=== PATIENT | male | born 1990 | race Caucasian/White ===

== ENCOUNTER 2016-08-18 16:18 | Inpatient (IN) | payer BC, MEDICAID, OTHER ==
--- NOTE | 2016-08-18 18:07 | ED ---
General Adult HPI - General Chief complaint: Skin/Abscess/Foreign Body Stated complaint: Male Time Seen by Provider: 08/18/16 17:34 Source: patient, RN notes reviewed Mode of arrival: ambulatory Limitations: no limitations - History of Present Illness Initial comments: 25 yo male presents to the ER with cc of feelings of things crawling on him. Patient states he has tried all of his own treatments. Patient states he got a new couch he cleaned his bed. Patient states that he cleaned himself with scabies cream he shaved his body. Patient states he's never actually seen any bugs that he feels a little crawling on him. Patient states worse at night than during the day. Patient states that he just does not know what else to do. Patient states he just cannot tolerate this anymore. Patient does have a diagnosis of schizophrenia. Patient states he has not been taking any of his medications. Patient states he typically has a meltdown about once every 1-2 years gets on meds goes off of the metatarsal. Patient states that he was concerned due to these continued symptoms and problems with thought that he should be evaluated. Patient denies any recent fever, chills, shortness of breath, chest pain, back pain, abdominal pain, nausea vomiting, numbness or tingling, dysuria or hematuria, constipation or diarrhea, headaches or visual changes, or any other current symptoms. - Related Data Home Medications Medication Instructions Recorded Confirmed No Known Home Medications [No 08/18/16 08/18/16 Known Home Medications] Allergies Allergy/AdvReac Type Severity Reaction Status Date / Time No Known Allergies Allergy Verified 08/18/16 17:42 Review of Systems ROS Statement: Those systems with pertinent positive or pertinent negative responses have been documented in the HPI. ROS Other: All systems not noted in ROS Statement are negative. Past Medical History Past Medical History: Respiratory Disorder Additional Past Medical History / Comment(s): schizophrenia History of Any Multi-Drug Resistant Organisms: None Reported Past Surgical History: Tonsillectomy Additional Past Surgical History / Comment(s): colonoscopy Past Anesthesia/Blood Transfusion Reactions: No Reported Reaction Past Psychological History: Anxiety, Depression, Panic Disorder, Schizophrenia Smoking Status: Current every day smoker Past Alcohol Use History: Occasional Additional Past Alcohol Use History / Comment(s): Patient is currently a smoker one pack per day for several years. He states he smokes is much marijuana as he can. He states he tried cocaine once but does not use on a regular basis. He states he drinks alcohol occasionally. Past Drug Use History: Marijuana, Methamphetamine - Past Family History Father Additional Family Medical History / Comment(s): Father is alive at age 49 with history of anxiety. Mother Additional Family Medical History / Comment(s): Mother is alive at age 42 with history of back problems and back surgery. Brother(s) Additional Family Medical History / Comment(s): Patient has one half brother with no major medical problems. He has 1 sister with no major medical problems. Patient has one son that is healthy. General Exam Limitations: no limitations General appearance: alert, in no apparent distress Eye exam: Present: normal appearance, PERRL, EOMI. Absent: scleral icterus, conjunctival injection, periorbital swelling ENT exam: Present: normal exam, mucous membranes moist Neck exam: Present: normal inspection. Absent: tenderness, meningismus, lymphadenopathy Respiratory exam: Present: normal lung sounds bilaterally. Absent: respiratory distress, wheezes, rales, rhonchi, stridor Cardiovascular Exam: Present: regular rate, normal rhythm, normal heart sounds. Absent: systolic murmur, diastolic murmur, rubs, gallop, clicks Back exam: Present: normal inspection Neurological exam: Present: alert, oriented X3, CN II-XII intact. Absent: motor sensory deficit Psychiatric exam: Present: normal affect, normal mood Skin exam: Present: warm, dry, intact, normal color. Absent: rash Course Vital Signs 08/18/16 08/18/16 16:33 19:08 Temperature 97.6 F Pulse Rate 85 63 Respiratory 20 15 Rate Blood Pressure 120/67 119/72 O2 Sat by Pulse 98 99 Oximetry Medical Decision Making - Medical Decision Making 25-year-old male presents to the emergency department with a chief complaint of feeling as if nothing is currently on him. This time physical exam does not show any signs of any insect bites that is nontender to be any irritation to the skin. There is concern for psychiatric involvement to the patient's psychiatric history nothing of his medications. We will have the patient evaluated by psychiatry. At this time the patient will be admitted to the psychiatric unit for psychosis. - Lab Data Lab Results 08/18/16 Range/Units 18:14 Urine Opiates Screen Not Detected (NotDetected) Ur Oxycodone Screen Not Detected (NotDetected) Urine Methadone Screen Not Detected (NotDetected) Ur Propoxyphene Screen Not Detected (NotDetected) Ur Barbiturates Screen Not Detected (NotDetected) U Tricyclic Antidepress Not Detected (NotDetected) Ur Phencyclidine Scrn Not Detected (NotDetected) Ur Amphetamines Screen Not Detected (NotDetected) U Methamphetamines Scrn Not Detected (NotDetected) U Benzodiazepines Scrn Not Detected (NotDetected) Urine Cocaine Screen Not Detected (NotDetected) U Marijuana (THC) Screen Detected H (NotDetected) Disposition Clinical Impression: Psychosis Disposition: TRANSFER TO PSYCH HOSP/UNIT Time of Disposition: 19:51
[2016-08-18] MEDS ORDERED: ZIPRASIDONE 20 MG VIAL IM PRN (20:29)
[2016-08-18] MEDS ORDERED: MAGNESIUM HYDROXIDE 2,400 MG/10 ML CUP PO PRN (20:29)
[2016-08-18] MEDS ORDERED: MAG HYDROX/AL HYDROX/SIMETH 30 ML CUP PO PRN (20:29)
[2016-08-18 20:46] LABS: Appearance,Urine Clear (Clear); Bilirubin,Urine Negative (Negative); Glucose,Urine (UA) Negative (Negative); Ketones,Urine 1+ (Negative); Leukocyte Esterase,Urine Negative (Negative); Nitrite,Urine Negative (Negative); PH, Urine 6.5 (5.0-8.0); Protein,Urine Trace (Negative); Specific Gravity,Urine 1.026 (1.001-1.035); UA Billing (MACRO vs. MICRO) CHEM
[2016-08-18] MEDS: LORazepam 1 MG TAB PO PRN (23:17)
[2016-08-19] MEDS: NICOTINE 14MG/24HR PATCH TRANSDERM SCH (10:04)
[2016-08-19 10:07] LABS: Basophils # (A) 0.1 k/uL (0-0.2); Basophils % (A) 1 %; CH 30.8; CHCM 35.9; Eosinophils # (A) 0.3 k/uL (0-0.7); Eosinophils % (A) 4 %; HDW 2.98; HGB 17.3 gm/dL (13.0-17.5); Luc # (Auto) 0.17; Luc % (Auto) 3; Lymphocytes # (A) 1.6 k/uL (1.0-4.8); Lymphocytes % (A) 25 %; MCH 30.4 pg (25.0-35.0); MCHC 35.3 g/dL (31.0-37.0); MCV 86.3 fL (80.0-100.0); Mean Platelet Volume 8.3; Monocytes # (A) 0.6 k/uL (0-1.0); Monocytes % (A) 8 %; Neutrophils # (A) 3.9 k/uL (1.3-7.7); Neutrophils % (A) 59 %; RBC 5.68 m/uL (4.30-5.90); RDW 12.7 % (11.5-15.5); WBC 6.6 k/uL (3.8-10.6); WBC (Perox) 6.66
[2016-08-19 10:22] LABS: ALT 24 U/L (21-72); AST 21 U/L (17-59); Alkaline Phosphatase 54 U/L (38-126); Anion Gap 12 mmol/L; Blood Urea Nitrogen 16 mg/dL (9-20); Calcium 9.6 mg/dL (8.4-10.2); Carbon Dioxide 27 mmol/L (22-30); Chloride 103 mmol/L (98-107); Glucose 74 mg/dL (74-99); Non-African American GFR(MDRD) >60 (>60 ml/min/1.73 sqM); Potassium 4.3 mmol/L (3.5-5.1); Sodium 142 mmol/L (137-145); Total Bilirubin 0.7 mg/dL (0.2-1.3); Total Protein 7.2 g/dL (6.3-8.2)
--- NOTE | 2016-08-19 10:59 | P.HP ---
Psychiatric H&P - . History & Physical: Allergies Allergy/AdvReac Type Severity Reaction Status Date / Time No Known Allergies Allergy Verified 08/18/16 17:42 Vital Signs Temp 98.0 F 08/19/16 06:55 Pulse 68 08/19/16 06:55 Resp 18 08/19/16 06:55 BP 95/50 08/19/16 06:55 Pulse Ox 98 08/18/16 22:06 Intake & Output 08/18/16 08/19/16 08/19/16 18:59 06:59 18:59 Weight 64.7 kg Laboratory Last Values WBC 6.6 k/uL (3.8-10.6) 08/19/16 09:34 RBC 5.68 m/uL (4.30-5.90) 08/19/16 09:34 Hgb 17.3 gm/dL (13.0-17.5) 08/19/16 09:34 Hct 49.0 % (39.0-53.0) 08/19/16 09:34 MCV 86.3 fL (80.0-100.0) 08/19/16 09:34 MCH 30.4 pg (25.0-35.0) 08/19/16 09:34 MCHC 35.3 g/dL (31.0-37.0) 08/19/16 09:34 RDW 12.7 % (11.5-15.5) 08/19/16 09:34 Plt Count 163 k/uL (150-450) 08/19/16 09:34 Neutrophils % 59 % 08/19/16 09:34 Lymphocytes % 25 % 08/19/16 09:34 Monocytes % 8 % 08/19/16 09:34 Eosinophils % 4 % 08/19/16 09:34 Basophils % 1 % 08/19/16 09:34 Neutrophils # 3.9 k/uL (1.3-7.7) 08/19/16 09:34 Lymphocytes # 1.6 k/uL (1.0-4.8) 08/19/16 09:34 Monocytes # 0.6 k/uL (0-1.0) 08/19/16 09:34 Eosinophils # 0.3 k/uL (0-0.7) 08/19/16 09:34 Basophils # 0.1 k/uL (0-0.2) 08/19/16 09:34 Urine Color Yellow 08/18/16 18:14 Urine Appearance Clear (Clear) 08/18/16 18:14 Urine pH 6.5 (5.0-8.0) 08/18/16 18:14 Ur Specific [place] 1.026 (1.001-1.035) 08/18/16 18:14 Urine Protein Trace (Negative) H 08/18/16 18:14 Urine Glucose (UA) Negative (Negative) 08/18/16 18:14 Urine Ketones 1+ (Negative) H 08/18/16 18:14 Urine Blood Negative (Negative) 08/18/16 18:14 Urine Nitrate Negative (Negative) 08/18/16 18:14 Urine Bilirubin Negative (Negative) 08/18/16 18:14 Urine Urobilinogen 2.0 mg/dL (<2.0) 08/18/16 18:14 Ur Leukocyte Esterase Negative (Negative) 08/18/16 18:14 Urine Opiates Screen Not Detected (NotDetected) 08/18/16 18:14 Ur Oxycodone Screen Not Detected (NotDetected) 08/18/16 18:14 Urine Methadone Screen Not Detected (NotDetected) 08/18/16 18:14 Ur Propoxyphene Screen Not Detected (NotDetected) 08/18/16 18:14 Ur Barbiturates Screen Not Detected (NotDetected) 08/18/16 18:14 U Tricyclic Antidepress Not Detected (NotDetected) 08/18/16 18:14 Ur Phencyclidine Scrn Not Detected (NotDetected) 08/18/16 18:14 Ur Amphetamines Screen Not Detected (NotDetected) 08/18/16 18:14 U Methamphetamines Scrn Not Detected (NotDetected) 08/18/16 18:14 U Benzodiazepines Scrn Not Detected (NotDetected) 08/18/16 18:14 Urine Cocaine Screen Not Detected (NotDetected) 08/18/16 18:14 U Marijuana (THC) Screen Detected (NotDetected) H 08/18/16 18:14 08/19/16 10:43 IDENTIFYING DATA: This patient is a 25-year-old single male who was admitted to the mental health unit through the emergency room for acute symptoms of psychosis and suicidal thoughts. HPI: The patient states that he's been having suicidal thoughts with a plan of shooting himself. He reports having no access or ownership of a firearm. He states his mood has been extremely depressed. Sleep has been poor appetite has been decreased with subsequent weight loss. Energy is low. He endorses no tearfulness or crying spells. He does have an ongoing history of psychosis. He described to the emergency room physician that he had a feeling of bugs crawling on him all over his body. He reports shaving all of his body hair and using [id number] remedies. He states to no avail he continues to have this feeling that's very uncomfortable. He spontaneously endorses a history of paranoid thinking and suspiciousness. He has been previously diagnosed with schizophrenia. He is on no current psychotropic medications. He states he smokes marijuana all day long. He does not feel that marijuana could contribute to his symptoms of psychosis. He presents for help but is very apprehensive in terms of agreeing to take a medication. He states that he is facing a court hearing Tuesday. He reports that 3 months ago he kicked the door in at his son's mother's home and was charge with distraction of a building and breaking and entering. He has been in [facility] the past and is fearful he will be incarcerated. PAST PSYCHIATRIC HISTORY: The patient has had numerous inpatient psychiatric admissions the last one was in May 2015. He has previously been diagnosed with schizophrenia. He has tried Risperdal, Zyprexa, Haldol, Geodon, Elavil, Ativan, Cogentin. He refuses to try any antipsychotic that he is previously tried. No documented suicide attempts although he presents with ideation. He has worked with [facility] in the past. PMH: None diagnosed ALLERGIES: NO KNOWN DRUG ALLERGIES MEDICATIONS: None CHEMICAL DEPENDENCY HISTORY: The patient smokes marijuana throughout the day on a daily basis, he reports using alcohol 2-3 times a week having 1-2 drinks, he will occasionally use an Adderall, he reports no use of other illicits. He's never been placed in residential treatment for chemical dependency reasons. FAMILY PSYCHIATRIC HISTORY: The patient states his father has struggle with anxiety, his mother may have had symptoms of psychosis, no suicides in the family FAMILY CHEMICAL DEPENDENCY HISTORY: He reports his mother has been addicted to heroin and crack cocaine in the past SOCIAL HISTORY: The patient is 25 years old she single he has a 3-year-old son. His son lives with that child's mother. 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 He has a high school education and some college classes no service. He has 3 brothers 3 sisters. He states he has no support from others. He states that he did have a girlfriend but the recently broken up but are still on good terms. He is endorsing no history of abuse legal history includes recent charges as described above as well as a domestic violence charge when he was younger that resulted in a 93 day [facility] sentence MENTAL STATUS EXAM: The patient is a thin male appearing his stated age. He is dressed in his own clothing. His head is shaved. Eye contact is appropriate speech is spontaneous fluent and mildly pressured at times. He reports a depressed and suicidal mood. He endorses no auditory or visual hallucinations he does endorse constant paranoid thinking feeling as though he is always being watched or followed or in danger. He is endorsing no homicidal ideation. Insight and judgment are impaired. He offers significant resistance to us medicating his symptoms of psychosis. He demonstrates no verbal or physical aggressiveness although he is known to have a history of violence. He is oriented to person place and date. He did not wish to participate in any specific cognitive testing. STRENGTHS/WEAKNESSES: Strengths: Housing, presented to the hospital for treatment weaknesses: Lack of insight into need for medication management, legal interaction, limited support INTELLECTUAL FUNCTIONING: Average IMPRESSIONS: [] 1. Schizoaffective disorder depressed type II. Antisocial traits 3. Psychosocial dysfunction due to current psychiatric symptoms, legal interaction limited support PLAN: The patient has been admitted to the mental health unit he did sign in voluntarily. We reviewed his presenting symptoms and medication options. Reluctantly he agreed to let me prescribe Latuda and he will consider complying with that medication. Social work will meet with the patient's complete a psychosocial assessment and begin discharge planning. He will be seen by an last dipper for routine medical consultation. We will involve family or friends as he will allow if it is appropriate in his treatment and discharge planning. He is encouraged to participate in the milieu. We will monitor him for safety and provide reality orientation when possible.
[2016-08-19] MEDS: ACETAMINOPHEN TAB 325 MG TAB PO PRN (11:17)
[2016-08-19] MEDS: LURASIDONE 40 MG TAB PO SCH ×2 (11:17→13:13)
[2016-08-19] MEDS ORDERED: hydrOXYzine PAMOATE 25 MG CAP PO STA (16:36)
--- NOTE | 2016-08-19 17:15 | CONS ---
DATE OF CONSULTATION: CHIEF COMPLAINT: Depression and psychosis. HISTORY OF PRESENT ILLNESS: This is a 25-year-old male with past medical history significant for depression and psychosis presented today with worsening symptoms. Patient currently is denying chest pain, shortness of breath, nausea, vomiting, abdominal pain, dizziness, lightheadedness or blurry vision. Patient complaining of being unable to gain weight at the time and he is very healthy and active and tried to eat more, but his weight does not ( ) for long time. Patient said that underwent EGD and colonoscopy in the past to rule out any possibility of Crohn's disease or any inflammatory bowel disease and that was negative. Patient continued to have occasional abdominal pain and diarrhea on occasional basis, but reported none in the last one month and said that he is not taking any medication and he is not interested on being on any medications. REVIEW OF SYSTEMS: All fourteen systems reviewed and negative except as above. PAST MEDICAL HISTORY: 1. Questionable irritable bowel syndrome. 2. Schizophrenia. 3. Depression. PAST SURGICAL HISTORY: 1. Positive for EGD. 2. Colonoscopy. 3. Colectomy. SOCIAL HISTORY: The patient smokes one pack per day and thinking of quitting after this hospital admission. Drinks alcohol 2 to 3 times a week with a couple beers only; never been dependent on alcohol. Smokes marijuana every day to make him feel better. FAMILY HISTORY: Patient is single, has one child who is 3-years old, lives with the mother, healthy. Father is healthy. Mother with schizoaffective disorder. HOME MEDICATION: None. PHYSICAL EXAMINATION: VITAL SIGNS: Reviewed and stable. LUNGS: Clear to auscultation bilaterally. HEART: S1, S2. ABDOMEN: Soft, nontender, positive bowel sounds in all four quadrants. LOWER EXTREMITIES: No edema. PSYCH: Alert and oriented x3. Relaxed mood and affect. IMAGING AND LABS: CBC normal. Chem-7 normal. Liver function tests normal. ASSESSMENT AND PLAN: 1. Acute depression with psychosis. Will defer to your management. 2. Irritable bowel syndrome. Patient does not requiring any medication at this point. 3. Patient will benefit from follow up outpatient with GI Clinic. 4. Drug dependency. Will consult patient regarding cessation.
[2016-08-19] MEDS: LORazepam 1 MG TAB PO PRN (18:01)
[2016-08-20] MEDS: LORazepam 1 MG TAB PO PRN (02:54)
[2016-08-20] MEDS: NICOTINE 14MG/24HR PATCH TRANSDERM SCH (09:25)
[2016-08-20] MEDS: LURASIDONE 40 MG TAB PO SCH (09:25)
--- NOTE | 2016-08-20 11:47 | P.PN ---
Progress Note - Text Interval history: The patient is found in the hallway he follows me to an interview room. The patient is agitated throughout the whole session. He states he continues to feel he has a body infestation and demands treatment. He states he has a gastrointestinal disorder that requires treatment. He refused the Latuda and refuses to take any other psychotropic medication I offer. Treatment team staff also observed symptoms of psychosis with Zafar. He admits to paranoid thoughts. He spontaneously describes persecutory themes. Mental status exam: The patient is alert he is easily agitated he continues to have symptoms of psychosis. His thoughts are not well organized. He can be verbally intimidating and is observed pacing the unit talking out loud regarding his feelings of irritability. Insight and judgment are poor. At times he responds to verbal redirection. He demonstrated no verbal or physical aggressiveness toward me during our session. Plan: The patient is presenting with mood and psychotic symptoms and is refusing to take any medication to treat either. He is easily agitated and this irritability appears to be increasing. As we are not able to collaborate on a treatment plan we will complete a petition and clinical certificate asking the court for treatment order. I was able to review prior formerly [facility] mental health records. Vital signs reviewed. We will monitor the patient for agitated behavior and use Haldol as needed.
[2016-08-20] MEDS: HALOPERIDOL LACTATE 5 MG/ML 1 ML VIAL IM PRN (14:47)
[2016-08-20] MEDS: LORazepam 2 MG/ML SYRINGE IM PRN (14:48)
[2016-08-20] MEDS ORDERED: LORazepam 2 MG/ML SYRINGE IM STA (14:52)
[2016-08-20] MEDS ORDERED: ZIPRASIDONE 20 MG VIAL IM STA (14:53)
--- NOTE | 2016-08-20 14:57 | P.PN ---
Progress Note - Text Patient became acutely agitated, hostile and threatening. His sales manager prearranged funerals required a behavioral code, seclusion and 4-point restraint. I evaluated him and his seclusion room. He remained acutely agitated even after receiving 5 mg of haloperidol and 1 mg of lorazepam IM. He demanded to be evaluated by a medical doctor. He believes that he has crabs and talked about having shaved the hair off his body yet still experiencing a crawling sensation on his abdomen, arms and legs, face, neck, nose and eyeballs that emanate from his groin area. He was ugly against the restraints and yelling and screaming. He threatened to injure staff once he is released from restraint. I ordered Geodon 20 mg and lorazepam 2 mg IM.
[2016-08-20] MEDS ORDERED: WATER FOR INJECTION, STERILE 10 ML IV ONE (15:00)
[2016-08-20] MEDS: ACETAMINOPHEN TAB 325 MG TAB PO PRN (21:24)
[2016-08-21] MEDS: LORazepam 1 MG TAB PO PRN ×2 (00:11→13:06)
[2016-08-21] MEDS: ACETAMINOPHEN TAB 325 MG TAB PO PRN (06:59)
[2016-08-21] MEDS: LURASIDONE 40 MG TAB PO SCH (09:19)
[2016-08-21] MEDS: NICOTINE 14MG/24HR PATCH TRANSDERM SCH (09:19)
[2016-08-21] MEDS: BENZTROPINE MESYLATE 1 MG TAB PO PRN ×2 (10:03→21:16)
--- NOTE | 2016-08-21 10:35 | P.PN ---
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 He maintained eye contact,psychomotor agitation ,not able to sit still , persecutory and somatic delusion He has angry demeanor ,very defensive ,no insight for need for treatment ,trying to dictate "WHAT MEDICATION HE WANTS",, reckless disregard for safety of self and others ,denies active suicidal ideation ,seems responding to internal stimulus ,insight and judgment are impaired . PLAN: Continue inpatient psychiatric hospitalization. , .,pursuing court order for treatment ,he agreed to start low dose of SEROQUEL for Anxiety and Irritability ,continue PRN and limits settings Encourage participation in therapeutic groups and activities. Assess clinical status response to treatment daily basis.
[2016-08-21] MEDS ORDERED: QUEtiapine 25 MG TAB PO ONE (10:45)
[2016-08-21] MEDS ORDERED: QUEtiapine 25 MG TAB PO SCH (16:00)
[2016-08-21] MEDS: LORazepam 2 MG/ML SYRINGE IM PRN (19:50)
[2016-08-21] MEDS: HALOPERIDOL LACTATE 5 MG/ML 1 ML VIAL IM PRN (19:51)
[2016-08-21] MEDS ORDERED: QUEtiapine 50 MG TAB PO PRN (20:38)
--- NOTE | 2016-08-21 20:51 | P.PN ---
Progress Note - Text Patient became agitated, hostile and threatening. He required seclusion and 4 -point restraint. I evaluated him at his seclusion room. He remained acutely agitated even after receiving 5 mg of haloperidol and 1 mg of lorazepam IM. He demanded to be evaluated by a medical doctor. He believes that he has crabs. ACCORDING TO NURSING STAFF:""Pt. threatening physical violence, demanding to be seen by a medical doctor "right now", clenching fists, yelling at brief writer to get "the fuck out of the way." Pt. became physically aggressive towards staff " When I reassessed the patient at 20:40 ,patient was calm ,agreed to take one dose of Seroquel XR 300 mg ,he does not want any medication on regular basis "I WILL TAKE SEROQUEL ONLY PRN"
[2016-08-21] MEDS: GABAPENTIN 400 MG CAP PO SCH ×2 (22:29→22:50)
[2016-08-22] MEDS: NICOTINE 14MG/24HR PATCH TRANSDERM SCH (07:41)
[2016-08-22] MEDS: GABAPENTIN 400 MG CAP PO SCH ×3 (07:41→20:06)
[2016-08-22] MEDS: BENZTROPINE MESYLATE 1 MG TAB PO PRN ×3 (07:42→20:06)
[2016-08-22] MEDS ORDERED: LIDOCAINE 4% CREAM 5 GM TUBE TOPICAL ONE (09:47)
--- NOTE | 2016-08-22 10:04 | P.PN ---
Progress Note - Text SUBJECTIVE: I reviewed the medical record, interviewed the patient in library :patient is 25 years old male admitted to unit with psychosis and suicidal ideation ,He believes that he has crabs and talked about having shaved the hair off his body yet still experiencing a crawling sensation on his abdomen, arms and legs, face, neck, nose and eyeballs that came from his groin area.Patient endorses "Having pain "and asking for "ULTRAM OR VALIUM",I discussed with him his SA history but he was defensive,he reports having side-effect from psychotropic medications"I AM HAVING MUSCLES SPASM " PER NURSING STAFF: Yesterday ,patient became agitated ,hostile and threatening ,did require multiple PRN ,see MAR ,was in seclusion and 4 point restraint OBJECTIVE: He presented as a casually groomed male who is less irritable today. He maintained eye contact,,able to sit still, ,persecutory and somatic delusion He has angry demeanor ,very defensive ,no insight for need for treatment ",,reckless disregard for safety of self and others ,denies active suicidal ideation ,seems responding to internal stimulus ,insight and judgment are impaired . PLAN: Continue inpatient psychiatric hospitalization. , .,pursuing court order for treatment ,he agreed to start SEROQUEL XR 200 mg QPM ,I start Neurontin for pain ,no opium pain medication ,order Lidocaine Topical cream , limits settings Encourage participation in therapeutic groups and activities. Assess clinical status response to treatment daily basis.
[2016-08-22] MEDS: IBUPROFEN 800 MG TAB PO PRN (10:51)
[2016-08-22] MEDS: LORazepam 2 MG/ML SYRINGE IM PRN (11:20)
[2016-08-22] MEDS: HALOPERIDOL LACTATE 5 MG/ML 1 ML VIAL IM PRN (11:20)
--- NOTE | 2016-08-22 11:45 | XR ---
EXAMINATION TYPE: XR knee limited LT DATE OF EXAM: 08/22/2016 11:16 AM COMPARISON: NONE HISTORY: 25-year-old male anterior knee bruising, rule out fracture TECHNIQUE: 2 views FINDINGS: No acute fracture, subluxation, or dislocation seen. There is anterior soft tissue swelling and suggestion of underlying moderate knee joint effusion. Extensor mechanism is intact. IMPRESSION: Anterior soft tissue swelling and suggestion of moderate underlying knee joint effusion. No acute oss eous abdomen body seen. If concern for an occult injury or internal derangement, MRI could be conside red.
[2016-08-22] MEDS: QUEtiapine XR 200 MG TAB.ER.24H PO SCH (17:48)
[2016-08-22] MEDS: LORazepam 1 MG TAB PO PRN (20:07)
[2016-08-22] MEDS ORDERED: BENZTROPINE MESYLATE 0.5 MG TAB PO ONE (21:28)
[2016-08-23] MEDS: GABAPENTIN 400 MG CAP PO SCH ×4 (08:51→21:15)
[2016-08-23] MEDS: NICOTINE 14MG/24HR PATCH TRANSDERM SCH (08:52)
--- NOTE | 2016-08-23 10:24 | P.PN ---
Progress Note - Text Interval history: The patient is found at the front desk assistant he follows me to an interview room. He was acutely agitated over the weekend and demonstrated violent behavior. He required use of restraints. The patient continues to verbalize psychotic thinking. He states he has crabs and he feels them running up and down his legs his back in his arm as we speak this morning. He verbalizes that he is been previously diagnosed as having symptoms of psychosis but has no insight into that diagnosis. He remains easily agitated. During conversation he frequently uses profanity and attempts to be verbally intimidating. The to do was discontinued he's been placed on Seroquel XR. The patient's will not tolerate a discussion of other antipsychotics we may use that come in a depot form. Mental status exam: The patient is a thin male he seated in his chair he is dressed casually in his own clothing. Eye contacts appropriate. He has spontaneous speech he is mildly pressured at times. He continues to have a delusional thought process. He lacks insight into his recent violent behavior and symptoms of psychosis. He is still verbally agitated and threatens violence if he is given another injection. He is encouraged to exercise what control he has in maintaining appropriate behavior he reports continued suicidal thoughts. He verbalizes he would attempt to harm others if we do not comply with what he is demanding. Plan: At this point continue Seroquel at its current dose as that is the only medication he is agreeable to. We will consider changing the Haldol when necessary to another medication as he reports some symptoms of EPS with it. I will confer with the treatment team prior to making that change. He requires continued psychiatric hospitalization. He has a court date scheduled for Tuesday. We will continue to closely monitor for violent behavior. This morning he has been able to manage his behavior without one-to-one supervision. Vital signs reviewed. X-ray report of his knee was reviewed.
[2016-08-23] MEDS ORDERED: FLUPHENAZINE 2.5 MG/ML IM PRN (10:56)
[2016-08-23] MEDS: QUEtiapine XR 200 MG TAB.ER.24H PO SCH (19:38)
[2016-08-23] MEDS: TRIAMCINOLONE 0.1% CREAM 80 GM TUBE TOPICAL SCH (19:39)
[2016-08-23] MEDS: HYDROCORTISONE 1% CREAM 30 GM TUBE TOPICAL SCH (19:39)
[2016-08-23] MEDS: KETOCONAZOLE 2% SHAMPOO 1 APPLIC/ML TOPICAL SCH ×2 (21:15→21:47)
[2016-08-24] MEDS: LORazepam 1 MG TAB PO PRN ×2 (02:14→18:56)
[2016-08-24] MEDS: LORATADINE 10 MG TAB PO SCH (08:11)
[2016-08-24] MEDS: NICOTINE 14MG/24HR PATCH TRANSDERM SCH (08:12)
[2016-08-24] MEDS: FLUCONAZOLE 150 MG TAB PO SCH (08:12)
[2016-08-24] MEDS: GABAPENTIN 400 MG CAP PO SCH ×3 (08:12→21:28)
[2016-08-24] MEDS: TRIAMCINOLONE 0.1% CREAM 80 GM TUBE TOPICAL SCH ×2 (08:14→21:28)
[2016-08-24] MEDS: BENZTROPINE MESYLATE 1 MG TAB PO PRN (08:44)
--- NOTE | 2016-08-24 11:01 | P.PN ---
Progress Note - Text Interval history: The patient is found in the hallway he follows me to an interview room. The patient was very agitated and verbally aggressive during our meeting. The patient states he wants a prescription for Valium and to be released from the hospital immediately. We discussed the need for the court hearing and he states it's not necessary. Numerous times he states "you are fucking up my life and you are an assholel" once again I tried explaining to the patient symptoms we are trying to address. Numerous times he refuses to take any other medication. We discussed the options of using Abilify or invega as they do have injectable Depo forms. Mental status exam: The patient is a thin male he stressors was own clothing. The patient remains agitated and verbally aggressive. He frequently used profanity in our conversation. He voices thoughts of being persecuted by this global technical writer. He has no insight into his own mood instability and aggressive behaviors and inappropriate speech. He is observed on the phone speaking to family members yelling loudly and being inappropriate. He reports no suicidal ideation. He is endorsing no auditory or visual hallucinations. He states the tactile hallucinations have resolved. At one point he agrees that he has had a lot of instability in his life but then quickly he denies that and refuses to take medication. His thought process is not well organized. He will asked the same question several times in the session. He gets up during the session and paces around the room and demonstrates defensive body language. Plan: We will attempt to offer invega 6 mg we will continue Seroquel XR at bedtime. We are temporarily using to antipsychotics just to tried to reduce agitated behavior and symptoms of psychosis. The patient has poor insight into his symptoms. We will continue monitoring him for safety. Vital signs reviewed. He does have a court hearing scheduled for Tuesday.
[2016-08-24] MEDS: PALIPERIDONE 6 MG TAB.ER.24 PO SCH (11:28)
[2016-08-24] MEDS: QUEtiapine XR 200 MG TAB.ER.24H PO SCH (18:55)
[2016-08-24] MEDS: HYDROCORTISONE 1% CREAM 30 GM TUBE TOPICAL SCH (21:28)
[2016-08-25 01:58] VITALS: RESP 18
[2016-08-25] MEDS: FLUCONAZOLE 150 MG TAB PO SCH (08:45)
[2016-08-25] MEDS: GABAPENTIN 400 MG CAP PO SCH (08:45)
[2016-08-25] MEDS: NICOTINE 14MG/24HR PATCH TRANSDERM SCH (08:45)
[2016-08-25] MEDS: LORATADINE 10 MG TAB PO SCH (08:45)
[2016-08-25] MEDS: TRIAMCINOLONE 0.1% CREAM 80 GM TUBE TOPICAL SCH ×2 (08:45→22:23)
[2016-08-25] MEDS: PALIPERIDONE 6 MG TAB.ER.24 PO SCH (08:45)
[2016-08-25] MEDS: BENZTROPINE MESYLATE 1 MG TAB PO PRN ×3 (09:26→22:15)
--- NOTE | 2016-08-25 10:47 | P.PN ---
Progress Note - Text Interval history: The patient is found in the hallway he follows me to an interview room. He states that he slept approximate 5-1/2 hours last evening. Appetite is stable. He describes a long history of what appears to be irritable bowel symptoms. He did comply again with the invega. We discussed utilizing the Invega Sustenna and he offers resistance. The patient was able to demonstrate more insight into his recent behavior and stated that "nothing gets done being nice". He reports he doesn't feel emotions anymore and he knows he needs to flip a switch when he needs something done. Mental status exam: The patient is a thin male appearing his stated age. He is dressed in his own clothing. Today he is calm he maintains an appropriate volume in terms of speech. He demonstrates no agitated behavior. There are times when he does get agitated however he accuses me of lying to him. He continues to believe that he had an infestation of body lice although there was no medical evidence. His thought process was more organized today versus yesterday. No signs of EPS. He is reporting no suicidal ideation or homicidal ideation today. Plan: The patient will continue on the invega 6 mg daily. We discussed the plan of instituting invega Sustenna. We will continue to monitor him for safety and encourage his participation in the milieu. He has a scheduled court date for Tuesday. Reality orientation is provided. Suggestions for cognitive reframing provided. Vital signs reviewed.
[2016-08-25] MEDS: LORazepam 1 MG TAB PO PRN ×2 (11:30→22:15)
[2016-08-25] MEDS: IBUPROFEN 800 MG TAB PO PRN (11:31)
[2016-08-25] MEDS: FAMOTIDINE 20 MG TAB PO SCH (21:12)
[2016-08-25] MEDS: HYDROCORTISONE 1% CREAM 30 GM TUBE TOPICAL SCH (22:23)
[2016-08-26] MEDS: NICOTINE 14MG/24HR PATCH TRANSDERM SCH (08:38)
[2016-08-26] MEDS: PALIPERIDONE 6 MG TAB.ER.24 PO SCH (08:38)
[2016-08-26] MEDS: FAMOTIDINE 20 MG TAB PO SCH ×2 (08:38→20:18)
[2016-08-26] MEDS: LORATADINE 10 MG TAB PO SCH (08:38)
[2016-08-26] MEDS: FLUCONAZOLE 150 MG TAB PO SCH (08:38)
[2016-08-26] MEDS: TRIAMCINOLONE 0.1% CREAM 80 GM TUBE TOPICAL SCH ×2 (08:39→20:19)
[2016-08-26] MEDS: BENZTROPINE MESYLATE 1 MG TAB PO PRN (09:31)
[2016-08-26] MEDS: LORazepam 1 MG TAB PO PRN ×2 (13:49→22:20)
--- NOTE | 2016-08-26 14:04 | P.PN ---
Progress Note - Text SUBJECTIVE: I reviewed the medical record, interviewed Mr. Ortega and discussed his treatment and treatment plan during team meeting. He was admitted to the psychiatric unit on 08/18/2016 with the diagnoses of schizoaffective disorder depressed type. He presented with suicidal thoughts with a plan to shoot himself. Before admission he had shaved the hair on his body because he believes that he was infested with lice. He was agitated or restless and required the use of IM sedation, seclusion and restraint. He denied that he is concerned about having bugs crawling in his skin. He denied that he is infested with lice. He talked about his mental illness and alleged that he does not require continued treatment with psychotropic medications. He is anxious about his court hearing tomorrow because he expects to to be giving an involuntary order and treatment with a long-acting antipsychotic medications. OBJECTIVE: He presented as a tall thin 25-year-old male with a shaved scalp and no hearing his arms. He maintained eye contact and attended to the interview. He had no prominent physical abnormalities. He had a blunted but bright facial expression. He is alert and oriented to person, place and time. He showed no abnormality of psychomotor activity. He had no abnormal involuntary movements. His speech was spontaneous with normal rate, rhythm and volume. His affect was blunted but stable and appropriate. He denied suicidal ideation or wishes. He denied homicidal ideation. He denied depressive cognitions such as hopelessness, helplessness and worthlessness. He did not ruminate about somatic sensations. He did not express ideas reference or paranoid ideation. His thinking was concrete but his associations were coherent and logical. He denied thought broadcasting, thought insertion and thought control. He denied auditory, visual, olfactory and somatosensory hallucinations. He did not appear to be responding to internal stimuli. ASSESSMENT: He has a history of schizoaffective disorder and presented with a mixed picture of a mood disorder and psychotic symptoms. His somatic hallucinations, agitation and delusional beliefs about infestation have diminished with the current dose of Invega. Overall he appears mildly mentally ill. PLAN: Continue with the probate hearing on 08/27/2016, continue Invega 6 mg daily, begin Invega Sustenna as per protocol if he receives an involuntary treatment order. Encouraged continued participation in therapeutic groups and activities. Evaluate clinical status response to treatment daily basis.
[2016-08-26 14:19] VITALS: BMI 19.0
[2016-08-26] MEDS: KETOCONAZOLE 2% SHAMPOO 1 APPLIC/ML TOPICAL SCH (20:18)
[2016-08-26] MEDS: HYDROCORTISONE 1% CREAM 30 GM TUBE TOPICAL SCH (20:19)
[2016-08-27 04:57] VITALS: BP 142/76; PULSE 114; TEMP 97.5
[2016-08-27] MEDS: FAMOTIDINE 20 MG TAB PO SCH (08:08)
[2016-08-27] MEDS: PALIPERIDONE 6 MG TAB.ER.24 PO SCH (08:08)
[2016-08-27] MEDS: LORATADINE 10 MG TAB PO SCH (08:08)
[2016-08-27] MEDS: NICOTINE 14MG/24HR PATCH TRANSDERM SCH (08:09)
[2016-08-27] MEDS: FLUCONAZOLE 150 MG TAB PO SCH (08:09)
[2016-08-27] MEDS: TRIAMCINOLONE 0.1% CREAM 80 GM TUBE TOPICAL SCH (08:09)
[2016-08-27] MEDS ORDERED: PALIPERIDONE IM 234 MG/1.5 ML SYG IM STA (11:36)
[2016-08-27] MEDS ORDERED: PALIPERIDONE IM 156 MG/ML SYG IM ONE (11:45)
--- NOTE | 2016-08-27 13:44 | P.DS ---
Providers Date of admission: 08/18/16 20:16 Attending physician: Ousmane Horvath Consults: 08/18/16 20:29 Consult Physician Routine Consulting Provider: Natasha Worley Consult Reason/Comments: Follow up H & P Do you want consulting provider notified?: Yes 08/22/16 16:36 Consult Physician Stat Consulting Provider: Benny Mckeon Consult Reason/Comments: Rule out pubic lice Do you want consulting provider notified?: Yes Primary care physician: Stated None - Discharge Diagnosis(es) (1) Schizoaffective disorder, bipolar type Status: Chronic Priority: High (2) Poor compliance with medication Status: Chronic Priority: High (3) Involuntary commitment Status: Acute Priority: High Hospital Course: He is a 25-year-old male with a history of a schizoaffective disorder. He presented to the unit with suicidal ideation with a plan to shoot himself. He complained of feeling "extremely depressed". His presentation changed dramatically on the unit. He became preoccupied with the fixed false belief that he was infested. He alleged that felt bugs crawling under his his skin on his arms and his legs his face his eyes. He feelings appear to emanate from his crying. The levels agitation increased to the point where he required several episodes of seclusion and restraint to prevent self- harm. His psychiatric management required multiple administrations of antipsychotics IM. He demanded to leave the hospital and we proceeded with application for involuntary hospitalization. His overall clinical status improve when he began regularly taking Invega 6 mg per day. He had a probate hearing on the day of discharge and stipulated to the court order for involuntary treatment. He reluctantly accepted the first injection of Invega Sustenna 256 mg. We arranged a second injection to [facility] 1 week after discharge. He showed a marked improvement in his mental illness and at the time of discharge appeared minimally mentally ill. Patient Condition at Discharge: Good Plan - Discharge Summary New Discharge Prescriptions: Benztropine Mesylate [Cogentin] 1 mg PO QID PRN 14 Days PRN Reason: EPS SYMPTOMS Famotidine [Pepcid] 20 mg PO BID 30 Days Nicotine 14Mg/24Hr Patch [Habitrol] 1 patch TRANSDERM DAILY 14 Days Paliperidone [Invega] 6 mg PO DAILY 7 Days Paliperidone IM [Invega Sustenna] 156 mg IM ONCE #1 syringe Discharge Medication List Benztropine Mesylate [Cogentin] 1 mg PO QID PRN 14 Days 08/27/16 [Rx] Famotidine [Pepcid] 20 mg PO BID 30 Days 08/27/16 [Rx] Nicotine 14Mg/24Hr Patch [Habitrol] 1 patch TRANSDERM DAILY 14 Days 08/27/16 [Rx ] Paliperidone [Invega] 6 mg PO DAILY 7 Days 08/27/16 [Rx] Paliperidone IM [Invega Sustenna] 156 mg IM ONCE #1 syringe 09/09/16 [Rx] Follow up Appointment(s)/Referral(s): None,Stated [Primary Care Provider] - 1-2 days (Intake, 09/02/16 @ 1:15 pm Injection, Tuesday09/03/16 @ 10:15 with [facility] RN [facility] Crisis line- [phone]) Patient Instructions/Handouts: Schizophrenia (DC), Brief Psychotic Disorder (DC ), Suicide Prevention for Adults (DC) Discharge Disposition: HOME SELF-CARE
--- NOTE | 2016-08-30 09:17 | CONS ---
DATE OF CONSULTATION: 08/23/2016 Thank you for asking me to evaluate your patient. The patient is a 25 -year-old male currently admitted for acute depression with psychosis with dermatologic complaints of possible pubic lice which we were consulted to evaluate. The patient states he has been itchy for weeks, generalized and recently shaved the hair off his scalp, legs, arms and groin due to concerns of possible pubic lice. The patient states his itch has improved since shaving and also since being prescribed topical Lidocaine gel. PAST MEDICAL HISTORY: Irritable bowel syndrome, schizophrenia and depression. PAST SURGICAL HISTORY: EGD, colonoscopy and colectomy. FAMILY HISTORY: Noncontributory. SOCIAL HISTORY: Smokes one pack per day of cigarettes, smokes marijuana daily, drinks two to three times a week of alcohol. MEDICATIONS: See chart. ALLERGIES: Unknown. PHYSICAL EXAMINATION: There is mild scaling of the scalp. There is no irritation or scaling present on the arms, legs or groin area. There is mild erythema around the perianal area. There is no evidence of any nit. There is no hair to be seen on the scalp or in the pubic area. ASSESSMENT AND PLAN: 1. Pruritus ani. 2. Pruritus generalized. 3. Seborrheic dermatitis, scalp. TREATMENT: 1. Diflucan 150 mg take one pill p.o. daily for three days. 2. Vitone 1% cream apply q.h.s. to perianal area. 3. Triamcinolone 0.1% cream apply b.i.d. to affected areas on arms and legs. 4. Zyrtec 10 mg take one pill p.o. daily for the itching. 5. Fluconazole shampoo 2% apply to scalp and wash off in five minutes. Do this three times a week. If you have any questions, please call our office at [phone]. I performed a history and physical examination of this patient and discussed the same with the dictator. I agree with the dictator's note. Any additional findings/opinions, etc. will be noted. SIL
== END 2016-08-27 12:58 | disposition home or self-care (01) | DRG 885 ==
LOC: EC 16:18 → 3MHU 20:16
PROVIDERS: ADMIT Psychiatry & Neurology Psychiatry; ATTEND Psychiatry & Neurology Psychiatry
DX: F25.0 Schizoaffective disorder, bipolar type (principal); R45.851 Suicidal ideations; Z78.1 Physical restraint status; Z91.14 Patient's other noncompliance with medication regimen; F41.0 Panic disorder [episodic paroxysmal anxiety]; F17.210 Nicotine dependence, cigarettes, uncomplicated; F12.90 Cannabis use, unspecified, uncomplicated; L21.9 Seborrheic dermatitis, unspecified; L29.0 Pruritus ani
CPT/HCPCS: 80053; 80306; 81003; 82075; 84443; 85025; 99285

== ENCOUNTER 2016-08-30 21:14 | Emergency (ER) | payer SELFPAY ==
[2016-08-30 21:25] VITALS: TEMP 98
[2016-08-30 23:34] LABS: Basophils # (A) 0.1 k/uL (0-0.2); Basophils % (A) 1 %; CHCM 35.7; Eosinophils # (A) 0.6 k/uL (0-0.7); Eosinophils % (A) 5 %; HCT 46.1 % (39.0-53.0); HGB 15.7 gm/dL (13.0-17.5); Luc # (Auto) 0.14; Luc % (Auto) 1; Lymphocytes # (A) 3.4 k/uL (1.0-4.8); Lymphocytes % (A) 27 %; MCH 29.6 pg (25.0-35.0); Mean Platelet Volume 7.5; Monocytes # (A) 0.6 k/uL (0-1.0); Monocytes % (A) 5 %; Neutrophils # (A) 7.6 k/uL (1.3-7.7); Neutrophils % (A) 61 %; RDW 12.5 % (11.5-15.5); WBC 12.4 k/uL (3.8-10.6); WBC (Perox) 12.26
[2016-08-30 23:46] LABS: ALT 27 U/L (21-72); AST 26 U/L (17-59); Acetaminophen <10.0 ug/mL; Alkaline Phosphatase 56 U/L (38-126); Anion Gap 10 mmol/L; Blood Urea Nitrogen 12 mg/dL (9-20); Calcium 9.5 mg/dL (8.4-10.2); Carbon Dioxide 31 mmol/L (22-30); Chloride 100 mmol/L (98-107); Glucose 87 mg/dL (74-99); Non-African American GFR(MDRD) >60 (>60 ml/min/1.73 sqM); Potassium 3.8 mmol/L (3.5-5.1); Salicylate <1.0 mg/dL; Sodium 141 mmol/L (137-145); Total Bilirubin 0.4 mg/dL (0.2-1.3); Total Protein 6.8 g/dL (6.3-8.2)
--- NOTE | 2016-08-31 00:10 | ED ---
Psych HPI - General Chief Complaint: Psychiatric Symptoms Stated Complaint: Mental Health Time Seen by Provider: 08/30/16 21:46 Source: patient Mode of arrival: ambulatory - History of Present Illness Initial Comments: This 25-year-old white male presents with a complaint of depression. He states that this is been long-standing. He apparently was admitted last week for the same. He states that he received a shot of Invega 3 days ago but this did not alleviate his symptoms. He states that he is having suicidal thoughts with plans. He has thought of going to [employer] in getting a razor and cutting himself with it. He also complains of mood swings and feeling unhappy and somewhat hopeless. He denies any medical complaints. He states that he has previous diagnosis of paranoid schizophrenia and psychosis, and depression. He denies any other complaints or modifying factors. He denies any recent drug or alcohol abuse but does have a history of polysubstance abuse per history. - Related Data Previous Rx's Medication Instructions Recorded Benztropine Mesylate [Cogentin] 1 mg PO QID PRN 14 Days 08/27/16 Famotidine [Pepcid] 20 mg PO BID 30 Days 08/27/16 Nicotine 14Mg/24Hr Patch [Habitrol] 1 patch TRANSDERM DAILY 14 Days 08/27/16 Paliperidone [Invega] 6 mg PO DAILY 7 Days 08/27/16 Paliperidone IM [Invega Sustenna] 156 mg IM ONCE #1 syringe 09/09/16 Allergies Allergy/AdvReac Type Severity Reaction Status Date / Time haloperidol [From Haldol] AdvReac Swelling Verified 08/30/16 21:45 ziprasidone [From Geodon] AdvReac Unknown Verified 08/30/16 21:45 Review of Systems ROS Statement: Those systems with pertinent positive or pertinent negative responses have been documented in the HPI. ROS Other: All systems not noted in ROS Statement are negative. Past Medical History Past Medical History: Respiratory Disorder Additional Past Medical History / Comment(s): schizophrenia History of Any Multi-Drug Resistant Organisms: None Reported Past Surgical History: Tonsillectomy Additional Past Surgical History / Comment(s): colonoscopy Past Anesthesia/Blood Transfusion Reactions: No Reported Reaction Past Psychological History: Anxiety, Depression, Panic Disorder, Schizophrenia Smoking Status: Current every day smoker Past Alcohol Use History: Occasional Additional Past Alcohol Use History / Comment(s): Patient is currently a smoker one pack per day for several years. He states he smokes is much marijuana as he can. He states he tried cocaine once but does not use on a regular basis. He states he drinks alcohol occasionally. Past Drug Use History: Cocaine, Heroin, Marijuana, Methamphetamine, Opiates, Prescription Drug Abuse - Past Family History Father Additional Family Medical History / Comment(s): Father is alive at age 49 with history of anxiety. Mother Additional Family Medical History / Comment(s): Mother is alive at age 42 with history of back problems and back surgery. Brother(s) Additional Family Medical History / Comment(s): Patient has one half brother with no major medical problems. He has 1 sister with no major medical problems. Patient has one son that is healthy. General Exam - General Exam Comments Initial Comments: GENERAL: The patient is well nourished and well hydrated. VITAL SIGNS: Heart rate, blood pressure, respiratory rate reviewed as recorded in nurse's notes. EYES: Pupils are round and reactive. Extraocular movements are intact. No conjunctival / lid redness or swelling. ENT: No external evidence of injury, swelling, or ecchymosis. Airway is patent. Throat is clear. NECK: Nontender. No swelling or evidence of injury. No subcutaneous emphysema. Trachea is midline. No thyroid mass. HEART: Regular rate and rhythm. Good peripheral pulses. LUNGS/CHEST: Breath sounds clear and equal bilaterally. No rales, rhonchi, or wheezes. No ecchymosis, subcutaneous emphysema, or tenderness. ABDOMEN: Abdomen soft without tenderness. No palpable masses or organomegaly. No peritoneal signs. No abdominal wall swelling or ecchymosis. EXTREMITIES: No extremity tenderness. Normal muscle tone and function. No thoracolumbar tenderness. NEUROLOGIC: Sensation is grossly intact. Cranial nerve exam reveals face is symmetrical, tongue is midline, speech is clear. SKIN: No abrasions or ecchymosis is noted. No induration or masses noted. PSYCHIATRIC: Alert and oriented. Appropriate behavior and judgment. Limitations: no limitations Course Vital Signs 08/30/16 21:22 Temperature 98.0 F Pulse Rate 88 Respiratory 16 Rate Blood Pressure 118/71 O2 Sat by Pulse 98 Oximetry Medical Decision Making - Medical Decision Making The patient was seen and examined. All diagnostics were reviewed. No significant abnormalities were identified. It is felt as though he requires further psychiatric treatment. It is felt as though he is medically cleared from my standpoint to obtain further psychiatric treatment. A consult was placed to our psych department for further evaluation and recommendations. - Lab Data Result diagrams: 08/30/16 23:16 08/30/16 23:16 Lab Results 08/30/16 08/30/16 08/30/16 Range/Units 23:16 23:16 23:16 WBC 12.4 H (3.8-10.6) k/uL RBC 5.30 (4.30-5.90) m/uL Hgb 15.7 (13.0-17.5) gm/dL Hct 46.1 (39.0-53.0) % MCV 87.0 (80.0-100.0) fL MCH 29.6 (25.0-35.0) pg MCHC 34.0 (31.0-37.0) g/dL RDW 12.5 (11.5-15.5) % Plt Count 199 (150-450) k/uL Neutrophils % 61 % Lymphocytes % 27 % Monocytes % 5 % Eosinophils % 5 % Basophils % 1 % Neutrophils # 7.6 (1.3-7.7) k/uL Lymphocytes # 3.4 (1.0-4.8) k/uL Monocytes # 0.6 (0-1.0) k/uL Eosinophils # 0.6 (0-0.7) k/uL Basophils # 0.1 (0-0.2) k/uL Sodium 141 (137-145) mmol/L Potassium 3.8 (3.5-5.1) mmol/L Chloride 100 (98-107) mmol/L Carbon Dioxide 31 H (22-30) mmol/L Anion Gap 10 mmol/L BUN 12 (9-20) mg/dL Creatinine 0.89 (0.66-1.25) mg/dL Est GFR (MDRD) Af Amer >60 (>60 ml/min/1.73 sqM) Est GFR (MDRD) Non-Af >60 (>60 ml/min/1.73 sqM) Glucose 87 (74-99) mg/dL Calcium 9.5 (8.4-10.2) mg/dL Total Bilirubin 0.4 (0.2-1.3) mg/dL AST 26 (17-59) U/L ALT 27 (21-72) U/L Alkaline Phosphatase 56 (38-126) U/L Total Protein 6.8 (6.3-8.2) g/dL Albumin 4.4 (3.5-5.0) g/dL Salicylates <1.0 mg/dL Urine Opiates Screen Not Detected (NotDetected) Ur Oxycodone Screen Not Detected (NotDetected) Urine Methadone Screen Not Detected (NotDetected) Ur Propoxyphene Screen Not Detected (NotDetected) Acetaminophen <10.0 ug/mL Ur Barbiturates Screen Not Detected (NotDetected) U Tricyclic Antidepress Not Detected (NotDetected) Ur Phencyclidine Scrn Not Detected (NotDetected) Ur Amphetamines Screen Not Detected (NotDetected) U Methamphetamines Scrn Not Detected (NotDetected) U Benzodiazepines Scrn Not Detected (NotDetected) Urine Cocaine Screen Not Detected (NotDetected) U Marijuana (THC) Screen Detected H (NotDetected) Disposition Clinical Impression: Depression, Suicidal ideation, Schizophrenia Disposition: TRANSFER TO PSYCH HOSP/UNIT Condition: Fair Time of Disposition: 00:10
[2016-08-31 06:11] VITALS: BP 125/63; PULSE 62; RESP 18
== END 2016-08-31 10:51 ==
LOC: EC 21:14
DX: F20.9 Schizophrenia, unspecified (principal); F32.9 Major depressive disorder, single episode, unspecified; F41.0 Panic disorder [episodic paroxysmal anxiety]; F17.200 Nicotine dependence, unspecified, uncomplicated; Z88.8 Allergy status to other drugs, medicaments and biological substances
CPT/HCPCS: 36415; 80053; 80306; 82075; 83520; 85025; 99284

== ENCOUNTER 2016-09-07 18:09 | Emergency (ER) | payer SELFPAY ==
[2016-09-07] MEDS ORDERED: BENZTROPINE 2 MG/2 ML AMP IM STA (18:22)
[2016-09-07] MEDS ORDERED: diphenhydrAMINE 50 MG CAP PO STA (18:49)
--- NOTE | 2016-09-07 18:53 | ED ---
Psych HPI - General Chief Complaint: Psychiatric Symptoms Stated Complaint: mental health Source: patient Mode of arrival: ambulatory - History of Present Illness Initial Comments: Patient is a 25-year-old male presents for evaluation for "I want to fucking kill myself". Past medical history as below. Patient is on Prolixin for schizophrenia. Stated that he had a dose today and his jaw starting to lock up. He's become quite frustrated with this treatment as an outpatient. States that is pushed him to the point where he wants to hurt himself. Denies any alcohol or substance abuse today. Denies any homicidal ideation. Denies fever , chills, headache, changes in vision, URI symptoms, shortness of breath, cough , chest pain, nausea, vomiting, diarrhea, pain or burning with urination. - Related Data Previous Rx's Medication Instructions Recorded Benztropine Mesylate [Cogentin] 1 mg PO QID PRN 14 Days 08/27/16 Famotidine [Pepcid] 20 mg PO BID 30 Days 08/27/16 Nicotine 14Mg/24Hr Patch [Habitrol] 1 patch TRANSDERM DAILY 14 Days 08/27/16 Paliperidone [Invega] 6 mg PO DAILY 7 Days 08/27/16 Paliperidone IM [Invega Sustenna] 156 mg IM ONCE #1 syringe 09/09/16 Allergies Allergy/AdvReac Type Severity Reaction Status Date / Time haloperidol [From Haldol] AdvReac Swelling Verified 09/07/16 18:50 ziprasidone [From Geodon] AdvReac Unknown Verified 09/07/16 18:50 Review of Systems ROS Statement: Those systems with pertinent positive or pertinent negative responses have been documented in the HPI. ROS Other: All systems not noted in ROS Statement are negative. Past Medical History Past Medical History: Respiratory Disorder Additional Past Medical History / Comment(s): schizophrenia History of Any Multi-Drug Resistant Organisms: None Reported Past Surgical History: Tonsillectomy Additional Past Surgical History / Comment(s): colonoscopy Past Anesthesia/Blood Transfusion Reactions: No Reported Reaction Past Psychological History: Anxiety, Depression, Panic Disorder, Schizophrenia Smoking Status: Current every day smoker Past Alcohol Use History: Occasional Additional Past Alcohol Use History / Comment(s): Patient is currently a smoker one pack per day for several years. He states he smokes is much marijuana as he can. He states he tried cocaine once but does not use on a regular basis. He states he drinks alcohol occasionally. Past Drug Use History: Cocaine, Heroin, Marijuana, Methamphetamine, Opiates, Prescription Drug Abuse - Past Family History Father Additional Family Medical History / Comment(s): Father is alive at age 49 with history of anxiety. Mother Additional Family Medical History / Comment(s): Mother is alive at age 42 with history of back problems and back surgery. Brother(s) Additional Family Medical History / Comment(s): Patient has one half brother with no major medical problems. He has 1 sister with no major medical problems. Patient has one son that is healthy. General Exam Limitations: no limitations General appearance: alert, in no apparent distress, other (So anxious and agitated.) Head exam: Present: atraumatic, normocephalic, normal inspection Eye exam: Present: normal appearance, PERRL, EOMI. Absent: scleral icterus, conjunctival injection, periorbital swelling ENT exam: Present: normal exam, mucous membranes moist Neck exam: Present: normal inspection. Absent: tenderness, meningismus, lymphadenopathy Respiratory exam: Present: normal lung sounds bilaterally. Absent: respiratory distress, wheezes, rales, rhonchi, stridor Cardiovascular Exam: Present: regular rate, normal rhythm, normal heart sounds. Absent: systolic murmur, diastolic murmur, rubs, gallop, clicks GI/Abdominal exam: Present: soft, normal bowel sounds. Absent: distended, tenderness, guarding, rebound, rigid Extremities exam: Present: normal inspection, full ROM, normal capillary refill. Absent: tenderness, pedal edema, joint swelling, calf tenderness Back exam: Present: normal inspection Neurological exam: Present: alert, oriented X3, CN II-XII intact, normal gait Psychiatric exam: Present: normal affect, normal mood, anxious, suicidal ideation, other (Anxious. Suicidal ideation. Pacing around the room.) Skin exam: Present: warm, dry, intact, normal color. Absent: rash Course Vital Signs 09/07/16 09/07/16 18:13 21:34 Temperature 97.8 F 97 F L Pulse Rate 94 78 Respiratory 18 16 Rate Blood Pressure 120/76 128/70 O2 Sat by Pulse 97 98 Oximetry Medical Decision Making - Medical Decision Making Patient presents for evaluation for suicidal ideation. Please having a dystonic reaction secondary to the Prolixin which she has had in the past. Ordered 2 mg IM Cogentin. We'll also order 50 mg by mouth Benadryl. Psych clearance labs. 1852: EtOH negative. Cleared medically for EPE evaluation. 2120: Patient is cleared by EPE. Believe his suicidal thoughts were secondary to his acute anxiety from a dystonic reaction. It is now 100% resolved. Encouraged to avoid Prolixin until reevaluated by physician. Will discharge home with follow-up with therapist and primary care physician. Discussed signs and symptoms on when to return to the emergency department for further evaluation. Comfortable with discharge home and will follow-up. - Lab Data Lab Results 09/07/16 Range/Units 19:23 Urine Opiates Screen Not Detected (NotDetected) Ur Oxycodone Screen Not Detected (NotDetected) Urine Methadone Screen Not Detected (NotDetected) Ur Propoxyphene Screen Not Detected (NotDetected) Ur Barbiturates Screen Not Detected (NotDetected) U Tricyclic Antidepress Not Detected (NotDetected) Ur Phencyclidine Scrn Not Detected (NotDetected) Ur Amphetamines Screen Not Detected (NotDetected) U Methamphetamines Scrn Not Detected (NotDetected) U Benzodiazepines Scrn Not Detected (NotDetected) Urine Cocaine Screen Not Detected (NotDetected) U Marijuana (THC) Screen Detected H (NotDetected) Disposition Clinical Impression: Dystonic drug reaction Disposition: HOME SELF-CARE Condition: Good Instructions: Suicide Prevention for Adults (ED), Adverse Drug Reaction (ED) Referrals: None,Stated [Primary Care Provider] - 1-2 days Karri Carlton MD [REFERRING] - 1-2 days
[2016-09-07 21:35] VITALS: BP 128/70; PULSE 78; RESP 16; TEMP 97
== END 2016-09-07 21:34 | disposition home or self-care (01) ==
LOC: EC 18:09
DX: F41.9 Anxiety disorder, unspecified (principal); T43.3X5A Adverse effect of phenothiazine antipsychotics and neuroleptics, initial encounter; G24.09 Other drug induced dystonia; F41.0 Panic disorder [episodic paroxysmal anxiety]; F32.9 Major depressive disorder, single episode, unspecified; F20.9 Schizophrenia, unspecified; F17.200 Nicotine dependence, unspecified, uncomplicated; Z88.8 Allergy status to other drugs, medicaments and biological substances
CPT/HCPCS: 82075; 80306; 99284; 96372; J0515

== ENCOUNTER 2016-09-25 17:16 | Inpatient (IN) | payer MEDICAID, OTHER ==
[2016-09-25] MEDS ORDERED: MAG HYDROX/AL HYDROX/SIMETH 30 ML CUP PO PRN (20:18)
[2016-09-25] MEDS ORDERED: ZIPRASIDONE 20 MG VIAL IM PRN (20:18)
[2016-09-25] MEDS ORDERED: MAGNESIUM HYDROXIDE 2,400 MG/10 ML CUP PO PRN (20:18)
[2016-09-25] MEDS ORDERED: ACETAMINOPHEN TAB 325 MG TAB PO PRN (20:18)
[2016-09-25] MEDS ORDERED: PALIPERIDONE IM 234 MG/1.5 ML SYG IM STA (20:24)
[2016-09-25] MEDS ORDERED: LORazepam 2 MG/ML SYRINGE IM PRN (20:26)
[2016-09-25] MEDS ORDERED: LORazepam 1 MG TAB PO PRN (20:26)
--- NOTE | 2016-09-25 20:28 | ED ---
General Adult HPI - General Chief complaint: Psychiatric Symptoms Stated complaint: PETITION ORDER FROM [facility] Time Seen by Provider: 09/25/16 17:23 Source: patient, police, RN notes reviewed Mode of arrival: ambulatory Limitations: no limitations - History of Present Illness Initial comments: Chief complaint history of present illness a 25-year-old male brought in by police on a court-ordered pickup. The patient reports been depressed and says suicidal thoughts every day. - Related Data Home Medications Medication Instructions Recorded Confirmed Benztropine Mesylate [Cogentin] 1 mg PO QID PRN 09/25/16 09/25/16 Paliperidone IM [Invega Sustenna] 156 mg IM FR 09/25/16 09/25/16 Previous Rx's Medication Instructions Recorded Famotidine [Pepcid] 20 mg PO BID 30 Days 08/27/16 Paliperidone [Invega] 6 mg PO DAILY 7 Days 08/27/16 Allergies Allergy/AdvReac Type Severity Reaction Status Date / Time haloperidol [From Haldol] Allergy Swelling Verified 09/25/16 18:17 ziprasidone [From Geodon] AdvReac Suicidal Verified 09/25/16 18:17 Thoughts Review of Systems ROS Statement: Those systems with pertinent positive or pertinent negative responses have been documented in the HPI. Review of systems at this time the patient's denying headache chest pain shows breath GI/ problems. He does report that he has thoughts of suicide daily. No specific plan but he has cut his left wrist in the past. Patient denies any illegal drugs at this time though he admits to trying the past but has never been addicted. Patient states he's been diagnosed with psychosis in the past medications he takes often times makes him feel worse. He says he stopped taking his medications yesterday or today before. Past medical problems patient denying any other medical problems. He has ALLERGIES to Geodon and haloperidol. Family history mother had psychotic features. Patient does smoke strongly encouraged stop does drink alcohol. ROS Other: All systems not noted in ROS Statement are negative. Past Medical History Past Medical History: Respiratory Disorder Additional Past Medical History / Comment(s): schizophrenia History of Any Multi-Drug Resistant Organisms: None Reported Past Surgical History: Tonsillectomy Additional Past Surgical History / Comment(s): colonoscopy Past Anesthesia/Blood Transfusion Reactions: No Reported Reaction Past Psychological History: Anxiety, Depression, Panic Disorder, Schizophrenia Smoking Status: Current every day smoker Past Alcohol Use History: Occasional Additional Past Alcohol Use History / Comment(s): Patient is currently a smoker one pack per day for several years. He states he smokes is much marijuana as he can. He states he tried cocaine once but does not use on a regular basis. He states he drinks alcohol occasionally. Past Drug Use History: Cocaine, Heroin, Marijuana, Methamphetamine, Opiates, Prescription Drug Abuse - Past Family History Father Additional Family Medical History / Comment(s): Father is alive at age 49 with history of anxiety. Mother Additional Family Medical History / Comment(s): Mother is alive at age 42 with history of back problems and back surgery. Brother(s) Additional Family Medical History / Comment(s): Patient has one half brother with no major medical problems. He has 1 sister with no major medical problems. Patient has one son that is healthy. General Exam - General Exam Comments Initial Comments: General: The patient is awake and alert, in no distress, and does not appear acutely ill. States he is upset that he can't keep a job because he falls apart after several weeks and has to go to the psychiatric unit. Today's urine a court- ordered pickup. Vital signs are stable. Eye: Pupils are equal, round and reactive to light, extra-ocular movements are intact ; there is normal conjunctiva bilaterally. No signs of icterus. Ears, nose, mouth and throat: There are moist mucous membranes and no oral lesions. Neck: The neck is supple, there is no tenderness or JVD. Cardiovascular: There is a regular rate and rhythm. No murmur, rub or gallop is appreciated. Respiratory: Lungs are clear to auscultation, respirations are non-labored, breath sounds are equal. No wheezes, stridor, rales, or rhonchi. Gastrointestinal: Soft, non-distended, non-tender abdomen without masses or organomegaly noted. There is no rebound or guarding present. No CVA tenderness. Bowel sounds are unremarkable. Back: There is no tenderness to palpation in the midline. There is no obvious deformity. No rashes noted. Musculoskeletal: Normal ROM, no tenderness, There is no pedal edema. There is no calf tenderness or swelling. Sensation intact. Pulses equal bilaterally 2+. Neurological: CN II-XII intact, There are no obvious motor or sensory deficits. Coordination appears grossly intact. Speech is normal. Skin: Skin is warm and dry and no rashes or lesions are noted. Psychiatric: Cooperative, the patient is here on a police pickup on court-ordered pickup. States he has been depressed and thinks about suicide daily. No specific plan. Limitations: no limitations Course Vital Signs 09/25/16 17:20 Temperature 97.6 F Pulse Rate 84 Respiratory 16 Rate Blood Pressure 110/77 O2 Sat by Pulse 98 Oximetry Medical Decision Making - Medical Decision Making Patient struck trace positive for benzodiazepines and marijuana. The patient was evaluated by the psychiatric nurse the patient will be admitted to [facility]. - Lab Data Lab Results 09/25/16 09/25/16 Range/Units 17:35 18:25 TSH 0.784 (0.465-4.680) mIU/L Urine Opiates Screen Not Detected (NotDetected) Ur Oxycodone Screen Not Detected (NotDetected) Urine Methadone Screen Not Detected (NotDetected) Ur Propoxyphene Screen Not Detected (NotDetected) Ur Barbiturates Screen Not Detected (NotDetected) U Tricyclic Antidepress Not Detected (NotDetected) Ur Phencyclidine Scrn Not Detected (NotDetected) Ur Amphetamines Screen Not Detected (NotDetected) U Methamphetamines Scrn Not Detected (NotDetected) U Benzodiazepines Scrn Detected H (NotDetected) Urine Cocaine Screen Not Detected (NotDetected) U Marijuana (THC) Screen Detected H (NotDetected) Disposition Clinical Impression: Psychosis Disposition: TRANSFER TO PSYCH HOSP/UNIT Condition: Fair
[2016-09-25 21:02] VITALS: BMI 20.2
[2016-09-26 06:48] VITALS: TEMP 98.2
[2016-09-26] MEDS: BENZTROPINE MESYLATE 1 MG TAB PO PRN ×2 (08:04→20:39)
[2016-09-26] MEDS ORDERED: NICOTINE 21MG/24HR PATCH TRANSDERM SCH (09:00)
[2016-09-26] MEDS ORDERED: NICOTINE 14MG/24HR PATCH TRANSDERM SCH (09:00)
[2016-09-26 09:34] LABS: Basophils # (A) 0.1 k/uL (0-0.2); Basophils % (A) 1 %; CH 30.6; CHCM 35.2; Eosinophils # (A) 0.5 k/uL (0-0.7); Eosinophils % (A) 6 %; HCT 45.8 % (39.0-53.0); HGB 15.8 gm/dL (13.0-17.5); Luc # (Auto) 0.14; Luc % (Auto) 2; Lymphocytes # (A) 2.4 k/uL (1.0-4.8); Lymphocytes % (A) 29 %; MCH 30.1 pg (25.0-35.0); MCHC 34.5 g/dL (31.0-37.0); MCV 87.3 fL (80.0-100.0); Mean Platelet Volume 7.4; Monocytes # (A) 0.5 k/uL (0-1.0); Monocytes % (A) 6 %; Neutrophils # (A) 4.8 k/uL (1.3-7.7); Neutrophils % (A) 58 %; RBC 5.25 m/uL (4.30-5.90); RDW 12.5 % (11.5-15.5); WBC 8.4 k/uL (3.8-10.6); WBC (Perox) 8.49
[2016-09-26 09:44] LABS: ALT 20 U/L (21-72); AST 19 U/L (17-59); Alkaline Phosphatase 47 U/L (38-126); Anion Gap 10 mmol/L; Blood Urea Nitrogen 15 mg/dL (9-20); Calcium 9.2 mg/dL (8.4-10.2); Carbon Dioxide 27 mmol/L (22-30); Chloride 105 mmol/L (98-107); Glucose 84 mg/dL (74-99); Non-African American GFR(MDRD) >60 (>60 ml/min/1.73 sqM); Potassium 3.9 mmol/L (3.5-5.1); Sodium 142 mmol/L (137-145); Total Bilirubin 0.5 mg/dL (0.2-1.3); Total Protein 6.6 g/dL (6.3-8.2)
--- NOTE | 2016-09-26 12:17 | P.HP ---
Psychiatric H&P - . H&P Date: 09/26/16 History & Physical: IDENTIFYING DATA: He is a 25-year-old single male who has a history of a schizoaffective disorder. HISTORY OF PRESENT ILLNESS: The police [facility] after he refused his antipsychotic injection at [facility] on 09/24/2016. He stated that he went to the clinic but did not want have the injection. He spoke with Dr. Villalba who told him that he could either have the injection or go to the hospital. Mr. Ortega interpret that to mean that he did not have to take the injection. We discharged him on 08/27/2016 to the [facility]. He stated he was at [facility] for 2 weeks and move back to his apartment. He is concerned about his living situation because he had an eviction hearing last week and must vacate the apartment by this coming Tuesday. 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 He requested be discharged by tomorrow afternoon otherwise he would risk losing his job. He denied feeling depressed or having thoughts of or suicide. He denied denied feeling anxious, frightened or suspicious. He denied auditory or visual hallucinations. He denied thought insertion, thought broadcasting or thought control. PAST PSYCHIATRIC HISTORY: He has had least 12 psychiatric hospitalizations since the onset of his mental illness. This is his sixth admission to this unit. He has been prescribed most antipsychotic medication. He is noncompliant with oral antipsychotic medications. We discharged from on Invega Sustenna 156 MG monthly. He complained about erectile dysfunction and [facility] apparently changed the injectable to Prolixin Decanoate. PAST MEDICAL HISTORY: He has no history of major medical illnesses. ALLERGIES: He alleges ALLERGY to Haldol and ziprasidone SUBSTANCE USE HISTORY: Since his discharge he smoked marijuana but denied use of other drugs. He drinks 1-2 times a week usually 1-2 drinks. He is never been in a substance abuse rehab program. FAMILY PSYCHIATRIC/SUBSTANCE USE HISTORY: He is a family history of mental illness LEGAL HISTORY: He is currently under a 90 day involuntary treatment order. He had domestic violence charges. SOCIAL HISTORY: His born and raised in [place]. His high school education and some college classes. He has 3 brothers and 3 sisters. He is single but has a 3-year-old son. He was living independently in an apartment. MENTAL STATUS EXAM: He presented as a tall thin casually groomed male who was pleasant on approach. He maintained eye contact and attended to the interview. He had no distinguishing features or prominent physical maladies. He had a blunted facial expression. He was alert and oriented to person, place and time. He showed no abnormality of psychomotor activity. He had no abnormal involuntary movements. His affect was blunted but stable and appropriate. He denied suicidal ideation or wishes. He denied homicidal ideation. He denied depressive cognitions such as hopelessness, helplessness and worthlessness. He didn't express phobias, ideas reference or paranoid ideation. His thinking was concrete but his associations were coherent and logical. He denied hallucinations and did not appear to be responding to internal stimuli. Global impression of intellect is average. He has limited awareness or understanding of his mental illness and need for mental health treatment. STRENGTHS: Good physical health, average intelligence, employment. WEAKNESSES: Chronic mental illness, poor compliance with medical care. IMPRESSION: Is a 25-year-old male with multiple psychiatric hospitalizations related to noncompliance of treatment for his chronic schizoaffective disorder. He is under a 90 day outpatient treatment order and refused his Prolixin injection at [facility] last week. His outpatient psychiatrist obtained a pickup order and he was readmitted to the unit or administration of antipsychotic medication. PRINCIPLE DIAGNOSIS: Schizoaffective disorder, poor compliance with medical care RECOMMENDATION: Verified dose and frequency of Prolixin, consult medicine for initial physical exam and medical history, encourage participation in therapeutic groups and activities. Evaluate clinical status response to treatment daily basis. We anticipate discharge on 09/27/2016. Allergies Allergy/AdvReac Type Severity Reaction Status Date / Time haloperidol [From Haldol] Allergy Swelling Verified 09/25/16 21:02 ziprasidone [From Geodon] AdvReac Suicidal Verified 09/25/16 21:02 Thoughts Vital Signs Temp 98.2 F 09/26/16 06:47 Pulse 70 09/26/16 06:47 Resp 16 09/26/16 06:47 BP 131/65 09/26/16 06:47 Pulse Ox 100 09/25/16 20:29 Intake & Output 09/25/16 09/26/16 09/26/16 18:59 06:59 18:59 Weight 69.853 kg Laboratory Last Values TSH 0.784 mIU/L (0.465-4.680) 09/25/16 18:25 Urine Opiates Screen Not Detected (NotDetected) 09/25/16 17:35 Ur Oxycodone Screen Not Detected (NotDetected) 09/25/16 17:35 Urine Methadone Screen Not Detected (NotDetected) 09/25/16 17:35 Ur Propoxyphene Screen Not Detected (NotDetected) 09/25/16 17:35 Ur Barbiturates Screen Not Detected (NotDetected) 09/25/16 17:35 U Tricyclic Antidepress Not Detected (NotDetected) 09/25/16 17:35 Ur Phencyclidine Scrn Not Detected (NotDetected) 09/25/16 17:35 Ur Amphetamines Screen Not Detected (NotDetected) 09/25/16 17:35 U Methamphetamines Scrn Not Detected (NotDetected) 09/25/16 17:35 U Benzodiazepines Scrn Detected (NotDetected) H 09/25/16 17:35 Urine Cocaine Screen Not Detected (NotDetected) 09/25/16 17:35 U Marijuana (THC) Screen Detected (NotDetected) H 09/25/16 17:35 09/26/16 08:06 09/26/16 11:55
--- NOTE | 2016-09-26 13:16 | P.HPMEDMHU ---
History of Present Illness H&P Date: 09/26/16 Chief Complaint: Schizoaffective disorder. this is a 25-year-old male who was seen by our service back in 2015 after he was admitted to the hospital mental health unit under the care of Dr. Aviles for paranoid schizophrenia as well as anxiety and depressive disorder , part of the patient was brought into the emergency department at [facility] yesterday by court order to place the patient in the mental health unit because he refused to take his Prolixin injection at [facility] on Tuesday, 2016 subsequent the patient was sent to the ER at [facility] for evaluation subsequently was admitted to the hospital for evaluation by the mental health unit team. Patient appears to be quite awake and alert at this time. He stated that he is having a lot of side effects on Prolixin and he wanted to try different medicine because of the sexual side effect. Patient also complaining of increased fullness of his neck anything that his thyroid due to be checked. Review of Systems Constitutional: Denies anorexia, Denies chronic headaches, Denies lethargy, Denies weakness, Denies weight gain Eyes: denies blurred vision, denies bulging eye, denies decreased vision, denies diplopia, denies discharge Ears, nose, mouth and throat: Denies dysphagia, Denies neck lump, Denies swelling in throat, Denies sore throat Cardiovascular: Denies chest pain, Denies claudication, Denies dyspnea on exertion, Denies phlebitis, Denies rapid heart beat, Denies shortness of breath Respiratory: Denies congestion, Denies cough, Denies home oxygen, Denies sleep apnea, Denies snoring Gastrointestinal: Denies abdominal pain, Denies belching, Denies BRBPR, Denies heartburn, Denies melena, Denies nausea, Denies vomiting Genitourinary: Denies dysuria, Denies nocturia Musculoskeletal: Denies myalgias Musculoskeletal: absent: ankle pain, ankle stiffness, ankle swelling, elbow pain , elbow stiffness, elbow swelling, foot pain, foot stiffness, foot swelling, hand pain, hand stiffness, hand swelling, hip pain, hip stiffness, hip swelling , knee pain, knee stiffness, knee swelling, shoulder pain, shoulder stiffness, shoulder swelling, wrist pain, wrist stiffness, wrist swelling Integumentary: Denies pruritus, Denies rash Neurological: Denies numbness, Denies weakness Psychiatric: Reports anxiety, Reports depression, Reports paranoia, Reports sleep disturbances, Reports suicidal ideation Endocrine: Denies fatigue, Denies weight change Past Medical History Past Medical History: Respiratory Disorder Additional Past Medical History / Comment(s): schizophrenia History of Any Multi-Drug Resistant Organisms: None Reported Past Surgical History: Tonsillectomy Additional Past Surgical History / Comment(s): colonoscopy Past Anesthesia/Blood Transfusion Reactions: No Reported Reaction Past Psychological History: Anxiety, Depression, Panic Disorder, Schizophrenia Smoking Status: Current every day smoker Past Alcohol Use History: Occasional Additional Past Alcohol Use History / Comment(s): Patient is currently a smoker one pack per day for several years. He states he smokes is much marijuana as he can. He states he tried cocaine once but does not use on a regular basis. He states he drinks alcohol occasionally. Past Drug Use History: Cocaine, Heroin, Marijuana, Methamphetamine, Opiates, Prescription Drug Abuse - Past Family History Father Additional Family Medical History / Comment(s): Father is alive at age 49 with history of anxiety. Mother Additional Family Medical History / Comment(s): Mother is alive at age 42 with history of back problems and back surgery. Brother(s) Additional Family Medical History / Comment(s): Patient has one half brother with no major medical problems. He has 1 sister with no major medical problems. Patient has one son that is healthy. Medications and Allergies Home Medications Medication Instructions Recorded Confirmed Type Benztropine Mesylate [Cogentin] 1 mg PO QID PRN 09/25/16 09/25/16 History Paliperidone IM [Invega Sustenna] 156 mg IM FR 09/25/16 09/25/16 History Allergies Allergy/AdvReac Type Severity Reaction Status Date / Time haloperidol [From Haldol] Allergy Swelling Verified 09/25/16 21:02 ziprasidone [From Geodon] AdvReac Suicidal Verified 09/25/16 21:02 Thoughts Physical Exam Vitals: Vital Signs Temp Pulse Pulse Resp BP BP Pulse Ox 09/26/16 06:47 98.2 F 70 16 131/65 09/25/16 20:48 97.1 F L 66 15 103/70 09/25/16 20:29 98.3 F 62 18 113/68 100 Intake and Output 09/25/16 09/26/16 09/26/16 22:59 06:59 14:59 Other: Weight 69.853 kg - Constitutional General appearance: no acute distress - EENT Eyes: anicteric sclerae, EOMI, PERRLA, no ptosis, no scleral icterus, normal appearance ENT: hearing grossly normal, NA/AT, normal oropharynx Ears: bilateral: normal - Neck Neck: no lymphadenopathy, normal ROM, no rigidity Carotids: bilateral: upstroke normal Thyroid: bilateral: normal size - Respiratory Respiratory: bilateral: diminished, negative: dullness, rales, rhonchi, wheezing , prolonged expiration - Cardiovascular Rhythm: regular Heart sounds: normal: S1, S2 Abnormal Heart Sounds: no systolic murmur, no S3 Gallop - Gastrointestinal General gastrointestinal: normal bowel sounds, soft, no splenomegaly, no tenderness, no umbilical hernia - Integumentary Integumentary: normal, normal turgor - Neurologic Neurologic: CNII-XII intact - Psychiatric Psychiatric: A&O x's 3, no appropriate affect, no intact judgment & insight Cranial Nerve Examination - Cranial Nerves Cranial Nerve I- Olfactory: Intact Cranial Nerve II- Optic: Intact Cranial Nerve III- Oculomotor: Intact Cranial Nerve IV- Trochlear: Intact Cranial Nerve V- Trigeminal: Intact Cranial Nerve - Abducens: Intact Cranial Nerve VII- Facial: Intact Cranial Nerve VIII- Auditory: Intact Cranial Nerve IX- Glossopharyngeal: Intact Cranial Nerve X- Vagus: Intact Cranial Nerve XI- Accessory: Intact Cranial Nerve XII- Hypoglossal: Intact Results CBC & Chem 7: 09/26/16 09:04 09/26/16 09:04 Assessment and Plan Plan: ASSESSMENT AND PLAN: 1. Schizoaffective disorder. Patient was admitted to the mental health unit he was started on Prolixin as well as his lorazepam patient appears to be well patient was seen already by psychiatry and the plan is to discharge the patient tomorrow morning.. 2. History of anxiety disorder. Continue Ativan as needed. 3. History of depressive disorder. Patient will be seen and evaluated by mental health unit. 4. Marijuana use. Stable. 5. Chronic tobacco use and dependence. Smoking cessation and counseling an increased risk of CAD, CVA, and malignancy. 6. Mild goiter. Patient did have a TSH that was normal we will follow this as an outpatient.
[2016-09-27 05:54] VITALS: BP 91/51; PULSE 125; RESP 18
--- NOTE | 2016-09-27 09:15 | P.DS ---
Providers Date of admission: 09/25/16 20:16 Attending physician: Ulysses Alcocer MD Consults: 09/25/16 20:18 Consult Physician Routine Consulting Provider: Tate Rios Consult Reason/Comments: medical management Do you want consulting provider notified?: Yes, Notify in am Primary care physician: Stated None - Discharge Diagnosis(es) (1) Poor compliance with medication Current Visit: No Status: Chronic Priority: High (2) Schizoaffective disorder, bipolar type Current Visit: No Status: Chronic Priority: High Hospital Course: He is a 25-year-old single male who has a history of a schizoaffective disorder. The police brought [facility] the [facility] after he refused his antipsychotic injection at [facility] on 09/24/2016. He stated that he went to the clinic but did not want have the injection. He spoke with Dr. Villalba who told him that he could either have the injection or go to the hospital. Mr. Ortega interpret that to mean that he did not have to take the injection. We discharged him on 08/27/2016 to the [facility]. He stated he was at [facility] for 2 weeks and move back to his apartment. He is concerned about his living situation because he had an eviction hearing last week and must vacate the apartment by this coming Tuesday. 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 He requested be discharged by tomorrow afternoon otherwise he would risk losing his job. He denied feeling depressed or having thoughts of or suicide. He denied denied feeling anxious, frightened or suspicious. He denied auditory or visual hallucinations. He denied thought insertion, thought broadcasting or thought control. He has had least 12 psychiatric hospitalizations since the onset of his mental illness. This is his sixth admission to this unit. He has been prescribed most antipsychotic medication. He is noncompliant with oral antipsychotic medications. We discharged from on Invega Sustenna 156 MG monthly. He complained about erectile dysfunction and [facility] apparently changed the injectable to Prolixin Decanoate. We admitted him to the psychiatric unit under the care of this auto service writer and provided a biopsychosocial assessment. The vocational rehab consultant outdoor landscape architect completed the history and physical examination. The internists diagnosis included:, marijuana use, tobacco use disorder and mild goiter. We administered Invega Sustenna 156 mg IM. He accepted the injection but complained that community mental health had change the Invega to Prolixin decanoate because he experienced erectile dysfunction with Invega. I spoke with Dr. Villalba. He stated that Mr. Ortega complains about the side effects of any psychotropic medication prescribed and gave no guidance on a particular medication as long since a long-acting antipsychotic. Mr. Donaldson posed no management problem and displayed no behavioral dyscontrol. At time of discharge she denied thoughts of or suicide. He denied psychotic symptoms. He was anxious to leave because he started a new job 1 week ago and is concerned that he would lose his job if he did not show for his shiftf this afternoon. Patient Condition at Discharge: Fair Plan - Discharge Summary Discharge Medication List Famotidine [Pepcid] 20 mg PO BID 30 Days 08/27/16 [Rx] Benztropine Mesylate [Cogentin] 1 mg PO QID PRN 09/25/16 [History] Paliperidone IM [Invega Sustenna] 156 mg IM FR 09/25/16 [History] Follow up Appointment(s)/Referral(s): None,Stated [Primary Care Provider] - 1 Week Discharge Disposition: HOME SELF-CARE
[2016-09-27] MEDS: BENZTROPINE MESYLATE 1 MG TAB PO PRN (10:37)
== END 2016-09-27 12:04 | disposition home or self-care (01) | DRG 885 ==
LOC: EC 17:16 → 3MHU 20:16
PROVIDERS: ADMIT Psychiatry & Neurology Psychiatry; ATTEND Psychiatry & Neurology Psychiatry
DX: F25.0 Schizoaffective disorder, bipolar type (principal); Z91.14 Patient's other noncompliance with medication regimen; F32.9 Major depressive disorder, single episode, unspecified; E04.9 Nontoxic goiter, unspecified; F17.210 Nicotine dependence, cigarettes, uncomplicated; F12.90 Cannabis use, unspecified, uncomplicated; Z79.899 Other long term (current) drug therapy; Z88.8 Allergy status to other drugs, medicaments and biological substances; Z81.8 Family history of other mental and behavioral disorders; F41.0 Panic disorder [episodic paroxysmal anxiety]; Z71.6 Tobacco abuse counseling
CPT/HCPCS: 36415; 80053; 80306; 82075; 84443; 85025; 99285

== ENCOUNTER 2016-10-20 16:13 | Emergency (ER) | payer OTHER ==
[2016-10-20 16:32] VITALS: BP 111/65; PULSE 92; RESP 20; TEMP 98.2
--- NOTE | 2016-10-20 16:41 | ED ---
Psych HPI - General Chief Complaint: Psychiatric Symptoms Stated Complaint: Suicidal Time Seen by Provider: 10/20/16 16:30 Source: patient Mode of arrival: ambulatory - History of Present Illness Initial Comments: Is a 25-year-old male with history depression who presents to the department for worsening depression and suicidal thoughts. The patient was recently started on Zyprexa approximately 6 days ago. He states that since he's been taking the medication is notices depression is worsened and has had thoughts of going to kill himself. He states that he stopped about ingesting his whole bottle of Zyprexa. He states he's had a long-standing history depression however this is the worst ever been. He is been hospitalized for the past. He denies any ingestion. No physical and comes at this time. No homicidal ideation. No other complains. - Related Data Home Medications Medication Instructions Recorded Confirmed OLANZapine [ZyPREXA] 7.5 mg PO HS 10/20/16 10/20/16 Allergies Allergy/AdvReac Type Severity Reaction Status Date / Time haloperidol [From Haldol] AdvReac Extrapyramidal Verified 10/20/16 17:32 Side Effects ziprasidone [From Geodon] AdvReac Suicidal Verified 10/20/16 17:32 Thoughts Review of Systems ROS Statement: Those systems with pertinent positive or pertinent negative responses have been documented in the HPI. ROS Other: All systems not noted in ROS Statement are negative. Past Medical History Past Medical History: Respiratory Disorder Additional Past Medical History / Comment(s): schizophrenia History of Any Multi-Drug Resistant Organisms: None Reported Past Surgical History: Tonsillectomy Additional Past Surgical History / Comment(s): colonoscopy Past Anesthesia/Blood Transfusion Reactions: No Reported Reaction Past Psychological History: Anxiety, Depression, Panic Disorder, Schizophrenia Smoking Status: Current every day smoker Past Alcohol Use History: Occasional Additional Past Alcohol Use History / Comment(s): Patient is currently a smoker one pack per day for several years. He states he smokes is much marijuana as he can. He states he tried cocaine once but does not use on a regular basis. He states he drinks alcohol occasionally. Past Drug Use History: Cocaine, Heroin, Marijuana, Methamphetamine, Opiates, Prescription Drug Abuse - Past Family History Father Additional Family Medical History / Comment(s): Father is alive at age 49 with history of anxiety. Mother Additional Family Medical History / Comment(s): Mother is alive at age 42 with history of back problems and back surgery. Brother(s) Additional Family Medical History / Comment(s): Patient has one half brother with no major medical problems. He has 1 sister with no major medical problems. Patient has one son that is healthy. General Exam - General Exam Comments Initial Comments: Awake alert Appears comfortable Head: Normocephalic atraumatic Eyes: no conjunctival injection No scleral icterus EOMI Neck: No JVD Supple Heart: Regular rate rhythm normal S1-S2 no murmurs Lungs: Clear to auscultation bilaterally No wheezing No rales Abdomen: Soft nondistended nontender Extremities: Non edematous DP pulses intact Radial pulses intact Neuro: A&Ox3 No focal neurologic deficits Psych: Depressed and suicidals Limitations: no limitations Course Vital Signs 10/20/16 16:30 Temperature 98.2 F Pulse Rate 92 Respiratory 20 Rate Blood Pressure 111/65 O2 Sat by Pulse 99 Oximetry Medical Decision Making - Medical Decision Making Patient was evaluated by psych and they deemed him to be safe for home. They do not making adjustments to his medications. They state that they are very aware and no clue the patient has. They feel that he has secondary gain have being in the hospital. They are okay with him going home and following up with community mental health. - Lab Data Lab Results 10/20/16 Range/Units 16:40 Urine Opiates Screen Not Detected (NotDetected) Ur Oxycodone Screen Not Detected (NotDetected) Urine Methadone Screen Not Detected (NotDetected) Ur Propoxyphene Screen Not Detected (NotDetected) Ur Barbiturates Screen Not Detected (NotDetected) U Tricyclic Antidepress Not Detected (NotDetected) Ur Phencyclidine Scrn Not Detected (NotDetected) Ur Amphetamines Screen Not Detected (NotDetected) U Methamphetamines Scrn Not Detected (NotDetected) U Benzodiazepines Scrn Not Detected (NotDetected) Urine Cocaine Screen Not Detected (NotDetected) U Marijuana (THC) Screen Not Detected (NotDetected) Disposition Clinical Impression: Depression Disposition: HOME SELF-CARE Condition: Stable Instructions: Depression (ED) Referrals: None,Stated [Primary Care Provider] - 1-2 days
== END 2016-10-20 20:54 | disposition home or self-care (01) ==
LOC: EC 16:13
DX: F32.9 Major depressive disorder, single episode, unspecified (principal); F20.9 Schizophrenia, unspecified; F17.200 Nicotine dependence, unspecified, uncomplicated; Z79.899 Other long term (current) drug therapy; Z88.8 Allergy status to other drugs, medicaments and biological substances
CPT/HCPCS: 80306; 82075; 99284

== ENCOUNTER 2017-08-26 07:27 | Inpatient (IN) | payer OTHER ==
--- NOTE | 2017-08-26 07:42 | ED ---
Psych HPI - General Chief Complaint: Psychiatric Symptoms Stated Complaint: Mental health Time Seen by Provider: 08/26/17 07:35 Source: patient, EMS, RN notes reviewed, old records reviewed Mode of arrival: EMS - History of Present Illness Initial Comments: This patient is a 26-year-old male with a history of schizophrenia and paranoid features presents today with chief complaint of paranoia exacerbation. Patient reports that people around him or acting "scratchy". He reports that he had experienced few days ago but does not want to talk about at this time. He states that he does not hear voices or having on visual hallucinations. He denies any suicidal or homicidal ideations. Patient told EMS that he is concerned if he doesn't come to get "cool down" he is concerned of what he might do. Patient states that he has been out of his medications for the past 4 days. He reports that in the past when this has occurred he's had some severe anger outburst and paranoid episodes. Patient reports that he has been in court order rehab. - Related Data Home Medications Medication Instructions Recorded Confirmed OLANZapine [ZyPREXA] 20 mg PO HS 08/26/17 08/26/17 Allergies Allergy/AdvReac Type Severity Reaction Status Date / Time haloperidol [From Haldol] AdvReac Extrapyramidal Verified 08/26/17 08:08 Side Effects ziprasidone [From Geodon] AdvReac Suicidal Verified 08/26/17 08:08 Thoughts Review of Systems ROS Statement: Those systems with pertinent positive or pertinent negative responses have been documented in the HPI. ROS Other: All systems not noted in ROS Statement are negative. Past Medical History Past Medical History: Respiratory Disorder Additional Past Medical History / Comment(s): schizophrenia History of Any Multi-Drug Resistant Organisms: None Reported Past Surgical History: Tonsillectomy Additional Past Surgical History / Comment(s): colonoscopy Past Anesthesia/Blood Transfusion Reactions: No Reported Reaction Past Psychological History: Anxiety, Depression, Panic Disorder, Schizophrenia Smoking Status: Current every day smoker Past Alcohol Use History: Occasional Past Drug Use History: Cocaine, Heroin, Marijuana, Methamphetamine, Opiates, Prescription Drug Abuse - Past Family History Father Additional Family Medical History / Comment(s): Father is alive at age 49 with history of anxiety. Mother Additional Family Medical History / Comment(s): Mother is alive at age 42 with history of back problems and back surgery. Brother(s) Additional Family Medical History / Comment(s): Patient has one half brother with no major medical problems. He has 1 sister with no major medical problems. Patient has one son that is healthy. General Exam - General Exam Comments Initial Comments: This patient is a 26-year-old male. Alert and oriented 4. No distress. Limitations: no limitations General appearance: alert, in no apparent distress Head exam: Present: atraumatic, normocephalic, normal inspection Eye exam: Present: normal appearance, PERRL, EOMI. Absent: scleral icterus, conjunctival injection, periorbital swelling ENT exam: Present: normal exam, mucous membranes moist Neck exam: Present: normal inspection. Absent: tenderness, meningismus, lymphadenopathy Respiratory exam: Present: normal lung sounds bilaterally Cardiovascular Exam: Present: regular rate, normal rhythm, normal heart sounds. Absent: systolic murmur, diastolic murmur, rubs, gallop, clicks GI/Abdominal exam: Present: soft, normal bowel sounds. Absent: distended, tenderness, guarding, rebound, rigid Extremities exam: Present: normal inspection, full ROM, normal capillary refill. Absent: tenderness, pedal edema, joint swelling, calf tenderness Back exam: Present: normal inspection Neurological exam: Present: alert, oriented X3, CN II-XII intact Psychiatric exam: Present: normal mood, other (Patient is paranoid. Reports the baby was acting "sketchy. He will not relate details to why he thinks this. ). Absent: normal affect (Patient has a flat affect.) Skin exam: Present: warm, dry, intact, normal color. Absent: rash Course Vital Signs 08/26/17 08/26/17 07:29 12:17 Temperature 97.3 F L 97.1 F L Pulse Rate 99 114 H Respiratory 18 18 Rate Blood Pressure 140/94 122/74 O2 Sat by Pulse 97 97 Oximetry - Reevaluation(s) Reevaluation #1: 08/26/17 09:30 Patient was being evaluated by mental health he eloped from the room 3 times. Security had been called and he was escorted back to room. Patient will not be placed in restraints that he is not eloped again. Reevaluation #2: 08/26/17 10:01 Patient is removed from the restraints at this time. Resting comfortably in bed. Reevaluation #3: 08/26/17 11:02 Patient is reevaluated, he is now becoming agitated, yelling profanities at staff. Patient will be receiving 2 mg of Ativan and Geodon. Security is on site. 08/26/17 11:02 Patient is also still in restraints. Reevaluation #4: 08/26/17 12:05 Patient is sleeping and that at this time, after receiving IM injections. Patient be taken out of restraints. Procedures - Restraint - Face to Face Restraint Occurrence 1 Patient's Immediate Situation: Endangers self safety, Endangers others' safety Patient's Immediate Situation - Comment: Into his room. He is on screaming he is cooperative. Patient was placed in restraints that he does not get up and leave again. Patient's Reaction to the Intervention: Appropriate, Calm, Relaxed, Cooperative Patient's Reaction to the Intervention - Comment: Patient is a 40 and to be in restraints because he continued to get up and leave and eloped while being evaluated by EPS. Patient return to the room and was calmly placed restraints. He reports he will not get up and leave again. This time we will leave them on until he can calm down again and reevaluated the patient. He is in agrees. Resting comfortably in the room at this time. Patient's Medical & Behavioral Condition: Awake, Alert, Follows directions, Bizarre behavior, Other (see comment) (Patient is paranoid.) Patient's Medical & Behavioral Condition - Comment: Patient attempted to elope multiple times. Need to Continue or Terminate Restraint or Seclusion: Continue Face to Face Eval of Restraint Date: 08/26/17 Face to Face Eval of Restraint Time: 09:33 Restraint Occurrence 2 Patient's Immediate Situation: Endangers self safety, Endangers others' safety Patient's Immediate Situation - Comment: Patient because becoming increasingly agitated the room. He is attempting to call. Security asked him to sit on the bed and relaxed he became irate and attempted to swing at the staff members. Patient was then placed in restraints. He is cooperating well on the bed in restraints. Patient's Reaction to the Intervention - Comment: She cooperated while he placed in restraints on him. Patient's Medical & Behavioral Condition: Awake, Alert, Follows directions Need to Continue or Terminate Restraint or Seclusion: Continue Medical Decision Making - Medical Decision Making 26-year-old male presents emergency department with paranoid ideation. He would not relate were discussed with staff that that was going out. He eloped multiple times for EPS was trying to talk with the patient. He was then placed in restraints. He was removed from restraints and then became irate and replacing the restraints again. He was medicated with Geodon and Ativan. Discussed that he will be admitted at this time. - Lab Data Lab Results 08/26/17 Range/Units 09:40 Urine Opiates Screen Not Detected (NotDetected) Ur Oxycodone Screen Not Detected (NotDetected) Urine Methadone Screen Not Detected (NotDetected) Ur Propoxyphene Screen Not Detected (NotDetected) Ur Barbiturates Screen Not Detected (NotDetected) U Tricyclic Antidepress Not Detected (NotDetected) Ur Phencyclidine Scrn Not Detected (NotDetected) Ur Amphetamines Screen Not Detected (NotDetected) U Methamphetamines Scrn Not Detected (NotDetected) U Benzodiazepines Scrn Detected H (NotDetected) Urine Cocaine Screen Not Detected (NotDetected) U Marijuana (THC) Screen Not Detected (NotDetected) Disposition Clinical Impression: Paranoid, Schizoaffective disorder, bipolar type Disposition: ADMITTED IP TO THIS HOSP Condition: Stable
[2017-08-26 10:07] LABS: Amphetamine Screen,Urine Not Detected (NotDetected); Barbiturate Screen,Urine Not Detected (NotDetected); Benzodiazepines Screen,Urine Detected (NotDetected); Cocaine Screen,Urine Not Detected (NotDetected); Methadone Screen, Urine Not Detected (NotDetected); Opiate Screen,Urine Not Detected (NotDetected); Oxycodone Screen, Urine Not Detected (NotDetected); Phencyclidine Screen,Urine Not Detected (NotDetected); Tricyclic Antidepressant,Urine Not Detected (NotDetected); Urn Cannabinoid Scrn Not Detected (NotDetected)
[2017-08-26] MEDS: LORazepam 2 MG/ML INJ IM STA ×2 (10:39→11:08)
[2017-08-26] MEDS ORDERED: ZIPRASIDONE 20 MG VIAL IM STA (11:00)
[2017-08-26] MEDS ORDERED: MAGNESIUM HYDROXIDE 2,400 MG/10 ML CUP PO PRN (12:48)
[2017-08-26] MEDS ORDERED: MAG HYDROX/AL HYDROX/SIMETH 30 ML CUP PO PRN (12:48)
[2017-08-26] MEDS ORDERED: HALOPERIDOL LACTATE 5 MG/ML 1 ML VIAL IM PRN ×2 (12:53→14:17)
[2017-08-26] MEDS ORDERED: HALOPERIDOL 2 MG TAB PO PRN (14:17)
[2017-08-26] MEDS ORDERED: diphenhydrAMINE 25 MG CAP PO PRN (14:21)
[2017-08-26 14:33] VITALS: RESP 16
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
[2017-08-26] MEDS ORDERED: diphenhydrAMINE 50 MG/ML 1 ML VIAL IM PRN (16:00)
[2017-08-26] MEDS ORDERED: LORazepam 2 MG/ML INJ IM PRN (17:11)
[2017-08-26] MEDS: NICOTINE 21MG/24HR PATCH TRANSDERM SCH (18:00)
--- NOTE | 2017-08-26 18:40 | P.PN ---
Progress Note - Text Progress Note Date: 08/26/17 Hospitalist Note: Attempted to see patient. He refused to be seen stating he did not need to see me. Chart and prior records reviewed. CMP ordered for recheck of liver enzymes. Will attempt to see again tomorrow. Jeannine Berry,DO
--- NOTE | 2017-08-26 22:39 | P.MDCNMH ---
History of Present Illness H&P Date: 08/26/17 Chief Complaint: medical management 26-year-old male with history of schizophrenia. Presented due to erratic behaviors and paranoid. He admitted to experiencing with drugs including dextromethorphan mixture which gives him an out of body experience and makes him hear voices. He has been noncompliant with his medications. And he was brought in due to erratic behaviors otherwise he denies any medical complaints at this point. He denies any headache chest pain or trouble breathing denies any fevers or chills denies any upper respiratory infection like symptoms he denies any abdominal pain or changes in his bowel or urinary habits. He does raise concerns regarding sexually transmitted diseases as he claims to be sexually active without using protection, and is reporting some milky discharge from his penis off and on and he would like to be tested for HIV and other sexually transmitted diseases. And then when I ask him if any of his partners he knows that they have HIV or any other diseases like hepatitis or syphilis he reported that he is not aware what he suspects that some of them might have HIV thus he would like to be tested for that Review of Systems Pertinent positives as noted in HPI. All other systems were reviewed and are negative Past Medical History Past Medical History: Respiratory Disorder Additional Past Medical History / Comment(s): schizophrenia uti History of Any Multi-Drug Resistant Organisms: None Reported Past Surgical History: Tonsillectomy Additional Past Surgical History / Comment(s): colonoscopy Past Anesthesia/Blood Transfusion Reactions: No Reported Reaction Smoking Status: Former smoker - Past Family History Father Additional Family Medical History / Comment(s): Father is alive at age 49 with history of anxiety. Mother Additional Family Medical History / Comment(s): Mother is alive at age 42 with history of back problems and back surgery. Brother(s) Additional Family Medical History / Comment(s): Patient has one half brother with no major medical problems. He has 1 sister with no major medical problems. Patient has one son that is healthy. Medications and Allergies Home Medications Medication Instructions Recorded Confirmed Type OLANZapine [ZyPREXA] 20 mg PO HS 08/26/17 08/26/17 History Allergies Allergy/AdvReac Type Severity Reaction Status Date / Time haloperidol [From Haldol] AdvReac Extrapyramidal Verified 08/26/17 08:08 Side Effects ziprasidone [From Geodon] AdvReac Suicidal Verified 08/26/17 08:08 Thoughts Physical Exam Vitals: Vital Signs Temp Pulse Pulse Resp BP BP Pulse Ox 08/26/17 13:00 72 16 109/76 08/26/17 12:17 97.1 F L 114 H 18 122/74 97 08/26/17 07:29 97.3 F L 99 18 140/94 97 Intake and Output 08/26/17 08/26/17 08/26/17 06:59 14:59 22:59 Other: Weight 68.039 kg Patient Weight 08/27/17 06:59 Weight 68.039 kg Constitutional: No acute distress, conversant, pleasant Eyes: Anicteric sclerae, moist conjunctiva, no lid-lag Pupils equal round reactive to light ENMT: NC/AT Oropharynx clear, no erythema, exudates Neck: Supple, FROM, no masses, or JVD No carotid bruits No thyromegaly Lungs: Clear to auscultation Clear to percussion Normal respiratory effort, no accessory muscle use Cardiovascular: Heart regular in rate and rhythm, No murmurs, gallops, or rubs No peripheral edema Abdominal: Soft Nontender, no guarding, rebound or rigidity Abdomen moving with respiration Normoactive bowel sounds No hepatomegaly, No splenomegaly No palpable mass No abdominal wall hernia noted Skin: Normal temperature, tone, texture, turgor No induration No subcutaneous nodules No rash, lesions No ulcers Patient has thick yellow toenails bilaterally Extremities: No digital cyanosis No clubbing Pedal pulses intact and symmetrical Radial pulses intact and symmetrical No calf tenderness Psychiatric: Alert and oriented to person, place and time Paranoid behavior Poor judgment Neuro Muscles Strength 5/5 in all 4 extremities Sensation to light touch grossly present throughout No focal sensory deficits Lymphatics: no palpable cervical or supraclavicular , or inguinal lymph nodes Cranial Nerve Examination - Cranial Nerves Cranial Nerve II- Optic: Intact Cranial Nerve III- Oculomotor: Intact Cranial Nerve IV- Trochlear: Intact Cranial Nerve V- Trigeminal: Intact Cranial Nerve - Abducens: Intact Cranial Nerve VII- Facial: Intact Cranial Nerve VIII- Auditory: Intact Cranial Nerve IX- Glossopharyngeal: Intact Cranial Nerve X- Vagus: Intact Cranial Nerve XI- Accessory: Intact Cranial Nerve XII- Hypoglossal: Intact Results Labs: Abnormal Lab Results - Last 24 Hours (Table) 08/26/17 Range/Units 09:40 U Benzodiazepines Scrn Detected H (NotDetected) Assessment and Plan (1) Penile discharge Narrative/Plan: Whether this is part of his paranoid behavior or true claims that he had unprotected sex and now experiencing off and on and I'll discharge Patient will be tested for STDs in the urine Neisseria and chlamydia Test for syphilis, due to complaint of raised bumps over his penis recently but since then has disappeared Test for HIV due to claim of having unprotected sex with a partner that he suspects might have HIV Current Visit: Yes Status: Acute Code(s): R36.9 - URETHRAL DISCHARGE, UNSPECIFIED SNOMED Code(s): 8993281 (2) Paranoid Current Visit: Yes Status: Acute Code(s): F22 - DELUSIONAL DISORDERS SNOMED Code(s): 25735421 (3) Schizoaffective disorder, bipolar type Current Visit: Yes Status: Chronic Priority: High Code(s): F25.0 - SCHIZOAFFECTIVE DISORDER, BIPOLAR TYPE SNOMED Code(s): 38257063 Plan: Other management per psych Tobacco smoking abuse patient counseled to quit smoking to replacement therapy offered HUNTER Deng Thank you for allowing us to participate in the care of this patient. We will follow peripherally. Do not hesitate to contact us with questions. Someone can be reached from the [facility] hospitalist group at all hours of the day at [phone].
[2017-08-26] MEDS: LORazepam 1 MG TAB PO PRN (22:59)
[2017-08-27] MEDS: FAMOTIDINE 20 MG TAB PO SCH ×2 (09:04→21:21)
[2017-08-27] MEDS: NICOTINE 21MG/24HR PATCH TRANSDERM SCH (09:46)
[2017-08-27] MEDS ORDERED: flUPHENAZine 2.5 MG/ML (MDV) 10 ML VIAL IM PRN (12:35)
[2017-08-27] MEDS ORDERED: diphenhydrAMINE 50 MG/ML 1 ML VIAL IM PRN (12:41)
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
[2017-08-27] MEDS: BENZTROPINE MESYLATE 0.5 MG TAB PO SCH (21:21)
[2017-08-28] MEDS: LORazepam 1 MG TAB PO PRN ×2 (00:06→19:46)
[2017-08-28] MEDS: ACETAMINOPHEN TAB 325 MG TAB PO PRN (00:07)
[2017-08-28] MEDS: NICOTINE 21MG/24HR PATCH TRANSDERM SCH (09:22)
[2017-08-28] MEDS: BENZTROPINE MESYLATE 0.5 MG TAB PO SCH ×2 (09:23→20:09)
[2017-08-28] MEDS: FAMOTIDINE 20 MG TAB PO SCH ×2 (09:23→20:09)
--- NOTE | 2017-08-28 13:20 | P.PN ---
Progress Note - Text Progress Note Date: 08/28/17 Interval History: Patient is a 26-year-old male who is being seen in weekend coverage, patient was agreeable to take medication yesterday and began taking the Prolixin orally and has not required IM Prolixin because of refusal of oral medication. Patient has been less irritable on the unit and when I spoke with him in his room he was much less irritable. He reports wanting to be discharged because he is bored and does not think that he is doing better today or that the medication is of any benefit. Patient denied symptoms of any type. Mental Status: Appearance/Attitude: Patient is appropriately dressed, makes only intermittent eye contact and is superficially cooperative Behavior: Patient does not exhibit any psychomotor retardation and is much less irritable and agitated today. Speech/Language: Patient only responds him yesterday and answers to most questions, and a normal volume and rhythm and he is coherent Thought Process: Patient responds in brief sentences but is goal-directed Thought Content: Patient denies auditory or visual hallucinations and no paranoid or delusional ideation was elicited. Patient denies any symptoms and states he is bored and wants to be discharged. Patient is not seeing any change in his behavior and thinks the medications are no benefit. Patient did sleep last evening Suicidal/Homicidal Ideation: Patient denies suicidal or homicidal ideation at this time Sensorium/Cognition: Patient is alert and oriented to person, place, time and his recent and remote memory are grossly intact Mood/Affect: Patient's mood remains irritable and his affect is blunted Insight/Judgment: Patient's insight and judgment are impaired Assessment: Patient has been much more cooperative and less irritable and agitated on the unit not requiring any IM as needed medication. He has been taking his oral Prolixin medication along with Cogentin. Patient denies having any symptoms at all and states that he is bored and needs to be discharged. Patient does not feel the medication is of any benefit. Patient has been spending time in his room and has been less agitated on the unit. No evidence of side effects was noted on exam and patient is not reporting any. Plan: Patient will continue on Prolixin 5 mg 3 times a day, Cogentin 0.5 mg twice a day. Patient continues to require hospitalization.
[2017-08-29] MEDS: LORazepam 1 MG TAB PO PRN ×2 (02:15→15:24)
[2017-08-29] MEDS: ACETAMINOPHEN TAB 325 MG TAB PO PRN (02:15)
[2017-08-29 07:04] VITALS: TEMP 97.5
[2017-08-29] MEDS: BENZTROPINE MESYLATE 0.5 MG TAB PO SCH ×2 (10:22→21:16)
[2017-08-29] MEDS: FAMOTIDINE 20 MG TAB PO SCH ×2 (10:22→21:16)
[2017-08-29] MEDS: NICOTINE 21MG/24HR PATCH TRANSDERM SCH ×2 (10:23→15:24)
--- NOTE | 2017-08-29 10:23 | P.PN ---
Progress Note - Text Interval history: The patient is found in his room he follows me to an interview room. He reports he came to the hospital just so he could be safe. He states he felt weird with some of the things his mother was telling him. He recently was kicked out of [facility] he reports for violating the rules. He tells me he was court ordered there for 2 weeks but he only stayed 8 days. Social work notes were reviewed and it appears there is some concern that he has been noncompliant with medication. He is currently on oral Prolixin. It appears he is on an existing court order. The patient's endorsing no symptoms and is asking to be discharged today. Mental status exam: The patient is a thin male his head is shaved he stressors own clothing. Initially he is reluctant to get out but does follow me to an interview room. Overall he is cooperative. He denies having any symptoms and minimizes reasons for being admitted. The patient is well known to this service and he does have a history of demonstrating acute psychosis and agitation in the past. He is reporting no suicidal or homicidal thoughts he is endorsing no psychosis or any delusional thought. It is likely he still has some delusional thought content. Insight and judgment limited. He demonstrates an expansive affect at times. He demonstrates no verbal or physical aggressiveness or any abnormal involuntary movements. Plan: The patient will continue on his current psychotropic medications. I will need input from the treatment team as the patient is not always a reliable historian. We will monitor him for safety and encourage his participation in the milieu. We will consider use of an injectable medication specifically Prolixin Decanoate as he is already on the oral dose.
[2017-08-30] MEDS: LORazepam 1 MG TAB PO PRN ×2 (01:27→10:16)
[2017-08-30 01:30] VITALS: BP 108/70; PULSE 116
[2017-08-30] MEDS: FAMOTIDINE 20 MG TAB PO SCH (08:16)
[2017-08-30] MEDS: BENZTROPINE MESYLATE 0.5 MG TAB PO SCH (08:16)
[2017-08-30] MEDS: NICOTINE 21MG/24HR PATCH TRANSDERM SCH (08:17)
[2017-08-30] MEDS ORDERED: fluPHENAZine DECANOATE 25 MG/ML 5ML MDV IM ONE (11:00)
--- NOTE | 2017-08-30 11:06 | P.DS ---
Providers Date of admission: 08/26/17 12:15 Expected date of discharge: 08/30/17 Attending physician: Osumane Horvath Consults: 08/26/17 12:48 Consult Physician Routine Consulting Provider: Belen Fong Consult Reason/Comments: H & P and medical follow up Do you want consulting provider notified?: Yes Primary care physician: Stated None - Discharge Diagnosis(es) (1) Schizoaffective disorder Current Visit: Yes Status: Acute Priority: High Hospital Course: Brief summary of admission note: This patient is a 26-year-old single male who was admitted to the mental health unit through the emergency room. The patient demonstrated agitated behavior in the emergency room requiring physical restraint. He had recently left an inpatient chemical dependency treatment to which she was court ordered. He had recently been on this mental health unit in July but had discontinued his medication. He does have a long-standing history of psychosis and history of substance use. He was court ordered to remain in rehab for 14 days but left after 8 days he reports. For full detail presents referred to the psychiatric evaluation dated 08/26/2017. Summary of hospital course: The patient's was admitted to the mental health unit on an existing court order. He was restarted on Prolixin 5 mg 3 times daily. We discussed using the decanoate form of the medication and he was agreeable. He has been provided Cogentin 0.5 mg twice daily. The patient demonstrated a progressive improvement of symptoms while here. He has called the access line to arrange inpatient chemical dependency treatment but states he prefers not to go. Social work has been in contact with the patient's credit administration officer and the patient is violated and we'll need to return to [facility] upon discharge. The patient is endorsing no thoughts of harming himself or others. He has not been demonstrating any agitated behavior on the mental health unit under my care. Social work has been in contact with the patient's mother who is pursuing public guardianship for the patient. The patient was seen by internal medicine for routine history and physical exam. Mental status exam: The patient is a tall thin male appearing his stated age. He is dressed in his own clothing. Hygiene grooming are adequate. He reports his mood is good he is looking forward to being discharged. He is reporting no suicidal or homicidal ideation intent or plan. He is endorsing no auditory or visual hallucinations. He is endorsing no specific delusions but he may have some residual psychosis that is part of his baseline. He demonstrates no tangential thinking loose associations or flight of ideas. Insight and judgment have improved. He demonstrates no verbal or physical aggressiveness and demonstrates no abnormal involuntary movements. He is oriented to person place and date. Over the past several days he is been very directable and cooperative. Impressions 1. Schizoaffective disorder, cannabis use disorder 2. Cluster B traits Plan: The patient will be discharged today from the mental health unit. He will receive Prolixin decanoate 25 mg today. He will continue on Prolixin 5 mg 3 times daily for the next 2 weeks and this will likely be discontinued as he will continue with the Prolixin decanoate. Cogentin 0.5 mg twice daily. His next Prolixin Decanoate injection will be due in 2 weeks which will likely be provided by [facility]. He is instructed to abstain from any use of alcohol marijuana or any other illicit drug. We discussed that they will likely interfere with the effectiveness of his medication and also elevate his safety risk. He is instructed to return to the hospital with any acute safety concerns. At this time there is no imminent safety concern he is appropriate for transition to outpatient care. It appears he will need to go to [facility] as he did not complete his court ordered chemical dependency treatment. Patient Condition at Discharge: Stable Plan - Discharge Summary Discharge Rx Participant: No New Discharge Prescriptions: New Benztropine Mesylate [Cogentin] 0.5 mg PO BID #30 tab fluPHENAZine [Prolixin] 5 mg PO TID #45 tab fluPHENAZine DECANOATE [Prolixin Decanoate] 25 mg IM ONCE #1 ml Nicotine 21Mg/24Hr Patch [Habitrol] 1 patch TRANSDERM DAILY #12 patch Discontinued OLANZapine [ZyPREXA] 20 mg PO HS Discharge Medication List Benztropine Mesylate [Cogentin] 0.5 mg PO BID #30 tab 08/30/17 [Rx] Nicotine 21Mg/24Hr Patch [Habitrol] 1 patch TRANSDERM DAILY #12 patch 08/30/17 [ Rx] fluPHENAZine DECANOATE [Prolixin Decanoate] 25 mg IM ONCE #1 ml 08/30/17 [Rx] fluPHENAZine [Prolixin] 5 mg PO TID #45 tab 08/30/17 [Rx] Follow up Appointment(s)/Referral(s): None,Stated [Primary Care Provider] - 1-2 days
== END 2017-08-30 14:48 | disposition home or self-care (01) | DRG 885 ==
LOC: EC 07:27 → 3MHU 12:15
PROVIDERS: ADMIT Psychiatry & Neurology Psychiatry; ATTEND Psychiatry & Neurology Psychiatry
DX: F25.0 Schizoaffective disorder, bipolar type (principal); Z78.1 Physical restraint status; F12.90 Cannabis use, unspecified, uncomplicated; F17.200 Nicotine dependence, unspecified, uncomplicated; F41.0 Panic disorder [episodic paroxysmal anxiety]; Z91.14 Patient's other noncompliance with medication regimen; Z71.6 Tobacco abuse counseling
CPT/HCPCS: 80306; 82075; 96372; 99285

== ENCOUNTER 2017-09-23 16:20 | Inpatient (IN) | payer MEDICAID, OTHER ==
--- NOTE | 2017-09-23 17:15 | ED ---
Psych HPI - General Chief Complaint: Psychiatric Symptoms Stated Complaint: Mental health Time Seen by Provider: 09/23/17 16:35 Source: patient, RN notes reviewed Mode of arrival: ambulatory Limitations: no limitations - History of Present Illness Initial Comments: 26-year-old male presents emergency department for psychiatric evaluation. Patient states that his family is trying to get him admitted to the hospital. Patient is petition by mother for psychotic behavior. Patient states he's not taking medications. Patient denies any drugs or alcohol abuse denies any physical complaints. Denies any homicidal or suicidal ideations. - Related Data Home Medications Medication Instructions Recorded Confirmed Melatonin 1 mg PO HS 09/23/17 09/23/17 fluPHENAZine DECANOATE [Prolixin 25 mg IM Q14D 09/23/17 09/23/17 Decanoate] Previous Rx's Medication Instructions Recorded Benztropine Mesylate [Cogentin] 0.5 mg PO BID #30 tab 08/30/17 Allergies Allergy/AdvReac Type Severity Reaction Status Date / Time haloperidol [From Haldol] AdvReac Extrapyramidal Verified 09/23/17 16:56 Side Effects ziprasidone [From Geodon] AdvReac Suicidal Verified 09/23/17 16:56 Thoughts Review of Systems ROS Statement: Those systems with pertinent positive or pertinent negative responses have been documented in the HPI. ROS Other: All systems not noted in ROS Statement are negative. Past Medical History Past Medical History: Respiratory Disorder Additional Past Medical History / Comment(s): schizophrenia uti History of Any Multi-Drug Resistant Organisms: None Reported Past Surgical History: Tonsillectomy Additional Past Surgical History / Comment(s): colonoscopy Past Anesthesia/Blood Transfusion Reactions: No Reported Reaction Past Psychological History: Anxiety, Depression, Panic Disorder, Schizophrenia Smoking Status: Current every day smoker Past Alcohol Use History: None Reported Past Drug Use History: None Reported - Past Family History Father Additional Family Medical History / Comment(s): Father is alive at age 49 with history of anxiety. Mother Additional Family Medical History / Comment(s): Mother is alive at age 42 with history of back problems and back surgery. Brother(s) Additional Family Medical History / Comment(s): Patient has one half brother with no major medical problems. He has 1 sister with no major medical problems. Patient has one son that is healthy. General Exam Limitations: no limitations General appearance: alert, in no apparent distress Head exam: Present: atraumatic, normocephalic, normal inspection Eye exam: Present: normal appearance, PERRL, EOMI. Absent: scleral icterus, conjunctival injection, periorbital swelling ENT exam: Present: normal exam, normal oropharynx, mucous membranes moist Neck exam: Present: normal inspection, full ROM. Absent: tenderness, meningismus, lymphadenopathy Respiratory exam: Present: normal lung sounds bilaterally. Absent: respiratory distress, wheezes, rales, rhonchi, stridor Cardiovascular Exam: Present: regular rate, normal rhythm, normal heart sounds. Absent: systolic murmur, diastolic murmur, rubs, gallop, clicks GI/Abdominal exam: Present: soft, normal bowel sounds. Absent: distended, tenderness, guarding, rebound, rigid Back exam: Absent: CVA tenderness (R), CVA tenderness (L) Skin exam: Present: warm, dry, intact, normal color. Absent: rash Course Vital Signs 09/23/17 16:28 Pulse Rate 88 Respiratory 18 Rate Blood Pressure 136/88 O2 Sat by Pulse 99 Oximetry Disposition Clinical Impression: Psychosis, Schizoaffective disorder, bipolar type, Poor compliance with medication Disposition: ADMITTED IP TO THIS [facility] Condition: Fair Referrals: None,Stated [Primary Care Provider] - 1-2 days
[2017-09-23] MEDS ORDERED: LORazepam 2 MG/ML INJ IM STA (17:31)
[2017-09-23 19:09] LABS: Amphetamine Screen,Urine Not Detected (NotDetected); Barbiturate Screen,Urine Not Detected (NotDetected); Benzodiazepines Screen,Urine Not Detected (NotDetected); Cocaine Screen,Urine Not Detected (NotDetected); Methadone Screen, Urine Not Detected (NotDetected); Opiate Screen,Urine Not Detected (NotDetected); Oxycodone Screen, Urine Not Detected (NotDetected); Phencyclidine Screen,Urine Not Detected (NotDetected); Tricyclic Antidepressant,Urine Not Detected (NotDetected); Urn Cannabinoid Scrn Not Detected (NotDetected)
[2017-09-23] MEDS: LORazepam 2 MG/ML INJ IM PRN (20:45)
[2017-09-23] MEDS ORDERED: flUPHENAZine 2.5 MG/ML (MDV) 10 ML VIAL IM ONE (21:08)
[2017-09-23] MEDS ORDERED: MAGNESIUM HYDROXIDE 2,400 MG/10 ML CUP PO PRN (21:15)
[2017-09-23] MEDS ORDERED: MAG HYDROX/AL HYDROX/SIMETH 30 ML CUP PO PRN (21:15)
[2017-09-23] MEDS ORDERED: ACETAMINOPHEN TAB 325 MG TAB PO PRN (21:15)
--- NOTE | 2017-09-23 22:24 | P.MDCNMH ---
History of Present Illness H&P Date: 09/23/17 Chief Complaint: Agitation 26-year-old male with history of schizophrenia. Presented due to erratic behaviors and paranoia, he was petitioned by his mother. Patient chronically uses drugs including dextromethorphan mixture which gives him an out of body experience and makes him hear voices. He has been noncompliant with his medications or follow-up appointments. And he was brought in due to erratic and belligerent behaviors. He had to be sedated with Ativan multiple times since he came in. Otherwise he denies any medical complaints at this point. He denies any headache, chest pain or trouble breathing, denies any fevers or chills denies any upper respiratory infection like symptoms he denies any abdominal pain or changes in his bowel or urinary habits. Review of Systems 12 point review of system was performed, negative except for HPI Past Medical History Past Medical History: Respiratory Disorder Additional Past Medical History / Comment(s): schizophrenia uti History of Any Multi-Drug Resistant Organisms: None Reported Past Surgical History: Tonsillectomy Additional Past Surgical History / Comment(s): colonoscopy Past Anesthesia/Blood Transfusion Reactions: No Reported Reaction Past Psychological History: Anxiety, Depression, Panic Disorder, Schizophrenia Smoking Status: Current every day smoker Past Alcohol Use History: None Reported Past Drug Use History: None Reported - Past Family History Father Additional Family Medical History / Comment(s): Father is alive at age 49 with history of anxiety. Mother Additional Family Medical History / Comment(s): Mother is alive at age 42 with history of back problems and back surgery. Brother(s) Additional Family Medical History / Comment(s): Patient has one half brother with no major medical problems. He has 1 sister with no major medical problems. Patient has one son that is healthy. Medications and Allergies Home Medications Medication Instructions Recorded Confirmed Type Benztropine Mesylate [Cogentin] 0.5 mg PO BID #30 tab 08/30/17 09/23/17 Rx Melatonin 1 mg PO HS 09/23/17 09/23/17 History fluPHENAZine DECANOATE [Prolixin 25 mg IM Q14D 09/23/17 09/23/17 History Decanoate] Allergies Allergy/AdvReac Type Severity Reaction Status Date / Time haloperidol [From Haldol] AdvReac Extrapyramidal Verified 09/23/17 16:56 Side Effects ziprasidone [From Geodon] AdvReac Suicidal Verified 09/23/17 16:56 Thoughts Physical Exam Vitals: Vital Signs Temp Pulse Resp BP Pulse Ox 09/23/17 19:07 98.3 F 66 21 120/62 97 09/23/17 16:28 88 18 136/88 99 Intake and Output 09/23/17 09/23/17 09/23/17 06:59 14:59 22:59 Other: Weight 72.121 kg Constitutional: No acute distress, conversant, pleasant Eyes:Anicteric sclerae, moist conjunctiva, no lid-lag, PERRLA, ENMT: Oropharynx clear, no erythema, exudates Neck: Supple, FROM, no masses, or JVD, No carotid bruits, No thyromegaly Lungs: Clear to auscultation, Clear to percussion, Normal respiratory effort, no accessory muscle use Cardiovascular: Heart regular in rate and rhythm, No murmurs, gallops, or rubs, No peripheral edema Abdominal: Soft, Nontender, no guarding, rebound or rigidity, Normoactive bowel sounds, No hepatomegaly, No splenomegaly, No palpable mass Skin: Normal temperature, tone, texture, turgor, no induration, No subcutaneous nodules, No rash, lesions, No ulcers Extremities: No digital cyanosis, No clubbing, Pedal pulses intact and symmetrical, Radial pulses intact and symmetrical, No calf tenderness Psychiatric: Alert and oriented to person, place and time, flat affect, impaired judgement Neuro: Muscles Strength 5/5 in all 4 extremities, Sensation to light touch grossly present throughout, Cranial nerves II-XII grossly intact, no focal sensory deficits Cranial Nerve Examination - Cranial Nerves Cranial Nerve II- Optic: Intact Cranial Nerve III- Oculomotor: Intact Cranial Nerve IV- Trochlear: Intact Cranial Nerve V- Trigeminal: Intact Cranial Nerve - Abducens: Intact Cranial Nerve VII- Facial: Intact Cranial Nerve VIII- Auditory: Intact Cranial Nerve IX- Glossopharyngeal: Intact Cranial Nerve X- Vagus: Intact Cranial Nerve XI- Accessory: Intact Cranial Nerve XII- Hypoglossal: Intact Assessment and Plan Plan: (1) Schizoaffective disorder, bipolar type, acute psychosis, history of noncompliance Ativan prn, ALLERGIC to Haldol Management per psychiatry Check CBC, CMP (2) Methamphetamine abuse, Tetrahydrocannabinol (THC) use disorder, moderate, dependence Counseled to quit Check urine drug screen
[2017-09-23 23:11] VITALS: BMI 20.4
[2017-09-24] MEDS ORDERED: LORazepam 2 MG/ML INJ IM STA (03:22)
[2017-09-24] MEDS ORDERED: chlorproMAZINE 25 MG/ML 2 ML AMP IM PRN (03:22)
[2017-09-24] MEDS: LORazepam 1 MG TAB PO PRN (10:28)
[2017-09-24] MEDS: LORazepam 2 MG/ML INJ IM PRN ×2 (10:44→22:06)
[2017-09-24] MEDS: chlorproMAZINE 25 MG/ML 2 ML AMP IM PRN (10:44)
[2017-09-24] MEDS: NICOTINE 21MG/24HR PATCH TRANSDERM SCH (10:48)
[2017-09-24] MEDS: chlorproMAZINE 25 MG TAB PO SCH ×3 (10:48→20:53)
[2017-09-24] MEDS ORDERED: BENZTROPINE 2 MG/2 ML AMP IM PRN (11:43)
--- NOTE | 2017-09-24 15:56 | P.MHFACE ---
Face to Face Eval of Restraint - Evaluation Patient's Immediate Situation: Endangers self safety, Endangers others' safety, Violent behavior Patient's Immediate Situation - Comment: Patient was yelling, disruptive, ran into the hallway and entered into another patients room, came out grabbed security gaurds pendant and kept pressing it Patient's Reaction to the Intervention: Uncooperative, Hostile, Aggressive, Combative, Resistive to care Patient's Reaction to the Intervention - Comment: Patient was unable to follow the verbal redirections, continued with yelling, running, threatening, endangering self, other patients and staff members. Patient's Medical & Behavioral Condition: Agitated, Paranoid Patient's Medical & Behavioral Condition - Comment: He continues to be agressive, agitated, hostile, was unable to calm down with least restrictive measures. Need to Continue or Terminate Restraint or Seclusion: Continue Need to Continue or Terminate Restraint/Seclusion - Comment: He continues to remain a danger to himself and others with his impulsive and unpredictable behaviors.
--- NOTE | 2017-09-24 16:25 | P.HP ---
Psychiatric H&P - . H&P Date: 09/24/17 History & Physical: Allergies Allergy/AdvReac Type Severity Reaction Status Date / Time haloperidol [From Haldol] AdvReac Extrapyramidal Verified 09/23/17 23:12 Side Effects ziprasidone [From Geodon] AdvReac Suicidal Verified 09/23/17 23:12 Thoughts Vital Signs Temp 97.9 F 09/23/17 22:52 Pulse 122 H 09/23/17 22:52 Resp 18 09/23/17 22:52 BP 139/88 09/23/17 22:52 Pulse Ox 97 09/23/17 19:07 Intake & Output 09/23/17 09/24/17 09/24/17 18:59 06:59 18:59 Weight 72.121 kg 70.2 kg Laboratory Last Values Urine Opiates Screen Not Detected (NotDetected) 09/23/17 18:40 Ur Oxycodone Screen Not Detected (NotDetected) 09/23/17 18:40 Urine Methadone Screen Not Detected (NotDetected) 09/23/17 18:40 Ur Propoxyphene Screen Not Detected (NotDetected) 09/23/17 18:40 Ur Barbiturates Screen Not Detected (NotDetected) 09/23/17 18:40 U Tricyclic Antidepress Not Detected (NotDetected) 09/23/17 18:40 Ur Phencyclidine Scrn Not Detected (NotDetected) 09/23/17 18:40 Ur Amphetamines Screen Not Detected (NotDetected) 09/23/17 18:40 U Methamphetamines Scrn Not Detected (NotDetected) 09/23/17 18:40 U Benzodiazepines Scrn Not Detected (NotDetected) 09/23/17 18:40 Urine Cocaine Screen Not Detected (NotDetected) 09/23/17 18:40 U Marijuana (THC) Screen Not Detected (NotDetected) 09/23/17 18:40 09/24/17 16:01 Identifying Information Patient is 26 year old male. He lives with his mother. chief Complaint Patient was petitioned by his mother. Per petition patient has tried to jump out of the moving vehicle. Violent and unstable behaviors. Completed rehab two days ago. History of presenting Illness Patient is un-coperative. He was admitted through ER on a petition and cert. Per medical records he has a court order that expires on 11/16/17. most of the history was obtained from records and by observation from his current admission.He has received ativan injections in the ER to control his erratic and aggressive behaviors. After his transfer to the inpatient mental health unit patient had to be placed in restraints due to his impulsive and un-predictable behaviors. Face to face restraint evaluation was done by the medical team through [facility]. Author also has completed the face to face restraint evaluation today He received multiple PRN medications to control his behaviors. Intermittently patient becomes loud, belligerent, disruptive, hostile. He runs into the hallways, enters other patients rooms, punches doors, jumps the desks. He grabbed the security guards pendent and started pressing it. He threw cereal at the staff member. He is paranoid, delusional with disorganized speech. He becomes combative. Past psychiatric treatment history Multiple psychiatric hospitalizations. His last admission was at this hospital in 2017. He follows up with [facility]. Per medical records he recieved his last prolixin decanoate injection 25mg IM on 09/22/17. Per medical records he has been treated with invega sustena, latuda, risperidone, zyprexa, geodon, haldol decanoate and prolixin decanaote. He has establised history of medication non compliance. Medical history None reported. Substance use history History of methamphetamine and cannabis abuse. He completed rehab two days ago. His current urine drug screen is negative. Legal problems None reported. Family History Per medical records Father is 49 with history of anxiety. Mother is 42 with history of drug use. Social history Per medical records he has high school education. He has one half brother, one sister. He has one son. He lives with his mother. Mental Status Exam Patient is 26 year old, male. He is tall, well built, dressed appropriately. He is un-coperative, hostile. His speech is disorganized. Since his admission he has recieved multiple PRN medications and has been placed in restraints due to his impulsive and unpredictable, uncontrolled behaviors. He sleeps most of the time and becomes aggressive with hostile, combative, impulsive and disruptive behaviors. His judgement and insight are impaired. He is alert and oriented to person and place only. He is persevarative and keeps talking about his mother bringing him to the hospital as she is afraid he might harm her. He is delusional and talks about having abilities to control every one. His memory and cognitive functions could not be assessed due to his his un- cooperative and hostile behaviors. Assessment Schizoaffective disorder, bipolar type Plan Patient was admitted to inpatient mental health unit on a petition and cert. However he has court order which will on 11/16/17 per medical records. Started on thorazine 50mg po tid, for psychosis, Cogentin 1mg po bid prn for EPS. Per medical records he recieved his last dose of prolixin decanoate injection 25mg IM on 09/22/17. Routine blood tests done. History and physical exam done by epoxy coatings installer. Patient to participate in all unit activities and group therapies. Social work on board for discharge planning. Patient to be monitored for symptoms and side effects. Adjust medication as deemed appropriate. 09/24/17 16:39
[2017-09-24] MEDS: BENZTROPINE MESYLATE 1 MG TAB PO PRN (17:03)
--- NOTE | 2017-09-24 19:53 | P.MHFACE ---
Face to Face Eval of Restraint - Evaluation Patient's Immediate Situation: Endangers self safety, Endangers others' safety, Endangers staff safety, Violent behavior Patient's Reaction to the Intervention: Uncooperative, Angry Patient's Medical & Behavioral Condition: Awake, Alert, Agitated, Paranoid Need to Continue or Terminate Restraint or Seclusion: Continue
[2017-09-25] MEDS: chlorproMAZINE 25 MG/ML 2 ML AMP IM PRN (03:26)
[2017-09-25] MEDS ORDERED: MD COMMUNICATION TO PHARMACY 1 EACH MISC PO PRN (03:53)
[2017-09-25] MEDS: LORazepam 2 MG/ML INJ IM PRN ×2 (03:57→15:53)
--- NOTE | 2017-09-25 06:48 | P.MHFACE ---
Face to Face Eval of Restraint - Evaluation Patient's Immediate Situation: Endangers self safety, Endangers others' safety, Endangers staff safety, Violent behavior Patient's Reaction to the Intervention: Uncooperative, Angry, Hostile, Belligerent Patient's Medical & Behavioral Condition: Awake, Alert, Agitated Need to Continue or Terminate Restraint or Seclusion: Continue
--- NOTE | 2017-09-25 07:51 | P.MHFACE ---
Face to Face Eval of Restraint - Evaluation Patient's Immediate Situation: Endangers self safety, Endangers others' safety, Endangers staff safety Patient's Immediate Situation - Comment: Patient was angry and walking in the hallway dragging a chair. He then got on the chair and started to rip down ceiling tiles. He was verbally aggressive towards staff and was pulling on there clothes not maintaining personal space boundaries. Interventions tried: thorazine, ativan, redirection, food. No improvement in aggression. Patient's Reaction to the Intervention: Hostile, Belligerent, Aggressive Patient's Medical & Behavioral Condition: Awake, Alert, Agitated Patient's Medical & Behavioral Condition - Comment: Patient was still aggressive after Thorazine and Ativan attempted. Currently in restraints and pulling at restraints, pulling up on mattress, yelling. He then is verbally abusive to food writer when told he needs to be calm and cooperative with staff prior to being let out of restraints. Delayed charting due to being in patients room. Initial encounter started at 7: 29. Need to Continue or Terminate Restraint or Seclusion: Continue
[2017-09-25 08:52] LABS: Basophils # (A) 0.1 k/uL (0-0.2); Basophils % (A) 0 %; Eosinophils # (A) 0.3 k/uL (0-0.7); Eosinophils % (A) 2 %; HCT 43.4 % (39.0-53.0); HGB 15.1 gm/dL (13.0-17.5); Lymphocytes % (A) 16 %; MCH 29.2 pg (25.0-35.0); MCHC 34.8 g/dL (31.0-37.0); MCV 83.9 fL (80.0-100.0); Mean Platelet Volume 8.1; Monocytes # (A) 0.7 k/uL (0-1.0); Monocytes % (A) 6 %; Neutrophils # (A) 9.2 k/uL (1.3-7.7); Neutrophils % (A) 74 %; Platelet Count 172 k/uL (150-450); RBC 5.18 m/uL (4.30-5.90); RDW 12.5 % (11.5-15.5); WBC 12.3 k/uL (3.8-10.6)
[2017-09-25 08:59] LABS: ALT 31 U/L (21-72); AST 68 U/L (17-59); Albumin 4.1 g/dL (3.5-5.0); Alkaline Phosphatase 63 U/L (38-126); Anion Gap 12 mmol/L; Blood Urea Nitrogen 15 mg/dL (9-20); Calcium 9.3 mg/dL (8.4-10.2); Carbon Dioxide 28 mmol/L (22-30); Chloride 101 mmol/L (98-107); Glucose 88 mg/dL (74-99); Potassium 3.8 mmol/L (3.5-5.1); Sodium 141 mmol/L (137-145); Total Bilirubin 0.7 mg/dL (0.2-1.3); Total Protein 6.4 g/dL (6.3-8.2)
[2017-09-25] MEDS: chlorproMAZINE 25 MG TAB PO SCH (09:10)
[2017-09-25] MEDS: NICOTINE 21MG/24HR PATCH TRANSDERM SCH (09:10)
[2017-09-25] MEDS ORDERED: chlorproMAZINE 25 MG/ML 2 ML AMP IM ONE (09:49)
--- NOTE | 2017-09-25 10:44 | P.MHFACE ---
Face to Face Eval of Restraint - Evaluation Patient's Immediate Situation: Endangers others' safety, Violent behavior Patient's Immediate Situation - Comment: Patient was running around, threatening staff, hitting and punching, not following directions, throwing things around, responding to internal stimuli, impulsive and unpredictable. Patient's Reaction to the Intervention: Belligerent, Combative Patient's Reaction to the Intervention - Comment: Patient unable to follow verbal directions and gets more agitated, angry with violent outbursts. Patient's Medical & Behavioral Condition: Awake, Alert, Agitated Patient's Medical & Behavioral Condition - Comment: Patient is agitated, hostile and uncooperative Need to Continue or Terminate Restraint or Seclusion: Continue Need to Continue or Terminate Restraint/Seclusion - Comment: Due to his unpredictable, impulsive and violent outbursts patient needs to continued on restraints. Least restrictive measures have failed to control him.
--- NOTE | 2017-09-25 11:06 | P.PN ---
Progress Note - Text Progress Note Date: 09/25/17 Patient was seen today. He was on his bed in restraints. He stated he is not doing good. When asked to explain further he states they are strapping me tot he bed. When asked why is he being strapped to the bed, he says they are afraid i might harm someone. When asked if he has thoughts of wanting to harm some he states absolutely not. When asked why is he running around, breaking things, throwing things, threatening staff, he states they are telling me to do stuff. When asked who are telling him to do stuff he says voices are telling him to do stuff. He is currently requesting to be taken off of restraints. Since his admission patient gets into intermittent violent behaviors. At other times he is calm and is redirectable. He becomes loud, demanading, threatening. Mental Status Exam Patient is 26 year old male. He appears in fair grooming and hygiene. His speech is loud and disorganised at times. His thought process is tangential. He says he will make a deal that he will not engage in any violent behaviors if he is removed from the restraints. He has auditory hallucinations, denies visual hallucinations. He is paranoid. He denies current suicidal or homicidal ideations. He is alert and oriented to time place and person. Insight and judgement are poor. Assessment Engages in erratic impulsive unpredictable behaviors from time time requring PRN medications and restraints to control his behaviors. Plan Will increase his thorazine to 100mg po tid. Monitor patient for symptoms.
--- NOTE | 2017-09-25 13:49 | P.MHFACE ---
Face to Face Eval of Restraint - Evaluation Patient's Immediate Situation: Endangers staff safety, Violent behavior Patient's Immediate Situation - Comment: Pateint is ejaculating, spitting on staff and urinating. Patient's Reaction to the Intervention: Uncooperative, Belligerent, Aggressive, Combative Patient's Reaction to the Intervention - Comment: Patient is uncooperative, loud disruptive and threatening. Patient's Medical & Behavioral Condition: Awake, Agitated Patient's Medical & Behavioral Condition - Comment: Patient is hostile, agitated and agressive, unable to follow verbal redirections Need to Continue or Terminate Restraint or Seclusion: Continue Need to Continue or Terminate Restraint/Seclusion - Comment: Patient continues with his violent outbursts which are uncontrollable. Least restrictive measures have failed to control his behavior.
[2017-09-25] MEDS ORDERED: diphenhydrAMINE 50 MG/ML 1 ML VIAL IM STA (13:52)
[2017-09-25] MEDS ORDERED: chlorproMAZINE 25 MG/ML 2 ML AMP IM PRN (16:00)
[2017-09-25] MEDS: chlorproMAZINE 100 MG TAB PO SCH ×2 (16:50→20:40)
[2017-09-25] MEDS ORDERED: flUPHENAZine 2.5 MG/ML (MDV) 10 ML VIAL IM ONE (18:00)
[2017-09-25] MEDS: DIVALPROEX 250 MG TABLET.DR PO SCH (20:40)
[2017-09-26] MEDS: NICOTINE 21MG/24HR PATCH TRANSDERM SCH ×3 (02:29→14:53)
[2017-09-26] MEDS: DIVALPROEX 250 MG TABLET.DR PO SCH ×4 (10:02→21:01)
[2017-09-26] MEDS: BENZTROPINE MESYLATE 1 MG TAB PO PRN (10:16)
[2017-09-26] MEDS: flUPHENAZine 2.5 MG/ML (MDV) 10 ML VIAL IM PRN ×2 (10:17→19:53)
[2017-09-26] MEDS: chlorproMAZINE 100 MG TAB PO SCH (10:59)
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
[2017-09-26 14:37] LABS: Appearance,Urine Clear (Clear); Bilirubin,Urine Negative (Negative); Blood,Urine Negative (Negative); Color,Urine Yellow; Glucose,Urine (UA) Negative (Negative); Ketones,Urine Negative (Negative); Leukocyte Esterase,Urine Negative (Negative); Nitrite,Urine Negative (Negative); Protein,Urine Negative (Negative); Specific Gravity,Urine 1.016 (1.001-1.035); Urobilinogen,Urine <2.0 mg/dL (<2.0)
[2017-09-26] MEDS: LORazepam 2 MG/ML INJ IM PRN (19:53)
[2017-09-27] MEDS: MELATONIN 3 MG TABLET PO SCH ×2 (00:29→20:29)
[2017-09-27] MEDS ORDERED: flUPHENAZine 2.5 MG/ML (MDV) 10 ML VIAL IM STA ×2 (00:53→05:13)
[2017-09-27] MEDS ORDERED: LORazepam 2 MG/ML INJ IM STA (00:54)
[2017-09-27] MEDS: LORazepam 2 MG/ML INJ IM PRN (05:15)
[2017-09-27] MEDS ORDERED: flUPHENAZine 2.5 MG/ML (MDV) 10 ML VIAL IM PRN (08:23)
[2017-09-27] MEDS: NICOTINE 21MG/24HR PATCH TRANSDERM SCH (09:18)
[2017-09-27] MEDS: DIVALPROEX 250 MG TABLET.DR PO SCH ×3 (09:18→20:30)
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
[2017-09-28] MEDS: LORazepam 1 MG TAB PO PRN ×2 (04:04→17:38)
[2017-09-28] MEDS: DIVALPROEX 250 MG TABLET.DR PO SCH ×3 (09:41→20:53)
[2017-09-28] MEDS: NICOTINE 21MG/24HR PATCH TRANSDERM SCH (09:41)
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
[2017-09-28] MEDS: BENZTROPINE MESYLATE 1 MG TAB PO PRN (16:47)
[2017-09-28] MEDS: MELATONIN 3 MG TABLET PO SCH (20:53)
[2017-09-29] MEDS: NICOTINE 21MG/24HR PATCH TRANSDERM SCH (08:44)
[2017-09-29] MEDS: DIVALPROEX 250 MG TABLET.DR PO SCH ×3 (08:44→20:29)
[2017-09-29] MEDS ORDERED: fluPHENAZine DECANOATE 25 MG/ML 5ML MDV IM ONE (11:45)
--- NOTE | 2017-09-29 14:09 | P.PN ---
Progress Note - Text Progress Note Date: 09/29/17 Interval History: Patient is a 26-year-old male who was seen today who reports that he slept fairly well last evening. Patient received Ativan last evening orally. Patient states that he is not feeling as agitated, reports that his appetite is good and that he's been going to some groups. Patient reports that he continues to feel he is Khris Zafar and again pointed out that the market in his hand is where the snake bit him. Patient states that he is not feeling as though he needs to pace is much. He reports that he had some discomfort last night in his neck and some slight discomfort swallowing and so was given Cogentin with good results. Patient continues to request discharge so he can go visit his 4-year-old son who lives with his mother. Patient states on discharge she will be returning to his own apartment. Mental Status: Appearance/Attitude: Patient is appropriately dressed, makes intermittent eye contact and is cooperative Behavior: Patient does not display any psychomotor agitation or retardation. Speech/Language: Patient's speech is spontaneous of normal volume and rhythm and he is coherent Thought Process: Patient is goal-directed, there is no evidence of loose association or flight of ideas Thought Content: Patient denies auditory or visual hallucinations and no paranoid ideation is elicited, patient continues to have yazidism delusions that he is Khris Zafar and that the snake bit him as evidenced by a faby on his hand. Patient states that he slept well and states that he is ready for discharge. Suicidal/Homicidal Ideation: Patient denies any current suicidal or homicidal ideation. Sensorium/Cognition: Patient is alert and oriented to person, place, and time and his recent and remote memory are grossly intact. Mood/Affect: Patient's mood is less labile and his affect is slightly blunted Insight/Judgment: Patient's insight and judgment are poor Assessment: Patient reports that he wants to go home to see his 4-year-old son and states that he'll be living in his own apartment upon discharge. Patient states that he felt that the Prolixin when he last took it had worked well for him. Patient has been sleeping and attending groups and activities. There have been no further episodes of aggressive, assaultive behavior and he has not been verbally abusive towards staff or peers. Patient reports some side effects from the medication which were relieved with Cogentin. Patient reported no other complaints of side effects at this time. Plan: Patient will continue on Prolixin 5 mg 3 times a day and will be given Prolixin long-acting injectable 25 mg today which is 1 week after his last dose. Based on how the patient will respond to this injection I may consider decreasing his oral Prolixin dose tomorrow. Patient continues to have Cogentin and Ativan available on an as-needed basis. Patient and I discussed his need to continue to remain in the hospital to further stabilize his mood and prevent readmission.
[2017-09-29] MEDS: LORazepam 1 MG TAB PO PRN ×2 (15:34→20:29)
[2017-09-29] MEDS: BENZTROPINE MESYLATE 1 MG TAB PO PRN ×2 (16:05→20:29)
[2017-09-29] MEDS: MELATONIN 3 MG TABLET PO SCH (20:29)
[2017-09-30] MEDS: NICOTINE 21MG/24HR PATCH TRANSDERM SCH (08:55)
[2017-09-30] MEDS: BENZTROPINE MESYLATE 1 MG TAB PO PRN ×2 (08:56→21:05)
[2017-09-30] MEDS: DIVALPROEX 250 MG TABLET.DR PO SCH ×3 (08:56→21:04)
[2017-09-30] MEDS: LORazepam 1 MG TAB PO PRN ×2 (09:44→16:59)
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
[2017-09-30] MEDS: MELATONIN 3 MG TABLET PO SCH (21:04)
[2017-10-01] MEDS: BENZTROPINE MESYLATE 1 MG TAB PO PRN (09:34)
[2017-10-01] MEDS: LORazepam 1 MG TAB PO PRN ×2 (09:34→16:21)
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
[2017-10-01] MEDS: NICOTINE 21MG/24HR PATCH TRANSDERM SCH ×2 (10:16→16:41)
[2017-10-01] MEDS: DIVALPROEX 250 MG TABLET.DR PO SCH (10:17)
[2017-10-01] MEDS: MELATONIN 3 MG TABLET PO SCH (20:52)
[2017-10-01] MEDS: DIVALPROEX ER 250 MG TAB.ER.24H PO SCH (20:52)
[2017-10-02] MEDS: LORazepam 1 MG TAB PO PRN ×2 (03:14→15:37)
[2017-10-02] MEDS: NICOTINE 21MG/24HR PATCH TRANSDERM SCH (09:08)
[2017-10-02] MEDS: BENZTROPINE MESYLATE 1 MG TAB PO PRN (09:09)
--- NOTE | 2017-10-02 12:23 | P.PN ---
Progress Note - Text Progress Note Date: 10/02/17 Interval History: Patient is a 26-year-old male who was seen today and he reports that he spoke with his sister and that she is applying for a public guardian. Patient states that he requested Ativan last night because he awakened at 3 in the morning and couldn't fall back to sleep. Patient reports feeling less groggy during the day on the dose of Depakote only at night. He reports that he feels anxious at times but has not been agitated. He denies any suicidal thoughts, no auditory hallucinations and states that he no longer has the mosque preoccupation about the snake bite but states he feels that was a good story. Patient states that he is dating another peer on the unit. Mental Status: Appearance/Attitude: Patient is appropriately dressed, makes good eye contact and is cooperative. Behavior: Patient does not exhibit any psychomotor agitation or retardation. Speech/Language: Patient's speech is spontaneous and normal volume and rhythm and he is coherent. Thought Process: Patient is goal-directed no evidence of loose association or flight of ideas. Thought Content: Patient denies auditory or visual hallucinations and no delusions or paranoid ideation were elicited. When questioning the patient regarding his mosque delusions he stated that those are just good stories. Patient states that he continues to awaken occasionally at night and has been requesting Ativan. Patient reported no difficulty with his appetite. Patient states that he is not feeling as irritated. He reported not feeling is sleepy during the day. Suicidal/Homicidal Ideation: Patient denies any current suicidal or homicidal ideation. Sensorium/Cognition: Patient is alert and oriented to person, place, and time and his recent and remote memory are grossly intact. Mood/Affect: Patient's mood is more stable, his affect is slightly blunted. Insight/Judgment: Patient's insight and judgment are limited Assessment: Patient was seen today and reports that he spoke with his sister and she is going for a public guardian. He states that he continues to have some difficulty sleeping at night and requested Ativan to assist with his sleep. Patient reports feeling less groggy during the day and also reported that he is dating another peer on the unit. Patient reports that he is attending groups and activities. Patient has not had any episodes of assaultive , threatening behavior and has been compliant with his medication. Plan: Patient will continue on Prolixin 5 mg 3 times a day, Depakote 7 or 50 mg extended release at bedtime and will decrease his Ativan when necessary's orally to 1 mg. Patient continues on melatonin at bedtime to assist with his sleep. Patient was encouraged to not date and another peer on the unit. Patient and I discussed that his discharge living situation will depend on what plans are made in the guardian's approval. I discussed with the patient that his next injection of Prolixin long-acting should be 15 mg this .
[2017-10-02] MEDS: MELATONIN 3 MG TABLET PO SCH (20:59)
[2017-10-02] MEDS: DIVALPROEX ER 250 MG TAB.ER.24H PO SCH (20:59)
[2017-10-03] MEDS: LORazepam 1 MG TAB PO PRN ×2 (01:17→13:55)
[2017-10-03 01:24] VITALS: RESP 16
[2017-10-03] MEDS: NICOTINE 21MG/24HR PATCH TRANSDERM SCH (08:34)
[2017-10-03] MEDS: BENZTROPINE MESYLATE 1 MG TAB PO PRN (08:35)
[2017-10-03] MEDS ORDERED: BENZTROPINE MESYLATE 0.5 MG TAB PO PRN (11:05)
--- NOTE | 2017-10-03 14:03 | P.PN ---
Progress Note - Text Progress Note Date: 10/03/17 Interval History: Patient is a 26-year-old male who reports that he is doing well. He stated that he was not upset about having a guardian appointed and felt that it was a good idea to help keep him away from using drugs on the outside. Patient stated that he is going to be able to attend the hearing today by phone. Patient reports that he continues to request the oral Cogentin once a day because he feels he is having side effects. Patient reports no auditory hallucinations and states that he is not having any episodes of anger. Mental Status: Appearance/Attitude: Patient was appropriately dressed, made good eye contact and was cooperative. Behavior: Patient does not display any psychomotor agitation or retardation. Speech/Language: Patient's speech is spontaneous of normal volume and rhythm and he is coherent. Thought Process: Patient is goal-directed, no evidence of loose association or flight of ideas. Thought Content: Patient denies auditory or visual hallucinations, he is not religiously preoccupied. No paranoid ideation was elicited. Patient discussed his feelings that a public guardian may be a good idea to keep him away from drugs. Patient stated that he is going to be able to attend the hearing via phone today. Patient reported that he wakes up at night but stated last night it was due to anxiety about the court case. Patient reports that he continues to have side effects which he reports is being some tightening of his throat. Patient is eating well. Suicidal/Homicidal Ideation: Patient denies any current suicidal or homicidal ideation. Sensorium/Cognition: Patient is alert and oriented to person, place, and time and his recent and remote memory are grossly intact Mood/Affect: Patient's mood is stable, his affect is slightly blunted Insight/Judgment: Patient's insight and judgment are fair, improving Assessment: Patient discussed that he thought a guardian was a good idea as it was help him avoid using drugs on the outside and keep him on his medication and then hopefully be able to visit his son. Patient reports that he continues to have some side effects from the Prolixin which she voices as difficulty with his time. On exam however the patient shows no evidence of EPS or dystonia. Patient reports no other difficulties with the medication. Patient has not had any outbursts, verbally threatening behavior. Patient has been attending groups and activities and interacting appropriately. Plan: Patient will continue on Prolixin 5 mg 3 times a day and the plan will be to give him a Depakote long acting injection a 50 mg and would continue the oral Prolixin for another 2 weeks. Patient also continues on Depakote extended release 750 mg at bedtime area and he is also taking melatonin 3 mg at bedtime for sleep. Will decrease the oral Cogentin to 0.5 mg on an as-needed basis. Patient's Ativan was decreased to 1 mg orally on an as- needed basis. Patient is not able to receive act team on discharge due to the areas in which she lives, [facility] will be discussing other options for him on discharge. Patient and I discussed possible discharge on Tuesday.
[2017-10-03] MEDS: MELATONIN 3 MG TABLET PO SCH (21:20)
[2017-10-03] MEDS: DIVALPROEX ER 250 MG TAB.ER.24H PO SCH (21:20)
[2017-10-04] MEDS: LORazepam 1 MG TAB PO PRN ×3 (02:53→21:56)
[2017-10-04 09:52] LABS: HCT 44.2 % (39.0-53.0); HGB 15.4 gm/dL (13.0-17.5); MCH 29.5 pg (25.0-35.0); MCHC 34.9 g/dL (31.0-37.0); MCV 84.4 fL (80.0-100.0); Mean Platelet Volume 7.4; Platelet Count 268 k/uL (150-450); RBC 5.24 m/uL (4.30-5.90); RDW 12.3 % (11.5-15.5)
[2017-10-04 10:10] LABS: Albumin 4.1 g/dL (3.5-5.0); Bilirubin, Delta 0.2 mg/dL (0.0-0.2); Bilirubin,Unconjugated 0.1 mg/dL (0.0-1.1); Total Bilirubin 0.3 mg/dL (0.2-1.3); Total Protein 6.4 g/dL (6.3-8.2)
[2017-10-04] MEDS: NICOTINE 21MG/24HR PATCH TRANSDERM SCH (14:19)
--- NOTE | 2017-10-04 15:31 | P.PN ---
Progress Note - Text Progress Note Date: 10/04/17 Interval History: Patient is a 26-year-old male who is being seen today and he reports that he is anxious to leave. Patient states that he slept okay last night and continued to report that he requires Cogentin but could not clearly explain to me what he was requesting it for other than that he had some fogginess in his head. Patient states that he is not hearing voices and denies any delusional ideation. Patient states that he contacted his guardian to find out who would be his guardian and if he would meet them or not. Mental Status: Appearance/Attitude: Patient is appropriately dressed, makes good eye contact and is cooperative. Behavior: Patient does not exhibit any psychomotor agitation or retardation. Speech/Language: Patient's speech is spontaneous and normal volume and rhythm and he is coherent. Thought Process: Patient is goal-directed there is no evidence of loose association or flight of ideas. Thought Content: He denies auditory or visual hallucinations and no delusions or paranoid ideation were elicited. Patient states that he is anxious to leave and return to his own apartment. He states that he sleeping fairly well and his appetite is good. Suicidal/Homicidal Ideation: Patient denies any current suicidal or homicidal ideation Sensorium/Cognition: Patient is alert and oriented to person, place, and time and his recent and remote memory are grossly intact. Mood/Affect: Patient's mood is stable and his affect is appropriate Insight/Judgment: Patient's insight and judgment are limited Assessment: Patient states that he is anxious to leave, has contacted the guardian's office to find out who his guardian will be and whether he will meet them, later today he told me that they are reviewing his information. Patient states that he is attending groups and activities. He states that his mood has been more stable. He is anxious to leave the hospital. Patient's CBC and hepatic panel were all within normal limits. Plan: Patient will continue on Prolixin 5 mg 3 times a day, Depakote 750 mg extended release at bedtime, melatonin 3 mg at bedtime and he and I discussed giving him his next Prolixin injection tomorrow on the day of discharge rather than wait to give it to him after discharge. Patient and I discussed his continuing on oral Prolixin for the next 2 weeks until his next injection of the long-acting. Patient and I discussed discharge plans for tomorrow and he was agreeable with this he will follow up with community mental [facility]. Patient now has a guardian and is also currently on a court order for treatment.
[2017-10-04] MEDS: MELATONIN 3 MG TABLET PO SCH (20:35)
[2017-10-04] MEDS: DIVALPROEX ER 250 MG TAB.ER.24H PO SCH (20:35)
[2017-10-05 01:36] VITALS: BP 104/67; PULSE 112; TEMP 97.8
[2017-10-05] MEDS: NICOTINE 21MG/24HR PATCH TRANSDERM SCH (08:21)
[2017-10-05] MEDS ORDERED: fluPHENAZine DECANOATE 25 MG/ML 5ML MDV IM ONE (08:45)
--- NOTE | 2017-10-05 10:16 | P.DS ---
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 He had completed alcohol and drug rehab 2 days earlier. Patient had been in the hospital earlier in August, transferred to longterm and then sent to inpatient rehab. He had been discharged 2 days earlier and states that he got angry because he wanted to see his child. Patient had been receiving medication at rehab however the exact dosages are not available. Patient has a history of multiple prior admissions. Patient on admission was verbally abusive, hostile requiring IM injections in the both the emergency room and on the unit. Hospital Course: Patient was admitted under a court order which expires in October of this year. Patient is also in mental health court. Patient required restraints the first several days of admission due to his aggressive, threatening behavior. Patient was restarted on Prolixin 5 mg 3 times a day orally and if he refused to 2.5 mg IM. Patient was also begun on Depakote titrated to a dose of 750 mg extended release at bedtime. Patient's behavior slowly improved on the Prolixin, he was given another injection of long-acting Prolixin 25 mg. Patient was also using Cogentin, Ativan on an as-needed basis for side effects or increasing agitation. Patient's behavior improved, he was attending groups and activities and acting appropriately. There were no further incidents with aggressive, verbally threatening behavior and he reported that he was sleeping well. While on the unit his sister applied for public guardian and one was appointed on Tuesday, October 03. Patient reported no further delusional ideation of a cheondoism nature, he denied any current suicidal or homicidal ideation and no auditory hallucinations. Patient reported some side effects from his medications but when questioned these were not EPS and he was not placed on scheduled Cogentin. Patient continued to improve on Prolixin 5 mg 3 times a day, the day of discharge patient received Prolixin decanoate 50 mg IM, and continue on Depakote extended release 7 or 50 mg at bedtime. Patient was also on melatonin 3 mg at bedtime to target his sleep. Patient was accepting of the guardianship appointment, discussed his need to avoid methamphetamine in the future and understood the need for compliance as he was on a court order. Patient I also discussed the fact that he was in mental health court. Allergies haloperidol [From Haldol] Adverse Reaction (Verified 09/23/17 23:12) Extrapyramidal Side Effects ziprasidone [From Geodon] Adverse Reaction (Verified 09/23/17 23:12) Suicidal Thoughts Laboratory Last Values WBC 10.0 k/uL (3.8-10.6) 10/04/17 09:20 RBC 5.24 m/uL (4.30-5.90) 10/04/17 09:20 Hgb 15.4 gm/dL (13.0-17.5) 10/04/17 09:20 Hct 44.2 % (39.0-53.0) 10/04/17 09:20 MCV 84.4 fL (80.0-100.0) 10/04/17 09:20 MCH 29.5 pg (25.0-35.0) 10/04/17 09:20 MCHC 34.9 g/dL (31.0-37.0) 10/04/17 09:20 RDW 12.3 % (11.5-15.5) 10/04/17 09:20 Plt Count 268 k/uL (150-450) 10/04/17 09:20 Neutrophils % 74 % 09/25/17 08:20 Lymphocytes % 16 % 09/25/17 08:20 Monocytes % 6 % 09/25/17 08:20 Eosinophils % 2 % 09/25/17 08:20 Basophils % 0 % 09/25/17 08:20 Neutrophils # 9.2 k/uL (1.3-7.7) H 09/25/17 08:20 Lymphocytes # 2.0 k/uL (1.0-4.8) 09/25/17 08:20 Monocytes # 0.7 k/uL (0-1.0) 09/25/17 08:20 Eosinophils # 0.3 k/uL (0-0.7) 09/25/17 08:20 Basophils # 0.1 k/uL (0-0.2) 09/25/17 08:20 Sodium 141 mmol/L (137-145) 09/25/17 08:20 Potassium 3.8 mmol/L (3.5-5.1) 09/25/17 08:20 Chloride 101 mmol/L (98-107) 09/25/17 08:20 Carbon Dioxide 28 mmol/L (22-30) 09/25/17 08:20 Anion Gap 12 mmol/L 09/25/17 08:20 BUN 15 mg/dL (9-20) 09/25/17 08:20 Creatinine 0.94 mg/dL (0.66-1.25) 09/25/17 08:20 Est GFR (CKD-EPI)AfAm >90 (>60 ml/min/1.73 sqM) 09/25/17 08:20 Est GFR (CKD-EPI)NonAf >90 (>60 ml/min/1.73 sqM) 09/25/17 08:20 Glucose 88 mg/dL (74-99) 09/25/17 08:20 Calcium 9.3 mg/dL (8.4-10.2) 09/25/17 08:20 Total Bilirubin 0.3 mg/dL (0.2-1.3) 10/04/17 09:20 Conjugated Bilirubin 0.0 mg/dL (0.0-0.3) 10/04/17 09:20 Unconjugated Bilirubin 0.1 mg/dL (0.0-1.1) 10/04/17 09:20 Delta Bilirubin 0.2 mg/dL (0.0-0.2) 10/04/17 09:20 AST 17 U/L (17-59) 10/04/17 09:20 ALT 23 U/L (21-72) 10/04/17 09:20 Alkaline Phosphatase 51 U/L (38-126) 10/04/17 09:20 Total Protein 6.4 g/dL (6.3-8.2) 10/04/17 09:20 Albumin 4.1 g/dL (3.5-5.0) 10/04/17 09:20 Urine Color Yellow 09/26/17 14:16 Urine Appearance Clear (Clear) 09/26/17 14:16 Urine pH 6.0 (5.0-8.0) 09/26/17 14:16 Ur Specific [place] 1.016 (1.001-1.035) 09/26/17 14:16 Urine Protein Negative (Negative) 09/26/17 14:16 Urine Glucose (UA) Negative (Negative) 09/26/17 14:16 Urine Ketones Negative (Negative) 09/26/17 14:16 Urine Blood Negative (Negative) 09/26/17 14:16 Urine Nitrite Negative (Negative) 09/26/17 14:16 Urine Bilirubin Negative (Negative) 09/26/17 14:16 Urine Urobilinogen <2.0 mg/dL (<2.0) 09/26/17 14:16 Ur Leukocyte Esterase Negative (Negative) 09/26/17 14:16 Urine Opiates Screen Not Detected (NotDetected) 09/23/17 18:40 Ur Oxycodone Screen Not Detected (NotDetected) 09/23/17 18:40 Urine Methadone Screen Not Detected (NotDetected) 09/23/17 18:40 Ur Propoxyphene Screen Not Detected (NotDetected) 09/23/17 18:40 Ur Barbiturates Screen Not Detected (NotDetected) 09/23/17 18:40 U Tricyclic Antidepress Not Detected (NotDetected) 09/23/17 18:40 Ur Phencyclidine Scrn Not Detected (NotDetected) 09/23/17 18:40 Ur Amphetamines Screen Not Detected (NotDetected) 09/23/17 18:40 U Methamphetamines Scrn Not Detected (NotDetected) 09/23/17 18:40 U Benzodiazepines Scrn Not Detected (NotDetected) 09/23/17 18:40 Urine Cocaine Screen Not Detected (NotDetected) 09/23/17 18:40 U Marijuana (THC) Screen Not Detected (NotDetected) 09/23/17 18:40 Discharge Mental Status: [Appearance/Attitude: Patient is casually dressed, makes good eye contact and is cooperative. Behavior: Patient does not display any psychomotor agitation or retardation, he has been appropriate in groups and on the unit Speech/Language: Patient's speech is spontaneous of normal volume and rhythm and he is coherent. Thought Process: Patient is goal-directed there is no evidence of loose association or flight of ideas. Thought Content: Patient denies auditory or visual hallucinations and states that he is no longer having cheondoism delusions and no other delusions or paranoid ideation were elicited. Patient reports he is sleeping and eating well. Patient discussed that he is eager to return to his own apartment, and see his son. Suicidal/Homicidal Ideation: Patient denied any current suicidal or homicidal ideation. Sensorium/Cognition: Patient was alert and oriented to person, place, and time and his recent and remote memory are grossly intact Mood/Affect: He is mood is stable and his affect is appropriate Insight/Judgment: Patient's insight and judgment are limited] Risk Assessment: Patient's risk for readmission is high should patient be noncompliant with medication, follow-up treatment or return to using drugs Discharge Plan: Patient will return to live in his own apartment, he now has a public guardian and place and is on a court order for treatment until November 16. Patient will continue on Prolixin 5 mg twice a day decreased from TID, Depakote extended release 750 mg at bedtime. His next dose of Prolixin decanoate 50 mg will be due on October 19. Patient will also continue on melatonin 3 mg at bedtime. Patient was encouraged to be compliant with his medication and follow- up appointments. I encouraged the patient to avoid all alcohol or drugs including marijuana. Patient declined nicotine patches stating he'll return to using tobacco products. Patient Condition at Discharge: Stable Plan - Discharge Summary Discharge Rx Participant: No New Discharge Prescriptions: New Divalproex ER [Depakote ER] 750 mg PO HS #42 tab.er.24h fluPHENAZine [Prolixin] 5 mg PO BID #28 tab Melatonin 3 mg PO HS #28 tablet Changed fluPHENAZine DECANOATE [Prolixin Decanoate] 50 mg IM Q14D #1 vial Discontinued Benztropine Mesylate [Cogentin] 0.5 mg PO BID #30 tab Discharge Medication List Divalproex ER [Depakote ER] 750 mg PO HS #42 tab.er.24h 10/05/17 [Rx] Melatonin 3 mg PO HS #28 tablet 10/05/17 [Rx] fluPHENAZine DECANOATE [Prolixin Decanoate] 50 mg IM Q14D #1 vial 10/05/17 [Rx] fluPHENAZine [Prolixin] 5 mg PO BID #28 tab 10/05/17 [Rx] Follow up Appointment(s)/Referral(s): [facility] [Outside] - 10/07/17 2:00 pm (10-07-17 @ 2:00 with Heather Juares in [place] 10-19-17 @ 11:30 with Edith Jose in [place]) None,Stated [Primary Care Provider] - 1-2 days ([facility] ) Patient Instructions/Handouts: How to Stop Smoking (DC), Schizoaffective Disorder (DC), Suicide Prevention for Adults (DC) Activity/Diet/Wound Care/Special Instructions: Activity and diet as tolerated. Avoid the use of street drugs and alcohol. Remove all firearms from the home. Take all medications as prescribed. Follow up with your Primary Care Physician in one to two days. When you are in need of refills on your medications please contact your medical provider and/or your outpatient psychiatrist to have this done. Please go to the scheduled outpatient appointment for aftercare. If symptoms return or become worse call the crisis line and/ or go the nearest emergency room for an evaluation. l Discharge Disposition: HOME SELF-CARE
== END 2017-10-05 11:35 | disposition home or self-care (01) | DRG 885 ==
LOC: EC 16:20 → 3MHU 18:46
PROVIDERS: ADMIT Psychiatry & Neurology Psychiatry; ATTEND Psychiatry & Neurology Psychiatry
DX: F25.0 Schizoaffective disorder, bipolar type (principal); Z78.1 Physical restraint status; F12.11 Cannabis abuse, in remission; F15.11 Other stimulant abuse, in remission; F17.200 Nicotine dependence, unspecified, uncomplicated; F41.0 Panic disorder [episodic paroxysmal anxiety]; F32.9 Major depressive disorder, single episode, unspecified; Z91.14 Patient's other noncompliance with medication regimen; Z88.8 Allergy status to other drugs, medicaments and biological substances; Z81.8 Family history of other mental and behavioral disorders; Z81.3 Family history of other psychoactive substance abuse and dependence; Z71.6 Tobacco abuse counseling
CPT/HCPCS: 80053; 80076; 80306; 81003; 82075; 85025; 85027; 96372; 99285

== ENCOUNTER 2017-10-08 18:22 | Emergency (ER) | payer OTHER ==
[2017-10-08 18:28] VITALS: RESP 16
--- NOTE | 2017-10-08 18:50 | ED ---
General Adult HPI - General Chief complaint: Psychiatric Symptoms Stated complaint: Reaction to med Time Seen by Provider: 10/08/17 18:32 Source: patient Mode of arrival: EMS Limitations: no limitations - History of Present Illness Initial comments: 26 year-old male patient presents to the emergency department today for evaluation of possible medication reaction. Patient states that over the last week he has had increased headaches and muscle tension. States that he believes this is caused from use of his Prolixin and Depakote. Patient states he has been on his medications for 1 month. Patient states there is no other explanation for his symptoms. States that when he has these symptoms he usually gets a dose of Cogentin to help. Patient is also reporting suicidal ideation. States that his plan is to take all of his medications at once. Patient does report a history of suicide attempt. Patient states he has been admitted multiple times for mental health purposes. Patient states he is sleeping without difficulty. States he has decreased food intake. He denies any alcohol or drug use. He denies any visual or auditory hallucinations. Patient does have his psychiatric medications administered by outpatient [facility]. Patient denies any recent rash, fever, chills, shortness breath, chest pain, abdominal pain, nausea, vomiting, diarrhea, constipation, back pain, numbness, tingling, dizziness, weakness, hematuria, dysuria, urinary urgency, urinary frequency, visual changes, or any other complaints. - Related Data Previous Rx's Medication Instructions Recorded Divalproex ER [Depakote ER] 750 mg PO HS #42 tab.er.24h 10/05/17 Melatonin 3 mg PO HS #28 tablet 10/05/17 fluPHENAZine DECANOATE [Prolixin 50 mg IM Q14D #1 vial 10/05/17 Decanoate] fluPHENAZine [Prolixin] 5 mg PO BID #28 tab 10/05/17 Benztropine Mesylate [Cogentin] 1 mg PO BID #14 tablet 10/08/17 Allergies Allergy/AdvReac Type Severity Reaction Status Date / Time haloperidol [From Haldol] AdvReac Extrapyramidal Verified 10/08/17 18:28 Side Effects ziprasidone [From Geodon] AdvReac Suicidal Verified 10/08/17 18:28 Thoughts Review of Systems ROS Statement: Those systems with pertinent positive or pertinent negative responses have been documented in the HPI. ROS Other: All systems not noted in ROS Statement are negative. Past Medical History Past Medical History: Respiratory Disorder Additional Past Medical History / Comment(s): schizophrenia uti History of Any Multi-Drug Resistant Organisms: None Reported Past Surgical History: Tonsillectomy Additional Past Surgical History / Comment(s): colonoscopy Past Anesthesia/Blood Transfusion Reactions: No Reported Reaction Past Psychological History: Anxiety, Depression, Panic Disorder, Schizophrenia Smoking Status: Current every day smoker Past Alcohol Use History: None Reported Past Drug Use History: None Reported - Past Family History Father Additional Family Medical History / Comment(s): Father is alive at age 49 with history of anxiety. Mother Additional Family Medical History / Comment(s): Mother is alive at age 42 with history of back problems and back surgery. Brother(s) Additional Family Medical History / Comment(s): Patient has one half brother with no major medical problems. He has 1 sister with no major medical problems. Patient has one son that is healthy. General Exam Limitations: no limitations General appearance: alert, in no apparent distress, other (This is a well- developed, well-nourished adult male patient in no acute distress. Vital signs upon presentation are temperature 97.9F, pulse 81, respirations 16, blood pressure 121/71, pulse ox 98% on room air.) Eye exam: Present: normal appearance, PERRL, EOMI. Absent: scleral icterus, conjunctival injection, periorbital swelling ENT exam: Present: normal exam, normal oropharynx, mucous membranes moist Respiratory exam: Present: normal lung sounds bilaterally. Absent: respiratory distress, wheezes, rales, rhonchi, stridor Cardiovascular Exam: Present: regular rate, normal rhythm, normal heart sounds. Absent: systolic murmur, diastolic murmur, rubs, gallop, clicks GI/Abdominal exam: Present: soft, normal bowel sounds. Absent: distended, tenderness, guarding, rebound, rigid Neurological exam: Present: alert, oriented X3, CN II-XII intact Psychiatric exam: Present: normal mood, flat affect Skin exam: Present: warm, dry, intact, normal color. Absent: rash Course Vital Signs 10/08/17 18:25 Temperature 97.9 F Pulse Rate 81 Respiratory 16 Rate Blood Pressure 121/71 O2 Sat by Pulse 98 Oximetry Medical Decision Making - Medical Decision Making 26-year-old male patient presented to the emergency department today for evaluation of medication reaction suicidal ideation. Patient was evaluated by emergency psychiatric services and did report that he was only having suicidal thoughts because the way his medication was making him feel. Emergency psych nurse did speak to the psychiatrist on-call, patient is supposed to be taking Cogentin 0.5 mg twice a day for his symptoms. Patient reported he was not taking this medication as directed. Patient was given 1 mg IM of Cogentin here in the department. Patient states he is feeling much better. EPS did set him up with a mobile crisis unit appointment in 2 days' time. Patient does have an appointment with his therapist as well. Return parameters were discussed in detail. He verbalizes understanding and agrees with this plan. - Lab Data Lab Results 10/08/17 Range/Units 18:40 Urine Opiates Screen Not Detected (NotDetected) Ur Oxycodone Screen Not Detected (NotDetected) Urine Methadone Screen Not Detected (NotDetected) Ur Propoxyphene Screen Not Detected (NotDetected) Ur Barbiturates Screen Not Detected (NotDetected) U Tricyclic Antidepress Not Detected (NotDetected) Ur Phencyclidine Scrn Not Detected (NotDetected) Ur Amphetamines Screen Not Detected (NotDetected) U Methamphetamines Scrn Not Detected (NotDetected) U Benzodiazepines Scrn Not Detected (NotDetected) Urine Cocaine Screen Not Detected (NotDetected) U Marijuana (THC) Screen Not Detected (NotDetected) Disposition Clinical Impression: Medication side effects, Suicidal ideation Disposition: HOME SELF-CARE Condition: Good Instructions: Suicide Prevention for Adults (ED) Additional Instructions: Take medications as prescribed. Follow-up with mobile crisis unit as you have scheduled. Return here immediately for any new, worsening, or concerning symptoms. Prescriptions: Benztropine Mesylate [Cogentin] 1 mg PO BID #14 tablet Referrals: None,Stated [Primary Care Provider] - 1-2 days Time of Disposition: 20:22
[2017-10-08 19:05] LABS: Amphetamine Screen,Urine Not Detected (NotDetected); Barbiturate Screen,Urine Not Detected (NotDetected); Benzodiazepines Screen,Urine Not Detected (NotDetected); Cocaine Screen,Urine Not Detected (NotDetected); Methadone Screen, Urine Not Detected (NotDetected); Opiate Screen,Urine Not Detected (NotDetected); Phencyclidine Screen,Urine Not Detected (NotDetected); Tricyclic Antidepressant,Urine Not Detected (NotDetected); Urn Cannabinoid Scrn Not Detected (NotDetected)
[2017-10-08] MEDS ORDERED: BENZTROPINE MESYLATE 0.5 MG TAB PO STA (19:05)
[2017-10-08 19:06] LABS: Oxycodone Screen, Urine Not Detected (NotDetected)
[2017-10-08] MEDS ORDERED: BENZTROPINE 2 MG/2 ML AMP IM STA (19:31)
[2017-10-08 20:31] VITALS: BP 133/71; PULSE 72; TEMP 97.6
== END 2017-10-08 20:31 | disposition home or self-care (01) ==
LOC: EC 18:22
DX: R45.851 Suicidal ideations (principal); T44.3X1A Poisoning by other parasympatholytics [anticholinergics and antimuscarinics] and spasmolytics, accidental (unintentional), initial encounter; R51 Headache; F17.200 Nicotine dependence, unspecified, uncomplicated; Z79.899 Other long term (current) drug therapy; Z88.8 Allergy status to other drugs, medicaments and biological substances
CPT/HCPCS: 82075; 80306; 99284; 96372; J0515

== ENCOUNTER 2017-10-10 22:47 | Emergency (ER) | payer OTHER ==
[2017-10-10 22:58] VITALS: RESP 18; TEMP 98.1
[2017-10-10 23:45] LABS: Amphetamine Screen,Urine Not Detected (NotDetected); Barbiturate Screen,Urine Not Detected (NotDetected); Benzodiazepines Screen,Urine Not Detected (NotDetected); Cocaine Screen,Urine Not Detected (NotDetected); Methadone Screen, Urine Not Detected (NotDetected); Opiate Screen,Urine Not Detected (NotDetected); Oxycodone Screen, Urine Not Detected (NotDetected); Phencyclidine Screen,Urine Not Detected (NotDetected); Tricyclic Antidepressant,Urine Not Detected (NotDetected); Urn Cannabinoid Scrn Detected (NotDetected)
--- NOTE | 2017-10-11 01:53 | ED ---
Psych HPI - General Chief Complaint: Psychiatric Symptoms Stated Complaint: Paranoia Time Seen by Provider: 10/10/17 22:59 Source: patient, EMS, RN notes reviewed Mode of arrival: EMS - History of Present Illness Initial Comments: This is a 26-year-old male with history of schizophrenia who presents to the emergency department with chief complaint of paranoia. Patient states that he was diagnosed with schizophrenia at the age of 19. He stated that this evening he drank one and a half beers. He states that he began to have paranoid delusions. Patient states that he was recently admitted to the psychiatric unit here at [facility] part here on. He denies any suicidal homicidal ideation or plans. Denies visual or auditory hallucinations. Denies drug use. Has no physical complaints. Denies fever, chills, chest pain, shortness of breath, abdominal pain, nausea or vomiting, constipation or diarrhea, dysuria or hematuria, numbness or tingling, headache or vision changes. - Related Data Home Medications Medication Instructions Recorded Confirmed Benztropine Mesylate [Cogentin] 0.5 mg PO BID 10/10/17 10/10/17 Melatonin 1 mg PO HS 10/10/17 10/10/17 Previous Rx's Medication Instructions Recorded fluPHENAZine DECANOATE [Prolixin 50 mg IM Q14D #1 vial 10/05/17 Decanoate] Allergies Allergy/AdvReac Type Severity Reaction Status Date / Time haloperidol [From Haldol] AdvReac Extrapyramidal Verified 10/10/17 23:18 Side Effects ziprasidone [From Geodon] AdvReac Suicidal Verified 10/10/17 23:18 Thoughts Review of Systems ROS Statement: Those systems with pertinent positive or pertinent negative responses have been documented in the HPI. ROS Other: All systems not noted in ROS Statement are negative. Past Medical History Past Medical History: Respiratory Disorder Additional Past Medical History / Comment(s): schizophrenia History of Any Multi-Drug Resistant Organisms: None Reported Past Surgical History: Tonsillectomy Additional Past Surgical History / Comment(s): colonoscopy Past Anesthesia/Blood Transfusion Reactions: No Reported Reaction Past Psychological History: Anxiety, Depression, Panic Disorder, Schizophrenia Smoking Status: Current every day smoker Past Alcohol Use History: Occasional Past Drug Use History: None Reported - Past Family History Father Additional Family Medical History / Comment(s): Father is alive at age 49 with history of anxiety. Mother Additional Family Medical History / Comment(s): Mother is alive at age 42 with history of back problems and back surgery. Brother(s) Additional Family Medical History / Comment(s): Patient has one half brother with no major medical problems. He has 1 sister with no major medical problems. Patient has one son that is healthy. General Exam - General Exam Comments Initial Comments: General: Awake and alert, well-developed; in no apparent distress. HEENT: Head atraumatic, normocephalic. Pupils are equal, round and reactive to light. Extraocular movements intact. Oropharynx moist without erythema or exudate. Neck: Supple. Normal ROM. Cardiovascular: Regular rate and rhythm. No murmurs, rubs or gallops. Chest symmetrical. Respiratory: Lungs clear to auscultation bilaterally. No wheezes, rales or rhonchi. Normal respiratory effort with no use of accessory muscles. Musculoskeletal: Normal ROM, no tenderness bilateral upper and lower extremities. Ambulating normally. Skin: [place], warm and dry without rashes or lesions. Neurological: Alert and oriented x3. CN II-XII grossly intact. Speech is fluent and answers are appropriate. No focal neuro deficits. Psychiatric: Flat affect. calm and cooperative. Limitations: no limitations Course Vital Signs 10/10/17 22:54 Temperature 98.1 F Pulse Rate 77 Respiratory 18 Rate Blood Pressure 110/74 O2 Sat by Pulse 99 Oximetry Medical Decision Making - Medical Decision Making This is a 26-year-old male with history of schizophrenia who presents to the emergency department for mental health evaluation. PAT was negative. Urine drug screen revealed evidence for THC. Patient denied any suicidal or homicidal ideation or plans. Denied auditory or visual hallucinations. He did complain of paranoid delusions. Patient was evaluated by the EPS nurse. Recommended discharge home and follow up with [facility]. Patient was made aware of this plan and he is in agreement. All questions answered. She'll be discharged home at this time. He is in no acute distress. - Lab Data Lab Results 10/10/17 Range/Units 22:27 Urine Opiates Screen Not Detected (NotDetected) Ur Oxycodone Screen Not Detected (NotDetected) Urine Methadone Screen Not Detected (NotDetected) Ur Propoxyphene Screen Not Detected (NotDetected) Ur Barbiturates Screen Not Detected (NotDetected) U Tricyclic Antidepress Not Detected (NotDetected) Ur Phencyclidine Scrn Not Detected (NotDetected) Ur Amphetamines Screen Not Detected (NotDetected) U Methamphetamines Scrn Not Detected (NotDetected) U Benzodiazepines Scrn Not Detected (NotDetected) Urine Cocaine Screen Not Detected (NotDetected) U Marijuana (THC) Screen Detected H (NotDetected) Disposition Clinical Impression: Paranoid Disposition: HOME SELF-CARE Condition: Good Instructions: Schizophrenia (ED) Additional Instructions: Please follow up with primary care provider within 1-2 days. Return to emergency department if symptoms should worsen or any concerns arise. Is patient prescribed a controlled substance at discharge?: No Referrals: None,Stated [Primary Care Provider] - 1-2 days Time of Disposition: 01:53
[2017-10-11 03:12] VITALS: BP 116/66; PULSE 81
== END 2017-10-11 03:12 | disposition home or self-care (01) ==
LOC: EC 22:47 → EEVIPCON 22:47 → EC 10-11 03:12
DX: F20.0 Paranoid schizophrenia (principal); F17.200 Nicotine dependence, unspecified, uncomplicated; Z79.899 Other long term (current) drug therapy; Z88.8 Allergy status to other drugs, medicaments and biological substances
CPT/HCPCS: 80306; 82075; 99285

== ENCOUNTER 2017-10-11 16:08 | Inpatient (IN) | payer MEDICAID, OTHER ==
--- NOTE | 2017-10-11 17:00 | ED ---
General Adult HPI - General Chief complaint: Psychiatric Symptoms Stated complaint: mental health Time Seen by Provider: 10/11/17 16:25 Source: patient, RN notes reviewed, old records reviewed Mode of arrival: ambulatory Limitations: no limitations - History of Present Illness Initial comments: This is a 26-year-old male to the ER for evaluation of psychiatric disease, suicidal ideation. Patient has history of psychiatric illness, and ER yesterday for overdose of ALLERGIC reaction or medication reaction. She does admit to psychiatric psychosis feelings currently. No drugs or alcohol - Related Data Home Medications Medication Instructions Recorded Confirmed Benztropine Mesylate [Cogentin] 0.5 mg PO BID 10/10/17 10/11/17 Melatonin 1 mg PO HS 10/10/17 10/11/17 OLANZapine [ZyPREXA] 7.5 mg PO HS 10/11/17 10/11/17 Previous Rx's Medication Instructions Recorded fluPHENAZine DECANOATE [Prolixin 50 mg IM Q14D #1 vial 10/05/17 Decanoate] Allergies Allergy/AdvReac Type Severity Reaction Status Date / Time haloperidol [From Haldol] AdvReac Extrapyramidal Verified 10/11/17 16:38 Side Effects ziprasidone [From Geodon] AdvReac Suicidal Verified 10/11/17 16:38 Thoughts Review of Systems ROS Statement: Those systems with pertinent positive or pertinent negative responses have been documented in the HPI. ROS Other: All systems not noted in ROS Statement are negative. Past Medical History Past Medical History: Respiratory Disorder Additional Past Medical History / Comment(s): schizophrenia History of Any Multi-Drug Resistant Organisms: None Reported Past Surgical History: Tonsillectomy Additional Past Surgical History / Comment(s): colonoscopy Past Anesthesia/Blood Transfusion Reactions: No Reported Reaction Past Psychological History: Anxiety, Depression, Panic Disorder, Schizophrenia Smoking Status: Current every day smoker Past Alcohol Use History: Occasional Past Drug Use History: None Reported - Past Family History Father Additional Family Medical History / Comment(s): Father is alive at age 49 with history of anxiety. Mother Additional Family Medical History / Comment(s): Mother is alive at age 42 with history of back problems and back surgery. Brother(s) Additional Family Medical History / Comment(s): Patient has one half brother with no major medical problems. He has 1 sister with no major medical problems. Patient has one son that is healthy. General Exam Limitations: no limitations General appearance: alert, in no apparent distress Head exam: Present: atraumatic, normocephalic, normal inspection Eye exam: Present: normal appearance, PERRL, EOMI. Absent: scleral icterus, conjunctival injection, periorbital swelling ENT exam: Present: normal exam, mucous membranes moist Neck exam: Present: normal inspection. Absent: tenderness, meningismus, lymphadenopathy Respiratory exam: Present: normal lung sounds bilaterally. Absent: respiratory distress, wheezes, rales, rhonchi, stridor Cardiovascular Exam: Present: regular rate, normal rhythm, normal heart sounds. Absent: systolic murmur, diastolic murmur, rubs, gallop, clicks GI/Abdominal exam: Present: soft, normal bowel sounds. Absent: distended, tenderness, guarding, rebound, rigid Extremities exam: Present: normal inspection, full ROM, normal capillary refill. Absent: tenderness, pedal edema, joint swelling, calf tenderness Back exam: Present: normal inspection Neurological exam: Present: alert, oriented X3, CN II-XII intact Psychiatric exam: Present: normal affect, normal mood Skin exam: Present: warm, dry, intact, normal color. Absent: rash Course Vital Signs 10/11/17 16:15 Temperature 97.5 F L Pulse Rate 78 Respiratory 18 Rate Blood Pressure 118/78 O2 Sat by Pulse 98 Oximetry - Reevaluation(s) Reevaluation #1: 10/11/17 18:38 Medically clear for psychiatric evaluation Medical Decision Making - Medical Decision Making 26 male the ER for evaluation of suicidal thoughts psychiatric symptoms. Patient be admitted for psychiatric evaluation and treatment Disposition Clinical Impression: Schizoaffective disorder, bipolar type, Schizoaffective disorder Disposition: TRANSFER TO PSYCH HOSP/UNIT Condition: Fair Is patient prescribed a controlled substance at discharge?: No If prescribed controlled substance>3 days was MAPS reviewed?: No When asked, does pt state using other controlled substances?: No Referrals: None,Stated [Primary Care Provider] - 1-2 days
[2017-10-11 18:56] LABS: Amphetamine Screen,Urine Not Detected (NotDetected); Barbiturate Screen,Urine Not Detected (NotDetected); Benzodiazepines Screen,Urine Not Detected (NotDetected); Cocaine Screen,Urine Not Detected (NotDetected); Methadone Screen, Urine Not Detected (NotDetected); Opiate Screen,Urine Not Detected (NotDetected); Oxycodone Screen, Urine Not Detected (NotDetected); Phencyclidine Screen,Urine Not Detected (NotDetected); Tricyclic Antidepressant,Urine Not Detected (NotDetected); Urn Cannabinoid Scrn Not Detected (NotDetected)
[2017-10-11] MEDS ORDERED: ACETAMINOPHEN TAB 325 MG TAB PO PRN (19:30)
[2017-10-11] MEDS ORDERED: MAGNESIUM HYDROXIDE 2,400 MG/10 ML CUP PO PRN (19:30)
[2017-10-11] MEDS ORDERED: MAG HYDROX/AL HYDROX/SIMETH 30 ML CUP PO PRN (19:30)
[2017-10-11] MEDS ORDERED: OLANZapine 10 MG TAB PO PRN (20:38)
[2017-10-11] MEDS ORDERED: OLANZapine 2.5 MG TAB PO SCH (21:00)
[2017-10-11] MEDS ORDERED: MELATONIN 1 MG TAB PO SCH (21:00)
--- NOTE | 2017-10-11 21:09 | P.MDCNMH ---
History of Present Illness H&P Date: 10/11/17 Chief Complaint: Feeling depressed , swallen tongue This is 26 yo male h/o psychosis who was admitted with worsening anxiety and depression. Patient states he is here cause he felt that his tongue was swallen. This was not noted in ER. He did not take his meds for 3 days and took Zyprexa day prior. He thinks he had reaction. He states he has been feeling progressively anxious and depressed. Denies hallucinations. Denies drugs. States he tried beer but could not finish. Denies regular drinking Review of Systems All systems: negative Psychiatric: Reports anxiety, Reports anxiety attacks, Reports depression, Reports insomnia, Reports irritability Past Medical History Past Medical History: Respiratory Disorder Additional Past Medical History / Comment(s): schizophrenia History of Any Multi-Drug Resistant Organisms: None Reported Past Surgical History: Tonsillectomy Additional Past Surgical History / Comment(s): colonoscopy Past Anesthesia/Blood Transfusion Reactions: No Reported Reaction Past Psychological History: Anxiety, Depression, Panic Disorder, Schizophrenia Smoking Status: Current every day smoker Past Alcohol Use History: Occasional Past Drug Use History: None Reported - Past Family History Father Additional Family Medical History / Comment(s): Father is alive at age 49 with history of anxiety. Mother Additional Family Medical History / Comment(s): Mother is alive at age 42 with history of back problems and back surgery. Brother(s) Additional Family Medical History / Comment(s): Patient has one half brother with no major medical problems. He has 1 sister with no major medical problems. Patient has one son that is healthy. Medications and Allergies Home Medications Medication Instructions Recorded Confirmed Type fluPHENAZine DECANOATE [Prolixin 50 mg IM Q14D #1 vial 10/05/17 10/11/17 Rx Decanoate] Benztropine Mesylate [Cogentin] 0.5 mg PO BID 10/10/17 10/11/17 History Melatonin 1 mg PO HS 10/10/17 10/11/17 History OLANZapine [ZyPREXA] 7.5 mg PO HS 10/11/17 10/11/17 History Allergies Allergy/AdvReac Type Severity Reaction Status Date / Time haloperidol [From Haldol] AdvReac Extrapyramidal Verified 10/11/17 16:38 Side Effects ziprasidone [From Geodon] AdvReac Suicidal Verified 10/11/17 16:38 Thoughts Physical Exam Vitals: Vital Signs Temp Pulse Pulse Resp BP BP Pulse Ox 10/11/17 19:30 97.5 F L 71 16 115/70 10/11/17 18:54 98.4 F 89 20 116/68 98 10/11/17 16:15 97.5 F L 78 18 118/78 98 Intake and Output 10/11/17 10/11/17 10/11/17 06:59 14:59 22:59 Other: Weight 70.307 kg - Constitutional General appearance: cooperative - EENT Tongue protrudes in midline, no swelling or coating, no oropharyngeal leasions or exudate, soft palate in midline without swelling Eyes: anicteric sclerae ENT: normal oropharynx, no thrush - Neck Neck: no lymphadenopathy, normal ROM, no thyromegaly - Respiratory Respiratory: bilateral: CTA - Cardiovascular Rhythm: regular Heart sounds: normal: S1, S2 - Gastrointestinal General gastrointestinal: normal bowel sounds, no tenderness - Neurologic Neurologic: CNII-XII intact - Psychiatric Psychiatric: A&O x's 3 Cranial Nerve Examination - Cranial Nerves Cranial Nerve I- Olfactory: Intact Cranial Nerve II- Optic: Intact Cranial Nerve III- Oculomotor: Intact Cranial Nerve IV- Trochlear: Intact Cranial Nerve V- Trigeminal: Intact Cranial Nerve - Abducens: Intact Cranial Nerve VII- Facial: Intact Cranial Nerve VIII- Auditory: Intact Cranial Nerve IX- Glossopharyngeal: Intact Cranial Nerve X- Vagus: Intact Cranial Nerve XI- Accessory: Intact Cranial Nerve XII- Hypoglossal: Intact Assessment and Plan (1) Schizoaffective disorder Narrative/Plan: care per psychiatry Current Visit: Yes Status: Acute Priority: High Code(s): F25.9 - SCHIZOAFFECTIVE DISORDER, UNSPECIFIED SNOMED Code(s): 65775786 Plan: reported tongue swellig no records of that in ED and not present on my exam, cont to monitor
[2017-10-12] MEDS: diphenhydrAMINE 25 MG CAP PO PRN ×2 (09:35→23:52)
[2017-10-12] MEDS: diphenhydrAMINE 50 MG CAP PO SCH ×2 (09:36→20:03)
[2017-10-12 10:11] LABS: Basophils # (A) 0.1 k/uL (0-0.2); Basophils % (A) 1 %; Eosinophils # (A) 0.3 k/uL (0-0.7); Eosinophils % (A) 3 %; HCT 45.8 % (39.0-53.0); HGB 15.9 gm/dL (13.0-17.5); Lymphocytes # (A) 1.9 k/uL (1.0-4.8); Lymphocytes % (A) 25 %; MCH 29.2 pg (25.0-35.0); MCHC 34.7 g/dL (31.0-37.0); Mean Platelet Volume 7.2; Monocytes # (A) 0.5 k/uL (0-1.0); Monocytes % (A) 7 %; Neutrophils # (A) 4.9 k/uL (1.3-7.7); Neutrophils % (A) 63 %; Platelet Count 210 k/uL (150-450); RBC 5.45 m/uL (4.30-5.90); RDW 12.6 % (11.5-15.5); WBC 7.8 k/uL (3.8-10.6)
[2017-10-12 10:21] LABS: ALT 27 U/L (21-72); AST 17 U/L (17-59); Albumin 3.9 g/dL (3.5-5.0); Alkaline Phosphatase 52 U/L (38-126); Anion Gap 12 mmol/L; Blood Urea Nitrogen 15 mg/dL (9-20); Calcium 9.5 mg/dL (8.4-10.2); Carbon Dioxide 28 mmol/L (22-30); Chloride 105 mmol/L (98-107); Cholesterol 145 mg/dL (<200); Glucose 82 mg/dL (74-99); HDL Cholesterol 38 mg/dL (40-60); LDL Cholesterol,Calculated 81 mg/dL (0-99); Potassium 4.4 mmol/L (3.5-5.1); Sodium 145 mmol/L (137-145); Total Bilirubin 0.2 mg/dL (0.2-1.3); Total Protein 6.2 g/dL (6.3-8.2); Triglycerides 130 mg/dL (<150)
--- NOTE | 2017-10-12 11:44 | P.HP ---
Psychiatric H&P - . H&P Date: 10/12/17 History & Physical: Allergies Allergy/AdvReac Type Severity Reaction Status Date / Time haloperidol [From Haldol] AdvReac Extrapyramidal Verified 10/11/17 16:38 Side Effects ziprasidone [From Geodon] AdvReac Suicidal Verified 10/11/17 16:38 Thoughts Vital Signs Temp 97.5 F L 10/11/17 19:30 Pulse 71 10/11/17 19:30 Resp 16 10/11/17 19:30 BP 115/70 10/11/17 19:30 Pulse Ox 98 10/11/17 18:54 Intake & Output 10/11/17 10/12/17 10/12/17 18:59 06:59 18:59 Weight 70.307 kg Laboratory Last Values WBC 7.8 k/uL (3.8-10.6) 10/12/17 09:28 RBC 5.45 m/uL (4.30-5.90) 10/12/17 09:28 Hgb 15.9 gm/dL (13.0-17.5) 10/12/17 09:28 Hct 45.8 % (39.0-53.0) 10/12/17 09:28 MCV 84.0 fL (80.0-100.0) 10/12/17 09:28 MCH 29.2 pg (25.0-35.0) 10/12/17 09:28 MCHC 34.7 g/dL (31.0-37.0) 10/12/17 09:28 RDW 12.6 % (11.5-15.5) 10/12/17 09:28 Plt Count 210 k/uL (150-450) 10/12/17 09:28 Neutrophils % 63 % 10/12/17 09:28 Lymphocytes % 25 % 10/12/17 09:28 Monocytes % 7 % 10/12/17 09:28 Eosinophils % 3 % 10/12/17 09:28 Basophils % 1 % 10/12/17 09:28 Neutrophils # 4.9 k/uL (1.3-7.7) 10/12/17 09:28 Lymphocytes # 1.9 k/uL (1.0-4.8) 10/12/17 09:28 Monocytes # 0.5 k/uL (0-1.0) 10/12/17: Eosinophils # 0.3 k/uL (0-0.7) 10/12/17: Basophils # 0.1 k/uL (0-0.2) 10/12/17 Sodium 145 mmol/L (137-145) 10/12/17 Potassium 4.4 mmol/L (3.5-5.1) 10/12/17 Chloride 105 mmol/L (98-107) 10/12/17 Carbon Dioxide 28 mmol/L (22-30) 10/12/17 Anion Gap 12 mmol/L 10/12/17 BUN 15 mg/dL (9-20) 10/12/17 Creatinine 1.06 mg/dL (0.66-1.25) 10/12/17 Est GFR (CKD-EPI)AfAm >90 (>60 ml/min/1.73 sqM) 10/12/17 Est GFR (CKD-EPI)NonAf >90 (>60 ml/min/1.73 sqM) 10/12/17 Glucose 82 mg/dL (74-99) 10/12/17 Calcium 9.5 mg/dL (8.4-10.2) 10/12/17 Total Bilirubin 0.2 mg/dL (0.2-1.3) 10/12/17 AST 17 U/L (17-59) 10/12/17 ALT 27 U/L (21-72) 10/12/17 Alkaline Phosphatase 52 U/L (38-126) 10/12/17 Total Protein 6.2 g/dL (6.3-8.2) L 10/12/17 Albumin 3.9 g/dL (3.5-5.0) 10/12/17 Triglycerides 130 mg/dL (<150) 10/12/17 Cholesterol 145 mg/dL (<200) 10/12/17 LDL Cholesterol, Calc 81 mg/dL (0-99) 10/12/17 HDL Cholesterol 38 mg/dL (40-60) L 04/18/18 09:28 TSH 0.738 mIU/L (0.465-4.680) 10/12/17 09:28 Urine Opiates Screen Not Detected (NotDetected) 10/11/17 18:30 Ur Oxycodone Screen Not Detected (NotDetected) 10/11/17 18:30 Urine Methadone Screen Not Detected (NotDetected) 10/11/17 18:30 Ur Propoxyphene Screen Not Detected (NotDetected) 10/11/17 18:30 Ur Barbiturates Screen Not Detected (NotDetected) 10/11/17 18:30 U Tricyclic Antidepress Not Detected (NotDetected) 10/11/17 18:30 Ur Phencyclidine Scrn Not Detected (NotDetected) 10/11/17 18:30 Ur Amphetamines Screen Not Detected (NotDetected) 10/11/17 18:30 U Methamphetamines Scrn Not Detected (NotDetected) 10/11/17 18:30 U Benzodiazepines Scrn Not Detected (NotDetected) 10/11/17 18:30 Urine Cocaine Screen Not Detected (NotDetected) 10/11/17 18:30 U Marijuana (THC) Screen Not Detected (NotDetected) 10/11/17 18:30 10/12/17 11:25 Identification: Patient is a 26-year-old male who presented to the emergency room after refusing to allow the local crisis unit to speak with him and they called the police and brought the patient here as he was threatening to commit suicide with a knife for an overdose. History of Present Illness: Patient was discharged 1 week ago today from the inpatient psychiatric unit and the patient states that he has not been doing well on the outside. Patient has been seen twice in the emergency room since his discharge. Patient is being followed by [facility] and the mobile crisis unit, they have followed up with the patient and he reports that on Tuesday he was seen by his therapist at [facility] and then presented to the emergency room that evening, patient states that he was to see the psychiatrist yesterday but did not like the doctor and so did not keep his appointment. He states that he discontinued the Depakote at home because it caused sleep paralysis. He states that he took Zyprexa that he had at home from prior scripts from a prior admission. He states that he does not want any more Cogentin, patient was here on the weekend requesting Cogentin for side effects. He states that he felt worse on the Cogentin. Patient states that he stopped the oral Prolixin. 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 Patient states that he doesn't like the side effects from the medication, complaining of akathisia. Patient reported that he can't live alone and states that he was feeling suicidal but cannot tell me why. This will be the patient's fourth admission this year to the inpatient psychiatric unit, he was here in July, twice in August and once earlier this month. Patient states that he was not feeling angry, is no longer feeling suicidal but states that he can't take the side effects. States that he can't control them. Patient reports that he did not use any drugs or alcohol since his discharge. Patient denies hearing voices, denies feeling paranoid and states that he was not sleeping at home and took some Zyprexa from a prior admission. Past Psychiatric History: patient has had numerous admissions to the inpatient unit he was here twice in 2016, this is his fourth admission this year and he has also been at inpatient drug and alcohol rehab programs. The patient has no prior history of suicide attempts. Patient has been tried on Invega Sustenna, Risperdal, Zyprexa, Geodon, Haldol and is currently receiving Prolixin decanoate 50 mg every 2 weeks, last dose given on October 05. Past Medical/Surgical History: no reported medical problems, status post tonsillectomy Family History: Mother has a history of drug use, father history of anxiety Social History: patient was born and raised in [place], his mother and father are both alive. Patient has siblings. Patient finished high school. Patient has been living alone since his last discharge one week ago, patient does have a son. Patient has worked in the past but has not worked since sometime last year. Substance Use History: patient has a history of marijuana use, alcohol use, methamphetamine use; tobacco use. Legal History: Unknown Mental status: Appearance/Attitude: Patient is dressed in a hospital gown, makes good eye contact, both of his feet are shaking during the interview and less he plans them both firmly on the floor, he is cooperative Behavior: Patient did not exhibit any psychomotor agitation or retardation, but both legs were shaking during the interview Speech/Language: Patient's speech was spontaneous of normal volume and rhythm and he is coherent Thought Process: Patient is goal-directed there is no evidence of loose associations or flight of ideas Thought Content: Patient denies auditory or visual hallucinations and no delusions or paranoid ideation or elicited. Patient states he is not feeling angry or agitated but states that he could not cope on his own. He states he can't control the side effects. He complained of sleep paralysis secondary to the Depakote which she discontinued and reported that he was having side effects from the Cogentin. Patient reports that he has been eating at home. He states that he felt spaced out after working with his stepfather and exposed to paint Suicidal/Homicidal Ideation: Patient states he felt suicidal yesterday but currently denies any suicidal ideation and no current homicidal ideation Sensorium/Cognition: Patient is alert and oriented to person, place, and time and his recent and remote memory are grossly intact Mood/Affect: Patient's mood is slightly depressed and his affect is slightly blunted Insight/Judgment: Patient's insight and judgment are limited Intellectual Functioning: Patient's intellectual functioning appears average Strength/Weakness: patient has remained sober, has housing/lack of compliance with medication and follow-up, limited coping skills Assessment: patient is readmitted after presenting to the emergency room several times since his discharge one week ago. Patient reports that at home he was having side effects, such as sleep paralysis from the Depakote which he discontinued, stating that the Cogentin was making things worse and also that he was having side effects from the Prolixin, reporting some tongue thickening as well as shaking of his legs. Patient does appear to have symptoms of akathisia, on exam no extrapyramidal symptoms were noted, no cogwheel rigidity. Patient reports that he threatened to take an overdose or cut himself with a knife. Patient had been contacting the mobile crisis unit multiple times on a daily basis since his discharge. 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 Patient is reporting that he did not sleep well here and has not been at home taking Zyprexa from her prior admission. Patient reported that he doesn't feel he can live alone. He followed through with one appointment at [facility] but did not keep his appointment with the psychiatrist stating that he did not like him. Patient's UDS was negative on admission. Admission Diagnosis: schizoaffective disorder, bipolar type Plan: patient was admitted under the court order that expires on 11/16/2017. Patient was ordered routine observation and group and activity therapy. Routine laboratory studies as well as a medical consultation were requested. Patient and I discussed not restarting his Depakote. I discussed with the patient using Benadryl to treat his side effects and he was agreeable to starting Benadryl 50 mg twice a day. Patient will not be restarted on oral Prolixin as he does have evidence of akathisia but will continue to use the Prolixin to Bobby do next Tuesday. We will continue to evaluate his akathisia and a need for additional medication. Patient is stating that he is unable to live on his own, he does have a guardian at this time and consider longterm on discharge.
[2017-10-12 18:20] LABS: Hemoglobin A1C 4.9 % (4.0-6.0)
[2017-10-12] MEDS: MELATONIN 3 MG TABLET PO SCH (20:03)
[2017-10-13] MEDS: diphenhydrAMINE 50 MG CAP PO SCH ×2 (08:22→20:40)
--- NOTE | 2017-10-13 12:24 | P.PN ---
Progress Note - Text Progress Note Date: 10/13/17 Interval History: Patient is a 26-year-old male who was seen today and he reports that the Benadryl is been effective for his side effects, he states he is not having any difficulty swallowing and his tongue does not feel sick. He states that he is also not tapping his legs as much. Patient states that one of the reasons he wanted to come to the hospital was to have his medications adjusted but is well he allowed a patient that was on the unit with him on his last admission to move in with him. Patient states that he has tried to get her to leave and move back with her parents but she has not done so. Patient states that he slept well last evening. Patient denies auditory or visual hallucinations and states that he is not feeling angry or irritable. Mental Status: Appearance/Attitude: Patient is casually dressed makes good eye contact and is cooperative. Behavior: Patient does not display any psychomotor agitation or retardation, patient was able to sit quietly today and was not tapping his legs during the interview. Speech/Language: Patient's speech was spontaneous of normal volume and rhythm and he is coherent. Thought Process: Patient was goal-directed there is no evidence of loose associations or flight of ideas. Thought Content: Patient denied auditory or visual hallucinations and no delusions or paranoid ideation were elicited. Patient stated that he wanted to come in the hospital to have medications adjusted as well as he did not know how to have the woman he was living with leave, this is someone he met while he was on the inpatient unit during his last admission. Patient states that he was not able to continue to stay there and had asked her to leave and return to her parents home. Patient states that he is eating and sleeping well here. He reports no further side effects and feels that the Benadryl is been very helpful for him. Suicidal/Homicidal Ideation: Patient reports no current suicidal or homicidal ideation. Sensorium/Cognition: Patient was alert and oriented to person, place, and time and his recent and remote memory are grossly intact. Mood/Affect: Patient's mood is pleasant and his affect is slightly blunted Insight/Judgment: Patient's insight and judgment are fair Assessment: Patient discussed his having patient that he met on his last admission move in with him and that it created difficulties for him and he tried to get her to leave and return to her parents home that she would not do so. Patient states he also wanted to come into the hospital to have his medications adjusted. Patient reports that he is doing much better with the Benadryl and states that he has no side effects. Patient and I also discussed his difficulties living alone and he was agreeable that moving into a halfway may be a good idea for him. Patient has been attending some groups and activities and there've been no episodes of agitation or threatening behavior. Plan: Patient will continue on his current medications of Benadryl 50 mg twice a day and Prolixin decanoate 50 mg next dose due on October 19. Patient and I discussed and have discussed in team meeting a referral for a halfway on discharge. Patient continues to require hospitalization to further stabilize his mood and arrange for more appropriate discharge.
[2017-10-13] MEDS: MELATONIN 3 MG TABLET PO SCH (20:36)
[2017-10-13] MEDS: diphenhydrAMINE 25 MG CAP PO PRN (20:37)
[2017-10-14] MEDS: diphenhydrAMINE 50 MG CAP PO SCH ×3 (10:28→20:42)
--- NOTE | 2017-10-14 11:33 | P.PN ---
Progress Note - Text Progress Note Date: 10/14/17 Interval History: Patient is a 26-year-old male who reports that he is ready to leave the hospital. Patient states that he made up the suicidal statements so he can get into the hospital and have his medications changed. Patient states that he did not want to continue taking the Cogentin that had been given to him in the emergency room. Patient states that he doesn't want Adriana living with him anymore and states that he is told her to stop calling his family and friends. Patient states that he is not sure that he needs to go to a residential. He also reported that he wants to change from Prolixin to Zyprexa once he is out of the hospital. Mental Status: Appearance/Attitude: Patient was found in his room sleeping, he is casually dressed and makes good eye contact and is cooperative. Behavior: Patient does not exhibit any psychomotor agitation or retardation. Speech/Language: Patient's speech is of normal volume and rhythm and he is coherent Thought Process: Patient is goal-directed there is no evidence of loose association or flight of ideas. Thought Content: Patient denies auditory or visual hallucinations and no delusions or paranoid ideation were elicited. Patient states that he is sleeping and eating well. Patient states that he made up with suicidal ideation to get into the hospital, he states that he is not having any side effects and feels that the Benadryl is been beneficial. Patient is requesting that he be discharged soon. Suicidal/Homicidal Ideation: Patient denies any current suicidal or homicidal ideation Sensorium/Cognition: Patient is alert and oriented to person, place, and time and his recent and remote memory are grossly intact Mood/Affect: Patient's mood is stable and his affect is slightly blunted Insight/Judgment: Patient's insight and judgment are limited Assessment: Patient reports that he lied about the suicidal thoughts to get into the hospital because he wanted his medications changed specifically not liking Cogentin. Patient states that Adriana who is been staying at his apartment with him keep calling his family and he is told her to not continue to do that and wants her out of his apartment when he leaves. Patient states that he now wants to leave the hospital. Patient is reporting no side effects from the medication and states that the Benadryl is been working effectively. In team treatment meeting it was discussed that the act team will now follow the patient once he is discharged and there are several people ahead of him for a residential. Plan: Patient will continue on Benadryl 50 mg twice a day, patient's Prolixin decanoate 50 mg is due on October 19. Will plan patient's discharge on Tuesday as the act team will now follow the patient and it may be some time before he is able to be placed in a residential should his guardian approved our discharge planning.
[2017-10-14] MEDS: MELATONIN 3 MG TABLET PO SCH (20:41)
[2017-10-15] MEDS: diphenhydrAMINE 50 MG CAP PO SCH ×2 (08:24→20:23)
--- NOTE | 2017-10-15 16:06 | P.PN ---
Progress Note - Text Progress Note Date: 10/15/17 Interval history: Patient seen in [facility]. He does talk about feeling like he will be ready for discharge on Tuesday. He does not voice any current medication side effects. Per chart history he is due for his next long- acting antipsychotic injection on the . Mental status exam: He is alert and cooperative with the interview. His speech is fluent, not rapid or pressured. He does not verbalize any thoughts of harm to self or others. He denies any history of hallucinations. He does not verbalize any crow delusions, he does describe having negative thinking which he works on helping himself. Plan: Patient will be maintained on current psychotropic medication regimen. We will monitor for any medication side effects. Continue to cover this patient through the weekend. Continue to monitor his ongoing status.
[2017-10-15] MEDS: MELATONIN 3 MG TABLET PO SCH (20:23)
[2017-10-16] MEDS: diphenhydrAMINE 50 MG CAP PO SCH ×2 (08:45→21:38)
--- NOTE | 2017-10-16 19:05 | P.PN ---
Progress Note - Text Progress Note Date: 10/16/17 Interval history: Patient is seen in cross [facility] again today. He reports that his mood is doing pretty good. He does talk about discharge planning for tomorrow. He slept about 7 hours last night. He is due for his Prolixin Decanoate next on October 19 it sounds. Mental status exam: He is alert and cooperative with the interview. He describes his mood is pretty good. He affect is slightly restricted overall. He denies any thoughts of harm to self or others. He does not verbalize any hallucinations or crow delusions. He does not show any agitation. Plan: Maintain current psychotropic medication regimen. He is looking at discharge planning for tomorrow.
[2017-10-16] MEDS: MELATONIN 3 MG TABLET PO SCH (21:38)
[2017-10-17] MEDS: diphenhydrAMINE 50 MG CAP PO SCH ×2 (08:42→21:37)
--- NOTE | 2017-10-17 13:35 | P.PN ---
Progress Note - Text Progress Note Date: 10/17/17 Interval History: Patient is a 26-year-old male who was seen today and he reports that he is not having any side effects the Benadryl is been working well for him. He reports that he was already told that he can't leave until tomorrow due to the act team not being able to see him until then. Patient also reported to me that the woman that was staying with him is now in an inpatient psychiatric unit and so he feels comfortable returning to his own home. Patient states that he is sleeping and eating and attending some groups and activities. Mental Status: Appearance/Attitude: Patient is casually dressed, makes good eye contact and is cooperative Behavior: Patient does not display any psychomotor agitation or retardation. Speech/Language: Patient is spontaneous of normal volume and rhythm and he is coherent. Thought Process: Patient is goal-directed there is no evidence of loose association or flight of ideas Thought Content: Patient denies auditory or visual hallucinations no delusions or paranoid ideation or elicited. Patient states that he is not having any side effects and feels that the Benadryl is been effective. He states he is sleeping and eating well. Suicidal/Homicidal Ideation: Patient denies any current suicidal or homicidal ideation Sensorium/Cognition: Patient is alert and oriented to person, place, and time and his recent and remote memory are grossly intact Mood/Affect: Patient's mood is cooperative and his affect is slightly blunted Insight/Judgment: Patient's insight and judgment are fair Assessment: Patient has not had any episodes of agitation, aggression or threatening behavior while on the unit and he reports that he has been eating and sleeping well. Patient states that he has not had any side effects and feels that the been no drill has been effective in controlling them. There is no evidence of akathisia or side effects on exam. Patient is still questioning whether he needs to continue with the Prolixin injections. Patient reports that he has found out that the woman that was living with him is now in an inpatient psychiatric unit and he feels comfortable returning home. Plan: Patient will continue on Benadryl 50 mg twice a day and his Prolixin Decanoate injection is due on Tuesday. I spoke with [facility] and they're unable to see the patient for the act team until tomorrow and so the patient will be discharged tomorrow and the act team will also provide transportation back to his apartment. Patient was encouraged to attend groups and activities.
[2017-10-17] MEDS: MELATONIN 3 MG TABLET PO SCH (21:37)
[2017-10-18 06:51] VITALS: BP 101/58; PULSE 62; RESP 18; TEMP 97.5
[2017-10-18] MEDS: diphenhydrAMINE 50 MG CAP PO SCH (08:44)
[2017-10-18] MEDS ORDERED: NICOTINE 14MG/24HR PATCH TRANSDERM SCH (09:00)
--- NOTE | 2017-10-18 10:41 | P.DS ---
Providers Date of admission: 10/11/17 18:38 Expected date of discharge: 10/18/17 Attending physician: Shandra Loomis MD Consults: 10/11/17 19:41 Consult Physician Routine Consulting Provider: Belen Fong Consult Reason/Comments: H&P for mental health admission Do you want consulting provider notified?: Yes Primary care physician: Stated None Hospital Course: Discharge Diagnosis: Schizoaffective disorder, bipolar type Reason for Admission: Patient is a 26-year-old male who presented to the emergency room after refusing to allow the local crisis unit to speak with him and they called the police and brought the patient here as he was threatening to commit suicide with a knife for an overdose. Patient was discharged 1 week ago today from the inpatient psychiatric unit and the patient states that he has not been doing well on the outside. Patient has been seen twice in the emergency room since his discharge. Patient is being followed by [facility] and the [facility], they have followed up with the patient and he reports that on Tuesday he was seen by his therapist at [facility] and then presented to the emergency room that evening, patient states that he was to see the psychiatrist yesterday but did not like the doctor and so did not keep his appointment. He states that he discontinued the Depakote at home because it caused sleep paralysis. He states that he took Zyprexa that he had at home from prior scripts from a prior admission. He states that he does not want any more Cogentin, patient was here on the weekend requesting Cogentin for side effects. He states that he felt worse on the Cogentin. Patient states that he stopped the oral Prolixin. 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 Patient states that he doesn't like the side effects from the medication, complaining of akathisia. Patient reported that he can't live alone and states that he was feeling suicidal but cannot tell me why. This will be the patient's fourth admission this year to the inpatient psychiatric unit, he was here in July, twice in August and once earlier this month. Patient states that he was not feeling angry, is no longer feeling suicidal but states that he can't take the side effects. States that he can't control them. Patient reports that he did not use any drugs or alcohol since his discharge. Patient denies hearing voices, denies feeling paranoid and states that he was not sleeping at home and took some Zyprexa from a prior admission. Mental status on Admission: Appearance/Attitude: Patient is dressed in a hospital gown, makes good eye contact, both of his feet are shaking during the interview and less he plans them both firmly on the floor, he is cooperative Behavior: Patient did not exhibit any psychomotor agitation or retardation, but both legs were shaking during the interview Speech/Language: Patient's speech was spontaneous of normal volume and rhythm and he is coherent Thought Process: Patient is goal-directed there is no evidence of loose associations or flight of ideas Thought Content: Patient denies auditory or visual hallucinations and no delusions or paranoid ideation or elicited. Patient states he is not feeling angry or agitated but states that he could not cope on his own. He states he can't control the side effects. He complained of sleep paralysis secondary to the Depakote which she discontinued and reported that he was having side effects from the Cogentin. Patient reports that he has been eating at home. 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 Patient was placed on routine precautions and group and activity therapy were ordered. Patient had routine laboratory studies ordered as well as a medical consultation. Patient was not continued on Depakote as the patient states that he had stopped it earlier and did not think it was beneficial. Patient was reporting side effects from the medication and and he felt that the Cogentin was causing side effects as well. Patient was begun on Benadryl 50 mg twice a day for his side effects. Patient was not restarted on Prolixin orally as the patient has received sufficient long-acting injectable medication at this time. Patient reports that he said he was suicidal to get admitted to the hospital because he wanted to have his medications changed specifically the Cogentin stopped. Patient also reported that he had another person that he had met here on the unit living with him and that had been creating problems for him. He had asked this person to leave his apartment but she did not and he stated that she was calling him and his family constantly. Patient on the unit displayed no agitation, threatening behavior and he attended some groups and activities and was cooperative while on the unit. Patient reported no suicidal thoughts, felt that his side effects of difficulty swallowing and some shaking of his lower extremities had decreased and he felt better. Patient states he was sleeping and eating well. Patient reported that he was ready to go home and did not feel that he needed to go to with [facility]. Initially in the admission the patient had been agreeable to [facility] placement but due to the extended wait. He felt that he could return home as long as this other person was no longer there. Allergies haloperidol [From Haldol] Adverse Reaction (Verified 10/11/17 16:38) Extrapyramidal Side Effects ziprasidone [From Geodon] Adverse Reaction (Verified 10/11/17 16:38) Suicidal Thoughts Laboratory Last Values WBC 7.8 k/uL (3.8-10.6) 10/12/17 09:28 RBC 5.45 m/uL (4.30-5.90) 10/12/17 09:28 Hgb 15.9 gm/dL (13.0-17.5) 10/12/17 09:28 Hct 45.8 % (39.0-53.0) 10/12/17 09:28 MCV 84.0 fL (80.0-100.0) 10/12/17 09:28 MCH 29.2 pg (25.0-35.0) 10/12/17 09:28 MCHC 34.7 g/dL (31.0-37.0) 10/12/17 09:28 RDW 12.6 % (11.5-15.5) 10/12/17 09:28 Plt Count 210 k/uL (150-450) 10/12/17 09:28 Neutrophils % 63 % 10/12/17 09:28 Lymphocytes % 25 % 10/12/17 09:28 Monocytes % 7 % 10/12/17 09:28 Eosinophils % 3 % 10/12/17 09:28 Basophils % 1 % 10/12/17 09:28 Neutrophils # 4.9 k/uL (1.3-7.7) 10/12/17 09: Lymphocytes # 1.9 k/uL (1.0-4.8) 10/12/17: Monocytes # 0.5 k/uL (0-1.0) 10/12/17: Eosinophils # 0.3 k/uL (0-0.7) 10/12/17: Basophils # 0.1 k/uL (0-0.2) 10/12/17: Sodium 145 mmol/L (137-145) 10/12/17: Potassium 4.4 mmol/L (3.5-5.1) 10/12/17: Chloride 105 mmol/L (98-107) 10/12/17 Carbon Dioxide 28 mmol/L (22-30) 10/12/17 Anion Gap 12 mmol/L 10/12/17 BUN 15 mg/dL (9-20) 10/12/17 Creatinine 1.06 mg/dL (0.66-1.25) 10/12/17 Est GFR (CKD-EPI)AfAm >90 (>60 ml/min/1.73 sqM) 10/12/17 Est GFR (CKD-EPI)NonAf >90 (>60 ml/min/1.73 sqM) 10/12/17 Glucose 82 mg/dL (74-99) 10/12/[address] Glu mg/dL 94 10/12/17 Hemoglobin A1c 4.9 % (4.0-6.0) 10/12/17 Calcium 9.5 mg/dL (8.4-10.2) 10/12/17 Total Bilirubin 0.2 mg/dL (0.2-1.3) 10/12/17 AST 17 U/L (17-59) 10/12/17 ALT 27 U/L (21-72) 10/12/17 Alkaline Phosphatase 52 U/L (38-126) 10/12/17 Total Protein 6.2 g/dL (6.3-8.2) L 04/18/18 09:28 Albumin 3.9 g/dL (3.5-5.0) 10/12/17 09:28 Triglycerides 130 mg/dL (<150) 10/12/17 09:28 Cholesterol 145 mg/dL (<200) 10/12/17 09:28 LDL Cholesterol, Calc 81 mg/dL (0-99) 10/12/17 09:28 HDL Cholesterol 38 mg/dL (40-60) L 10/12/17 09:28 TSH 0.738 mIU/L (0.465-4.680) 10/12/17 09:28 Urine Opiates Screen Not Detected (NotDetected) 10/11/17 18:30 Ur Oxycodone Screen Not Detected (NotDetected) 10/11/17 18:30 Urine Methadone Screen Not Detected (NotDetected) 10/11/17 18:30 Ur Propoxyphene Screen Not Detected (NotDetected) 10/11/17 18:30 Ur Barbiturates Screen Not Detected (NotDetected) 10/11/17 18:30 U Tricyclic Antidepress Not Detected (NotDetected) 10/11/17 18:30 Ur Phencyclidine Scrn Not Detected (NotDetected) 10/11/17 18:30 Ur Amphetamines Screen Not Detected (NotDetected) 10/11/17 18:30 U Methamphetamines Scrn Not Detected (NotDetected) 10/11/17 18:30 U Benzodiazepines Scrn Not Detected (NotDetected) 10/11/17 18:30 Urine Cocaine Screen Not Detected (NotDetected) 10/11/17 18:30 U Marijuana (THC) Screen Not Detected (NotDetected) 10/11/17 18:30 Discharge Mental Status: Appearance/Attitude: Patient is casually dressed, makes good eye contact and is cooperative. Behavior: Patient does not display any psychomotor agitation or retardation. Speech/Language: Patient's speech is spontaneous of normal volume and rhythm and he is coherent Thought Process: Patient is goal-directed there is no evidence of loose association or flight of ideas Thought Content: Patient denies auditory or visual hallucinations and no delusions or paranoid ideation were elicited. Patient has not demonstrated any threatening or agitated behavior while on the unit has been cooperative. He reports he is sleeping and eating well. He reports no further side effects from the Prolixin and states he feels better on the Benadryl. Suicidal/Homicidal Ideation: Denied any current suicidal or homicidal ideation Sensorium/Cognition: Patient is alert and oriented to person, place, and time and his recent and remote memory are grossly intact Mood/Affect: Patient's mood is pleasant and his affect is slightly blunted Insight/Judgment: Patient's insight and judgment are limited Risk Assessment: Patient's risk for self harm is moderate should he stopped his medication, not be compliant with follow-up care were begin using drugs and alcohol Discharge Plan: Patient will return to his own apartment, patient and I discussed should he have difficulties with his friend he needs to contact his guardian to assist him. Patient will continue on Benadryl 50 mg twice a day and he is due for his Prolixin decanoate 50 mg injection on Tuesday, October 19. Patient will be given a prescription for Benadryl he was given a prescription for his Prolixin long-acting injectable at his last discharge. Patient was encouraged to avoid any alcohol or drugs and be compliant with follow-up and medications. Patient Condition at Discharge: Stable Plan - Discharge Summary Discharge Rx Participant: No New Discharge Prescriptions: New diphenhydrAMINE [Benadryl] 50 mg PO BID #28 cap Melatonin 3 mg PO HS #28 tablet Continue fluPHENAZine DECANOATE [Prolixin Decanoate] 50 mg IM Q14D #1 vial Discontinued Melatonin 1 mg PO HS Benztropine Mesylate [Cogentin] 0.5 mg PO BID OLANZapine [ZyPREXA] 7.5 mg PO HS Discharge Medication List fluPHENAZine DECANOATE [Prolixin Decanoate] 50 mg IM Q14D #1 vial 10/05/17 [Rx] Melatonin 3 mg PO HS #28 tablet 10/18/17 [Rx] diphenhydrAMINE [Benadryl] 50 mg PO BID #28 cap 10/18/17 [Rx] Follow up Appointment(s)/Referral(s): [facility] [Outside] - 10/18/17 2:00 pm (w/ ACT Team) None,Stated [Primary Care Provider] - 1-2 days Patient Instructions/Handouts: Schizoaffective Disorder (DC) Activity/Diet/Wound Care/Special Instructions: Activity and diet as tolerated. Avoid the use of street drugs and alcohol. Remove all firearms from home. Take all medications as prescribed. When you are in need of refills of your medication please contact your medical provider and/ or outpatient psychiatrist to have this done. Please go to scheduled outpatient appointment for aftercare. If symptoms return or become worse you can call the Crisis Line at and/or go to the nearest emergency room for an evaluation. Discharge Disposition: HOME SELF-CARE
== END 2017-10-18 13:28 | disposition home or self-care (01) | DRG 885 ==
LOC: EC 16:08 → 3MHU 18:38
PROVIDERS: ADMIT Psychiatry & Neurology Psychiatry; ATTEND Psychiatry & Neurology Psychiatry
DX: F25.0 Schizoaffective disorder, bipolar type (principal); G25.71 Drug induced akathisia; R45.851 Suicidal ideations; G83.9 Paralytic syndrome, unspecified; F41.0 Panic disorder [episodic paroxysmal anxiety]; G47.00 Insomnia, unspecified; F17.200 Nicotine dependence, unspecified, uncomplicated; T42.6X5A Adverse effect of other antiepileptic and sedative-hypnotic drugs, initial encounter; T43.3X5A Adverse effect of phenothiazine antipsychotics and neuroleptics, initial encounter; Z81.3 Family history of other psychoactive substance abuse and dependence; Z81.8 Family history of other mental and behavioral disorders; Z90.89 Acquired absence of other organs; Z79.899 Other long term (current) drug therapy; Z88.8 Allergy status to other drugs, medicaments and biological substances
CPT/HCPCS: 80053; 80061; 80306; 82075; 83036; 84443; 85025; 99285

== ENCOUNTER 2018-01-07 12:28 | Emergency (ER) | payer OTHER ==
[2018-01-07 12:35] VITALS: BP 119/76; PULSE 71; RESP 18; TEMP 98.1
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
--- NOTE | 2018-01-07 13:20 | XR ---
EXAMINATION TYPE: XR sternum DATE OF EXAM: 01/07/2018 COMPARISON: NONE HISTORY: Pain following remote trauma TECHNIQUE: Oblique and lateral views of the sternum were obtained. FINDINGS: No fracture is seen. The sternum is poorly visualized in the oblique projection. IMPRESSION: No definite acute fracture.
== END 2018-01-07 13:25 | disposition home or self-care (01) ==
LOC: EC 12:28
DX: S20.219A Contusion of unspecified front wall of thorax, initial encounter (principal); F17.200 Nicotine dependence, unspecified, uncomplicated; Z88.8 Allergy status to other drugs, medicaments and biological substances; W22.8XXA Striking against or struck by other objects, initial encounter
CPT/HCPCS: 71120; 99283

== ENCOUNTER 2018-12-11 15:29 | Inpatient (IN) | payer MEDICAID, OTHER ==
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
[2018-12-11 19:05] LABS: Appearance,Urine Clear (Clear); Bilirubin,Urine Negative (Negative); Blood,Urine Negative (Negative); Color,Urine Yellow; Glucose,Urine (UA) Negative (Negative); Ketones,Urine 4+ (Negative); Leukocyte Esterase,Urine Negative (Negative); Mucus,Urine Rare /hpf; Nitrite,Urine Negative (Negative); PH, Urine 5.5 (5.0-8.0); Protein,Urine 1+ (Negative); RBC,Urine 1 /hpf (0-5); Specific Gravity,Urine 1.032 (1.001-1.035)
[2018-12-11 19:13] LABS: Acetaminophen <10.0 ug/mL; African American GFR (CKD) >90 (>60 ml/min/1.73 sqM); Alcohol <10 mg/dL; Anion Gap 14 mmol/L; Blood Urea Nitrogen 22 mg/dL (9-20); Calcium 9.4 mg/dL (8.4-10.2); Carbon Dioxide 23 mmol/L (22-30); Chloride 101 mmol/L (98-107); Glucose 91 mg/dL (74-99); Potassium 4.2 mmol/L (3.5-5.1); Salicylate <1.0 mg/dL; Sodium 138 mmol/L (137-145)
[2018-12-11 19:15] LABS: Basophils % (A) 0 %; Eosinophils # (A) 0.1 k/uL (0-0.7); Eosinophils % (A) 0 %; HCT 40.5 % (39.0-53.0); HGB 14.4 gm/dL (13.0-17.5); Lymphocytes # (A) 2.2 k/uL (1.0-4.8); Lymphocytes % (A) 15 %; MCH 29.9 pg (25.0-35.0); MCHC 35.6 g/dL (31.0-37.0); Monocytes # (A) 1.1 k/uL (0-1.0); Monocytes % (A) 7 %; Neutrophils # (A) 11.1 k/uL (1.3-7.7); Neutrophils % (A) 76 %; Platelet Count 200 k/uL (150-450); RBC 4.82 m/uL (4.30-5.90); RDW 12.9 % (11.5-15.5); WBC 14.6 k/uL (3.8-10.6)
[2018-12-11 19:17] LABS: Amphetamine Screen,Urine Not Detected (NotDetected); Barbiturate Screen,Urine Not Detected (NotDetected); Benzodiazepines Screen,Urine Not Detected (NotDetected); Cocaine Screen,Urine Not Detected (NotDetected); Methadone Screen, Urine Not Detected (NotDetected); Opiate Screen,Urine Not Detected (NotDetected); Oxycodone Screen, Urine Not Detected (NotDetected); Phencyclidine Screen,Urine Not Detected (NotDetected); Tricyclic Antidepressant,Urine Not Detected (NotDetected); Urn Cannabinoid Scrn Detected (NotDetected)
[2018-12-11] MEDS ORDERED: LORazepam 2 MG/ML INJ IM STA (20:11)
[2018-12-11] MEDS ORDERED: chlorproMAZINE 25 MG/ML 2 ML AMP IM STA (21:04)
[2018-12-12] MEDS ORDERED: chlorproMAZINE 25 MG/ML 2 ML AMP IM STA (03:18)
[2018-12-12] MEDS ORDERED: chlorproMAZINE 25 MG/ML 2 ML AMP IM PRN (07:50)
[2018-12-12] MEDS: LORazepam 2 MG/ML INJ IM PRN ×2 (08:27→18:28)
[2018-12-12] MEDS ORDERED: LORazepam 2 MG/ML INJ IM STA (11:43)
[2018-12-12 12:54] LABS: Hepatitis C IgG Antibody Non-Reactive (Non-Reactive)
[2018-12-12] MEDS ORDERED: MAG HYDROX/AL HYDROX/SIMETH 30 ML CUP PO PRN (17:17)
[2018-12-12] MEDS ORDERED: MAGNESIUM HYDROXIDE 2,400 MG/10 ML CUP PO PRN (17:17)
[2018-12-12] MEDS ORDERED: diphenhydrAMINE 25 MG CAP PO PRN (18:15)
[2018-12-12] MEDS: flUPHENAZine 2.5 MG/ML (MDV) 10 ML VIAL IM PRN (18:28)
[2018-12-12] MEDS: diphenhydrAMINE 50 MG/ML 1 ML VIAL IM PRN (18:28)
--- NOTE | 2018-12-12 19:43 | P.HPMEDMHU ---
History of Present Illness H&P Date: 12/12/18 Chief Complaint: Consults for MHU The patient is a 27-year-old male with a past with a history of schizoaffective disorder bipolar type who was brought to the ER from nursing home by the [facility], with increase agitation, pressured speech and apparent increased hallucinations. Apparently the patient was being increasingly threatening and hyperverbal at [facility] and was getting aggressive and attempted to escape through the ceiling, it was reported that the patient has not eaten or slept for the last 3-6 days has been dancing and singing in his room, He was subsequently transferred here due to lack of bed availability. Apparently the patient has not been on his medications for a few weeks. The patient was given Ativan and a couple doses of Thorazine And placed in restraints to protect himself and staff members. Review of Systems Pertinent positives per HPI all other review of systems otherwise negative Past Medical History Past Medical History: Respiratory Disorder Additional Past Medical History / Comment(s): schizophrenia History of Any Multi-Drug Resistant Organisms: None Reported Past Surgical History: Tonsillectomy Additional Past Surgical History / Comment(s): colonoscopy Past Anesthesia/Blood Transfusion Reactions: No Reported Reaction Past Psychological History: Anxiety, Depression, Panic Disorder, Schizophrenia Smoking Status: Current every day smoker Past Alcohol Use History: None Reported Past Drug Use History: Marijuana - Past Family History Father Additional Family Medical History / Comment(s): Father is alive at age 49 with history of anxiety. Mother Additional Family Medical History / Comment(s): Mother is alive at age 42 with h istory of back problems and back surgery. Brother(s) Additional Family Medical History / Comment(s): Patient has one half brother with no major medical problems. He has 1 sister with no major medical problems. Patient has one son that is healthy. Medications and Allergies Home Medications Medication Instructions Recorded Confirmed Type Divalproex ER [Depakote ER] 1,000 mg PO HS 12/11/18 12/11/18 History [place] Carbonate 600 mg PO HS 12/11/18 12/11/18 History Allergies Allergy/AdvReac Type Severity Reaction Status Date / Time fluphenazine [From Prolixin] AdvReac Unknown Verified 12/12/18 17:46 haloperidol [From Haldol] AdvReac Extrapyramidal Verified 12/11/18 15:50 Side Effects ziprasidone [From Geodon] AdvReac Suicidal Verified 12/11/18 15:50 Thoughts Physical Exam Vitals: Vital Signs Temp Pulse Pulse Resp BP BP Pulse Ox 12/12/18 18:26 115 H 20 137/71 12/12/18 18:00 115 H 16 137/71 12/12/18 15:51 98.3 F 99 20 128/61 99 12/12/18 08:00 98.1 F 100 20 121/82 99 12/12/18 06:18 122 H 14 120/84 100 Constitutional: Manic symptomatology, patient comfortably in the restraints Eyes: Anicteric sclerae, moist conjunctiva, no lid-lag, PERRLA ENMT: NC/AT,Oropharynx clear, no erythema, exudates Neck:Supple, FROM, no masses, or JVD, No carotid bruits; No thyromegaly Lungs: Clear to auscultation, Clear to percussion, Normal respiratory effort, no accessory muscle use Cardiovascular: Heart regular in rate and rhythm, No murmurs, gallops, or rubs no peripheral edema Abdominal: Soft Nontender, nom distended, no guarding, no rebound or rigidity, Normoactive bowel sounds No hepatomegaly, No splenomegaly, No palpable mass No abdominal wall hernia noted Skin: Normal temperature, tone, texture, turgor, No induration No subcutaneous nodules, No rash, lesions, No ulcers Extremities:No digital cyanosis No clubbing, Pedal pulses intact and symmetrical Radial pulses intact and symmetrical Normal gait and station, No calf tenderness Psychiatric: Pressure to speech, agitated, appears disheveled, agitated Neuro: Muscles Strength 5/5 in all 4 extremities, Sensation to light touch grossly present throughout, Cranial nerves II-XII grossly intact. No focal sensory deficits Cranial Nerve Examination - Cranial Nerves Cranial Nerve II- Optic: Intact Cranial Nerve III- Oculomotor: Intact Cranial Nerve IV- Trochlear: Intact Cranial Nerve V- Trigeminal: Intact Cranial Nerve - Abducens: Intact Cranial Nerve VII- Facial: Intact Cranial Nerve VIII- Auditory: Intact Cranial Nerve IX- Glossopharyngeal: Intact Cranial Nerve X- Vagus: Intact Cranial Nerve XI- Accessory: Intact Cranial Nerve XII- Hypoglossal: Intact Results CBC & Chem 7: 12/11/18 18:50 12/11/18 18:50 Assessment and Plan (1) Acute psychosis Current Visit: Yes Status: Acute Code(s): F23 - BRIEF PSYCHOTIC DISORDER SNOMED Code(s): 45670844 (2) Tetrahydrocannabinol (THC) use disorder, moderate, dependence Current Visit: No Status: Acute Code(s): F12.20 - CANNABIS DEPENDENCE, UNCOMPLICATED SNOMED Code(s): 29833780 (3) Schizoaffective disorder, bipolar type Current Visit: No Status: Chronic Priority: High Code(s): F25.0 - SCHIZOAFFECTIVE DISORDER, BIPOLAR TYPE SNOMED Code(s): 17131592 Plan: Patient is admitted to the acute inpatient psychiatry floor with acute psychosis in a patient with schizoaffective disorder bipolar type that appears to be manic. We'll defer all acute psychotropic management and cognitive behavioral therapy to inpatient psychiatry team. Patient otherwise is normotensive but has been tachycardic at times due to his increase agitation. Patient is agitated but is redirectable at times appears restless and combative and is a danger to himself and staff at this time. The patient has been given medication for his acute psychosis including Ativan and Thorazine. We'll continue restraints for now. Admission labs have been ordered we'll plan to sign off pending lab work I appreciate opportunity to be in all the ongoing care of this patient. Please do not hesitate to contact Inpatient Team
--- NOTE | 2018-12-12 22:46 | P.MHFACE ---
Face to Face Eval of Restraint - Evaluation Patient's Immediate Situation: Endangers self safety, Endangers staff safety Patient's Immediate Situation - Comment: Patient continues to hallucinate and states that the voices are telling him to punch someone, unable to specify who. Continues to posture violently towards staff with unpredictable behavior. Patient's Reaction to the Intervention: Appropriate Patient's Medical & Behavioral Condition: Awake, Agitated, Auditory hallucinations Need to Continue or Terminate Restraint or Seclusion: Continue Need to Continue or Terminate Restraint/Seclusion - Comment: Patient continues to be a threat to self and the staff. Will c/w restraints for now.
[2018-12-13] MEDS: diphenhydrAMINE 50 MG/ML 1 ML VIAL IM PRN (00:05)
[2018-12-13] MEDS: LORazepam 2 MG/ML INJ IM PRN (00:05)
[2018-12-13] MEDS: flUPHENAZine 2.5 MG/ML (MDV) 10 ML VIAL IM PRN (00:06)
[2018-12-13] MEDS: NICOTINE 14MG/24HR PATCH TRANSDERM SCH (11:11)
[2018-12-13] MEDS: LORazepam 1 MG TAB PO PRN ×2 (11:18→17:46)
[2018-12-13] MEDS ORDERED: diphenhydrAMINE 50 MG CAP PO STA (11:28)
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
[2018-12-13] MEDS: ACETAMINOPHEN TAB 325 MG TAB PO PRN (19:25)
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
[2018-12-13] MEDS: diphenhydrAMINE 50 MG CAP PO SCH (21:47)
[2018-12-14] MEDS: LORazepam 1 MG TAB PO PRN ×3 (01:16→21:06)
[2018-12-14] MEDS: ACETAMINOPHEN TAB 325 MG TAB PO PRN (01:38)
[2018-12-14] MEDS ORDERED: guaiFENesin SYRUP 100MG/5ML 200 MG/10 ML CUP PO STA (01:44)
[2018-12-14] MEDS: diphenhydrAMINE 50 MG CAP PO SCH ×2 (07:45→21:04)
[2018-12-14] MEDS: NICOTINE 14MG/24HR PATCH TRANSDERM SCH (09:13)
[2018-12-14] MEDS: diphenhydrAMINE 50 MG/ML 1 ML VIAL IM PRN ×2 (10:51→23:32)
[2018-12-14] MEDS: flUPHENAZine 2.5 MG/ML (MDV) 10 ML VIAL IM PRN ×2 (10:52→23:32)
[2018-12-14] MEDS: LORazepam 2 MG/ML INJ IM PRN (15:36)
[2018-12-14] MEDS: BENZOCAINE/MENTHOL LOZENG 1 EACH LOZENGE MUCOUS MEM PRN (15:46)
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
[2018-12-15] MEDS: LORazepam 2 MG/ML INJ IM PRN (05:53)
[2018-12-15] MEDS: flUPHENAZine 2.5 MG/ML (MDV) 10 ML VIAL IM PRN ×2 (05:53→11:54)
[2018-12-15] MEDS: diphenhydrAMINE 50 MG/ML 1 ML VIAL IM PRN ×2 (05:53→11:57)
--- NOTE | 2018-12-15 07:30 | P.MHFACE ---
Face to Face Eval of Restraint - Evaluation Patient's Immediate Situation: Endangers others' safety, Endangers staff safety, Violent behavior Patient's Immediate Situation - Comment: Patient verbally aggressive towards staff, did not respond to redirection and medication administration Patient's Reaction to the Intervention: Relaxed, Hostile Patient's Reaction to the Intervention - Comment: Laying in bed resting with restraints in place. Frustrated with being in restraints and angry about wanting to speak to police officers. Patient's Medical & Behavioral Condition: Awake, Alert, Paranoid Need to Continue or Terminate Restraint or Seclusion: Continue
[2018-12-15] MEDS: diphenhydrAMINE 50 MG CAP PO SCH ×2 (08:23→21:37)
[2018-12-15] MEDS: DIVALPROEX 250 MG TABLET.DR PO SCH ×2 (08:23→21:37)
[2018-12-15] MEDS: NICOTINE 14MG/24HR PATCH TRANSDERM SCH (09:05)
[2018-12-15] MEDS: LORazepam 1 MG TAB PO PRN ×2 (11:44→21:37)
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
[2018-12-15] MEDS: cloZAPine 25 MG TAB PO SCH (17:58)
[2018-12-16] MEDS: LORazepam 1 MG TAB PO PRN ×3 (04:01→20:37)
[2018-12-16] MEDS: diphenhydrAMINE 50 MG CAP PO SCH ×2 (08:34→20:37)
[2018-12-16] MEDS: DIVALPROEX 250 MG TABLET.DR PO SCH (08:34)
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
[2018-12-16] MEDS: ACETAMINOPHEN TAB 325 MG TAB PO PRN (15:05)
[2018-12-16] MEDS: cloZAPine 25 MG TAB PO SCH (17:28)
[2018-12-16] MEDS: DIVALPROEX 500 MG TABLET.DR PO SCH (20:37)
[2018-12-16] MEDS ORDERED: cloZAPine 25 MG TAB PO ONE (21:09)
[2018-12-17] MEDS: DIVALPROEX 500 MG TABLET.DR PO SCH ×2 (09:04→20:36)
[2018-12-17] MEDS: diphenhydrAMINE 50 MG CAP PO SCH ×2 (09:04→20:36)
[2018-12-17] MEDS: LORazepam 1 MG TAB PO PRN ×3 (09:23→20:36)
--- NOTE | 2018-12-17 10:40 | P.PN ---
Progress Note - Text Interval history: The patient is found in the hallway he approaches me we spoke in the self lounge. He continues to have security as one-to-one supervision due to his recent's impulsive aggressive actions. He states that he doesn't need medication we discussed the importance of him complying with medication to stabilize his mood and improve her objective thinking. He indicates sleep was adequate appetite adequate. He is focused on getting out of the hospital and working again. This morning he is observed being loud and intrusive. He was not restrained or secluded in the last 24 hours. He is demonstrated no violent behavior in the last 24 hours. Mental status exam: The patient is a thin male appearing his stated age she is dressed in his own clothing. Eye contact is appropriate speech is fluent and spontaneous record at times. Affect can be labile. During our interaction he remained calm. He continues to disagree with our recommendation for medication but so far has been complying. He describes no suicidal or homicidal thoughts. He does have delusional thoughts. 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 He does convey some paranoid and persecutory thinking as well. He demonstrated no verbal or physical aggressiveness. He demonstrates no involuntary repetitive movements. Plan: The patient will continue his current medications. We will monitor him for safety and encourage participation in the milieu. We discussed therapeutic goals that he needs to accomplish while here in order to be discharged. Vital signs reviewed.
[2018-12-17] MEDS: cloZAPine 25 MG TAB PO SCH (17:19)
[2018-12-18] MEDS: DIVALPROEX 500 MG TABLET.DR PO SCH ×2 (09:04→21:45)
[2018-12-18] MEDS: diphenhydrAMINE 50 MG CAP PO SCH ×2 (09:04→21:45)
[2018-12-18] MEDS: BENZOCAINE/MENTHOL LOZENG 1 EACH LOZENGE MUCOUS MEM PRN ×2 (10:44→21:57)
[2018-12-18] MEDS: LORazepam 1 MG TAB PO PRN ×2 (11:44→17:55)
--- NOTE | 2018-12-18 13:04 | P.PN ---
Progress Note - Text Progress Note Date: 12/18/18 Interval History: Patient is a 27-year-old male who was seen with security present, patient states that he is not going to take his medications does not want any increase in his medications. Patient remains grandiose talking about owning the fastest car in the state, not needing to go back to [facility]. Patient was verbally abusive during the interview, making obscene gestures. Mental Status: Appearance/Attitude: Patient is neatly and appropriately dressed, makes eye contact and is superficially cooperative Behavior: Patient does not exhibit any psychomotor retardation but remains agitated on the unit pacing, singing Speech/Language: Patient's speech is slightly pressured, normal volume and rhythm and he is coherent Thought Process: Patient is goal-directed at times can become tangential Thought Content: Patient denies auditory or visual hallucinations but remains grandiose stating that he owns the fastest car, will not be returning to [facility] and at times is verbally abusive, making obscene gestures and remains agitated pacing and singing in the halls. Patient states that he is not going to take his medications anymore and refused an increase in his Clozaril dose. Patient did sleep 8 hours. Suicidal/Homicidal Ideation: Patient denies any current suicidal ideation and states that if he goes back to [facility] he'll break out, denies any current homicidal ideation Sensorium/Cognition: He is alert and oriented to person, place, and time Mood/Affect: Patient's mood is [facility]. Affect is appropriate to his mood. Insight/Judgment: Patient's insight and judgment remain limited Assessment: Patient continues on a one-to-one with security, he has not required any injectable when necessary Prolixin nor has the patient required restraints since Tuesday. Patient however today continues to escalate in his agitation, making verbal threats to me and obscene gestures requesting to leave the hospital does not want to go back to [facility]. Then states that he doesn't want to leave the hospital. Patient is refusing an increase in his medication and states he is not going to take it. Patient attends groups and activities and walks in and out of them. Patient is in the [place] pacing, singing Plan: Patient will continue on Clozaril 50 mg at 6 PM and Depakote 500 mg twice a day he continues to have Benadryl 50 mg twice a day as well as when necessary Prolixin, Ativan and Benadryl. Patient continues to require hospitalization to stabilize his mood and target his psychotic symptoms.
[2018-12-18] MEDS: cloZAPine 25 MG TAB PO SCH (17:21)
[2018-12-18] MEDS: flUPHENAZine 2.5 MG/ML (MDV) 10 ML VIAL IM PRN (22:58)
[2018-12-18] MEDS: LORazepam 2 MG/ML INJ IM PRN (22:58)
[2018-12-19] MEDS: DIVALPROEX 500 MG TABLET.DR PO SCH (08:25)
[2018-12-19] MEDS: diphenhydrAMINE 50 MG CAP PO SCH (08:25)
[2018-12-19] MEDS: LORazepam 1 MG TAB PO PRN (08:25)
[2018-12-19] MEDS: BENZOCAINE/MENTHOL LOZENG 1 EACH LOZENGE MUCOUS MEM PRN (11:20)
--- NOTE | 2018-12-19 12:27 | P.PN ---
Progress Note - Text Progress Note Date: 12/19/18 Interval History: Patient is a 27-year-old male who was seen in the [place] with security present. Patient states that he's not willing to take any medication by mouth, Ativan Clozaril Depakote or Prolixin. States that he doesn't need any of the medication. Patient stated that he will cornelio once he goes to court on Tuesday. Mental Status: Appearance/Attitude: Patient is neatly dressed, makes intermittent eye contact and is superficially cooperative Behavior: Patient does not display any psychomotor retardation on the unit he is seen pacing, singing and is easily irritable and agitated Speech/Language: Patient's speech is spontaneous of normal volume and rhythm and he is coherent Thought Process: Patient is goal-directed there is no evidence of loose association or flight of ideas Thought Content: Patient denies any auditory or visual hallucinations, patient remains adamant about not taking medication, did not voice any grandiose ideation to me today, stating that he's not taking any medications he does not need any medications. Patient is eating, his sleep is interrupted Suicidal/Homicidal Ideation: Patient denies any current suicidal ideation and at times is agitated making verbal and physical threatening statements and/or gestures Sensorium/Cognition: Patient is alert and oriented to person, place, and time Mood/Affect: Patient's mood remains labile, irritable and his affect is appropriate to his mood Insight/Judgment: Patient's insight and judgment are limited Assessment: Patient has been refusing oral medication and when I spoke with him today he refused any oral medications Ativan, Prolixin, Depakote or Clozaril. Patient continues to voice that he does not need medications. Patient remains easily agitated on the unit, pacing, singing in the halls making both physically and verbal threatening statements and at times becomes verbally abusive towards staff and other peers. Patient has continued to require when necessary medication. Plan: Patient will continue on Prolixin 2.5 mg IM on an as-needed basis every 6 hours for aggressive, assaultive or threatening behavior, Benadryl by mouth or IM when necessary for side effects and Ativan IM or by mouth when necessary for agitation. I will discontinue the Depakote, Clozaril and Benadryl standing orders as the patient refuses to take further oral medication. Patient's court hearing is this Tuesday. I discussed with the patient that once the court hearing has occurred and he is given a treatment order he will be required to take medication. Patient was advised that he will receive injectable medication if he becomes physically or verbally threatening. Patient continues to require hospitalization to stabilize his mood.
[2018-12-19] MEDS: flUPHENAZine 2.5 MG/ML (MDV) 10 ML VIAL IM PRN (17:08)
[2018-12-19] MEDS: NICOTINE POLACRILEX 2 MG GUM BUCCAL PRN (17:09)
[2018-12-20 06:08] VITALS: RESP 16
[2018-12-20] MEDS: LORazepam 1 MG TAB PO PRN ×3 (09:06→21:34)
[2018-12-20] MEDS: NICOTINE POLACRILEX 2 MG GUM BUCCAL PRN ×2 (09:46→20:17)
--- NOTE | 2018-12-20 12:45 | P.PN ---
Progress Note - Text Progress Note Date: 12/20/18 Interval History: Patient is a 27-year-old male who was seen today with security, patient states that he continues to refuse oral meds because he needs to be a "peak performance". Patient states that he does not require any medication and does not want to take any medication. He told me that everybody was "stupid" and states that he refused to continue to speak with me because I'm stupid. Mental Status: Appearance/Attitude: Patient is neatly dressed, makes eye contact and is superficially cooperative Behavior: Patient does not exhibit any psychomotor retardation but is easily irritated during the interview and got up and ended the interview abruptly Speech/Language: Patient's speech is spontaneous and at times slightly pressured, speaks in a normal rhythm and at times is quite loud Thought Process: Patient is goal-directed Thought Content: Patient denies auditory or visual hallucinations, expresses Kellee has ideas of his abilities, refusing oral medication because he needs to be a "peak performance". Patient not sleeping well but is eating. Patient remains easily irritated calling me stupid during the interview, stating that he doesn't need medication and refusing to continue to speak with me Suicidal/Homicidal Ideation: Patient denies any suicidal or homicidal ideation at this time Sensorium/Cognition: Patient is alert and oriented to person, place, and time and his recent and remote memory are grossly intact Mood/Affect: Patient's mood is irritable and his affect is appropriate to his mood Insight/Judgment: Patient's insight and judgment are limited Assessment: Patient remains irritable, agitated and continues to be verbally abusive and at times physically and verbally threatening. Patient required 1 as needed Prolixin injection due to his behavior yesterday. Patient continues to refuse medication stating that he doesn't need it, that he needs to be in peak performance once he is discharged. Continues to request to be released and becomes irritable and angry when discussing the fact that he will need to return to [facility] when he is released from the hospital. Patient becomes quite agitated and irritable in discussing medication refusing to take any medication stating that he doesn't need them and doesn't like the way they make him feel. Plan: Patient continues to have as needed medication ordered for agitation, aggressive behavior, awaiting a court hearing this Tuesday. Patient continues on a one-to-one with security and continues to require hospitalization to target his aggressive behavior.
[2018-12-20] MEDS: flUPHENAZine 2.5 MG/ML (MDV) 10 ML VIAL IM PRN (22:13)
[2018-12-21] MEDS: LORazepam 1 MG TAB PO PRN ×2 (09:01→15:36)
--- NOTE | 2018-12-21 11:52 | P.PN ---
Progress Note - Text Progress Note Date: 12/21/18 Interval History: Patient is a 27-year-old male who was seen today, he was initially pleasant stating that he apologized for flipping me off yesterday but continued to refuse medication stating that he doesn't need them. He stated that he is not feeling depressed, he is bored being in the hospital. He denied feeling suicidal. States that he doesn't need medication because he smokes marijuana 24 hours a day 7 days a week. Patient states that he is aware that he needs to return to retirement, was aware that he was having a hearing tomorrow in probate court and then became increasingly irritable walking away stating that he was going to cornelio me, the hospital and the retirement. Mental Status: Appearance/Attitude: Patient is casually dressed, makes eye contact and is superficially cooperative Behavior: Patient does not exhibit any psychomotor retardation but easily becomes irritable and agitated when interviewed. Speech/Language: Patient's speech is spontaneous of normal volume and rhythm and he is coherent Thought Process: Patient is goal-directed no evidence of loose association or flight of ideas Thought Content: Patient denies auditory or visual hallucinations and continues to verbalize that he doesn't require medication, no paranoid ideation was elicited. Patient states that he uses marijuana daily and that that works for him and he needs no medication. Patient then threatened to cornelio the hospital, the retirement and myself and ended the interview. Patient has been sleeping at night and has been eating. Suicidal/Homicidal Ideation: Patient denied any current suicidal or homicidal ideation Sensorium/Cognition: Patient is alert and oriented to person, place, and time Mood/Affect: Patient's mood remains irritable and his affect appropriate to his mood Insight/Judgment: Patient's insight and judgment are limited Assessment:. Discontinue the one-to-one with security as the patient has not demonstrated any assaultive behavior, has remained irritable and at times agitated on the unit and has responded better to verbal redirection requiring IM as needed Prolixin only once yesterday. Patient was initially cooperative during our interview, apologizing for his behavior over the last several days but then became increasingly irritable and threatening to cornelio the hospital, the retirement and myself and ending the interview. Patient continues to refuse oral medication stating that he doesn't need medication and states that he uses marijuana daily instead. Patient has been attending some groups, remains irritable on the unit at times but has been sleeping and eating. Plan: Patient continues to have as needed medication, is refusing any oral medication at this time. Patient has a hearing tomorrow in probate court. We'll keep the patient off of one-to-one supervision to assess. Should a court order be obtained tomorrow will give the patient long-acting injectable medica tion patient has not been compliant with oral medication in the past. Should there be no further episodes of assaultive behavior will also return the patient to retirement.
[2018-12-21] MEDS: NICOTINE POLACRILEX 2 MG GUM BUCCAL PRN (15:36)
[2018-12-21] MEDS: flUPHENAZine 2.5 MG/ML (MDV) 10 ML VIAL IM PRN (20:23)
[2018-12-21] MEDS: diphenhydrAMINE 50 MG/ML 1 ML VIAL IM PRN (20:23)
[2018-12-21] MEDS: LORazepam 2 MG/ML INJ IM PRN (20:23)
[2018-12-22 05:46] VITALS: BP 104/64; PULSE 110; TEMP 97.9
[2018-12-22] MEDS ORDERED: fluPHENAZine DECANOATE 25 MG/ML 5ML MDV IM ONE (10:59)
[2018-12-22] MEDS ORDERED: diphenhydrAMINE 50 MG CAP PO SCH (11:15)
--- NOTE | 2018-12-22 11:53 | P.DS ---
Providers Date of admission: 12/12/18 17:01 Expected date of discharge: 12/22/18 Attending physician: Shandra Loomis MD Consults: 12/12/18 17:17 Consult Physician Routine Consulting Provider: Belen Fong Consult Reason/Comments: H&P and medical Do you want consulting provider notified?: Yes Primary care physician: Stated None Hospital Course: Discharge Diagnosis: Schizoaffective disorder, bipolar type Reason for Admission: Patient is 27-year-old male who was brought to the emergency room from [facility] where he had been threatening, agitated not sleeping or eating throwing his clothing in the toilet, exposing himself and masturbating. Per information from [facility] liaison the patient had been on the act team but had been released from the act team as he was doing well. Patient had been prescribed lithium 600 mg at bedtime and Depakote 1000 mg extended release at bedtime by [facility], no lab values are available. Patient on admission to the emergency room was threatening, agitated requiring restraints and when necessary medication. Patient came to the inpatient psychiatric unit and again was threatening, verbally abusive, not able to respond to verbal redirection and again required restraints and when necessary medication. Patient was seen with security one-to-one staffing, the patient states that he was in alf and being held against his will, that there were no charges pending against him. Patient states that he had not been sleeping or eating and had not been taking his medication for a number of months. Patient had not been seen by the prescriber at [facility] since June 2018. Patient also has a public guardian. Patient has not been to this hospital since September of last year. Patient was unable to give any further history, was irritable, hyperverbal and making verbally threatening statements. Patient was a poor historian, most of the information is obtained from prior records, I have taken care of this patient on several of his last admissions and is known to me. Mental status on admission: Appearance/Attitude: Patient is dressed in casual clothing, was seen with security and nursing staff in his room, patient made eye contact was superficially cooperative Behavior: Patient does not exhibit any psychomotor retardation, but is constantly moving, pacing and can be physically threatening Speech/Language: Patient's speech is pressured, normal volume and rhythm and he is coherent Thought Process: Patient was goal-directed Thought Content: Patient denied auditory or visual hallucinations, patient had been expressing paranoid ideation in the emergency room and on admission to the inpatient unit, he stated he was being held in alf against his will and that no charges were pending against him. Patient has not been sleeping or eating and has not been taking his meds as an outpatient Suicidal/Homicidal Ideation: Patient denied any current suicidal or homicidal ideation Sensorium/Cognition: Patient was alert and oriented to person, place and time Mood/Affect: Patient's mood is irritable and labile and his affect is appropriate to his mood Insight/Judgment: Patient's insight and judgment are limited Hospital Course: Patient was admitted on an involuntary basis, second certification was completed patient was placed on a one-to-one with security staff, routine laboratory studies as well as a medical consultation were obtained. Group and activity therapy were also ordered. Patient initially agreed to oral medication and was begun on Prolixin orally as well as Benadryl orally to prevent side effects. Patient was initially begun on 5 mg twice a day and 50 mg of Benadryl twice a day this was increased to 5 mg 3 times a day continuing with the Benadryl. Patient continued to remain agitated, verbally threatening and abusive towards staff and at times toward other patients and was not responding to verbal redirection and required restraints on several occasions. Patient also required when necessary medication of Prolixin, Ativan and Benadryl due to his agitated, threatening behavior and inability to respond to verbal redirection. Patient then refused medication and stopped taking his oral medication as we had started Clozaril and Depakote to decrease his aggressive angry behavior. Patient then refused all oral medication and was just maintained on as needed Prolixin, Ativan and Benadryl to control episodes of agitated threatening behavior. Patient remained on security one-to-one and on the day prior to discharge the patient was removed from one-to-one security and did well until later that evening when he again became demanding, refused to follow verbal redirection to stay out of another patient's room and was again placed on a one-to-one with security. Patient was initially paranoid, had pressured speech, this improved as he was medicated on the first several days with both oral and IM Prolixin. Patient throughout the rest of the stay would remain demanding, become increasingly irritable and his demands were not met, did not like following rules continued to refuse oral medication stating he didn't need any medication and that he used marijuana on a daily basis at home. Patient was no longer verbalizing any paranoid ideation but continued to use abusive language towards staff, makes obscene gestures as well as becoming easily irritable and angry when his demands were not met. Patient was sleeping and eating on the unit. Patient required Prolixin as needed typically once a day over the last 4 days of his admission. Patient was placed on a court order on December 22 and was placed on Prolixin decanoate 50 mg IM which the patient had been on in the past and responded well to. Patient was also begun on an adrenal 50 mg twice a day to target side effects as this is been used in the past with good response. No other oral medications were given as the patient has not been compliant with oral medications in the past. Patient was felt to be ready to return to alf as the patient has been here on a alf hold. Allergies fluphenazine [From Prolixin] Adverse Reaction (Verified 12/12/18 17:46) Unknown Per Patient - Has Extrapyramidal side effects - Has tolerated many times haloperidol [From Haldol] Adverse Reaction (Verified 12/11/18 15:50) Extrapyramidal Side Effects ziprasidone [From Geodon] Adverse Reaction (Verified 12/11/18 15:50) Suicidal Thoughts Laboratory Last Values WBC 14.6 k/uL (3.8-10.6) H 12/11/18 18:50 RBC 4.82 m/uL (4.30-5.90) 12/11/18 18:50 Hgb 14.4 gm/dL (13.0-17.5) 12/11/18 18:50 Hct 40.5 % (39.0-53.0) 12/11/18 18:50 MCV 84.0 fL (80.0-100.0) 12/11/18 18:50 MCH 29.9 pg (25.0-35.0) 12/11/18 18:50 MCHC 35.6 g/dL (31.0-37.0) 12/11/18 18:50 RDW 12.9 % (11.5-15.5) 12/11/18 18:50 Plt Count 200 k/uL (150-450) 12/11/18 18:50 Neutrophils % 76 % 12/11/18 18:50 Lymphocytes % 15 % 12/11/18 18:50 Monocytes % 7 % 12/11/18 18:50 Eosinophils % 0 % 12/11/18 18:50 Basophils % 0 % 12/11/18 18:50 Neutrophils # 11.1 k/uL (1.3-7.7) H 12/11/18 18:50 Lymphocytes # 2.2 k/uL (1.0-4.8) 12/11/18 18:50 Monocytes # 1.1 k/uL (0-1.0) H 12/11/18 18:50 Eosinophils # 0.1 k/uL (0-0.7) 12/11/18 18:50 Basophils # 0.0 k/uL (0-0.2) 12/11/18 18:50 Sodium 138 mmol/L (137-145) 12/11/18 18:50 Potassium 4.2 mmol/L (3.5-5.1) 12/11/18 18:50 Chloride 101 mmol/L (98-107) 12/11/18 18:50 Carbon Dioxide 23 mmol/L (22-30) 12/11/18 18:50 Anion Gap 14 mmol/L 12/11/18 18:50 BUN 22 mg/dL (9-20) H 12/11/18 18:50 Creatinine 0.92 mg/dL (0.66-1.25) 12/11/18 18:50 Est GFR (CKD-EPI)AfAm >90 (>60 ml/min/1.73 sqM) 12/11/18 18:50 Est GFR (CKD-EPI)NonAf >90 (>60 ml/min/1.73 sqM) 12/11/18 18:50 Glucose 91 mg/dL (74-99) 12/11/18 18:[address] Glu mg/dL 97 12/11/18 18:50 Hemoglobin A1c 5.0 % (4.0-6.0) 12/11/18 18:50 Calcium 9.4 mg/dL (8.4-10.2) 12/11/18 18:50 TSH 0.802 mIU/L (0.465-4.680) 12/11/18 18:50 Urine Color Yellow 12/11/18 18:50 Urine Appearance Clear (Clear) 12/11/18 18:50 Urine pH 5.5 (5.0-8.0) 12/11/18 18:50 Ur Specific [place] 1.032 (1.001-1.035) 12/11/18 18:50 Urine Protein 1+ (Negative) H 12/11/18 18:50 Urine Glucose (UA) Negative (Negative) 12/11/18 18:50 Urine Ketones 4+ (Negative) H 12/11/18 18:50 Urine Blood Negative (Negative) 12/11/18 18:50 Urine Nitrite Negative (Negative) 12/11/18 18:50 Urine Bilirubin Negative (Negative) 12/11/18 18:50 Urine Urobilinogen 2.0 mg/dL (<2.0) 12/11/18 18:50 Ur Leukocyte Esterase Negative (Negative) 12/11/18 18:50 Urine RBC 1 /hpf (0-5) 12/11/18 18:50 Urine WBC 2 /hpf (0-5) 12/11/18 18:50 Urine Mucus Rare /hpf (None) H 12/11/18 18:50 Salicylates <1.0 mg/dL 12/11/18 18:50 Urine Opiates Screen Not Detected (NotDetected) 12/11/18 18:50 Ur Oxycodone Screen Not Detected (NotDetected) 12/11/18 18:50 Urine Methadone Screen Not Detected (NotDetected) 12/11/18 18:50 Ur Propoxyphene Screen Not Detected (NotDetected) 12/11/18 18:50 Acetaminophen <10.0 ug/mL 12/11/18 18:50 Ur Barbiturates Screen Not Detected (NotDetected) 12/11/18 18:50 U Tricyclic Antidepress Not Detected (NotDetected) 12/11/18 18:50 Ur Phencyclidine Scrn Not Detected (NotDetected) 12/11/18 18:50 Ur Amphetamines Screen Not Detected (NotDetected) 12/11/18 18:50 U Methamphetamines Scrn Not Detected (NotDetected) 12/11/18 18:50 U Benzodiazepines Scrn Not Detected (NotDetected) 12/11/18 18:50 Urine Cocaine Screen Not Detected (NotDetected) 12/11/18 18:50 U Marijuana (THC) Screen Detected (NotDetected) H 12/11/18 18:50 Serum Alcohol <10 mg/dL 12/11/18 18:50 Hep Bs Antigen Non-Reactive (Non-Reactive) 12/12/18 00:15 Hep B Core Total Ab Non-Reactive (Non-Reactive) 12/12/18 00:15 Hep C IgG Ab Non-Reactive (Non-Reactive) 12/12/18 00:15 HIV 1&2 Antibody Rapid Nonreactive (Nonreactive) 12/12/18 00:15 Discharge Mental Status: Appearance/Attitude: Patient is casually dressed, makes eye contact and was seen in his room and was superficially cooperative Behavior: Patient did not exhibit any psychomotor agitation or retardation but again became irritable Speech/Language: Patient's speech is spontaneous of normal volume and rhythm and he is coherent Thought Process: Patient is goal-directed no evidence of loose association or flight of ideas Thought Content: Patient denies any auditory or visual hallucinations no delusions or paranoid ideation or elicited. Patient stated that he had consented to be involuntary court order in court, patient has been sleeping and eating. After I left the room the patient again stated "she is a fucking bitch". Suicidal/Homicidal Ideation: Patient denies any suicidal or homicidal ideation at this time Sensorium/Cognition: patient is alert and oriented to person, place, and time and his recent and remote memory are grossly intact Mood/Affect: patient's mood remains easily irritable, his affect is appropriate to his mood Insight/Judgment: patient's insight and judgment are limited Risk Assessment: patient's risk for readmission is high should he not be compliant with medication and follow-up appointments, continued to use drugs and/or alcohol Discharge Plan: patient will be returned to alf, he will continue on Prolixin decanoate 50 mg every 14 days his next injection will be due on January 05, he will continue on Benadryl 50 mg twice a day to target side effects and will be followed in alf by [facility]. Patient will be given prescriptions for the above medications. Patient Condition at Discharge: Stable Plan - Discharge Summary New Discharge Prescriptions: New diphenhydrAMINE [Benadryl] 50 mg PO BID #28 cap fluPHENAZine DECANOATE [Prolixin Decanoate] 50 mg IM [id number] 14 Days vial Discontinued Divalproex ER [Depakote ER] 1,000 mg PO HS [place] Carbonate 600 mg PO HS Discharge Medication List diphenhydrAMINE [Benadryl] 50 mg PO BID #28 cap 12/22/18 [Rx] fluPHENAZine DECANOATE [Prolixin Decanoate] 50 mg IM [id number] 14 Days vial 12/22/18 [Rx] Follow up Appointment(s)/Referral(s): [facility] [Outside] - 12/26/18 9:00 am ([facility]) None,Stated [Primary Care Provider] - 1-2 days Patient Instructions/Handouts: Brief Psychotic Disorder (DC), Schizoaffective Disorder (DC) Activity/Diet/Wound Care/Special Instructions: Activity and diet as tolerated. No guns or weapons in the home. No drugs or alcohol not prescribed by your primary care physician, or your out patient psychiatric provider. Attend follow up appointments, and take medications as prescribed. If in need of medication refills, please go to primary care physician, or your out patient psychiatric provider. If in crisis, please call , or go the nearest ER, for an evaluation. Discharge Disposition: OTHER INSTITUTION NOT DEFINED
== END 2018-12-22 15:15 | DRG 885 ==
LOC: EC 15:29 → 3MHU 12-12 17:01
PROVIDERS: ADMIT Psychiatry & Neurology Psychiatry; ATTEND Psychiatry & Neurology Psychiatry
DX: F25.0 Schizoaffective disorder, bipolar type (principal); F17.200 Nicotine dependence, unspecified, uncomplicated; F41.0 Panic disorder [episodic paroxysmal anxiety]; F60.0 Paranoid personality disorder; Z78.1 Physical restraint status; Z91.14 Patient's other noncompliance with medication regimen; Z91.19 Patient's noncompliance with other medical treatment and regimen
CPT/HCPCS: 36415; 80048; 80306; 80320; 80329; 81001; 82075; 83036; 83520; 84443; 85025; 86701; 86704; 86803; 87340; 96372; 99285

== ENCOUNTER 2018-12-25 14:05 | Emergency (ER) | payer OTHER ==
--- NOTE | 2018-12-25 14:47 | ED ---
General Adult HPI - General Chief complaint: Psychiatric Symptoms Stated complaint: Mental Health Time Seen by Provider: 12/25/18 14:07 Source: patient, police, RN notes reviewed Mode of arrival: ambulatory Limitations: no limitations - History of Present Illness Initial comments: Patient brought in by police for mental health evaluation. Patient was recently in the psychiatric unit and discharged a few days ago. Patient has not slept. They're unclear if the patient has eaten. Patient has reportedly had significant inappropriate behavior and made threats of harm to himself and others. Patient agrees to being depressed. Patient agrees to having suicidal thoughts. Patient denies homicidal thoughts. Patient denies any new physical complaints. - Related Data Previous Rx's Medication Instructions Recorded diphenhydrAMINE [Benadryl] 50 mg PO BID #28 cap 12/22/18 fluPHENAZine DECANOATE [Prolixin 50 mg IM [id number] 14 Days vial 12/22/18 Decanoate] Allergies Allergy/AdvReac Type Severity Reaction Status Date / Time fluphenazine [From Prolixin] AdvReac Unknown Verified 12/25/18 14:12 haloperidol [From Haldol] AdvReac Extrapyramidal Verified 12/25/18 14:12 Side Effects ziprasidone [From Geodon] AdvReac Suicidal Verified 12/25/18 14:12 Thoughts Review of Systems ROS Statement: Those systems with pertinent positive or pertinent negative responses have been documented in the HPI. ROS Other: All systems not noted in ROS Statement are negative. Constitutional: Denies: fever Eyes: Denies: eye pain ENT: Denies: ear pain Respiratory: Denies: cough Cardiovascular: Denies: chest pain Endocrine: Denies: fatigue Gastrointestinal: Denies: abdominal pain Genitourinary: Denies: dysuria Musculoskeletal: Denies: back pain Skin: Denies: rash Psychiatric: Reports: depression, suicidal thoughts Past Medical History Past Medical History: Respiratory Disorder Additional Past Medical History / Comment(s): schizophrenia History of Any Multi-Drug Resistant Organisms: None Reported Past Surgical History: Tonsillectomy Additional Past Surgical History / Comment(s): colonoscopy Past Anesthesia/Blood Transfusion Reactions: No Reported Reaction Past Psychological History: Anxiety, Depression, Panic Disorder, Schizophrenia Smoking Status: Current every day smoker Past Alcohol Use History: None Reported Past Drug Use History: Marijuana - Past Family History Father Additional Family Medical History / Comment(s): Father is alive at age 49 with history of anxiety. Mother Additional Family Medical History / Comment(s): Mother is alive at age 42 with history of back problems and back surgery. Brother(s) Additional Family Medical History / Comment(s): Patient has one half brother with no major medical problems. He has 1 sister with no major medical problems. Patient has one son that is healthy. General Exam Limitations: no limitations General appearance: alert, in no apparent distress Head exam: Present: atraumatic Eye exam: Present: normal appearance Neck exam: Present: normal inspection Respiratory exam: Present: normal lung sounds bilaterally Cardiovascular Exam: Present: regular rate, normal rhythm Extremities exam: Present: normal inspection Neurological exam: Present: alert Psychiatric exam: Present: flat affect Skin exam: Present: normal color Course Vital Signs 12/25/18 14:06 Pulse Rate 54 L Respiratory 16 Rate Blood Pressure 107/69 O2 Sat by Pulse 100 Oximetry Medical Decision Making - Medical Decision Making Patient was seen by mental health services as well as psychiatrist who recommend discharge. They're familiar with this patient. Apparently patient has been uncooperative while incarcerated. Patient was lying about his ALLERGIES. Disposition Clinical Impression: Schizoaffective disorder, bipolar type Disposition: HOME SELF-CARE Condition: Stable Instructions (If sedation given, give patient instructions): Bipolar Disorder (ED), Schizoaffective Disorder (ED) Additional Instructions: Please follow-up as directed. Please also follow-up with primary care physician. Please take medication as directed. Return for worsening or change in symptoms or other concerns. Is patient prescribed a controlled substance at d/c from ED?: No Referrals: Nina Cotto MD [STAFF PHYSICIAN] - 1-2 days Time of Disposition: 15:50
--- NOTE | 2018-12-25 15:38 | P.CN ---
Psychiatric Consult - . Consult date: 12/25/18 Consult:: 12/25/18 15:33 Patient is a 27-year-old male who is known to me. Patient was recently discharged from the inpatient psychiatric unit and return to prison as he was on a prison hold. Patient was brought to the emergency room today by the by the [facility]'s Department for what is reported as the patient masturbating in his cell, defecating in his cell urinating in his cell threatening to drown himself in the toilet, not sleeping and was reporting auditory and visual hallucinations. Patient was evaluated by the EPS nurse who stated that the patient was cooperative with her interview, was eating, and not responding to internal stimuli. I went in and interviewed the patient in the emergency room, patient stated to me that he wasn't getting the Benadryl in prison, when I asked him why he was masturbating, defecating and urinating in his cell when he had not been doing any of those behaviors on the inpatient psychiatric unit he told me it was to get attention. Patient denied that he was having any suicidal thoughts and made no threats to me while I was there. Patient told me that he didn't like being in prison and did this so that he could get admitted to the hospital. Patient was cooperative during the interview, was not physically aggressive or threatening towards me and was not responding to internal stimuli. Patient stated that he wasn't sleeping well and I discussed with him writing another prescription for Benadryl so that would be given to him in the prison and that he needed to take at when it is offered as well as beginning oral Prolixin 2.5 mg twice a day to assist him with his sleep as well as feeling less agitated in prison. Patient is due for a second Prolixin decanoate injection of 50 mg on January 05. Patient does not require an inpatient psychiatric admission as he is not a danger to himself or others, does make demands as he has on the inpatient unit and behaviors to get attention and meet his demands. Patient agreed with me that he had been doing these things because he doesn't like prison, and wanted attention as well as getting out of prison. Patient will be returned to prison and prescriptions for the Prolixin 2.5 mg twice a day and Benadryl 50 mg twice a day to target side effects were written.
[2018-12-25 16:12] VITALS: BP 106/62; PULSE 56; RESP 18; TEMP 96.9
== END 2018-12-25 16:12 | disposition home or self-care (01) ==
LOC: EC 14:05
DX: F25.1 Schizoaffective disorder, depressive type (principal); F25.0 Schizoaffective disorder, bipolar type; F17.200 Nicotine dependence, unspecified, uncomplicated; Z88.8 Allergy status to other drugs, medicaments and biological substances
CPT/HCPCS: 82075; 99285

== ENCOUNTER 2020-07-28 14:11 | Inpatient (IN) | payer MEDICAID, OTHER ==
--- NOTE | 2020-07-28 14:57 | ED ---
Psych HPI - General Source: patient Mode of arrival: ambulatory <Nina Olivares - Last Filed: 07/28/20 16:58> <Dany Johnson - Last Filed: 07/28/20 17:04> - General Chief Complaint: Psychiatric Symptoms Stated Complaint: Mental health Time Seen by Provider: 07/28/20 14:22 - History of Present Illness Initial Comments: patient is a 29-year-old male, history of paranoid schizophrenia, presenting to the emergency department with his father for a psych evaluation. The father is petitioning the patient. Father states that patient has been having more and more aggressive behavior, not sleeping, and does not take any medications. Patient denies any suicidal or homicidal thoughts. He has no complaints at this time. He denies any alcohol or drug use. There are no further complaints at this time. Upon arrival to the ER, patient's vital signs are stable. (Nina Olivares) - Related Data Home Medications Medication Instructions Recorded Confirmed No Known Home Medications 07/28/20 07/28/20 Allergies Allergy/AdvReac Type Severity Reaction Status Date / Time fluphenazine [From Prolixin] AdvReac Unknown Verified 07/28/20 15:34 haloperidol [From Haldol] AdvReac Extrapyramidal Verified 07/28/20 15:34 Side Effects ziprasidone [From Geodon] AdvReac Suicidal Verified 07/28/20 15:34 Thoughts Review of Systems ROS Other: All systems not noted in ROS Statement are negative. <Nina Olivares - Last Filed: 07/28/20 16:58> ROS Other: All systems not noted in ROS Statement are negative. <Dany Johnson - Last Filed: 07/28/20 17:04> ROS Statement: Those systems with pertinent positive or pertinent negative responses have been documented in the HPI. Past Medical History Past Medical History: Respiratory Disorder Additional Past Medical History / Comment(s): schizophrenia History of Any Multi-Drug Resistant Organisms: None Reported Past Surgical History: Tonsillectomy Additional Past Surgical History / Comment(s): colonoscopy Past Anesthesia/Blood Transfusion Reactions: No Reported Reaction Past Psychological History: ADD/ADHD, Anxiety, Depression, Panic Disorder, Schizophrenia Smoking Status: Current every day smoker Past Alcohol Use History: None Reported Past Drug Use History: Marijuana - Past Family History Father Additional Family Medical History / Comment(s): Father is alive at age 49 with history of anxiety. Mother Additional Family Medical History / Comment(s): Mother is alive at age 42 with history of back problems and back surgery. Brother(s) Additional Family Medical History / Comment(s): Patient has one half brother with no major medical problems. He has 1 sister with no major medical problems. Patient has one son that is healthy. <Nina Olivares - Last Filed: 07/28/20 16:58> General Exam Limitations: no limitations <EliseNina Radha - Last Filed: 07/28/20 16:58> - General Exam Comments Initial Comments: GENERAL: Patient is well-developed and well-nourished. Patient is nontoxic and in no acute distress. HEAD: Atraumatic, normocephalic. EYES: Pupils equal round and reactive to light, extraocular movements intact, sclera anicteric, conjunctiva are normal. Eyelids were unremarkable. ENT: TMs normal, nares patent, oropharynx clear without exudates. Moist mucous membranes. NECK: Normal range of motion, supple without lymphadenopathy or JVD. LUNGS: Unlabored respirations. Breath sounds clear to auscultation bilaterally and equal. No wheezes rales or rhonchi. HEART: Regular rate and rhythm without murmurs, rubs or gallops. ABDOMEN: Soft, nontender, normoactive bowel sounds. No guarding, no rebound. No masses appreciated. : Deferred MUSCULOSKELETAL: Normal extremities with adequate strength and normal range of motion, no pitting or edema. No clubbing or cyanosis. NEUROLOGICAL: Patient is alert and oriented x 3. Motor and sensory are also intact. Cranial nerves II through XII grossly intact. Symmetrical smile. Normal speech, normal gait. PSYCH: Normal mood, normal affect. SKIN: Warm, Dry, normal turgor, no rashes or lesions noted. (Nina Olivares) Course Vital Signs 07/28/20 14:12 Temperature 97.9 F Pulse Rate 67 Respiratory 18 Rate Blood Pressure 156/81 O2 Sat by Pulse 98 Oximetry Medical Decision Making <Nina Olivares - Last Filed: 07/28/20 16:58> <Dany Johnson - Last Filed: 07/28/20 17:04> - Medical Decision Making patient is a 29-year-old male with history of paranoid schizophrenia, presenting with his father for psych evaluation. Father is petitioning patient. He has had one more aggressive behavior, not sleeping and is not on any medications. He denies any suicidal or homicidal thoughts today. Patient was evaluated by EPS, patient will be admitted to inpatient psych unit. Urine drug screen is only positive for marijuana. Rapid Covid is negative. Case discussed with Dr. Johnson. (Nina Olivares) I went into the room and evaluated the patient and filled out a clinical certification. (Dany Johnson) - Lab Data Lab Results 07/28/20 07/28/20 Range/Units 14:58 15:44 Urine Opiates Screen Not Detected (NotDetected) Ur Oxycodone Screen Not Detected (NotDetected) Urine Methadone Screen Not Detected (NotDetected) Ur Propoxyphene Screen Not Detected (NotDetected) Ur Barbiturates Screen Not Detected (NotDetected) U Tricyclic Antidepress Not Detected (NotDetected) Ur Phencyclidine Scrn Not Detected (NotDetected) Ur Amphetamines Screen Not Detected (NotDetected) U Methamphetamines Scrn Not Detected (NotDetected) U Benzodiazepines Scrn Not Detected (NotDetected) Urine Cocaine Screen Not Detected (NotDetected) U Marijuana (THC) Screen Detected H (NotDetected) Coronavirus (PCR) Not Detected (Not Detectd) Disposition Decision Date: 07/28/20 Decision Time: 16:59 <Nina Olivares - Last Filed: 07/28/20 16:58> <Dany Johnson - Last Filed: 07/28/20 17:04> Clinical Impression: Schizoaffective disorder, bipolar type Disposition: TRANSFER TO PSYCH HOSP/UNIT Condition: Stable Referrals: None,Stated [Primary Care Provider] - 1-2 days
[2020-07-28 15:17] LABS: Amphetamine Screen,Urine Not Detected (NotDetected); Barbiturate Screen,Urine Not Detected (NotDetected); Benzodiazepines Screen,Urine Not Detected (NotDetected); Cocaine Screen,Urine Not Detected (NotDetected); Methadone Screen, Urine Not Detected (NotDetected); Opiate Screen,Urine Not Detected (NotDetected); Oxycodone Screen, Urine Not Detected (NotDetected); Phencyclidine Screen,Urine Not Detected (NotDetected); Tricyclic Antidepressant,Urine Not Detected (NotDetected); Urn Cannabinoid Scrn Detected (NotDetected)
[2020-07-28] MEDS ORDERED: NICOTINE 14MG/24HR PATCH TRANSDERM STA (15:27)
[2020-07-28] MEDS ORDERED: LORazepam 2 MG/ML INJ IM STA ×2 (15:27→23:40)
[2020-07-28] MEDS ORDERED: ZIPRASIDONE 20 MG VIAL IM STA (15:49)
[2020-07-28] MEDS ORDERED: LORazepam 1 MG TAB PO PRN (17:41)
[2020-07-28] MEDS ORDERED: MAG HYDROX/AL HYDROX/SIMETH 30 ML CUP PO PRN (17:41)
[2020-07-28] MEDS ORDERED: MAGNESIUM HYDROXIDE 2,400 MG/10 ML CUP PO PRN (17:41)
[2020-07-28] MEDS ORDERED: ZIPRASIDONE 20 MG VIAL IM PRN (17:41)
[2020-07-28] MEDS ORDERED: LORazepam 2 MG/ML INJ IM PRN (17:43)
--- NOTE | 2020-07-28 22:48 | P.PN ---
Progress Note - Text Progress Note Date: 07/28/20 Patient was sedated and could not be evaluated. Will attempt again tomorrow.
[2020-07-29] MEDS ORDERED: HALOPERIDOL LACTATE 5 MG/ML 1 ML VIAL IM ONE (03:40)
[2020-07-29] MEDS ORDERED: diphenhydrAMINE 50 MG/ML 1 ML VIAL IM STA (03:41)
[2020-07-29] MEDS ORDERED: LORazepam 2 MG/ML INJ IM STA (03:41)
[2020-07-29 07:05] LABS: Basophils # (A) 0.1 k/uL (0-0.2); Basophils % (A) 1 %; Eosinophils # (A) 0.4 k/uL (0-0.7); Eosinophils % (A) 3 %; HGB 16.1 gm/dL (13.0-17.5); Lymphocytes # (A) 3.1 k/uL (1.0-4.8); Lymphocytes % (A) 26 %; MCH 30.6 pg (25.0-35.0); MCHC 35.1 g/dL (31.0-37.0); MCV 87.4 fL (80.0-100.0); Mean Platelet Volume 8.5; Monocytes # (A) 0.8 k/uL (0-1.0); Monocytes % (A) 7 %; Neutrophils # (A) 7.4 k/uL (1.3-7.7); Neutrophils % (A) 62 %; Platelet Count 175 k/uL (150-450); RBC 5.27 m/uL (4.30-5.90); RDW 12.8 % (11.5-15.5); WBC 11.9 k/uL (3.8-10.6)
[2020-07-29 07:21] LABS: ALT 17 U/L (4-49); AST 40 U/L (17-59); African American GFR (CKD) >90 (>60 ml/min/1.73 sqM); Albumin 4.6 g/dL (3.5-5.0); Alkaline Phosphatase 60 U/L (38-126); Anion Gap 9 mmol/L; Blood Urea Nitrogen 22 mg/dL (9-20); Calcium 9.6 mg/dL (8.4-10.2); Carbon Dioxide 26 mmol/L (22-30); Chloride 103 mmol/L (98-107); Cholesterol 150 mg/dL (<200); Glucose 91 mg/dL (74-99); HDL Cholesterol 52 mg/dL (40-60); LDL Cholesterol,Calculated 87 mg/dL (0-99); Non-African American GFR(CKD) >90 (>60 ml/min/1.73 sqM); Potassium 4.6 mmol/L (3.5-5.1); Sodium 138 mmol/L (137-145); Total Bilirubin 0.5 mg/dL (0.2-1.3); Total Protein 7.1 g/dL (6.3-8.2); Triglycerides 56 mg/dL (<150)
[2020-07-29] MEDS: NICOTINE 14MG/24HR PATCH TRANSDERM SCH (08:18)
[2020-07-29] MEDS ORDERED: OLANZapine 10 MG VIAL IM PRN (13:08)
--- NOTE | 2020-07-29 13:08 | P.HP ---
Psychiatric H&P - . H&P Date: 07/29/20 History & Physical: Allergies Allergy/AdvReac Type Severity Reaction Status Date / Time fluphenazine From Prolixin AdvReac Unknown Verified 07/28/20 15:34 haloperidol From Haldol AdvReac Extrapyramidal Verified 07/28/20 15:34 Side Effects ziprasidone From Geodon AdvReac Suicidal Verified 07/28/20 15:34 Thoughts Vital Signs Temp 97.4 F L 07/29/20 03:20 Pulse 113 H 07/29/20 03:20 Resp 17 07/29/20 03:20 BP 127/78 07/29/20 03:20 Pulse Ox 98 07/28/20 14:12 Intake & Output 07/28/20 07/29/20 07/29/20 18:59 06:59 18:59 Weight 69.938 kg Laboratory Last Values WBC 11.9 k/uL (3.8-10.6) H 07/29/20 06:26 RBC 5.27 m/uL (4.30-5.90) 07/29/20 06:26 Hgb 16.1 gm/dL (13.0-17.5) 07/29/20 06:26 Hct 46.0 % (39.0-53.0) 07/29/20 06:26 MCV 87.4 fL (80.0-100.0) 07/29/20 06:26 MCH 30.6 pg (25.0-35.0) 07/29/20 06:26 MCHC 35.1 g/dL (31.0-37.0) 07/29/20 06:26 RDW 12.8 % (11.5-15.5) 07/29/20 06:26 Plt Count 175 k/uL (150-450) 07/29/20 06:26 MPV 8.5 07/29/20 06:26 Neutrophils % 62 % 07/29/20 06:26 Lymphocytes % 26 % 07/29/20 06:26 Monocytes % 7 % 07/29/20 06:26 Eosinophils % 3 % 07/29/20 06:26 Basophils % 1 % 07/29/20 06:26 Neutrophils # 7.4 k/uL (1.3-7.7) 07/29/20 06:26 Lymphocytes # 3.1 k/uL (1.0-4.8) 07/29/20 06:26 Monocytes # 0.8 k/uL (0-1.0) 07/29/20 06:26 Eosinophils # 0.4 k/uL (0-0.7) 07/29/20 06:26 Basophils # 0.1 k/uL (0-0.2) 07/29/20 06:26 Sodium 138 mmol/L (137-145) 07/29/20 06:26 Potassium 4.6 mmol/L (3.5-5.1) 07/29/20 06:26 Chloride 103 mmol/L (98-107) 07/29/20 06:26 Carbon Dioxide 26 mmol/L (22-30) 07/29/20 06:26 Anion Gap 9 mmol/L 07/29/20 06:26 BUN 22 mg/dL (9-20) H 07/29/20 06:26 Creatinine 1.05 mg/dL (0.66-1.25) 07/29/20 06:26 Est GFR (CKD-EPI)AfAm >90 (>60 ml/min/1.73 sqM) 07/29/20 06:26 Est GFR (CKD-EPI)NonAf >90 (>60 ml/min/1.73 sqM) 07/29/20 06:26 Glucose 91 mg/dL (74-99) 07/29/20 06:[address] Glu mg/dL 97 07/29/20 06:26 Hemoglobin A1c 5.0 % (4.0-6.0) 07/29/20 06:26 Calcium 9.6 mg/dL (8.4-10.2) 07/29/20 06:26 Total Bilirubin 0.5 mg/dL (0.2-1.3) 07/29/20 06:26 AST 40 U/L (17-59) 07/29/20 06:26 ALT 17 U/L (4-49) 07/29/20 06:26 Alkaline Phosphatase 60 U/L (38-126) 07/29/20 06:26 Total Protein 7.1 g/dL (6.3-8.2) 07/29/20 06:26 Albumin 4.6 g/dL (3.5-5.0) 07/29/20 06:26 Triglycerides 56 mg/dL (<150) 07/29/20 06:26 Cholesterol 150 mg/dL (<200) 07/29/20 06:26 LDL Cholesterol, Calc 87 mg/dL (0-99) 07/29/20 06:26 HDL Cholesterol 52 mg/dL (40-60) 07/29/20 06:26 TSH 4.400 mIU/L (0.465-4.680) 07/29/20 06:26 Urine Opiates Screen Not Detected (NotDetected) 07/28/20 14:58 Ur Oxycodone Screen Not Detected (NotDetected) 07/28/20 14:58 Urine Methadone Screen Not Detected (NotDetected) 07/28/20 14:58 Ur Propoxyphene Screen Not Detected (NotDetected) 07/28/20 14:58 Ur Barbiturates Screen Not Detected (NotDetected) 07/28/20 14:58 U Tricyclic Antidepress Not Detected (NotDetected) 07/28/20 14:58 Ur Phencyclidine Scrn Not Detected (NotDetected) 07/28/20 14:58 Ur Amphetamines Screen Not Detected (NotDetected) 07/28/20 14:58 U Methamphetamines Scrn Not Detected (NotDetected) 07/28/20 14:58 U Benzodiazepines Scrn Not Detected (NotDetected) 07/28/20 14:58 Urine Cocaine Screen Not Detected (NotDetected) 07/28/20 14:58 U Marijuana (THC) Screen Detected (NotDetected) H 07/28/20 14:58 Coronavirus (PCR) Not Detected (Not Detectd) 07/28/20 15:44 07/29/20 11:43 IDENTIFYING DATA: Patient is a 29-year-old male with a history of schizoaffective disorder bipolar type who currently lives with his grandfather and has 1 kid and is unemployed. HPI: Patient presented to the hospital for psychiatric evaluation brought in by his father. Patient's father had filled out a petition which stated the patient has been "saying things about being able to make things disappear, communicate with aliens". Patient's father also had mentioned according to ER report that patient has been more aggressive in his behaviors lately and not been sleeping and has been noncompliant with his medications. Patient's UDS is positive for THC. Patient last night had been threatening staff on the unit has been very demanding paranoid and bizarre and received Haldol Ativan Benadryl IM prn last night. Patient was seen today wandering the hallways and was agreeable to speak to policy writer typist in the office. Patient was fairly uncooperative with policy writer typist and refused to sit in the chair to be interviewed and wanted to stand. He claims that his grandfather and father believe that he was "acting crazy" and also "losing my mind". He states that he was brought in over their concerns. He states that he does not need medications and has not taken his medications in over 2 years as "they're trash". He has very poor insight and minimizes his symptoms. He was a poor historian and claims that "I just needed to get away". He claims that he does feel irritated being in the hospital. He was illogical at times and bizarre. For hygiene and grooming. Patient denies any suicidal or homicidal ideations intent or plan. At this time patient denies any auditory or visual hallucinations. Patient admits to using marijuana daily and cigarettes. PAST PSYCHIATRIC HISTORY: Patient has a history of schizoaffective disorder bipolar type. Patient was previously on Prolixin D and Depakote however has been on several other antipsychotics in the past. Patient apparently has an ALLERGY to fluphenazine, haloperidol and ziprasidone. Patients last psychiatric hospitalization was in November 2018. He states that he used to follow up with Dr. Villalba in the past however now claims that he has not been to see him in years. Patient denies any history of suicide attempts in the past. PMH:denies ALLERGIES: as per EMR CHEMICAL DEPENDENCY HISTORY: as per HPI FAMILY PSYCHIATRIC/SUBSTANCE USE HISTORY: denies SOCIAL HISTORY: Patient was born and raised in [facility]. He states that he completed up until high school. He states that he has worked several jobs in the past however now is unemployed. He states that he went to retirement for several charges related to home invasion assault and battery for one year. He states that he currently lives with his grandfather has 1 kid and they both live in the house. MENTAL STATUS EXAM: General Appearance: Patient appears to be tall, thin, older than stated age is alert, difficult to redirect and uncooperative. Disheveled appearance. Patient appears to have poor hygiene and grooming. Behavior: Patient is seated without any agitated behavior. Uncooperative and argumentative at times. Speech: Patient's speech is fluent and nonpressured. Mood/Affect: Patient reports their mood is "fine", affect is incongruent and constricted. Suicidality/Homicidality: Patient denies having any homicidal ideation intent or plan. Denies any suicidal ideations intent or plan Perceptions: Patient denies any visual hallucinations and denies any auditory hallucinations Though content/process: Patient is illogical at times, loose in associations. He has very poor insight and judgment. Not endorsing any paranoia today. Pre occupied with discharge and minimizing his symptoms. Memory and concentration: AOX3, grossly intact for the purposes of this session Judgment and insight: poor STRENGTHS/WEAKNESSES: strength is that patient is resilient. Weakness is that patient has poor judgment and is impulsive, has a history of non compliance with treatment. INTELLECT: average IMPRESSIONS: Schizoaffective disorder Cannabis use disorder Nicotine dependence PLAN: -Patient is admitted under involuntary status to [facility] for stabilization of psychiatric symptoms and safety. Patient has not signed adult voluntary form and medication consent and is placed in patient's chart. A second certification was completed and along with petition will be filed for court. -Medications : Will start patient on paliperidone by mouth 3 mg daily at bedtime for mood stabilization/psychosis. -Zyprexa IM and PO PRN for agitation/aggression -Patient was counselled on substance abuse however did not want to cut back on his use. -Patient was informed of the risks, benefits and side effects of the medication and patient verbally consented to taking the medications. Patient signed med consent form and was placed in chart. -Internal Medicine consult to perform medical evaluation and physical. -NRT - nicotine patch -SW on board for discharge planning. Encourage patient to participate in groups to work on coping skills. Will await deferral and court date.
[2020-07-29 17:16] LABS: Appearance,Urine Clear (Clear); Bilirubin,Urine Negative (Negative); Blood,Urine Negative (Negative); Color,Urine Light Yellow; Glucose,Urine (UA) Negative (Negative); Ketones,Urine Negative (Negative); Leukocyte Esterase,Urine Negative (Negative); Nitrite,Urine Negative (Negative); Protein,Urine Negative (Negative); Specific Gravity,Urine 1.011 (1.001-1.035); Urobilinogen,Urine <2.0 mg/dL (<2.0)
[2020-07-29] MEDS: PALIPERIDONE 3 MG TAB.ER.24 PO SCH (20:54)
--- NOTE | 2020-07-30 01:10 | P.CONS ---
History of Present Illness - Reason for Consult Consult date: 07/30/20 - History of Present Illness The patient is a 29-year-old male with a PMH of schizophrenia, tobacco abuse, marijuana abuse who was brought into the emergency room by his father after being petition due to aggressive behavior and not taking his medications. The patient was subsequently admitted to the mental health unit where he was seen and evaluated. The patient noted feeling significantly better after his admission. Denied active complaints. Denied chest discomfort, shortness of breath, fever, chills, nausea, vomiting, abdominal pain. Laboratory evaluation was reviewed. Review of Systems Pertinent positives and negatives as discussed in HPI, a complete review of systems was performed and all other systems are negative. Past Medical History Past Medical History: Respiratory Disorder Additional Past Medical History / Comment(s): schizophrenia History of Any Multi-Drug Resistant Organisms: None Reported Past Surgical History: Tonsillectomy Additional Past Surgical History / Comment(s): colonoscopy Past Anesthesia/Blood Transfusion Reactions: No Reported Reaction Past Psychological History: ADD/ADHD, Anxiety, Depression, Panic Disorder, Schizophrenia Smoking Status: Current every day smoker Past Alcohol Use History: None Reported Past Drug Use History: Marijuana - Past Family History Father Additional Family Medical History / Comment(s): Father is alive at age 49 with history of anxiety. Mother Additional Family Medical History / Comment(s): Mother is alive at age 42 with history of back problems and back surgery. Brother(s) Additional Family Medical History / Comment(s): Patient has one half brother with no major medical problems. He has 1 sister with no major medical problems. Patient has one son that is healthy. Medications and Allergies Home Medications Medication Instructions Recorded Confirmed Type No Known Home Medications 07/28/20 07/28/20 History Allergies Allergy/AdvReac Type Severity Reaction Status Date / Time fluphenazine [From Prolixin] AdvReac Unknown Verified 07/28/20 15:34 haloperidol [From Haldol] AdvReac Extrapyramidal Verified 07/28/20 15:34 Side Effects ziprasidone [From Geodon] AdvReac Suicidal Verified 07/28/20 15:34 Thoughts Physical Exam Vitals: Vital Signs Temp Pulse Resp BP 07/29/20 13:44 97.7 F 07/29/20 03:20 97.4 F L 113 H 17 127/78 General: non toxic, no distress, appears at stated age, normal weight Derm: no unusual rashes/lesions no unusual ecchymoses, warm, dry Head: atraumatic, normocephalic, symmetric Eyes: EOMI, no lid lag, anicteric sclera, pupils equal round reactive to light ENT: Nose and ears atraumatic, no thrush, no pharyngeal erythema Neck: No thyromegaly, no cervical lymphadenopathy, trachea midline, supple Mouth: no lip lesion, mucus membranes moist Cardiovascular: S1S2 reg, no murmur, positive posterior tibial pulse bilateral, no edema, capillary refill less than 2 seconds Lungs: CTA bilateral, no rhonchi, no rales , no accessory muscle use Abdominal: soft, nontender to palpation, no guarding, no appreciable organomegaly, normal bowel sounds Ext: no gross muscle atrophy, muscle strength 5 out of 5 in all 4 extremities grossly, no contractures, Neuro: CN II-XI grossly intact, light touch intact all 4 extremities, finger to nose within normal limits, Psych: Alert, oriented, guarded affect Results CBC & Chem 7: 07/29/20 06:26 07/29/20 06:26 Labs: Abnormal Lab Results - Last 24 Hours (Table) 07/29/20 07/29/20 Range/Units 06:26 06:26 WBC 11.9 H (3.8-10.6) k/uL BUN 22 H (9-20) mg/dL Assessment and Plan Plan: Marijuana and tobacco abuse -Advised on the importance of cessation Leukocytosis -No signs of active infection at this time -Likely due to acute stressor Psychosis -As per psychiatry Thank you for allowing us to participate in the care of this patient. We will follow peripherally. Do not hesitate to contact us with questions. Someone can be reached from the [facility] hospitalist group at all hours of the day at [phone].
[2020-07-30] MEDS: NICOTINE 14MG/24HR PATCH TRANSDERM SCH (08:39)
--- NOTE | 2020-07-30 09:35 | P.PN ---
Progress Note - Text Progress Note Date: 07/30/20 Interval History: Patient was seen wandering the hallways and was directable and agreeable to sp eak with life insurance underwriter in the office. Patient continues to be confrontational with life insurance underwriter and argumentative. He states that "I'm not taking any of her medications". He states that he has not had a good experience with any medications in the past and is not willing to try them again. He states that he will "be fighting this till the end". He also claims that his mood is "fine" however appeared to be irritable and hostile with life insurance underwriter. He made a vague threat towards life insurance underwriter and states that "I don't like you" and had a threatening posture and then left the office concluding the interview early. Patient has not been taking his medication at this time. Mental Status Exam: General Appearance: Patient appears to be tall, thin, older than stated age is alert, hostile, uncooperative. Disheveled appearance. Patient appears to have poor hygiene and grooming. Behavior: Patient is seated without any agitated behavior. Uncooperative and argumentative Speech: Patient's speech is fluent and nonpressured. Mood/Affect: Patient reports their mood is "ok", affect is incongruent and constricted. Suicidality/Homicidality: Patient denies having any homicidal ideation intent or plan. Denies any suicidal ideations intent or plan Perceptions: Patient denies any visual hallucinations and denies any auditory hallucinations Though content/process: Patient is illogical at times, loose in associations. He has very poor insight and judgment. Not endorsing any paranoia today. Preoccupied with discharge and minimizing his symptoms. Memory and concentration: AOX3, grossly intact for the purposes of this session Judgment and insight: poor Assessment Schizoaffective disorder Cannabis use disorder Nicotine dependence Plan: -Patient continues to meet criteria for inpatient psychiatric admission for symptom stabilization and safety. Patient has not signed adult voluntary form and medication consent and was placed in patient's chart. -Medications: Continue paliperidone by mouth 3 mg daily at bedtime for mood stabilization/psychosis. Patient has not been taking this medication. -Zyprexa IM prn for agitation/aggression. -NRT - nicotine patch -SW on board for discharge planning. Encouraged the patient to participate in milieu. Currently awaiting deferral and court date.
[2020-07-30] MEDS ORDERED: WATER FOR INJECTION, STERILE 10 ML IV ONE (17:46)
[2020-07-30] MEDS: OLANZapine 2.5 MG TAB PO PRN (17:55)
[2020-07-30] MEDS: ACETAMINOPHEN TAB 325 MG TAB PO PRN (17:55)
[2020-07-31 04:25] VITALS: RESP 18
[2020-07-31] MEDS: ACETAMINOPHEN TAB 325 MG TAB PO PRN (05:05)
[2020-07-31] MEDS ORDERED: IBUPROFEN 400 MG TAB PO PRN (05:30)
[2020-07-31] MEDS: NICOTINE 7MG/24HR PATCH TRANSDERM SCH (08:57)
--- NOTE | 2020-07-31 11:07 | P.PN ---
Progress Note - Text Progress Note Date: 07/31/20 Interval History: Patient was seen wandering the hallways and was directable and agreeable to sp eak with medical writer today. Patient wanted to speak in his room. Patient continues to be confrontational with medical writer and argumentative and was focused on discharge. He continues to maintain a threatening pose and was fairly aggressive verbally with medical writer today. He claims that he has "multiple complaints" about the program and the way that the unit is being run. He states that "the staff is lazy"and also that patients are not getting the help that they need. He continues to be manipulative and deceptive and states that she did take the medication last night however it was listed in the EMR that patient did not take his medication. He is currently denying any suicidal or homicidal ideations intent or plan and denies any auditory or visual hallucinations. He states that he slept well throughout the night. He continues to demonstrate very poor insight and judgment and is impulsive. Mental Status Exam: General Appearance: Patient appears to be tall, thin, older than stated age is alert, hostile, uncooperative. Disheveled appearance. Patient appears to have poor hygiene and grooming. Behavior: Patient is seated without any agitated behavior. Uncooperative and argumentative. Threatening. Speech: Patient's speech is fluent and nonpressured. Mood/Affect: Patient reports their mood is "ok", affect is incongruent and constricted. Suicidality/Homicidality: Patient denies having any homicidal ideation intent or plan. Denies any suicidal ideations intent or plan Perceptions: Patient denies any visual hallucinations and denies any auditory hallucinations Though content/process: He has very poor insight and judgment. Not endorsing any paranoia today. Preoccupied with discharge and minimizing his symptoms. Memory and concentration: AOX3, grossly intact for the purposes of this session Judgment and insight: poor Assessment Schizoaffective disorder Antisocial personality disorder Cannabis use disorder Nicotine dependence Plan: -Patient continues to meet criteria for inpatient psychiatric admission for symptom stabilization and safety. Patient has not signed adult voluntary form and medication consent and was placed in patient's chart. -Medications: Continue paliperidone by mouth 3 mg daily at bedtime for mood stabilization/psychosis. I added Depakene syrup 500 mg daily for mood stabilization/aggression. Patient has not been taking this medication. -Zyprexa IM prn for agitation/aggression. -NRT - nicotine patch -SW on board for discharge planning. Encouraged the patient to participate in milieu. Patient did not defer and court date is scheduled for 08/13/2020.
[2020-07-31] MEDS: hydrOXYzine HCL 25 MG TAB PO PRN (14:34)
[2020-07-31] MEDS: PALIPERIDONE 3 MG TAB.ER.24 PO SCH ×2 (20:13)
[2020-07-31] MEDS: OLANZapine 2.5 MG TAB PO PRN (22:55)
[2020-08-01] MEDS: NICOTINE 7MG/24HR PATCH TRANSDERM SCH (08:17)
[2020-08-01] MEDS: hydrOXYzine HCL 25 MG TAB PO PRN (08:57)
[2020-08-01] MEDS ORDERED: VALPROIC ACID ORAL SOLN 250 MG/5 ML CUP PO SCH (09:00)
--- NOTE | 2020-08-01 11:32 | P.PN ---
Progress Note - Text Progress Note Date: 08/01/20 Interval History: Patient was seen wandering the hallways and was directable and agreeable to sp eak with policy writer typist today. Due to patient's impulsivity and history of aggression/violence, patient was seen with a mental health tech as a wire brush operator today in the office. Patient continues to be confrontational with policy writer typist and argumentative and was focused on discharge. He continues to display a threatening tone of voice and was verbally aggressive with policy writer typist. Patient accused policy writer typist of not knowing what he is doing and also of having lots of money and being "out of touch". Patient continues to believe that he does not need medications and claims that he spoke with the materials analyst today and signed a deferral. Patient however states that he does not know what a deferral meant but states that he will take some of the medications. He was attempting to negotiate several different medications and dosages with policy writer typist and was verbally aggressive once again. He claims that he slept fairly last night. He was requesting to be on melatonin and was agreeable to take lithium today. He is currently denying any suicidal or homicidal ideations intent or plan and denies any auditory or visual hallucinations. He continues to demonstrate very poor insight and judgment and is impulsive. Mental Status Exam: General Appearance: Patient appears to be tall, thin, older than stated age is alert, hostile, uncooperative. Patient appears to have poor hygiene and grooming. Behavior: Patient is seated without any agitated behavior. Uncooperative and argumentative. Threatening. Hostile. Speech: Patient's speech is fluent and nonpressured. Mood/Affect: Patient reports their mood is "fine", affect is incongruent and constricted. Suicidality/Homicidality: Patient denies having any homicidal ideation intent or plan. Denies any suicidal ideations intent or plan Perceptions: Patient denies any visual hallucinations and denies any auditory hallucinations Though content/process: He has very poor insight and judgment. Not endorsing any paranoia today. Preoccupied with discharge and minimizing his symptoms. Memory and concentration: AOX3, grossly intact for the purposes of this session Judgment and insight: poor/ impulsive Assessment Schizoaffective disorder Antisocial personality disorder Cannabis use disorder Nicotine dependence Plan: -Patient continues to meet criteria for inpatient psychiatric admission for symptom stabilization and safety. Patient has not signed adult voluntary form and medication consent and was placed in patient's chart. -Medications: Continue paliperidone by mouth 3 mg daily at bedtime for mood stabilization/psychosis, this can be increased over the weekend if needed. discontinued depakote as patient claims he is agreeable to take lithium instead 300mg bid for mood stabilization/agreesion. added melatonin 5mg hs for insomnia. vistaril 50mg bid prn for anxiety. -Zyprexa IM prn for agitation/aggression. -NRT - nicotine patch -SW on board for discharge planning. Encouraged the patient to participate in milieu. Patient ended up deferring with the snailer today however will closely monitor patients compliance with medications and if patient is continuing to refuse meds then will need to file demand for hearing immediately.
[2020-08-01] MEDS: LITHIUM CARBONATE 300 MG CAP PO SCH ×2 (11:53→21:57)
[2020-08-01] MEDS: MELATONIN 5 MG TABLET PO SCH (21:57)
[2020-08-01] MEDS: PALIPERIDONE 3 MG TAB.ER.24 PO SCH (21:57)
[2020-08-02] MEDS: OLANZapine 2.5 MG TAB PO PRN (03:29)
[2020-08-02] MEDS: hydrOXYzine HCL 25 MG TAB PO PRN (03:55)
[2020-08-02] MEDS: NICOTINE 7MG/24HR PATCH TRANSDERM SCH ×2 (09:26→09:29)
[2020-08-02] MEDS: LITHIUM CARBONATE 300 MG CAP PO SCH ×2 (09:26→19:52)
[2020-08-02 13:07] LABS: T4, Free (Free Thyroxine) 1.64 ng/dL (0.78-2.19)
--- NOTE | 2020-08-02 18:11 | PN ---
DATE OF SERVICE: 08/02/2020 PROGRESS NOTE CHIEF COMPLAINT: The patient was admitted for having delusions, aggressive behavior and medication noncompliance. INTERVAL HISTORY: The patient has been doing fair by his report. He continues to struggle and feels quite distressed. He did not really identify what things seem to be bothering him. He was out on the unit. He attended three groups yesterday, though it is noted that he seemed to get distressed in the groups. He ended up complaining about treatment and was getting loud and intense in one group and was asked to leave, which he did. In other group, it was noted that he tended to have a hostile manner. In another group he was asked to leave. He wandered about the unit. He noted that he slept poorly last night. Today he has been up, again he wanders about. He attended 2 groups today and overall seemed to do better where in one group he appeared to be somewhat of a participant though with a blunted manner. When I talked with him, his main focus was that he did not see he was getting any help on the unit and that he did not feel the medications were helping him. He said he slept poorly. When we talked about options for medications, he was pretty reluctant to consider most. He said his preference would be something like Valium. He said that the Zyprexa has not been a helpful medication for him in the past. When I suggested the option of going up on his Invega, he declined that as well. I also talked about the idea that he was on a low dose of lithium and it is unlikely he will get benefit from lithium until the dose is in a more therapeutic range. He declined considering going up on lithium as well. I suggested he consider trazodone, though he said no to that. He was unclear about details. He did agree to going up on Vistaril as one option to help him with sleep. He otherwise did not have specific complaints relating to his medications. MENTAL STATUS EXAM: Patient was somewhat restless. He gave fair eye contact. He answered questions with brief responses. His thoughts were clear. He did not say a lot. It was noteworthy that initially he presented in somewhat quiet manner, though then seemed to become more anxious or irritated as the interview went on. His affect was more intense toward the end of the interview. His mood was depressed. He was significantly distressed. Noted that through the course of the interview toward the end, he initiated stopping the interview saying he did not want to talk anymore. He did not show any immediate evidence of thought disorder, though appears to continue to struggle with at least paranoid thinking. He voiced no thoughts of harm. Cognition was clear. ASSESSMENT: I will continue the current diagnosis and treatment plan. We will continue to make efforts to engage the patient in individual and group therapeutic activities. He did seem to do a little better today versus yesterday in groups. I will continue psychotropic medications the same, namely lithium carbonate 300 mg twice a day, Invega 3 mg at bedtime as his two primary psychotropics. I will give him a nighttime dose of Atarax 100 mg. We discussed that we would do that as a trial to see if it helps with sleep given that he would not choose to try alternative medications. I limited discussion based on his fairly clear reluctance to address treatment issues in any direct way. We will focus on stabilization and discharge planning. TRISTAN / KERVIN: [id number] / SIL
[2020-08-02] MEDS: PALIPERIDONE 3 MG TAB.ER.24 PO SCH (19:52)
[2020-08-02] MEDS: hydrOXYzine pamoate 25 MG CAP PO SCH (19:53)
[2020-08-02] MEDS: MELATONIN 5 MG TABLET PO SCH (19:53)
[2020-08-03] MEDS: LITHIUM CARBONATE 300 MG CAP PO SCH ×2 (09:05→20:14)
[2020-08-03] MEDS: NICOTINE 7MG/24HR PATCH TRANSDERM SCH (09:07)
--- NOTE | 2020-08-03 11:51 | PN ---
PROGRESS NOTE DATE OF SERVICE: 08/03/2020 CHIEF COMPLAINT: The patient was admitted for having delusions, aggressive behavior and medication noncompliance. INTERVAL HISTORY: Patient has been doing fair. He had a quiet day yesterday, comes out in the day area. He will wander about. He will interact generally with 1 peer or another though he seems to shy away from group interactions. He attended two groups yesterday and was noted to have a somewhat withdrawn manner in group. He said that he slept well last night with the addition of the Vistaril. Today he has been up. He has spent a fair amount of the morning in his room. He had no specific complaints or concerns. He feels that he has been tolerating his medications. He did not voice any concerns or issues to be addressed today. MENTAL STATUS: Patient gave fair eye contact. Psychomotor activity was somewhat slowed. He answered questions with brief responses. He did not say a lot. His affect was blunted. His mood was reserved. He did not appear to be significantly distressed. It was difficult to assess for thought disorder. He voiced no thoughts of harm. Cognition was clear. ASSESSMENT: I will continue the current diagnosis and treatment plan. I will continue psychotropic medications the same. I briefly reviewed medication issues with the patient, though it was not clear that he was too engaged in the conversation. We will focus on stabilization and discharge planning. TRISTAN / PIETRON: [id number] /
[2020-08-03] MEDS: PALIPERIDONE 3 MG TAB.ER.24 PO SCH (20:14)
[2020-08-03] MEDS: MELATONIN 5 MG TABLET PO SCH (21:07)
[2020-08-03] MEDS: hydrOXYzine pamoate 25 MG CAP PO SCH ×2 (21:07→22:13)
[2020-08-04 03:37] VITALS: BP 120/69; PULSE 117
[2020-08-04] MEDS: LITHIUM CARBONATE 300 MG CAP PO SCH (09:12)
[2020-08-04] MEDS: NICOTINE 7MG/24HR PATCH TRANSDERM SCH (09:12)
--- NOTE | 2020-08-04 11:43 | P.DS ---
Providers Date of admission: 07/28/20 17:14 Expected date of discharge: 08/04/20 Attending physician: Dominick Lind MD Consults: 07/28/20 17:41 Consult Physician Routine Consulting Provider: Belen Physician Consult Reason/Comments: H and P Do you want consulting provider notified?: Yes Primary care physician: Stated None - Discharge Diagnosis(es) (1) Schizoaffective disorder Current Visit: Yes Status: Acute Priority: High (2) Antisocial personality disorder Current Visit: Yes Status: Acute Priority: Medium (3) Cannabis use disorder, mild, abuse Current Visit: Yes Status: Acute Priority: Medium (4) Nicotine dependence Current Visit: Yes Status: Acute Priority: Low Hospital Course: Admission HPI: Admission not was completed by magnetic tape typewriter operator "Patient is a 29-year-old male with a history of schizoaffective disorder bipolar type who currently lives with his grandfather and has 1 kid and is unemployed. Patient presented to the hospital for psychiatric evaluation brought in by his father. Patient's father had filled out a petition which stated the patient has been "saying things about being able to make things disappear, communicate with aliens". Patient's father also had mentioned according to ER report that patient has been more aggressive in his behaviors lately and not been sleeping and has been noncompliant with his medications. Patient's UDS is positive for THC. Patient last night had been threatening staff on the unit has been very demanding paranoid and bizarre and received Haldol Ativan Benadryl IM prn last night. Patient was seen today w andering the hallways and was agreeable to speak to magnetic tape typewriter operator in the office. Patient was fairly uncooperative with magnetic tape typewriter operator and refused to sit in the chair to be interviewed and wanted to stand. He claims that his grandfather and father believe that he was "acting crazy" and also "losing my mind". He states that he was brought in over their concerns. He states that he does not need medications and has not taken his medications in over 2 years as "they're trash". He has very poor insight and minimizes his symptoms. He was a poor historian and claims that "I just needed to get away". He claims that he does feel irritated being in the hospital. He was illogical at times and bizarre. For hygiene and grooming. Patient denies any suicidal or homicidal ideations intent or plan. At this time patient denies any auditory or visual hallucinations. Patient admits to using marijuana daily and cigarettes." Hospital course: Upon admission to the unit patient was initially aggressive, agitated and bizarre. patient required prn medications initially due to agitation. clinical certificates and petition were filed with the courts and patient ended up deferring and agreeing to treatment. Patient was initially manipulative aggressive and hostile with the magnetic tape typewriter operator and other staff members on the unit however with treatment patient eventually improved with regards to his symptoms got along well with other patients on the unit and followed unit protocol. Patient was compliant with the medications and denied any side effects throughout hospital course. Patient was started on paliperidone 3 mg daily for mood stabilization/psychosis, patient refused to take Depakote however was agreeable to take lithium instead 300 mg twice a day for mood stabilization/aggression. Patient was also started on Vistaril when necessary + 100 mg daily at bedtime when necessary for insomnia/anxiety. Patient spoke of his stressors and engaged in therapy both group and individual. Patient was also seen by medical team for history and physical exam. Throughout the course of the hospitalization patient gradually improved with regards to mood, anxiety, psychosis/aggression, sleep and became more future oriented. patient had improved with regards to his insight and judgment. On the day of discharge patient denied any suicidal or homicidal ideations intent or plan denied any auditory or visual hallucinations. Patient endorsed wanting to live for his future and his kid. The patient denied any access to guns or weapons. Patient denied any paranoia and did not endorse any delusions. Patient does have a significant history of substance abuse [and] was counseled on abstaining from all substances including alcohol and marijuana. [Patient was offered however declined inpatient substance-abuse rehab and wanted to cut back his substance use on his own.] Patient was also counseled on the medications and need for regular compliance and was encouraged to follow-up with their outpatient appointment for mental health and also for primary care. Prior to discharge social media campaign manager we'll contact patient's friend and also his aunt and his guardian to coordinate where patient will be discharged to, either patient's friend's house or a hotel short-term until patient's crisis bed is available and also to answer any questions and ensure safety upon discharge. Mental status exam: General Appearance: Patient appears to be tall, thin stated age is alert,directable, and cooperative. Patient is in no acute distress and has improved hygiene and grooming Behavior: Patient is calmly seated without any agitated behavior. more cooperative today. Speech: Patient's speech is fluent and nonpressured. Mood/Affect: Patient reports their mood is "better", affect is congruent Suicidality/Homicidality: Patient denies having any suicidal or homicidal ideation intent or plan. Perceptions: Patient denies any auditory or visual hallucinations. Though content/process: There is no evidence of any delusional thought content and thought process is linear and goal-directed. Memory and concentration: AOX3, grossly intact for the purposes of this session. Can spell "WORLD" backwards correctly. Judgment and insight: chronically poor, however has improved with guarded prognosis Impression: schizoaffective disorder antisocial personality disorder cannabis use disorder nicotine dependence. Plan: -Continue with discharge today as patient has improved and stabilized psychiatrically and is not currently an imminent threat to himself and/or others. Patient will remain at chronically elevated risk for harm to self and/or others due to his impulsivity, substance abuse and chronically poor insight/judgment. -Continue medications: paliperidone by mouth 3 mg for psychosis/mood stabilization, lithium 300 mg twice a day for mood stabilization/aggression, Vistaril 50 mg daily when necessary +300 mg nightly when necessary for anxiety/insomnia. -Patient was counseled on the need for medication compliance and appropriate follow-up at mental health and also primary care for medical issues. Patient verbalized understanding and agreed. -Social work to arrange for and conduct family meeting and coordiante discharge with patients gaurdian, aunt and friend to ensure safety upon discharge and answer any questions/concerns. Patient does have a crisis bed pending which the harmanan is arranging for. Social work also to arrange for patients follow up appointments with [facility] for psychiatric care along with follow up with primary care provider. -Patient counseled on abstaining from recreational drugs and marijuana and alcohol. Was informed/educated on the adverse effects on their physical and mental health. Patient verbally agreed and understood. Patient was offered substance abuse treatment however declined at this time and wanted to cut back on his own. -Patient was instructed to return to the hospital or seek immediate medical care if their psychiatric or medical symptoms do worsen or reoccur. Allergies Allergy/AdvReac Type Severity Reaction Status Date / Time fluphenazine [From Prolixin] AdvReac Unknown Verified 07/28/20 15:34 haloperidol [From Haldol] AdvReac Extrapyramidal Verified 07/28/20 15:34 Side Effects ziprasidone [From Geodon] AdvReac Suicidal Verified 07/28/20 15:34 Thoughts Laboratory Results WBC 11.9 k/uL (3.8-10.6) H 07/29/20 06:26 RBC 5.27 m/uL (4.30-5.90) 07/29/20 06:26 Hgb 16.1 gm/dL (13.0-17.5) 07/29/20 06:26 Hct 46.0 % (39.0-53.0) 07/29/20 06:26 MCV 87.4 fL (80.0-100.0) 07/29/20 06:26 MCH 30.6 pg (25.0-35.0) 07/29/20 06:26 MCHC 35.1 g/dL (31.0-37.0) 07/29/20 06:26 RDW 12.8 % (11.5-15.5) 07/29/20 06:26 Plt Count 175 k/uL (150-450) 07/29/20 06:26 MPV 8.5 07/29/20 06:26 Neutrophils % 62 % 07/29/20 06:26 Lymphocytes % 26 % 07/29/20 06:26 Monocytes % 7 % 07/29/20 06:26 Eosinophils % 3 % 07/29/20 06:26 Basophils % 1 % 07/29/20 06:26 Neutrophils # 7.4 k/uL (1.3-7.7) 07/29/20 06:26 Lymphocytes # 3.1 k/uL (1.0-4.8) 07/29/20 06:26 Monocytes # 0.8 k/uL (0-1.0) 07/29/20 06:26 Eosinophils # 0.4 k/uL (0-0.7) 07/29/20 06:26 Basophils # 0.1 k/uL (0-0.2) 07/29/20 06:26 Sodium 138 mmol/L (137-145) 07/29/20 06:26 Potassium 4.6 mmol/L (3.5-5.1) 07/29/20 06:26 Chloride 103 mmol/L (98-107) 07/29/20 06:26 Carbon Dioxide 26 mmol/L (22-30) 07/29/20 06:26 Anion Gap 9 mmol/L 07/29/20 06:26 BUN 22 mg/dL (9-20) H 07/29/20 06:26 Creatinine 1.05 mg/dL (0.66-1.25) 07/29/20 06:26 Est GFR (CKD-EPI)AfAm >90 (>60 ml/min/1.73 sqM) 07/29/20 06:26 Est GFR (CKD-EPI)NonAf >90 (>60 ml/min/1.73 sqM) 07/29/20 06:26 Glucose 91 mg/dL (74-99) 07/29/20 06:[address] Glu mg/dL 97 07/29/20 06:26 Hemoglobin A1c 5.0 % (4.0-6.0) 07/29/20 06:26 Calcium 9.6 mg/dL (8.4-10.2) 07/29/20 06:26 Total Bilirubin 0.5 mg/dL (0.2-1.3) 07/29/20 06:26 AST 40 U/L (17-59) 07/29/20 06:26 ALT 17 U/L (4-49) 07/29/20 06:26 Alkaline Phosphatase 60 U/L (38-126) 07/29/20 06:26 Total Protein 7.1 g/dL (6.3-8.2) 07/29/20 06:26 Albumin 4.6 g/dL (3.5-5.0) 07/29/20 06:26 Triglycerides 56 mg/dL (<150) 07/29/20 06:26 Cholesterol 150 mg/dL (<200) 07/29/20 06:26 LDL Cholesterol, Calc 87 mg/dL (0-99) 07/29/20 06:26 HDL Cholesterol 52 mg/dL (40-60) 07/29/20 06:26 TSH 4.400 mIU/L (0.465-4.680) 07/29/20 06:26 Free T4 1.64 ng/dL (0.78-2.19) 07/29/20 06:26 Free T3 pg/mL 4.8 pg/ml (2.8-5.3) 07/29/20 06:26 Urine Color Light Yellow 07/29/20 17:05 Urine Appearance Clear (Clear) 07/29/20 17:05 Urine pH 6.0 (5.0-8.0) 07/29/20 17:05 Ur Specific [place] 1.011 (1.001-1.035) 07/29/20 17:05 Urine Protein Negative (Negative) 07/29/20 17:05 Urine Glucose (UA) Negative (Negative) 07/29/20 17:05 Urine Ketones Negative (Negative) 07/29/20 17:05 Urine Blood Negative (Negative) 07/29/20 17:05 Urine Nitrite Negative (Negative) 07/29/20 17:05 Urine Bilirubin Negative (Negative) 07/29/20 17:05 Urine Urobilinogen <2.0 mg/dL (<2.0) 07/29/20 17:05 Ur Leukocyte Esterase Negative (Negative) 07/29/20 17:05 Urine Opiates Screen Not Detected (NotDetected) 07/28/20 14:58 Ur Oxycodone Screen Not Detected (NotDetected) 07/28/20 14:58 Urine Methadone Screen Not Detected (NotDetected) 07/28/20 14:58 Ur Propoxyphene Screen Not Detected (NotDetected) 07/28/20 14:58 Ur Barbiturates Screen Not Detected (NotDetected) 07/28/20 14:58 U Tricyclic Antidepress Not Detected (NotDetected) 07/28/20 14:58 Ur Phencyclidine Scrn Not Detected (NotDetected) 07/28/20 14:58 Ur Amphetamines Screen Not Detected (NotDetected) 07/28/20 14:58 U Methamphetamines Scrn Not Detected (NotDetected) 07/28/20 14:58 U Benzodiazepines Scrn Not Detected (NotDetected) 07/28/20 14:58 Urine Cocaine Screen Not Detected (NotDetected) 07/28/20 14:58 U Marijuana (THC) Screen Detected (NotDetected) H 07/28/20 14:58 Coronavirus (PCR) Not Detected (Not Detectd) 07/28/20 15:44 Vital Signs Temp 97.4 F L 08/04/20 03:34 Pulse 117 H 08/04/20 03:34 Resp 18 08/04/20 03:34 BP 120/69 08/04/20 03:34 Pulse Ox 98 07/28/20 14:12 Intake & Output 08/03/20 08/04/20 08/04/20 18:59 06:59 18:59 Weight 73.4 kg Patient Condition at Discharge: Stable Plan - Discharge Summary New Discharge Prescriptions: New hydrOXYzine HCL [Atarax] 50 mg PO DAILY PRN 30 Days tab PRN Reason: Anxiety Nicotine 7Mg/24Hr Patch [Habitrol] 1 patch TRANSDERM DAILY 14 Days patch Paliperidone [Invega] 3 mg PO HS 30 Days tab.er.24 [place] Carbonate 300 mg PO BID 30 Days cap Ibuprofen [Motrin] 400 mg PO Q8H PRN tab PRN Reason: Pain Acetaminophen Tab [Tylenol] 650 mg PO Q4HR PRN tab PRN Reason: Pain/Discomfort hydrOXYzine pamoate [Vistaril] 100 mg PO HS PRN 30 Days cap PRN Reason: Insomnia Discharge Medication List Acetaminophen Tab [Tylenol] 650 mg PO Q4HR PRN tab 08/04/20 [Rx] Ibuprofen [Motrin] 400 mg PO Q8H PRN tab 08/04/20 [Rx] [place] Carbonate 300 mg PO BID 30 Days cap 08/04/20 [Rx] Nicotine 7Mg/24Hr Patch [Habitrol] 1 patch TRANSDERM DAILY 14 Days patch 08/04/20 [Rx] Paliperidone [Invega] 3 mg PO HS 30 Days tab.er.24 08/04/20 [Rx] hydrOXYzine HCL [Atarax] 50 mg PO DAILY PRN 30 Days tab 08/04/20 [Rx] hydrOXYzine pamoate [Vistaril] 100 mg PO HS PRN 30 Days cap 08/04/20 [Rx] Follow up Appointment(s)/Referral(s): None,Stated [Primary Care Provider] - 1-2 days Activity/Diet/Wound Care/Special Instructions: Activity and diet as tolerated. Avoid the use of street drugs and alcohol. Take all medications as prescribed. When you are in need of refills on your medications please contact your medical provider and/or outpatient psychiatrist to have this done. Please go to scheduled outpatient appointment for aftercare treatment. If symptoms return or become worse, call the crisis line at and/or go to the nearest emergency room for evaluation. Discharge Disposition: OTHER INSTITUTION NOT DEFINED
[2020-08-04 13:41] VITALS: TEMP 96.7
== END 2020-08-04 14:03 | disposition home or self-care (01) | DRG 885 ==
LOC: EC 14:11 → 3MHU 17:14
PROVIDERS: ADMIT Psychiatry & Neurology Psychiatry; ATTEND Psychiatry & Neurology Psychiatry
DX: F25.0 Schizoaffective disorder, bipolar type (principal); Z91.128 Patient's intentional underdosing of medication regimen for other reason; F12.10 Cannabis abuse, uncomplicated; F60.2 Antisocial personality disorder; Z20.822 Contact with and (suspected) exposure to COVID-19; F90.9 Attention-deficit hyperactivity disorder, unspecified type; G47.00 Insomnia, unspecified; F41.9 Anxiety disorder, unspecified; T50.906A Underdosing of unspecified drugs, medicaments and biological substances, initial encounter; R45.87 Impulsiveness; F17.200 Nicotine dependence, unspecified, uncomplicated; Z71.6 Tobacco abuse counseling; Z56.0 Unemployment, unspecified; Z90.89 Acquired absence of other organs; Z98.890 Other specified postprocedural states; Y63.6 Underdosing and nonadministration of necessary drug, medicament or biological substance; Z88.8 Allergy status to other drugs, medicaments and biological substances; Z81.8 Family history of other mental and behavioral disorders; Z82.69 Family history of other diseases of the musculoskeletal system and connective tissue
CPT/HCPCS: 80053; 80061; 80306; 81003; 82075; 83036; 84439; 84443; 84481; 85025; 87635; 96372; 99285

== ENCOUNTER 2020-08-07 15:16 | Inpatient (IN) | payer MEDICAID, OTHER ==
--- NOTE | 2020-08-07 15:57 | ED ---
General Adult HPI - General Chief complaint: Psychiatric Symptoms Stated complaint: coupon collection clerk order Time Seen by Provider: 08/07/20 15:51 Source: patient, police, RN notes reviewed, old records reviewed Mode of arrival: ambulatory Limitations: no limitations - History of Present Illness Initial comments: 29-year-old male with schizophrenia, brought in under court order pickup, brought in with police. He is agitated, not cooperative. According to the history is been noncompliant with psychiatric treatment. [facility] had requested that the patient be admitted for psychiatric evaluation and treatment. - Related Data Previous Rx's Medication Instructions Recorded Acetaminophen Tab [Tylenol] 650 mg PO Q4HR PRN tab 08/04/20 Ibuprofen [Motrin] 400 mg PO Q8H PRN tab 08/04/20 [place] Carbonate 300 mg PO BID 30 Days cap 08/04/20 Nicotine 7Mg/24Hr Patch [Habitrol] 1 patch TRANSDERM DAILY 14 Days 08/04/20 patch Paliperidone [Invega] 3 mg PO HS 30 Days tab.er.24 08/04/20 hydrOXYzine HCL [Atarax] 50 mg PO DAILY PRN 30 Days tab 08/04/20 hydrOXYzine pamoate [Vistaril] 100 mg PO HS PRN 30 Days cap 08/04/20 Allergies Allergy/AdvReac Type Severity Reaction Status Date / Time fluphenazine [From Prolixin] AdvReac Unknown Verified 08/07/20 16:20 haloperidol [From Haldol] AdvReac Extrapyramidal Verified 08/07/20 16:20 Side Effects ziprasidone [From Geodon] AdvReac Suicidal Verified 08/07/20 16:20 Thoughts Review of Systems ROS Statement: Those systems with pertinent positive or pertinent negative responses have been documented in the HPI. ROS Other: All systems not noted in ROS Statement are negative. Past Medical History Past Medical History: Respiratory Disorder Additional Past Medical History / Comment(s): schizophrenia History of Any Multi-Drug Resistant Organisms: None Reported Past Surgical History: Tonsillectomy Additional Past Surgical History / Comment(s): colonoscopy Past Anesthesia/Blood Transfusion Reactions: No Reported Reaction Past Psychological History: ADD/ADHD, Anxiety, Depression, Panic Disorder, Schizophrenia Smoking Status: Current every day smoker Past Alcohol Use History: None Reported Past Drug Use History: Marijuana - Past Family History Father Additional Family Medical History / Comment(s): Father is alive at age 49 with history of anxiety. Mother Additional Family Medical History / Comment(s): Mother is alive at age 42 with history of back problems and back surgery. Brother(s) Additional Family Medical History / Comment(s): Patient has one half brother with no major medical problems. He has 1 sister with no major medical problems. Patient has one son that is healthy. General Exam Limitations: no limitations General appearance: alert, in no apparent distress Head exam: Present: atraumatic, normocephalic Eye exam: Present: normal appearance, PERRL ENT exam: Present: normal exam Neck exam: Present: normal inspection. Absent: tenderness, meningismus Respiratory exam: Present: normal lung sounds bilaterally, respiratory distress Cardiovascular Exam: Present: regular rate, normal rhythm GI/Abdominal exam: Present: soft. Absent: distended, tenderness, guarding Neurological exam: Present: alert, oriented X3, CN II-XII intact. Absent: motor sensory deficit Psychiatric exam: Present: agitated, anxious Skin exam: Present: warm, dry, intact. Absent: cyanosis, diaphoretic Course Vital Signs 08/07/20 08/07/20 15:18 18:19 Temperature 98.2 F Pulse Rate 77 72 Respiratory 18 18 Rate Blood Pressure 130/75 117/69 O2 Sat by Pulse 97 100 Oximetry Medical Decision Making - Medical Decision Making Patient agitated, not cooperative, yelling at staff, threatening. He did require restraint for staff safety as well as the safety of the patient. I was able to complete a clinical certification on this patient and he will be admitted to this institution for further psychiatric evaluation. - Lab Data Lab Results 08/07/20 08/07/20 Range/Units 16:46 19:12 Urine Opiates Screen Not Detected (NotDetected) Ur Oxycodone Screen Not Detected (NotDetected) Urine Methadone Screen Not Detected (NotDetected) Ur Propoxyphene Screen Not Detected (NotDetected) Ur Barbiturates Screen Not Detected (NotDetected) U Tricyclic Antidepress Not Detected (NotDetected) Ur Phencyclidine Scrn Not Detected (NotDetected) Ur Amphetamines Screen Not Detected (NotDetected) U Methamphetamines Scrn Not Detected (NotDetected) U Benzodiazepines Scrn Not Detected (NotDetected) Urine Cocaine Screen Not Detected (NotDetected) U Marijuana (THC) Screen Detected H (NotDetected) Coronavirus (PCR) Not Detected (Not Detectd) Disposition Clinical Impression: Poor compliance with medication, Acute psychosis Disposition: ADMITTED IP TO THIS HOSP Condition: Stable Is patient prescribed a controlled substance at d/c from ED?: No Referrals: None,Stated [Primary Care Provider] - 1-2 days Decision to Admit Reason: Admit from EC Decision Date: 08/07/20 Decision Time: 19:30
[2020-08-07 17:07] LABS: Amphetamine Screen,Urine Not Detected (NotDetected); Cocaine Screen,Urine Not Detected (NotDetected); Opiate Screen,Urine Not Detected (NotDetected); Phencyclidine Screen,Urine Not Detected (NotDetected); Urn Cannabinoid Scrn Detected (NotDetected)
[2020-08-07 17:08] LABS: Barbiturate Screen,Urine Not Detected (NotDetected); Benzodiazepines Screen,Urine Not Detected (NotDetected); Methadone Screen, Urine Not Detected (NotDetected); Oxycodone Screen, Urine Not Detected (NotDetected); Tricyclic Antidepressant,Urine Not Detected (NotDetected)
[2020-08-07] MEDS ORDERED: LORazepam 2 MG/ML INJ IM STA (17:30)
[2020-08-07] MEDS ORDERED: chlorproMAZINE 25 MG/ML 2 ML AMP IM ONE (19:20)
[2020-08-07] MEDS ORDERED: MAGNESIUM HYDROXIDE 2,400 MG/10 ML CUP PO PRN (20:02)
[2020-08-07] MEDS ORDERED: MAG HYDROX/AL HYDROX/SIMETH 30 ML CUP PO PRN (20:02)
[2020-08-07] MEDS ORDERED: ACETAMINOPHEN TAB 325 MG TAB PO PRN (20:02)
[2020-08-07] MEDS: PALIPERIDONE 3 MG TAB.ER.24 PO SCH (21:41)
[2020-08-07] MEDS: LITHIUM CARBONATE 300 MG CAP PO SCH (21:41)
--- NOTE | 2020-08-07 23:50 | P.PN ---
Progress Note - Text Progress Note Date: 08/07/20 Attempted to see the patient in the mental health unit. The patient had recently arrived to the unit and was sedated. Will attempt again tomorrow.
[2020-08-08] MEDS: LORazepam 2 MG/ML INJ IM PRN ×2 (02:50→12:01)
[2020-08-08] MEDS: HALOPERIDOL LACTATE 5 MG/ML 1 ML VIAL IM PRN ×2 (02:51→12:00)
[2020-08-08 03:36] LABS: Hemoglobin A1C 4.9 % (4.0-6.0)
[2020-08-08] MEDS: IBUPROFEN 400 MG TAB PO PRN (08:14)
[2020-08-08] MEDS: LITHIUM CARBONATE 300 MG CAP PO SCH ×2 (08:14→21:26)
[2020-08-08] MEDS ORDERED: diphenhydrAMINE 50 MG/ML 1 ML VIAL IM PRN (11:47)
--- NOTE | 2020-08-08 12:02 | P.HP ---
Psychiatric H&P - . H&P Date: 08/08/20 History & Physical: Allergies Allergy/AdvReac Type Severity Reaction Status Date / Time fluphenazine [From Prolixin] AdvReac Unknown Verified 08/07/20 16:20 haloperidol [From Haldol] AdvReac Extrapyramidal Verified 08/07/20 16:20 Side Effects ziprasidone [From Geodon] AdvReac Suicidal Verified 08/07/20 16:20 Thoughts Vital Signs Temp 98.5 F 08/08/20 01:59 Pulse 164 H 08/08/20 01:59 Resp 16 08/07/20 20:12 BP 95/61 08/08/20 01:59 Pulse Ox 97 08/07/20 20:12 Intake & Output 08/07/20 08/08/20 08/08/20 18:59 06:59 18:59 Weight 72.575 kg 71.4 kg Laboratory Last Values Estimated Ave Glu mg/dL 94 08/07/20 21:16 Hemoglobin A1c 4.9 % (4.0-6.0) 08/07/20 21:16 Urine Opiates Screen Not Detected (NotDetected) 08/07/20 16:46 Ur Oxycodone Screen Not Detected (NotDetected) 08/07/20 16:46 Urine Methadone Screen Not Detected (NotDetected) 08/07/20 16:46 Ur Propoxyphene Screen Not Detected (NotDetected) 08/07/20 16:46 Ur Barbiturates Screen Not Detected (NotDetected) 08/07/20 16:46 U Tricyclic Antidepress Not Detected (NotDetected) 08/07/20 16:46 Ur Phencyclidine Scrn Not Detected (NotDetected) 08/07/20 16:46 Ur Amphetamines Screen Not Detected (NotDetected) 08/07/20 16:46 U Methamphetamines Scrn Not Detected (NotDetected) 08/07/20 16:46 U Benzodiazepines Scrn Not Detected (NotDetected) 08/07/20 16:46 [place] <0.2 mmol/L 08/07/20 21:16 Urine Cocaine Screen Not Detected (NotDetected) 08/07/20 16:46 U Marijuana (THC) Screen Detected (NotDetected) H 08/07/20 16:46 Coronavirus (PCR) Not Detected (Not Detectd) 08/07/20 19:12 08/08/20 11:50 IDENTIFYING DATA: Patient is a 29-year-old male with a history of schizoaffective disorder bipolar type who currently lives with his grandfather and has 1 kid and is unemployed. HPI: Patient presented to the hospital for psychiatric evaluation on petition for being noncompliant with his treatment and medications. Patient was brought in on a pickup order escorted by police to the ER. According to EPS report patient had no insight and was a "possible harm to self and others". Petition also stated that patient has "anger management issues". As per ER report patient was agitated and uncooperative. Patient had received when necessary medications IM for agitation prior to being admitted to the mental health unit. Patient was recently discharged from the mental health unit one week ago. He is currently on a deferral and a demand for hearing was filed. Patient was seen in the hallway with a one-to-one security at his side. Patient acknowledge investigative writer and agreeable to speak to him in the office. Patient immediately became agitated and aggressive with investigative writer and stated "what the fuck do you mean why am I here?! the cotton chopper picked me up for no reason!". He stated that she wanted investigative writer to "machine operator picker the phone and asked why I got all the shots last night". He became increasingly agitated with investigative writer and started yelling in the room and approached investigative writer in a very threatening manner attempting to harm him and security was called immediately and patient was escorted out of the room and will be given a IM prn medication for aggression. Interview was terminted early by patients agitation. The rest of the history was obtained from the previous admission. PAST PSYCHIATRIC HISTORY: Patient has a history of schizoaffective disorder bipolar type. Patient was previously on Prolixin D and Depakote however has been on several other antipsychotics in the past. Patient apparently has an ALLERGY to fluphenazine, haloperidol and ziprasidone. Patients last psychiatric hospitalization 1 week ago. He states that he used to follow up with Dr. Villalba in the past however now claims that he has not been to see him in years. Patient denies any history of suicide attempts in the past. PMH:denies ALLERGIES: as per EMR CHEMICAL DEPENDENCY HISTORY: as per HPI FAMILY PSYCHIATRIC/SUBSTANCE USE HISTORY: denies SOCIAL HISTORY: Patient was born and raised in [place]. He states that he completed up until high school. He states that he has worked several jobs in the past however now is unemployed. He states that he went to skilled nursing for several charges related to home invasion assault and battery for one year. He states that he currently lives with his grandfather has 1 kid and they both live in the house. MENTAL STATUS EXAM: General Appearance: Patient appears to be tall, thin, older than stated age is alert, difficult to redirect and uncooperative, agitated. Disheveled appearance. Patient appears to have poor hygiene and grooming. Behavior: Patient is Uncooperative, agitated Speech: Patient's speech is fluent and nonpressured. Mood/Affect: Patient reports their mood is "pissed", affect is congruent and agitated Suicidality/Homicidality: unable to assess Perceptions: unable to assess Though content/process: Patient is illogical at times. He has very poor insight and judgment. demanding and threatneing. Memory and concentration: unable to assess Judgment and insight: poor/impulsive STRENGTHS/WEAKNESSES: strength is that patient is resilient. Weakness is that patient has poor judgment and is impulsive, has a history of non compliance with treatment. INTELLECT: average IMPRESSIONS: Schizoaffective disorder Cannabis use disorder Nicotine dependence PLAN: -Patient is admitted under involuntary status to MHU for stabilization of psychiatric symptoms and safety. Patient has not signed adult voluntary form and medication consent and is placed in patient's chart. A demand was aparently already filed as patient is on a deferral. -Medications : Will start patient on paliperidone by mouth 3 mg daily at bedtime for mood stabilization/psychosis. Patient will be transitioned onto Invega Sustenna to ensure compliance. -Haldol, benadryl and ativan IM and PO PRN for agitation/aggression -Internal Medicine consult to perform medical evaluation and physical. -NRT - nicotine patch -SW on board for discharge planning. Encourage patient to participate in groups to work on coping skills. Will await demand court date. Patient will need to be transitioned onto inevga sustenna prior to d/c
[2020-08-08] MEDS: PALIPERIDONE 3 MG TAB.ER.24 PO SCH (21:26)
[2020-08-09 02:37] LABS: Appearance,Urine Clear (Clear); Bilirubin,Urine Negative (Negative); Blood,Urine Negative (Negative); Color,Urine Yellow; Glucose,Urine (UA) Negative (Negative); Ketones,Urine Negative (Negative); Leukocyte Esterase,Urine Negative (Negative); Nitrite,Urine Negative (Negative); PH, Urine 6.5 (5.0-8.0); Protein,Urine Negative (Negative); Specific Gravity,Urine 1.023 (1.001-1.035); Urobilinogen,Urine <2.0 mg/dL (<2.0)
[2020-08-09] MEDS: LITHIUM CARBONATE 300 MG CAP PO SCH ×2 (09:09→21:17)
[2020-08-09] MEDS: LORazepam 1 MG TAB PO PRN (09:33)
[2020-08-09] MEDS: hydrOXYzine HCL 25 MG TAB PO PRN (09:33)
[2020-08-09 09:57] LABS: Basophils # (A) 0.1 k/uL (0-0.2); Basophils % (A) 1 %; Eosinophils # (A) 0.7 k/uL (0-0.7); Eosinophils % (A) 6 %; HCT 47.1 % (39.0-53.0); Lymphocytes # (A) 2.5 k/uL (1.0-4.8); Lymphocytes % (A) 21 %; MCH 29.9 pg (25.0-35.0); MCV 88.1 fL (80.0-100.0); Mean Platelet Volume 7.8; Monocytes # (A) 0.6 k/uL (0-1.0); Monocytes % (A) 5 %; Neutrophils % (A) 66 %; Platelet Count 200 k/uL (150-450); RBC 5.35 m/uL (4.30-5.90); RDW 12.3 % (11.5-15.5); WBC 12.1 k/uL (3.8-10.6)
[2020-08-09 10:12] LABS: ALT 27 U/L (4-49); AST 62 U/L (17-59); African American GFR (CKD) >90 (>60 ml/min/1.73 sqM); Albumin 4.4 g/dL (3.5-5.0); Alkaline Phosphatase 57 U/L (38-126); Anion Gap 6 mmol/L; Blood Urea Nitrogen 18 mg/dL (9-20); Calcium 9.4 mg/dL (8.4-10.2); Carbon Dioxide 28 mmol/L (22-30); Chloride 104 mmol/L (98-107); Cholesterol 157 mg/dL (<200); Glucose 83 mg/dL (74-99); HDL Cholesterol 42 mg/dL (40-60); LDL Cholesterol,Calculated 91 mg/dL (0-99); Non-African American GFR(CKD) >90 (>60 ml/min/1.73 sqM); Potassium 4.4 mmol/L (3.5-5.1); Sodium 138 mmol/L (137-145); Total Bilirubin 0.5 mg/dL (0.2-1.3); Total Protein 6.9 g/dL (6.3-8.2); Triglycerides 120 mg/dL (<150)
[2020-08-09] MEDS: NICOTINE POLACRILEX 2 MG GUM BUCCAL PRN ×2 (10:30→15:46)
[2020-08-09] MEDS: diphenhydrAMINE 25 MG CAP PO PRN (11:50)
--- NOTE | 2020-08-09 14:16 | P.PN ---
Progress Note - Text Progress Note Date: 08/09/20 Clinical Problems: Schizoaffective disorder bipolar type, cannabis use disorder, tobacco use Interim history: I reviewed the medical record and interviewed the patient. He is a 29-year-old male well known to psychiatry service from prior admissions. We last discharged from this unit 2 days prior to this admission. He came to the hospital voluntarily on a pickup order from [facility] for noncompliance with treatment. He has been restless and agitated throughout this brief admission and has received multiple when necessary medications and is currently on one-to-one with a internal security manager due to level of agitation and aggressiveness. He is frequently pacing the unit rapidly to where the internal security manager have to run keep up with him. During our interview he demanded to know the reason for this hospitalization. He alleged that he was fully compliant with medications (however his lithium level on admission was less than 0.2 indicating that he is not compliant with prescribed lithium). He demanded that I tell him the reason for this hospitalization. During the interview he was angry but was able to control his temper. Mental status exam: He presented as a thin 29-year-old male who was restless, irritable and angry. He had a tense facial expression. His speech was spontaneous with increased rate and volume. His affect was angry and irritable and at times intense and appropriate. He did not express suicidal ideation, wishes or homicidal ideation. He expressed feelings of helplessness regarding this hospitalization. He ruminated about hospitalization and the circumstances that brought him to the hospital. He was paranoid but did not express clear paranoid delusional beliefs. His thinking was concrete and his associations were not fully organized. He denied hallucinations did not appear to responding to internal stimuli. He showed no awareness or understanding of his illness or need for treatment. Assessment: He remains agitated, angry and irritable. Plan: Continue inpatient treatment. Safety precautions. Continue one-to-one with security due to the risk of behavioral disturbance. Probate hearing pending. Continue current psychotropic medications including lithium carbonate 3 mg twice a day and Invega 3 mg at bedtime. Continue Benadryl 25 mg IM or by mouth, Haldol 4 mg by mouth 3 times a day or 7 mg IM every 6 hours and Ativan 1 mg by mouth or IM every 6 hours when necessary for agitation and aggression were acute psychosis. Encourage participation in therapeutic groups and activities as tolerated. Evaluate clinical status response to treatment daily basis.
[2020-08-09] MEDS: LORazepam 2 MG/ML INJ IM PRN (16:08)
[2020-08-09] MEDS: HALOPERIDOL LACTATE 5 MG/ML 1 ML VIAL IM PRN (16:08)
[2020-08-09] MEDS: PALIPERIDONE 3 MG TAB.ER.24 PO SCH (21:17)
[2020-08-10] MEDS: LORazepam 1 MG TAB PO PRN ×2 (03:43→21:20)
[2020-08-10] MEDS: LITHIUM CARBONATE 300 MG CAP PO SCH ×2 (08:32→20:53)
--- NOTE | 2020-08-10 11:46 | P.PN ---
Progress Note - Text Progress Note Date: 08/10/20 Clinical Problems: Schizoaffective disorder bipolar type, cannabis use disorder, tobacco use Interim history: I reviewed the medical record and interviewed the patient. He remains on one-to-one with a information security officer. He was angry demand discharge. He alleged there is no reason for this admission and demanded that I explained to him why he is in the hospital. He appears understand that he came in hospital on the demand for noncompliance but argues that he has been fully compliant with treatment. He perseverated on his hospitalization status and his anger escalated. He eventually stormed out of the office telling me that I am of no use. Yesterday he was agitated and angry throughout the day and eventually received IM injections of Haldol, Ativan and Benadryl. Mental status exam: He presented as a thin 29-year-old male who was restless, irritable and angry. He had a angry facial expression. His speech was spontaneous with increased rate and volume. His affect was angry and irritable and at times intense and inappropriate. He did not express suicidal ideation, wishes or homicidal ideation. He expressed feelings of helplessness regarding this hospitalization. He ruminated about hospitalization and the circumstances that brought him to the hospital. He was paranoid but did not express clear paranoid delusional beliefs. His thinking was concrete and his associations were not fully organized. He denied hallucinations did not appear to responding to internal stimuli. He showed no awareness or understanding of his illness or need for treatment. Assessment: He remains agitated, angry and irritable. Plan: Continue inpatient treatment. Safety precautions. Continue one-to-one with security due to the risk of behavioral disturbance. Probate hearing pending. Continue current psychotropic medications including lithium carbonate 3 mg twice a day and Invega 3 mg at bedtime. Continue Benadryl 25 mg IM or by mouth, Haldol 4 mg by mouth 3 times a day or 7 mg IM every 6 hours and Ativan 1 mg by mouth or IM every 6 hours when necessary for agitation and aggression were acute psychosis. Encourage participation in therapeutic groups and activities as tolerated. Evaluate clinical status response to treatment daily basis.
[2020-08-10] MEDS: NICOTINE POLACRILEX 2 MG GUM BUCCAL PRN (11:51)
[2020-08-10] MEDS: PALIPERIDONE 3 MG TAB.ER.24 PO SCH (20:53)
[2020-08-10] MEDS: diphenhydrAMINE 25 MG CAP PO PRN (21:20)
[2020-08-11] MEDS: diphenhydrAMINE 25 MG CAP PO PRN (01:42)
[2020-08-11] MEDS: hydrOXYzine pamoate 25 MG CAP PO PRN (01:43)
[2020-08-11] MEDS: LITHIUM CARBONATE 300 MG CAP PO SCH (08:16)
[2020-08-11] MEDS: NICOTINE POLACRILEX 2 MG GUM BUCCAL PRN ×2 (08:17→12:50)
--- NOTE | 2020-08-11 12:07 | P.PN ---
Progress Note - Text Progress Note Date: 08/11/20 Interval History: Patient was seen wandering the hallways and is accompanied by one-to-one security and was directable and agreeable to speak with flex o writer operator in the office. This provider explained the reason for his admission that was informed him by [facility] [address]. The patient was noted to be agitated and nonadherent with treatment and therefore demand was filed for mental health treatment. Patient denies that this is the events that led to this hospitalization. The patient is currently requesting discharge. The patient states that he needs to be discharged today and appears to be quite threatening. He was informed that the recommendation is to place the patient on a long-acting injectable medication. The patient confuses this medication with the short acting medications he's been receiving due to agitation. Despite psychoeducation, the patient states that he does not want to take Invega "at high doses." He is currently requesting to receive the lower dose of Invega IM so that he may be discharged today. He was informed that this would not happen and the patient terminates the interview to go call his psychotherapist. Mental Status Exam: General Appearance: Patient appears to be stated age is alert, difficult to direct, and uncooperative. Dressed in a red hoodie. Behavior: Patient is easily agitated. Posturing. Speech: Patient's speech is fluent and nonpressured. Speech is loud in volume and spontaneous. Mood/Affect: Mood is angry, affect is threatening. Suicidality/Homicidality: Unable to assess at this time as the patient terminated the interview. Perceptions: Unable to assess as the patient terminated the interview. Though content/process: Paranoid, illogical, demanding and threatening. Memory and concentration: Unable to assess as the patient terminated the interview. Judgment and insight: Very poor Assessment Schizoaffective disorder Cannabis use disorder Nicotine dependence Plan: -Patient continues to meet criteria for inpatient psychiatric admission for symptom stabilization and safety. A demand for mental health court was filed. -Continue 1:1 security. Patient is easily agitated and has had frequent outbursts. He is currently agitated and yelling in the unit and threatening staff. -Medications: We will increase Invega to 3 mg by mouth daily, and 6 mg by mouth at bedtime for mood stabilization/psychosis with plans to transition the patient to Invega Sustenna Increase lithium to 600 mg by mouth twice a day -When necessary Ativan and Haldol for agitation/aggression. -NRT - Nicorette hum -SW on board for discharge planning. Encouraged the patient to participate in milieu.
[2020-08-11] MEDS: LORazepam 2 MG/ML INJ IM PRN (12:09)
[2020-08-11] MEDS: HALOPERIDOL LACTATE 5 MG/ML 1 ML VIAL IM PRN (12:09)
[2020-08-11] MEDS: IBUPROFEN 400 MG TAB PO PRN (15:11)
[2020-08-11] MEDS ORDERED: PALIPERIDONE 3 MG TAB.ER.24 PO SCH (21:00)
[2020-08-12] MEDS: LITHIUM CARBONATE 300 MG CAP PO SCH ×3 (01:27→20:27)
[2020-08-12] MEDS: LORazepam 1 MG TAB PO PRN ×3 (03:40→23:33)
[2020-08-12] MEDS: PALIPERIDONE 3 MG TAB.ER.24 PO SCH (09:13)
--- NOTE | 2020-08-12 09:50 | P.PN ---
Progress Note - Text Progress Note Date: 08/12/20 Interval History: Patient was seen wandering the hallways and is accompanied by one-to-one security and was directable and agreeable to speak with typewriter assembly and parts inspector in the office. The patient states that he is feeling better today. He states that he only gets really angry when people instigate her agitate him. He is currently not reporting any suicidal or homicidal ideation, intention, and/or plan. He is not reporting any auditory or visual hallucinations. Denying any paranoia or delusions. He refused yesterday's medications but has been adherent with this morning's medications. This provider discussed with him the plan to transition him to Invega Sustenna if he is able to tolerate the titration of Invega well. We also discussed at length appropriate behaviors on the milieu many to be seen prior to discharge. The patient appears to be agreeable at this time. He is not reporting any significant side effects of his medications. He denies any chest pain, shortness of breath, muscle tightness, or breast growth. Mental Status Exam: General Appearance: Patient appears to be stated age is alert, directable and cooperative today. Dressed in casual clothes. Unkempt sifuentes. Behavior: Psychomotor activity appears normal today. Patient is calmly seated in the office without any agitated behavior. [place] familiar today. Speech: Patient's speech is fluent and nonpressured. Speech is normal in volume and spontaneous. Mood/Affect: Mood is "feeling good." Affect is expansive and bright. Suicidality/Homicidality: Patient denies any suicidal or homicidal ideation, intention, and/or plan. Perceptions: Patient is denying any auditory or visual hallucinations. Though content/process: Thought content with a fixation on discharge. Patient has a very rigid thought process. Memory and concentration: Alert and oriented 3. Concentration is intact for purposes of this session. Judgment and insight: Very poor Assessment Schizoaffective disorder Cannabis use disorder Nicotine dependence Plan: -Patient continues to meet criteria for inpatient psychiatric admission for symptom stabilization and safety. A demand for mental health court was filed. -Continue 1:1 security. Will reevaluate if the patient displays another 24 hours of appropriate behavior. -Medications: We will increase Invega to 3 mg by mouth daily, and 9 mg by mouth at bedtime for mood stabilization/psychosis with plans to transition the patient to Invega Sustenna Continue lithium 600 mg by mouth twice a day -When necessary Ativan and Haldol for agitation/aggression. -NRT - Nicorette gum -SW on board for discharge planning. Encouraged the patient to participate in milieu.
[2020-08-12] MEDS: IBUPROFEN 400 MG TAB PO PRN (15:12)
[2020-08-12] MEDS: NICOTINE 21MG/24HR PATCH TRANSDERM SCH (16:48)
[2020-08-12] MEDS ORDERED: PALIPERIDONE 3 MG TAB.ER.24 PO SCH (21:00)
[2020-08-12] MEDS: hydrOXYzine HCL 25 MG TAB PO PRN (22:38)
[2020-08-12] MEDS: diphenhydrAMINE 25 MG CAP PO PRN (23:32)
[2020-08-13] MEDS: PALIPERIDONE 3 MG TAB.ER.24 PO SCH ×2 (08:34→20:39)
[2020-08-13] MEDS: NICOTINE 21MG/24HR PATCH TRANSDERM SCH ×2 (08:34→18:13)
[2020-08-13] MEDS: LITHIUM CARBONATE 300 MG CAP PO SCH ×2 (08:34→20:39)
[2020-08-13] MEDS ORDERED: PALIPERIDONE IM 234 MG/1.5 ML SYG IM STA (11:35)
--- NOTE | 2020-08-13 11:41 | P.PN ---
Progress Note - Text Progress Note Date: 08/13/20 Interval History: Patient was seen wandering the hallways and is accompanied by one-to-one security and was directable and agreeable to speak with the teletypewriter operator in his room. Patient states he is feeling "a little tired today." He is currently not reporting any suicidal or homicidal ideation, intention, and/or plan. He is not reporting any auditory or visual hallucinations. He is not reporting any paranoia or delusions. He has been in adherent with his medications and is not reporting any significant side effects at this time. The patient is currently requesting if he can receive Invega Sustenna today so as to facilitate his discharge. He is also inquiring about his plans after discharge including housing. As per discussion with the patient's therapist, [facility] is currently working on finding him custodial placement. Mental Status Exam: General Appearance: Patient appears to be stated age is alert, directable and cooperative today. Dressed in casual clothes. Unkempt sifuentes. Behavior: Psychomotor activity appears normal today. Patient is calmly lying down in bed without any agitated behavior. Eye contact is appropriate. Speech: Patient's speech is fluent and nonpressured. Speech is normal in volume and spontaneous. Mood/Affect: Mood is "feeling tired." Affect is congruent and constricted in range. Suicidality/Homicidality: Patient denies any suicidal or homicidal ideation, intention, and/or plan. Perceptions: Patient is denying any auditory or visual hallucinations. Though content/process: Patient continues to fixate on discharge. No delusional thought content is endorsed at this time. Memory and concentration: Alert and oriented 3. Concentration is intact for purposes of this session. Judgment and insight: Very poor Assessment Schizoaffective disorder Cannabis use disorder Nicotine dependence Plan: -Patient continues to meet criteria for inpatient psychiatric admission for symptom stabilization and safety. A demand for mental health court was filed. -Continue 1:1 security. We'll reevaluate the need for one-to-one tomorrow. -Medications: Administer Invega Sustenna 234 mg IM today. Continue oral Invega 3 mg by mouth twice a day. Continue lithium 600 mg by mouth twice a day. [place] level ordered. -When necessary Ativan and Haldol for agitation/aggression. -NRT - Nicorette gum -SW on board for discharge planning. Encouraged the patient to participate in milieu.
[2020-08-13] MEDS: IBUPROFEN 400 MG TAB PO PRN (18:13)
[2020-08-13] MEDS: hydrOXYzine pamoate 25 MG CAP PO PRN (21:10)
[2020-08-14 02:41] VITALS: BP 124/67; PULSE 111; RESP 18; TEMP 97.7
[2020-08-14] MEDS: PALIPERIDONE 3 MG TAB.ER.24 PO SCH (08:29)
[2020-08-14] MEDS: NICOTINE 21MG/24HR PATCH TRANSDERM SCH (08:29)
[2020-08-14] MEDS: LITHIUM CARBONATE 300 MG CAP PO SCH (08:30)
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
[2020-08-14 11:30] VITALS: BMI 21.2
== END 2020-08-14 12:45 | DRG 885 ==
LOC: EC 15:16 → 3MHU 19:57
PROVIDERS: ADMIT Psychiatry & Neurology Psychiatry; ATTEND Psychiatry & Neurology Psychiatry
DX: F25.0 Schizoaffective disorder, bipolar type (principal); R45.851 Suicidal ideations; F17.200 Nicotine dependence, unspecified, uncomplicated; F12.10 Cannabis abuse, uncomplicated; F41.0 Panic disorder [episodic paroxysmal anxiety]; F60.2 Antisocial personality disorder; Z20.822 Contact with and (suspected) exposure to COVID-19; Y09 Assault by unspecified means; Z91.14 Patient's other noncompliance with medication regimen; Z91.19 Patient's noncompliance with other medical treatment and regimen; Z88.8 Allergy status to other drugs, medicaments and biological substances
CPT/HCPCS: 80053; 80061; 80178; 80306; 81003; 82075; 83036; 84443; 85025; 87635; 96372; 99285

== ENCOUNTER 2020-09-13 23:24 | Inpatient (IN) | payer MEDICAID, OTHER ==
--- NOTE | 2020-09-13 23:26 | ED ---
Psych HPI - General Stated Complaint: Mental health Time Seen by Provider: 09/13/20 23:26 Source: RN notes reviewed, old records reviewed Limitations: no limitations - History of Present Illness Initial Comments: This is a 29-year-old male DF for evaluation patient Dese for evaluation regarding psychosis. Patient is directable but is acutely psychotic angry and aggressive. Patient is not providing history, refusing to talk MD Complaint: altered mental status, other (Psychosis) -: unknown Associated Psychiatric Symptoms: racing thoughts, auditory hallucinations Quality: constant Improves With: none Worsens With: none Context: not taking psychiatric medications Associated Symptoms: denies other symptoms Treatments Prior to Arrival: none If Self Harm: other (none) - Related Data Previous Rx's Medication Instructions Recorded [place] Carbonate 600 mg PO BID 30 Days cap 08/14/20 Nicotine 21Mg/24Hr Patch [Habitrol] 1 patch TRANSDERM DAILY 14 Days 08/14/20 patch Nicotine Polacrilex [Nicorette] 2 mg BUCCAL Q2HR PRN 14 Days gum 08/14/20 Paliperidone IM [Invega Sustenna] 156 mg IM ONCE #1 syr 08/14/20 Paliperidone Palmitate [Invega 117 mg IM QMONTHLY #1 syr 08/14/20 Sustenna] Paliperidone [Invega] 3 mg PO DAILY 5 Days tab.er.24 08/14/20 hydrOXYzine HCL [Atarax] 50 mg PO DAILY PRN 30 Days tab 08/14/20 hydrOXYzine pamoate [Vistaril] 100 mg PO HS PRN 30 Days cap 08/14/20 Allergies Allergy/AdvReac Type Severity Reaction Status Date / Time fluphenazine [From Prolixin] AdvReac Unknown Verified 09/13/20 23:30 haloperidol [From Haldol] AdvReac Extrapyramidal Verified 09/13/20 23:30 Side Effects ziprasidone [From Geodon] AdvReac Suicidal Verified 09/13/20 23:30 Thoughts Review of Systems ROS Statement: Those systems with pertinent positive or pertinent negative responses have been documented in the HPI. ROS Other: All systems not noted in ROS Statement are negative. Past Medical History Past Medical History: Respiratory Disorder Additional Past Medical History / Comment(s): schizophrenia History of Any Multi-Drug Resistant Organisms: None Reported Past Surgical History: Tonsillectomy Additional Past Surgical History / Comment(s): colonoscopy Past Anesthesia/Blood Transfusion Reactions: No Reported Reaction Past Psychological History: ADD/ADHD, Anxiety, Depression, Panic Disorder, Schizophrenia Smoking Status: Current every day smoker Past Alcohol Use History: None Reported Past Drug Use History: Marijuana - Past Family History Father Additional Family Medical History / Comment(s): Father is alive at age 49 with history of anxiety. Mother Additional Family Medical History / Comment(s): Mother is alive at age 42 with history of back problems and back surgery. Brother(s) Additional Family Medical History / Comment(s): Patient has one half brother with no major medical problems. He has 1 sister with no major medical problems. Patient has one son that is healthy. General Exam General appearance: alert, in no apparent distress, anxious Head exam: Present: atraumatic, normocephalic, normal inspection Eye exam: Present: normal appearance, PERRL, EOMI. Absent: scleral icterus, conjunctival injection, periorbital swelling ENT exam: Present: normal exam, mucous membranes moist Neck exam: Present: normal inspection. Absent: tenderness, meningismus, lymphadenopathy Respiratory exam: Present: normal lung sounds bilaterally. Absent: respiratory distress, wheezes, rales, rhonchi, stridor Cardiovascular Exam: Present: regular rate, normal rhythm, normal heart sounds. Absent: systolic murmur, diastolic murmur, rubs, gallop, clicks GI/Abdominal exam: Present: soft, normal bowel sounds. Absent: distended, tenderness, guarding, rebound, rigid Extremities exam: Present: normal inspection, full ROM, normal capillary refill. Absent: tenderness, pedal edema, joint swelling, calf tenderness Back exam: Present: normal inspection Neurological exam: Present: alert, oriented X3, CN II-XII intact Psychiatric exam: Present: normal affect, normal mood Skin exam: Present: warm, dry, intact, normal color. Absent: rash Course Vital Signs 09/13/20 23:28 Temperature 98.3 F Pulse Rate 89 Respiratory 18 Rate Blood Pressure 127/83 O2 Sat by Pulse 95 Oximetry - Reevaluation(s) Reevaluation #1: 09/14/20 00:56 Medical record is reviewed Reevaluation #2: 09/14/20 00:56 Medically clear for psychiatric evaluation Reevaluation #3: 09/14/20 00:56 Patient given Ativan for sedation Medical Decision Making - Medical Decision Making 29 male to the ER for evaluation patient presents today for evaluation regards to psychiatric evaluation. Patient remains acutely psychotic here in the ER [facility] for psychiatric evaluation and treatment - Lab Data Lab Results 09/13/20 Range/Units 23:49 Urine Opiates Screen Not Detected (NotDetected) Ur Oxycodone Screen Not Detected (NotDetected) Urine Methadone Screen Not Detected (NotDetected) Ur Propoxyphene Screen Not Detected (NotDetected) Ur Barbiturates Screen Not Detected (NotDetected) U Tricyclic Antidepress Not Detected (NotDetected) Ur Phencyclidine Scrn Not Detected (NotDetected) Ur Amphetamines Screen Not Detected (NotDetected) U Methamphetamines Scrn Not Detected (NotDetected) U Benzodiazepines Scrn Not Detected (NotDetected) Urine Cocaine Screen Not Detected (NotDetected) U Marijuana (THC) Screen Detected H (NotDetected) Disposition Clinical Impression: Schizoaffective disorder, bipolar type, Poor compliance with medication, Involuntary commitment, Psychosis Disposition: TRANSFER TO PSYCH HOSP/UNIT Condition: Fair Is patient prescribed a controlled substance at d/c from ED?: No Referrals: None,Stated [Primary Care Provider] - 1-2 days
[2020-09-14 00:23] LABS: Amphetamine Screen,Urine Not Detected (NotDetected); Barbiturate Screen,Urine Not Detected (NotDetected); Benzodiazepines Screen,Urine Not Detected (NotDetected); Cocaine Screen,Urine Not Detected (NotDetected); Methadone Screen, Urine Not Detected (NotDetected); Opiate Screen,Urine Not Detected (NotDetected); Oxycodone Screen, Urine Not Detected (NotDetected); Phencyclidine Screen,Urine Not Detected (NotDetected); Tricyclic Antidepressant,Urine Not Detected (NotDetected); Urn Cannabinoid Scrn Detected (NotDetected)
[2020-09-14] MEDS ORDERED: diphenhydrAMINE 50 MG/ML 1 ML VIAL IM STA (00:23)
[2020-09-14] MEDS ORDERED: LORazepam 2 MG/ML INJ IM STA (00:23)
[2020-09-14] MEDS ORDERED: MAGNESIUM HYDROXIDE 2,400 MG/10 ML CUP PO PRN (02:59)
[2020-09-14] MEDS ORDERED: MAG HYDROX/AL HYDROX/SIMETH 30 ML CUP PO PRN (02:59)
[2020-09-14] MEDS ORDERED: LORazepam 2 MG/ML INJ IM PRN ×2 (03:02→03:39)
[2020-09-14] MEDS ORDERED: haloperidoL 5 MG TAB PO PRN (03:03)
[2020-09-14] MEDS ORDERED: HALOPERIDOL LACTATE 5 MG/ML 1 ML VIAL IM PRN (03:03)
[2020-09-14] MEDS ORDERED: NICOTINE POLACRILEX 2 MG GUM BUCCAL PRN (03:06)
[2020-09-14] MEDS ORDERED: hydrOXYzine HCL 25 MG TAB PO PRN (03:06)
[2020-09-14] MEDS: PALIPERIDONE 3 MG TAB.ER.24 PO SCH (08:45)
[2020-09-14] MEDS: LITHIUM CARBONATE 300 MG CAP PO SCH ×2 (08:45→21:56)
[2020-09-14] MEDS: NICOTINE 21MG/24HR PATCH TRANSDERM SCH (08:45)
--- NOTE | 2020-09-14 09:19 | P.HP ---
Psychiatric H&P - . H&P Date: 09/14/20 History & Physical: IDENTIFYING DATA: He is a 29-year-old single male admitted to the psychiatric unit involuntarily. A direct care worker from the [facility] completed a Petition that read "destroying/throwing objects around [facility] while making verbal threats towards staff and residents. I felt in fear for residents and staff safety." HISTORY OF PRESENT ILLNESS: I reviewed the medical record and attempted to interview the patient. He is on a continuing treatment order. He was angry, restless and uncooperative. He would not sit down for the interview. He complained about this admission as he pulled paper from a wall file, waded the paper and threw them into the trash. He made a veiled threat stating that it is best for us to discharge him quickly. He would not answer questions complaining that "this is bullshit." His urine drug screen on admission was positive for marijuana, his lithium level was 0.9 and his breath alcohol level was 0. PAST PSYCHIATRIC HISTORY: According to record he is had multiple psychiatric hospitalization and outpatient treatment beginning when he was a child. He is well known to this psychiatric unit from his multiple past admissions. This is at least since 12th hospitalization since 2015. He has a history of aggressive and threatening behavior, multiple episodes of seclusion and restraint and admissions where he required one-to-one with hospital security. He was last discharged on 08/14/2020 with the diagnosis of schizoaffective disorder, cannabis use disorder, nicotine dependence and antisocial personality disorder. His discharge plan including placement at the [facility]. PAST MEDICAL HISTORY: He has no major medical problems. ALLERGIES: According to the EMR he is ALLERGIC to fluphenazine, Haldol and ziprasidone (I suspect that these are not true ALLERGIES but adverse reactions). SUBSTANCE USE HISTORY: He would not provide information about his past history but according to record he has history of a cannabis use disorder. FAMILY PSYCHIATRIC/SUBSTANCE USE HISTORY: According to the record he denied history of psychiatric or substance use problems in his family LEGAL HISTORY: He has no current pending legal charges. He is not probation or parole. His past charges include malicious distribution of property, home invasion, breaking and entering, domestic violence and assaultive and battery. SOCIAL HISTORY: He is unemployed and receives Social Security disability. He has a legal guardian. According to record he completed high school. MENTAL STATUS EXAM: He presented as a tall casually groomed. male who did not make eye contact but appeared to attend to the interview. He was irritable and restless. He is angry facial expression. His speech was spontaneous consistent with his mood. His affect was angry and demanding. He did not express suicidal ideation, wishes or homicidal ideation. He did not express ideas reference, paranoid ideation or delusions. His thinking was concrete but his associations appeared organized and goal directed. He did not appear to be responding to internal stimuli. STRENGTHS: Good physical health, engagement with community mental health, guardianship supervision WEAKNESSES: Chronic mental illness, aggressive antisocial behaviors, poor compliance with treatment, current legal problems IMPRESSION: He is a 29-year-old single male admitted to the [facility] on a continuing order. He was discharged from this [facility] last month and placed in a community custodial where he was discharged after threatening staff and peers. He is had multiple psychiatric hospitalizations and multiple incarcerations. He has a history of threatening and aggressive behavior and past legal charges of domestic violence and assaultive battery. PRINCIPLE DIAGNOSIS: Schizoaffective disorder bipolar type, antisocial personality disorder, cannabis use disorder, tobacco use RECOMMENDATION: Admitted to the psychiatric unit. Safety precautions. Consider one-to-one with security. Limit the length of this hospitalization. Continue lithium 600 mg twice a day, Invega 3 mg by mouth daily and Invega Sustenna 117 mg monthly (clarify the date of his last injection). Haldol and/or Ativan IM/by mouth for agitation, aggression acute psychosis. Coordinate discharge with [facility] mental health. Encourage participation in therapeutic groups and activities. Evaluate clinical status response to treatment daily basis. Allergies Allergy/AdvReac Type Severity Reaction Status Date / Time fluphenazine [From Prolixin] AdvReac Unknown Verified 09/13/20 23:30 haloperidol [From Haldol] AdvReac Extrapyramidal Verified 09/13/20 23:30 Side Effects ziprasidone [From Geodon] AdvReac Suicidal Verified 09/13/20 23:30 Thoughts Vital Signs Temp 97.7 F 09/14/20 05:32 Pulse 88 09/14/20 05:32 Resp 18 09/14/20 05:32 BP 104/78 09/14/20 05:32 Pulse Ox 97 09/14/20 05:32 Intake & Output 09/13/20 09/14/20 09/14/20 18:59 06:59 18:59 Weight 90.718 kg Laboratory Last Values Urine Opiates Screen Not Detected (NotDetected) 09/13/20 23:49 Ur Oxycodone Screen Not Detected (NotDetected) 09/13/20 23:49 Urine Methadone Screen Not Detected (NotDetected) 09/13/20 23:49 Ur Propoxyphene Screen Not Detected (NotDetected) 09/13/20 23:49 Ur Barbiturates Screen Not Detected (NotDetected) 09/13/20 23:49 U Tricyclic Antidepress Not Detected (NotDetected) 09/13/20 23:49 Ur Phencyclidine Scrn Not Detected (NotDetected) 09/13/20 23:49 Ur Amphetamines Screen Not Detected (NotDetected) 09/13/20 23:49 U Methamphetamines Scrn Not Detected (NotDetected) 09/13/20 23:49 U Benzodiazepines Scrn Not Detected (NotDetected) 09/13/20 23:49 Urine Cocaine Screen Not Detected (NotDetected) 09/13/20 23:49 U Marijuana (THC) Screen Detected (NotDetected) H 09/13/20 23:49 Coronavirus (PCR) Not Detected (Not Detectd) 09/14/20 02:29 09/14/20 08:51
[2020-09-14] MEDS: LORazepam 1 MG TAB PO PRN ×2 (14:49→22:54)
[2020-09-14] MEDS: hydrOXYzine pamoate 25 MG CAP PO PRN (22:54)
[2020-09-14] MEDS ORDERED: ZIPRASIDONE 40 MG CAP PO PRN (23:48)
--- NOTE | 2020-09-15 03:58 | P.PN ---
Progress Note - Text Progress Note Date: 09/14/20 patient was not appropriate for evaluation at this time
[2020-09-15] MEDS: LITHIUM CARBONATE 300 MG CAP PO SCH ×2 (09:09→20:11)
[2020-09-15] MEDS: PALIPERIDONE 3 MG TAB.ER.24 PO SCH (09:09)
[2020-09-15] MEDS: NICOTINE 21MG/24HR PATCH TRANSDERM SCH (09:09)
[2020-09-15] MEDS: ACETAMINOPHEN TAB 325 MG TAB PO PRN (09:11)
[2020-09-15] MEDS: LORazepam 1 MG TAB PO PRN (09:49)
[2020-09-15] MEDS: chlorproMAZINE 25 MG/ML 2 ML AMP IM PRN ×2 (10:12→17:26)
[2020-09-15] MEDS ORDERED: OLANZapine 10 MG VIAL IM PRN (11:01)
--- NOTE | 2020-09-15 11:06 | P.PN ---
Progress Note - Text Progress Note Date: 09/15/20 Interval History: Patient was seen wandering the hallways and was directable and agreeable to speak with the ad copy writer but wished to speak in the hallway despite other patients being present. Patient expresses that he should not have been hospitalized. He reports that he did not get along with his peers or staff at [facility] and that he acted out but that her decision to hospitalize him was an overreaction. He expresses that he is upset with this situation. Although he is currently denying any suicidal or homicidal ideation, intention, and/or plan, the patient has been agitated on the unit and has been in arguments and antagonizing peers. He is not reporting any auditory or visual hallucinations. Is denying any paranoia or other delusions. He has been in adherent with his medications but does express that these medications cause him significant side effects. When asked to elaborate, the patient refuses to do so. Due to his agitation with peers and staff, the decision was made to have the patient be on a one-to-one supervision with security. After discussion with the treatment team, the patient has had numerous incidences of violence in the outpatient setting. He has been noted to throw objects at other peers in his housing including electronics and lit cigarettes. Mental Status Exam: General Appearance: Patient appears to be stated age is alert, directable, and intermittently cooperative. Patient has a sifuentes, is tall, and is of normal malhotra ld. Behavior: Patient is calmly seated without any agitated behavior. Psychomotor activity is elevated. Patient is pacing the hallways. Speech: Patient's speech is fluent and nonpressured. Loud in volume and spontaneous. Interruptible. Mood/Affect: Mood is upset. Affect is irritable and expansive. Suicidality/Homicidality: Patient denies having any suicidal or homicidal ideation intent or plan. Perceptions: Patient denies any visual hallucinations and denies any auditory hallucinations Though content/process: There is no evidence of any delusional thought content and thought process is linear and goal-directed. Memory and concentration: AOX3, grossly intact for the purposes of this session Judgment and insight: Very poor Assessment Schizoaffective disorder, bipolar type Cannabis use disorder Nicotine dependence Antisocial personality disorder Plan: -Patient continues to meet criteria for inpatient psychiatric admission for symptom stabilization and safety. The patient is currently under court order for psychotropic medications and psychiatric treatment. -Medications: [place] 600 mg by mouth twice a day for mood stabilization Increase invega to 6 mg by mouth daily. Plan to titrate this medication in response to patient behaviors and actions. Patient is on court order, if he refuses his oral Invega we'll administer zyprexa 10 mg IM. Invega Sustenna 117 mg IM monthly with his next dose due on 09/19/20. We will likely numbness or 156 mg IM due to lack of control of his target symptoms. -When necessary Ativan and Thorazine for agitation/aggression. -Continue Security 1:1. -NRT - nicotine patch -SW on board for discharge planning. Encouraged the patient to participate in milieu.
--- NOTE | 2020-09-15 17:59 | P.MHFACE ---
Face to Face Restrain/Seclus - Evaluation Patient's Immediate Situation: Endangers others' safety, Violent behavior Patient's Immediate Situation - Comment: Patient agitated and following people and opening doors. Stating that he wants to fight security. He was offered thorazine and decline and continued to be aggressive towards staff. He complains of upper back pain, no pin point tenderness. Moving all 4 extremities. Await and alert. Patient's Reaction to the Intervention: Appropriate, Calm, Relaxed Patient's Medical & Behavioral Condition: Awake, Alert, Follows directions Need to Continue or Terminate Restraint or Seclusion: Continue
--- NOTE | 2020-09-16 00:42 | P.MHFACE ---
Face to Face Restrain/Seclus - Evaluation Patient's Immediate Situation: Endangers others' safety, Endangers staff safety, Violent behavior Patient's Reaction to the Intervention: Uncooperative, Angry, Hostile, Aggressive, Combative, Resistive to care Patient's Medical & Behavioral Condition: Sleeping Need to Continue or Terminate Restraint or Seclusion: Continue
[2020-09-16] MEDS ORDERED: ZIPRASIDONE 20 MG VIAL IM STA ×2 (00:47→00:49)
--- NOTE | 2020-09-16 03:58 | P.MHFACE ---
Face to Face Restrain/Seclus - Evaluation Patient's Immediate Situation: Endangers others' safety, Endangers staff safety, Violent behavior Patient's Reaction to the Intervention: Angry, Hostile, Anxious, Suspicious, Combative, Resistive to care Patient's Medical & Behavioral Condition: Sleeping Need to Continue or Terminate Restraint or Seclusion: Continue Need to Continue or Terminate Restraint/Seclusion - Comment: patient wakes up every 10-15 min and starts screeming , yelling, using foul language
[2020-09-16] MEDS: LITHIUM CARBONATE 300 MG CAP PO SCH ×2 (09:07→20:05)
[2020-09-16] MEDS: NICOTINE 21MG/24HR PATCH TRANSDERM SCH ×2 (09:08→21:04)
[2020-09-16] MEDS: PALIPERIDONE 3 MG TAB.ER.24 PO SCH (09:08)
[2020-09-16] MEDS ORDERED: chlorproMAZINE 25 MG/ML 2 ML AMP IM PRN ×2 (10:07→10:58)
[2020-09-16] MEDS ORDERED: chlorproMAZINE 25 MG TAB PO PRN (10:08)
--- NOTE | 2020-09-16 10:14 | P.PN ---
Progress Note - Text Progress Note Date: 09/16/20 Interval History: Patient was seen wandering the hallways and was directable and agreeable to speak with the science writer in the office. Patient is minimally responsive to questioning today. He refuses to answer questions clearly and coherently despite him speaking with peers on the unit with no difficulty. The patient did require 3 episodes of restraints last night. He continues to be demanding stating that he wants everything written out and given to him, and particularly the plan to give him Invega Sustenna on 09/19/2020. The patient was informed that he needs displayed good behavior in." The medications prior to discharge. The patient does not acknowledge this and continues to state that he does not require any medications. He states that lithium is "trash." He denies any suicidal or homicidal ideation, intention, and/or plan. He denies any auditory or visual hallucinations. He reports no paranoia or other delusions. He has not been adherent with his medications. Mental Status Exam: General Appearance: Patient appears to be stated age is alert, directable, and intermittently cooperative. Patient has a sifuentes, is tall, and is of normal build. Behavior: Patient is acting obstinate. He is acting as if he is oversedated despite him refusing any medications and not receiving any IM medications this morning. Speech: Patient's speech is slurred intentionally. Spontaneous. Normal speech noted in the hallway when interacting with peers. Mood/Affect: Mood is described as upset. Affect is irritable Suicidality/Homicidality: Patient denies having any suicidal or homicidal ideation intent or plan. Perceptions: Patient denies any visual hallucinations and denies any auditory hallucinations Though content/process: There is no evidence of any delusional thought content and thought process is linear and goal-directed. Memory and concentration: AOX3, grossly intact for the purposes of this session Judgment and insight: Very poor Assessment Schizoaffective disorder, bipolar type Cannabis use disorder Nicotine dependence Antisocial personality disorder Plan: -Patient continues to meet criteria for inpatient psychiatric admission for symptom stabilization and safety. The patient is currently under court order for psychotropic medications and psychiatric treatment. -Medications: [place] 600 mg by mouth twice a day for mood stabilization - Patient is non adherent. Continue invega 6 mg by mouth daily. Plan to titrate this medication in response to patient behaviors and actions. Patient is on court order, if he refuses his oral Invega we'll administer Thorazine 50 mg IM. Invega Sustenna 117 mg IM monthly with his next dose due on 09/19/20. We will likely numbness or 156 mg IM due to lack of control of his target symptoms. -When necessary Ativan and Thorazine for agitation/aggression. Ativan PRN increased to 2 mg. The patient's Haldol PRN medications switched to thorazine. -Continue Security 1:1. -NRT - nicotine patch -SW on board for discharge planning. Encouraged the patient to participate in milieu.
[2020-09-16] MEDS: chlorproMAZINE 25 MG/ML 2 ML AMP IM PRN (10:30)
[2020-09-16] MEDS: LORazepam 2 MG/ML INJ IM PRN (10:30)
--- NOTE | 2020-09-16 10:57 | P.MHFACE ---
Face to Face Restrain/Seclus - Evaluation Patient's Immediate Situation: Endangers others' safety, Endangers staff safety, Violent behavior Patient's Reaction to the Intervention: Uncooperative, Angry, Hostile, Belligerent, Aggressive, Combative, Resistive to care Patient's Medical & Behavioral Condition: Drowsy, Agitated, Other (see comment) Need to Continue or Terminate Restraint or Seclusion: Continue (Patient attempted to enter med room and was aggressive and violent. IM medications and restraints started. Patient was combative until IM medications administered and patient became more sedated.)
[2020-09-16] MEDS ORDERED: BENZTROPINE MESYLATE 1 MG TAB PO PRN (11:56)
[2020-09-16] MEDS: LORazepam 1 MG TAB PO PRN (23:17)
[2020-09-17] MEDS: PALIPERIDONE 3 MG TAB.ER.24 PO SCH (07:42)
[2020-09-17] MEDS: NICOTINE 21MG/24HR PATCH TRANSDERM SCH (07:42)
[2020-09-17] MEDS: LITHIUM CARBONATE 300 MG CAP PO SCH ×2 (07:42→20:13)
[2020-09-17] MEDS: LORazepam 1 MG TAB PO PRN ×2 (08:48→18:48)
--- NOTE | 2020-09-17 09:37 | P.PN ---
Progress Note - Text Progress Note Date: 09/17/20 Interval History: Patient was seen wandering the hallways and was spoken to in the hallway accompanied by a 1:1 mobile security specialist. The patient is agitated at this time. He is expressing anger that he is restricted to one hallway and cannot interact with a particular peer. He expresses anger that "None of you know what you are doing! This is all bullsh*t!" He expresses that he knows more than all the staff and peers combined. He refuses to acknowledge there is any behavioral problems that he is exhibiting despite being told numerous times and being in restraints 4 times this admission. He was adherent with his medication this morning but continues to report he does not require treatment. He is demanding to be discharged. Mental Status Exam: General Appearance: Patient appears to be stated age is alert, directable, and intermittently cooperative. Patient has a sifuentes, is tall, and is of normal build. Behavior: Patient is agitated, obstinate, difficult to direct Speech: Spontaneous, hyperverbal, loud, and will attempt to speak over whoever is speaking to him. Many expletives. Mood/Affect: Mood is "p*ssed off." Affect is agitated. Suicidality/Homicidality: Patient refuses to answer Perceptions: Patient refuses to answer Though content/process: Thought content with grandiose thoughts, narcissism. Thought process is illogical. Memory and concentration: AOX3, grossly intact for the purposes of this session Judgment and insight: Very poor Assessment Schizoaffective disorder, bipolar type Cannabis use disorder Nicotine dependence Antisocial personality disorder Narcissistic personality disorder Plan: -Patient continues to meet criteria for inpatient psychiatric admission for symptom stabilization and safety. The patient is currently under court order for psychotropic medications and psychiatric treatment. -Medications: [place] 600 mg by mouth twice a day for mood stabilization - Patient took the medication this am. Continue invega 6 mg by mouth daily. Plan to titrate this medication in response to patient behaviors and actions. Patient is on court order, if he refuses his oral Invega we'll administer Thorazine 50 mg IM. Invega Sustenna 117 mg IM monthly with his next dose due on 09/19/20. We will likely increase to 156 mg IM due to lack of control of his target symptoms. Likely administer tomorrow. -When necessary Ativan and Thorazine for agitation/aggression. -Continue Security 1:1. -NRT - nicotine patch -SW on board for discharge planning. Encouraged the patient to participate in milieu.
[2020-09-17] MEDS: chlorproMAZINE 25 MG/ML 2 ML AMP IM PRN (14:15)
[2020-09-17] MEDS: LORazepam 2 MG/ML INJ IM PRN (14:15)
--- NOTE | 2020-09-17 15:27 | P.EN ---
Called to bedside to evaluate need for 4 point restraints. Patient was placed in restraints due to threats to staff and security. Patient has a history of violent tendencies and anti-social personality disorder. Patient has also attempted to instigate fights with other patients on the unit and has been barred from entering particular areas of the MHU, but fails to comply with rest rictions. Security has been placed as 1:1 for these behavioral issues. Psychiatry will be contacted regarding increasing sedatives/anti-psychotics to remove 4pt restraints as soon as possible. Patient is alert and oriented, has limited insight into why he is being restrained; explains to me that he only threatened to "beat the shit out of" the director information security because the officer kept looking at him and "staring him down." Otherwise, tells me that he always helps other patients, but is frustrated with his restrictions and categorizes them as "unfair." I am approving 4pt restraint for the safety of the staff, security, and other patient's at this time. My approval will last for next 4 hours, until medications can be adjusted to improve patient's behavioral issues. If 4pt restraints are required beyond 4 hours from 15:30, then patient should be reassessed by a physician.
[2020-09-17] MEDS: MELATONIN 5 MG TABLET PO PRN (20:57)
[2020-09-18] MEDS: NICOTINE 21MG/24HR PATCH TRANSDERM SCH (07:35)
[2020-09-18] MEDS: PALIPERIDONE 3 MG TAB.ER.24 PO SCH (07:36)
[2020-09-18] MEDS: LITHIUM CARBONATE 300 MG CAP PO SCH ×2 (07:36→21:30)
[2020-09-18] MEDS: LORazepam 1 MG TAB PO PRN ×3 (09:23→22:17)
[2020-09-18] MEDS ORDERED: LORazepam 2 MG/ML INJ IM STA (09:37)
[2020-09-18] MEDS: chlorproMAZINE 25 MG/ML 2 ML AMP IM PRN (09:46)
--- NOTE | 2020-09-18 09:54 | P.MHFACE ---
Face to Face Restrain/Seclus - Evaluation Patient's Immediate Situation: Endangers others' safety, Endangers staff safety, Violent behavior Patient's Reaction to the Intervention: Uncooperative, Angry, Hostile, Belligerent, Aggressive, Resistive to care Patient's Medical & Behavioral Condition: Drowsy, Agitated Need to Continue or Terminate Restraint or Seclusion: Continue (Pt continues to be beligerent and unable to cooperate. Refuses let the provider or staff speak when providing direction and is undirectable. Threatening.)
[2020-09-18] MEDS ORDERED: chlorproMAZINE 25 MG TAB PO PRN ×2 (10:14→14:16)
--- NOTE | 2020-09-18 10:21 | P.PN ---
Progress Note - Text Progress Note Date: 09/18/20 Interval History: Patient was seen wandering the hallways and was spoken to in the hallway accompanied by a 1:1 security systems engineer. Patient continues to be very upset and agitated that he is unable to enter a particular part of the psychiatric unit. He was again informed that due to his behaviors and disruption to the milieu including interfering with staff addressing another agitated peer, he is on these restrictions. He was informed that in order to be off these restrictions he needs to display an ability to control his anger, comply with staff, and decrease his agitation. He continues to state that the reason he is agitated is because of the restrictions. He yells expletives to staff on this unit. He has been placed in restraints this morning due to agitation where he presented as a danger to staff and others. He continues to deny that he is threatening at all despite the need for physical intervention and his posturing. He has been adherent with his medications. He expresses that the medications "cause me to feel terrible and you are all terrible people for making me take them." He was reminded he is under court order for mental health treatment. Mental Status Exam: General Appearance: Patient appears to be stated age, is undirectable and uncooperative. Patient has a sifuentes, is tall, and is of normal build. Behavior: Patient is agitated, obstinate, difficult to direct Speech: Spontaneous, hyperverbal, loud, and will attempt to speak over whoever is speaking to him. Many expletives. Mood/Affect: Mood is "fabel p*ssed." Affect is agitated. Suicidality/Homicidality: Patient refuses to answer Perceptions: Patient refuses to answer Though content/process: Thought content with grandiose thoughts, narcissism. Thought process is illogical. Memory and concentration: AOX3, grossly intact for the purposes of this session Judgment and insight: Very poor Assessment Schizoaffective disorder, bipolar type Cannabis use disorder Nicotine dependence Antisocial personality disorder Narcissistic personality disorder Plan: -Patient continues to meet criteria for inpatient psychiatric admission for symptom stabilization and safety. The patient is currently under court order for psychotropic medications and psychiatric treatment. -Medications: [place] 600 mg by mouth twice a day for mood stabilization Increase invega to 9 mg by mouth daily. Plan to titrate this medication in response to patient behaviors and actions. Due to the amount of IM medications he has received. We will administer Invega Sustenna 156 mg IM tomorrow morning. -When necessary Ativan and Thorazine for agitation/aggression. -Continue Security 1:1. -NRT - nicotine patch -SW on board for discharge planning. Encouraged the patient to participate in milieu.
[2020-09-18] MEDS ORDERED: chlorproMAZINE 25 MG/ML 2 ML AMP IM PRN ×2 (14:05→14:17)
[2020-09-18] MEDS: hydrOXYzine pamoate 25 MG CAP PO PRN (21:30)
[2020-09-18] MEDS: MELATONIN 5 MG TABLET PO PRN (21:31)
[2020-09-19] MEDS ORDERED: PALIPERIDONE IM 156 MG/ML SYG IM ONE (08:00)
[2020-09-19] MEDS: NICOTINE 21MG/24HR PATCH TRANSDERM SCH (08:54)
[2020-09-19] MEDS: LORazepam 1 MG TAB PO PRN ×2 (08:57→17:48)
[2020-09-19] MEDS ORDERED: PALIPERIDONE 3 MG TAB.ER.24 PO SCH (09:00)
[2020-09-19] MEDS: LITHIUM CARBONATE 300 MG CAP PO SCH ×2 (09:50→21:49)
--- NOTE | 2020-09-19 10:10 | P.PN ---
Progress Note - Text Progress Note Date: 09/19/20 Interval History: Patient was seen wandering the hallways and was spoken to in the hallway accompanied by a 1:1 senior security architect. Patient is less agitated this morning. He was noted by staff to be elevated and agitated around bedtime but was able to sleep with the aid of vistaril and melatonin. He received his dose of invega sustenna 156 mg IM this morning. The patient continues to be oppositional to authority figures and staff. He is requesting to be allowed to participate in milieu and group activities. He was granted permission to attend this morning's group. He is not currently endorsing any suicidal or homicidal ideation, intention, and/or plan. He reports no auditory or visual hallucinations. He denies any paranoia or delusions. He continues to reports issues with any antipsychotic medication. He states he feels like the current medications are interfering with his cognitive process, making him feel tired, and "terrible in the morning." He otherwise does not report any chest pain, muscle tightness, tremors or akasthisia. He was reminded that he would not have to receive so many IM medications if he was to display appropriate behavior in the milieu and not threatening staff and peers. He is currently inquiring about his plans for discharge. Mental Status Exam: General Appearance: Patient appears to be stated age, is directable and cooperative today. Patient has a sifuentes, is tall, and is of normal build. Behavior: Patient is less agitated and is cooperative and polite on approach this morning. Psychomotor activity continues to be elevated. Speech: Spontaneous, but with normal volume, tone, and fluency today. Mood/Affect: Mood is "annoyed" Affect is irritable and expansive but overall less agitated than yesterday. Suicidality/Homicidality: Patient denies suicidal/homicidal ideation, intention, and/or plan. Perceptions: Patient denies any auditory or visual hallucinations. Though content/process: Oppositional but otherwise linear and goal-directed. Future oriented. Memory and concentration: AOX3, grossly intact for the purposes of this session Judgment and insight: Mildly improving today but overall poor. Assessment Schizoaffective disorder, bipolar type Cannabis use disorder Nicotine dependence Antisocial personality disorder Narcissistic personality disorder Plan: -Patient continues to meet criteria for inpatient psychiatric admission for symptom stabilization and safety. The patient is currently under court order for psychotropic medications and psychiatric treatment. -Medications: [place] 600 mg by mouth twice a day for mood stabilization. [place] level ordered for tuesday. Continue invega 9 mg by mouth daily. Will gradually decrease the medication over the weekend. Continue congentin 1 mg twice a day for EPS symptoms. Invega sustenna 156 mg IM administered this morning. Next dose due on 10/17/2020. -When necessary Ativan and Thorazine for agitation/aggression. -Continue Security 1:1. -NRT - nicotine patch -SW on board for discharge planning. Encouraged the patient to participate in milieu.
[2020-09-19] MEDS: hydrOXYzine pamoate 25 MG CAP PO PRN (21:51)
[2020-09-20] MEDS: LORazepam 1 MG TAB PO PRN ×3 (05:15→19:51)
[2020-09-20] MEDS ORDERED: PALIPERIDONE 3 MG TAB.ER.24 PO SCH (09:00)
[2020-09-20] MEDS: NICOTINE 21MG/24HR PATCH TRANSDERM SCH (09:28)
[2020-09-20 09:34] VITALS: RESP 20
[2020-09-20] MEDS: LITHIUM CARBONATE 300 MG CAP PO SCH ×2 (10:56→22:03)
--- NOTE | 2020-09-20 12:52 | P.PN ---
Progress Note - Text Progress Note Date: 09/20/20 According to record he is had multiple psychiatric hospitalization and outpatient treatment beginning when he was a child. He is well known to this psychiatric unit from his multiple past admissions. This is at least since 12th hospitalization since 2015. He has a history of aggressive and threatening behavior, multiple episodes of seclusion and restraint and admissions where he required one-to-one with hospital security. He was seen in his room and he was on 1 on 1 supervision and the security control room officer. I spoke with the patient and also spoke with the security control room officer and patient showed me that he will not be violent if taken off one-on-one supervision. armed guard had agreed with the patient's a statement as well. He stated that the police brought him here from [facility]. He was placed in a transitional home setting approximately 6 days ago. I talked to his staff nurse caring for him as well and she agreed for him to be taken off of one-on-one supervision. This patient still has no insight and does not believe he has any kind of mental illness.
[2020-09-20] MEDS: ACETAMINOPHEN TAB 325 MG TAB PO PRN (19:50)
[2020-09-20] MEDS: hydrOXYzine pamoate 25 MG CAP PO PRN (22:03)
[2020-09-21] MEDS: MELATONIN 5 MG TABLET PO PRN ×2 (01:37→20:41)
[2020-09-21] MEDS: NICOTINE 21MG/24HR PATCH TRANSDERM SCH (08:15)
[2020-09-21] MEDS: PALIPERIDONE 3 MG TAB.ER.24 PO SCH (08:16)
[2020-09-21] MEDS: LITHIUM CARBONATE 300 MG CAP PO SCH ×2 (08:16→20:41)
--- NOTE | 2020-09-21 11:50 | P.PN ---
Progress Note - Text Progress Note Date: 09/21/20 This 29-year-old single male admitted to the psychiatric unit involuntarily. A direct care worker from the [facility] completed a Petition that read "destroying/throwing objects around [facility] while making verbal threats towards staff and residents. I felt in fear for residents and staff safety." Patient was on 1 on 1 supervision up until yesterday when it was discontinued. This patient slept all night. He is less agitated. He continues to take his medication but needs a lot of encouragement to participate in milieu activities.
[2020-09-21] MEDS: LORazepam 1 MG TAB PO PRN (15:55)
[2020-09-21] MEDS: hydrOXYzine pamoate 25 MG CAP PO PRN (20:42)
[2020-09-22] MEDS: LITHIUM CARBONATE 300 MG CAP PO SCH ×2 (08:28→20:50)
[2020-09-22] MEDS: PALIPERIDONE 3 MG TAB.ER.24 PO SCH (08:28)
[2020-09-22] MEDS: NICOTINE 21MG/24HR PATCH TRANSDERM SCH (08:28)
[2020-09-22] MEDS: LORazepam 1 MG TAB PO PRN ×2 (08:29→15:57)
[2020-09-22 08:32] VITALS: PULSE 99
--- NOTE | 2020-09-22 11:16 | P.PN ---
Progress Note - Text Progress Note Date: 09/22/20 Interval History: Patient was seen in his room and was agreeable to speak with the marketing writer. The patient reportedly had a good weekend with no significant episodes of agitation and has been participating in the milieu activities in an appropriate fashion. He has been adherent with his medications and is not reporting any significant side effects at this time. He is not reporting any suicidal or homicidal ideation, intention, and/or plan. He is not reporting any auditory or visual hallucinations. He is denying any paranoia or other delusions. The patient states that he is eager for discharge. He is not reporting any chest pain, palpitations, constipation, or diarrhea. As per [facility], the patient has placement at [facility] tomorrow and will be discharged then. Mental Status Exam: General Appearance: Patient appears to be stated age, is directable and brandon ative today. Patient has a sifuentes, is tall, and is of normal build. Behavior: Patient is cooperative and polite on approach this morning. Psychomotor activity appears normal. Speech: Spontaneous, with normal volume, tone, and fluency today. Mood/Affect: Mood is "ready to go." Affect is euthymic with appropriate range. Suicidality/Homicidality: Patient denies suicidal/homicidal ideation, intention, and/or plan. Perceptions: Patient denies any auditory or visual hallucinations. Though content/process: Linear and logical and short conversation. Devoid of any delusional thought content. Future oriented. Memory and concentration: AOX3, grossly intact for the purposes of this session Judgment and insight: Mildly improving Assessment Schizoaffective disorder, bipolar type Cannabis use disorder Nicotine dependence Antisocial personality disorder Narcissistic personality disorder Plan: -Patient continues to meet criteria for inpatient psychiatric admission for symptom stabilization and safety. The patient is currently under court order for psychotropic medications and psychiatric treatment. -Medications: [place] 600 mg by mouth twice a day for mood stabilization. [place] level 0.6 on 09/20/2020. Continue invega 3 mg by mouth daily. Will gradually decrease the medication over the weekend. Continue congentin 1 mg twice a day for EPS symptoms. Invega sustenna 156 mg IM administered on 09/19/2020. Next dose due on 10/17/2020. -When necessary Ativan and Thorazine for agitation/aggression. -NRT - nicotine patch -SW on board for discharge planning. Encouraged the patient to participate in milieu.
[2020-09-22 15:59] VITALS: BP 113/67
[2020-09-22 16:10] VITALS: TEMP 97.4
[2020-09-22] MEDS: hydrOXYzine pamoate 25 MG CAP PO PRN (20:50)
[2020-09-22] MEDS: MELATONIN 5 MG TABLET PO PRN (20:51)
[2020-09-23] MEDS: PALIPERIDONE 3 MG TAB.ER.24 PO SCH (08:25)
[2020-09-23] MEDS: NICOTINE 21MG/24HR PATCH TRANSDERM SCH (08:25)
[2020-09-23] MEDS: LITHIUM CARBONATE 300 MG CAP PO SCH (08:25)
--- NOTE | 2020-09-23 12:53 | P.DS ---
Providers Date of admission: 09/14/20 02:50 Expected date of discharge: 09/23/20 Attending physician: Lukas Gannon MD Consults: 09/14/20 02:59 Consult Physician Routine Consulting Provider: Belen Fong Consult Reason/Comments: h and p Do you want consulting provider notified?: Yes Primary care physician: Stated None - Discharge Diagnosis(es) (1) Schizoaffective disorder Status: Acute Priority: High (2) Antisocial personality disorder Status: Chronic Priority: Medium (3) Cannabis use disorder, mild, abuse Status: Chronic Priority: Medium (4) Nicotine dependence Status: Chronic Priority: Medium Hospital Course: Admission HPI: Initial psychiatric evaluation was completed by Dr. Alcocer on 09/14/2020 who wrote: "He is a 29-year-old single male admitted to the psychiatric unit involuntarily. A direct care worker from the [facility] completed a Petition that read "destroying/throwing objects around [facility] while making verbal threats towards staff and residents. I felt in fear for residents and staff safety." I reviewed the medical record and attempted to interview the patient. He is on a continuing treatment order. He was angry, restless and uncooperative. He would not sit down for the interview. He complained about this admission as he pulled paper from a wall file, waded the paper and threw them into the trash. He made a veiled threat stating that it is best for us to discharge him quickly. He would not answer questions complaining that "this is bullshit." His urine drug screen on admission was positive for marijuana, his lithium level was 0.9 and his breath alcohol level was 0. According to record he is had multiple psychiatric hospitalization and outpatient treatment beginning when he was a child. He is well known to this psychiatric unit from his multiple past admissions. This is at least since 12th hospitalization since 2015. He has a history of aggressive and threatening behavior, multiple episodes of seclusion and restraint and admissions where he required one-to-one with hospital security. He was last discharged on 08/14/2020 with the diagnosis of schizoaffective disorder, cannabis use disorder, nicotine dependence and antisocial personality disorder. His dischar ge plan including placement at the [facility]." Hospital course: Upon admission to the unit patient was initially presenting as agitated and irritable. Patient was under court order. He was difficult to direct and uncooperative initially. The patient ended up requiring multiple restraints during this hospitalization. He had a total of 5 episodes of restraints needed due to his agitation and violent and aggressive behavior. The patient was also placed on restrictions regarding his movement on the unit due to him and appear riling each other up and interfering with treatment. He was also barred from attending groups due to inappropriate behaviors in the milieu. The patient received multiple IM medications to sedate him including Thorazine and Ativan. The patient ended up receiving his second dose of Invega Sustenna on 09/19/2020. This dose was increased to 156 mg IM as it was felt that 117 mg was not an adequate dose to control the patient's mood lability and agitation. Shortly after receiving the medication, there was a significant improvement in mood and cooperation. The patient began interacting with staff and peers appropriately. He no longer required any restraints and was removed off his security 1:1. He was also adherent with his medications. Coordination of care took place with [facility] the patient being discharged back to [facility] with follow up with [facility]. The day of discharge, the patient is not reporting any suicidal or homicidal ideation, intention, and/or plan. He is not reporting any auditory or visual hallucinations. He is denying any paranoia or other delusions. Patient was counseled on abstaining from all substances including marijuana, alcohol, and methamphetamines. The patient was counseled on the medications and need for good compliance and was encouraged to follow-up with his outpatient appointments for mental health and for primary care. We discussed at length that if he is able to control his emotions and his anger, and display good behavior, he may no longer require a court order in the future. Mental status exam: General Appearance: Patient appears to be stated age is alert, pleasant, and cooperative. Patient is in no acute distress and has fair hygiene and grooming . Patient is tall with a normal build. Behavior: Patient is calmly seated without any agitated behavior. Psychomotor activity is normal. Speech: Patient's speech is fluent and nonpressured. Spontaneous with normal rate and volume. Mood/Affect: Patient reports their mood is "much better", affect is congruent and euthymic to bright. Suicidality/Homicidality: Patient denies having any suicidal or homicidal ideation intent or plan. Perceptions: Patient denies any auditory or visual hallucinations. Though content/process: There is no evidence of any delusional thought content and thought process is linear and goal-directed. Memory and concentration: AOX3, grossly intact for the purposes of this session. Can spell "WORLD" backwards correctly. Judgment and insight: Improved with guarded prognosis Impression: Schizoaffective disorder, bipolar type Cannabis use disorder Nicotine dependence Antisocial personality disorder Narcissistic personality disorder Plan: -Continue with discharge today as patient has improved and stabilized psychiatrically and is not currently an imminent threat to himself and/or othe rs. Patient will remain at chronically elevated risk for harm to self and/or others due to his impulsivity and polysubstance abuse. -Continue medications: [place] 600 mg by mouth twice a day for mood stabilization. [place] level of 0.6 on 09/20/20. Invega Sustenna 156 Lisa grams IM wasn't Mr. 903. Next dose is due on 10/17/20. Nicotine replacement gum -Patient was counseled on the need for medication compliance and appropriate follow-up at mental health and also primary care for medical issues. Patient verbalized understanding and agreed. -Social work to arrange for meeting with [facility] to ensure safety upon discharge and answer any questions/concerns. Social work also to arrange for patients follow up appointments with [facility] for psychiatric care along with follow up with primary care provider. -Patient counseled on abstaining from recreational drugs and marijuana and alcohol. Was informed/educated on the adverse effects on their physical and mental health. Patient verbally agreed and understood. -Patient was instructed to return to the hospital or seek immediate medical care if their psychiatric or medical symptoms do worsen or reoccur. -Psychoeducation and supportive therapy provided to patient. Risks and benefits of pharmacological treatment versus the risks and benefits of nontreatment weight and discussed. Informed consent discussion held. Common side effects of psychotropics discussed such as, but not limited to headache, GI disturbance, sexual dysfunction, movement disorders, sedation, and orthostatic hypotension. Life threatening and blackbox warnings of prescribed medications also discussed. Potential risks of operating a vehicle or heavy machinery discussed with patient at length. Advised on importance of compliance and a reliable and responsible manner. Patient advised to review FDA consumer labeling of all medications prior to taking. Patient verbalized understanding of potential risks, and agrees with current treatment plan. Patient advised to medically contact physician/emergency personnel if any acute changes in condition occur. -The patient is not likely ALLERGIC to any Haldol, Geodon, or Prolixin. These are likely to cause him adverse reactions from the medications but not necessarily a true allergy. Allergies Allergy/AdvReac Type Severity Reaction Status Date / Time fluphenazine [From Prolixin] AdvReac Unknown Verified 09/13/20 23:30 haloperidol [From Haldol] AdvReac Extrapyramidal Verified 09/13/20 23:30 Side Effects ziprasidone [From Geodon] AdvReac Suicidal Verified 09/13/20 23:30 Thoughts Laboratory Results Urine Opiates Screen Not Detected (NotDetected) 09/13/20 23:49 Ur Oxycodone Screen Not Detected (NotDetected) 09/13/20 23:49 Urine Methadone Screen Not Detected (NotDetected) 09/13/20 23:49 Ur Propoxyphene Screen Not Detected (NotDetected) 09/13/20 23:49 Ur Barbiturates Screen Not Detected (NotDetected) 09/13/20 23:49 U Tricyclic Antidepress Not Detected (NotDetected) 09/13/20 23:49 Ur Phencyclidine Scrn Not Detected (NotDetected) 09/13/20 23:49 Ur Amphetamines Screen Not Detected (NotDetected) 09/13/20 23:49 U Methamphetamines Scrn Not Detected (NotDetected) 09/13/20 23:49 U Benzodiazepines Scrn Not Detected (NotDetected) 09/13/20 23:49 [place] 0.6 mmol/L 09/20/20 10:22 Urine Cocaine Screen Not Detected (NotDetected) 09/13/20 23:49 U Marijuana (THC) Screen Detected (NotDetected) H 09/13/20 23:49 Coronavirus (PCR) Not Detected (Not Detectd) 09/14/20 02:29 Vital Signs Temp 97.4 F L 09/22/20 16:08 Pulse 99 09/22/20 15:58 Resp 20 09/21/20 08:25 BP 113/67 09/22/20 15:58 Pulse Ox 96 09/21/20 08:25 Patient Condition at Discharge: Stable Plan - Discharge Summary Discharge Rx Participant: No New Discharge Prescriptions: New [place] Carbonate 600 mg PO BID 30 Days cap Nicotine Polacrilex [Nicorette] 2 mg BUCCAL Q2HR PRN 30 Days gum PRN Reason: Nicotine Cravings Continue hydrOXYzine pamoate [Vistaril] 100 mg PO HS PRN 30 Days cap PRN Reason: Insomnia Paliperidone IM [Invega Sustenna] 156 mg IM ONCE #1 syr Discontinued hydrOXYzine HCL [Atarax] 50 mg PO DAILY PRN 30 Days tab PRN Reason: Anxiety Nicotine 21Mg/24Hr Patch [Habitrol] 1 patch TRANSDERM DAILY 14 Days patch Paliperidone [Invega] 3 mg PO DAILY 5 Days tab.er.24 Paliperidone Palmitate [Invega Sustenna] 117 mg IM QMONTHLY #1 syr False [place] Carbonate 600 mg PO BID 30 Days cap Nicotine Polacrilex [Nicorette] 2 mg BUCCAL Q2HR PRN 14 Days gum PRN Reason: Nicotine Cravings Discharge Medication List False [place] Carbonate 600 mg PO BID 30 Days cap 09/23/20 [Rx] Nicotine Polacrilex [Nicorette] 2 mg BUCCAL Q2HR PRN 30 Days gum 09/23/20 [Rx] Paliperidone IM [Invega Sustenna] 156 mg IM ONCE #1 syr 09/23/20 [Rx] hydrOXYzine pamoate [Vistaril] 100 mg PO HS PRN 30 Days cap 09/23/20 [Rx] Follow up Appointment(s)/Referral(s): [facility] [Outside] - 09/29/20 2:30 pm (Dr. Escoto 09/29 @ 2:30 at [facility] via [employer] Linda Schuler 12pm at [facility] for placement meeting.) [facility] [NON-STAFF] - 1 Week Patient Instructions/Handouts: How to Stop Smoking (DC), Schizoaffective Disorder (DC) Activity/Diet/Wound Care/Special Instructions: Activity and diet as tolerated. Avoid the use of street drugs and alcohol. Take all medications as prescribed. When you are in need of refills on your medications please contact your medical provider and/or outpatient psychiatrist to have this done. Please go to scheduled outpatient appointment for aftercare treatment. If symptoms return or become worse, call the crisis line at and/or go to the nearest emergency room for evaluation. Discharge Disposition: HOME SELF-CARE
== END 2020-09-23 11:09 | disposition home or self-care (01) | DRG 885 ==
LOC: EC 23:24 → 3MHU 09-14 02:50
PROVIDERS: ADMIT Psychiatry & Neurology Psychiatry; ATTEND Psychiatry & Neurology Psychiatry
DX: F25.0 Schizoaffective disorder, bipolar type (principal); F60.2 Antisocial personality disorder; F12.10 Cannabis abuse, uncomplicated; F60.81 Narcissistic personality disorder; Z20.822 Contact with and (suspected) exposure to COVID-19; F41.9 Anxiety disorder, unspecified; R45.87 Impulsiveness; Z78.1 Physical restraint status; F90.9 Attention-deficit hyperactivity disorder, unspecified type; T50.906A Underdosing of unspecified drugs, medicaments and biological substances, initial encounter; Z91.128 Patient's intentional underdosing of medication regimen for other reason; F17.210 Nicotine dependence, cigarettes, uncomplicated; Z71.6 Tobacco abuse counseling; Z79.899 Other long term (current) drug therapy; Z90.89 Acquired absence of other organs; Z56.0 Unemployment, unspecified; Z98.890 Other specified postprocedural states; Z88.8 Allergy status to other drugs, medicaments and biological substances; Z81.8 Family history of other mental and behavioral disorders; Z82.69 Family history of other diseases of the musculoskeletal system and connective tissue
CPT/HCPCS: 80178; 80306; 82075; 87635; 96372; 99285

== ENCOUNTER 2020-10-01 15:41 | Inpatient (IN) | payer MEDICAID, OTHER ==
--- NOTE | 2020-10-01 18:39 | ED ---
Medical Clearance HPI - General Chief complaint: Medical Clearance Stated complaint: medication evaluation Time Seen by Provider: 10/01/20 18:18 Source: patient, RN notes reviewed Mode of arrival: ambulatory - History of Present Illness Initial comments: Patient is a 29-year-old male that presents to emergency department complaining of suicidal thoughts and feeling like crap for the past 6 days. He noted that he was recently taken off his lithium and put on trazodone at night. He notes that since being off of lithium he's been feeling really crampy having suicidal thoughts every day but has no plan. She denied any pain or discomfort while sitting on the bed during the exam interview. He denied any chest pain shortness of breath headache nausea vomiting diarrhea constipation Home medications: Previous Rx's Medication Instructions Recorded [place] Carbonate 600 mg PO BID 30 Days cap 09/23/20 Nicotine Polacrilex [Nicorette] 2 mg BUCCAL Q2HR PRN 30 Days gum 09/23/20 Paliperidone IM [Invega Sustenna] 156 mg IM ONCE #1 syr 09/23/20 hydrOXYzine pamoate [Vistaril] 100 mg PO HS PRN 30 Days cap 09/23/20 Allergies/Adverse reactions: Allergies Allergy/AdvReac Type Severity Reaction Status Date / Time fluphenazine [From Prolixin] AdvReac Unknown Verified 10/01/20 17:33 haloperidol [From Haldol] AdvReac Extrapyramidal Verified 10/01/20 17:33 Side Effects ziprasidone [From Geodon] AdvReac Suicidal Verified 10/01/20 17:33 Thoughts Review of Systems ROS Statement: Those systems with pertinent positive or pertinent negative responses have been documented in the HPI. ROS Other: All systems not noted in ROS Statement are negative. Past Medical History Past Medical History: Respiratory Disorder Additional Past Medical History / Comment(s): schizophrenia History of Any Multi-Drug Resistant Organisms: None Reported Past Surgical History: Tonsillectomy Additional Past Surgical History / Comment(s): colonoscopy Past Anesthesia/Blood Transfusion Reactions: No Reported Reaction Past Psychological History: ADD/ADHD, Anxiety, Depression, Panic Disorder, Schizophrenia Smoking Status: Current every day smoker Past Alcohol Use History: None Reported Past Drug Use History: Marijuana - Past Family History Father Additional Family Medical History / Comment(s): Father is alive at age 49 with history of anxiety. Mother Additional Family Medical History / Comment(s): Mother is alive at age 42 with history of back problems and back surgery. Brother(s) Additional Family Medical History / Comment(s): Patient has one half brother with no major medical problems. He has 1 sister with no major medical problems. Patient has one son that is healthy. General Exam Limitations: no limitations General appearance: alert, in no apparent distress Head exam: Present: atraumatic, normocephalic, normal inspection Eye exam: Present: normal appearance, PERRL, EOMI. Absent: scleral icterus, conjunctival injection, periorbital swelling Neck exam: Present: normal inspection. Absent: tenderness, meningismus, lymphadenopathy Respiratory exam: Present: normal lung sounds bilaterally. Absent: respiratory distress, wheezes, rales, rhonchi, stridor Cardiovascular Exam: Present: regular rate, normal rhythm, normal heart sounds. Absent: systolic murmur, diastolic murmur, rubs, gallop, clicks GI/Abdominal exam: Present: soft, normal bowel sounds. Absent: distended, tenderness, guarding, rebound, rigid Extremities exam: Present: normal inspection, full ROM, normal capillary refill. Absent: tenderness, pedal edema, joint swelling, calf tenderness Back exam: Present: normal inspection Neurological exam: Present: alert, oriented X3, CN II-XII intact Psychiatric exam: Present: normal affect, normal mood Skin exam: Present: warm, dry, intact, normal color. Absent: rash Course Vital Signs 10/01/20 10/01/20 10/01/20 17:34 20:30 22:00 Temperature 97.4 F L Pulse Rate 71 75 68 Respiratory 18 20 20 Rate Blood Pressure 111/70 136/51 141/65 O2 Sat by Pulse 100 99 98 Oximetry Medical Decision Making - Medical Decision Making 29-year-old male complaining of feeling crampy and having suicidal ideations with no plan. Breath alcohol test, drug screen, lithium levels ordered. EPS notified. EPS did state that patient is willing to sign himself in, they will be back to us with bed availability. Case discussed with Dr. Dorsey, - Lab Data Lab Results 10/01/20 10/01/20 Range/Units 19:20 19:20 Urine Opiates Screen Not Detected (NotDetected) Ur Oxycodone Screen Not Detected (NotDetected) Urine Methadone Screen Not Detected (NotDetected) Ur Propoxyphene Screen Not Detected (NotDetected) Ur Barbiturates Screen Not Detected (NotDetected) U Tricyclic Antidepress Not Detected (NotDetected) Ur Phencyclidine Scrn Not Detected (NotDetected) Ur Amphetamines Screen Not Detected (NotDetected) U Methamphetamines Scrn Not Detected (NotDetected) U Benzodiazepines Scrn Not Detected (NotDetected) [place] <0.2 mmol/L Urine Cocaine Screen Not Detected (NotDetected) U Marijuana (THC) Screen Detected H (NotDetected) Disposition Clinical Impression: Suicidal ideation, Depression Disposition: ADMITTED IP TO THIS [facility] Condition: Stable Is patient prescribed a controlled substance at d/c from ED?: No Referrals: [facility] [Primary Care Provider] - 1-2 days
[2020-10-01 20:04] LABS: Amphetamine Screen,Urine Not Detected (NotDetected); Barbiturate Screen,Urine Not Detected (NotDetected); Benzodiazepines Screen,Urine Not Detected (NotDetected); Cocaine Screen,Urine Not Detected (NotDetected); Methadone Screen, Urine Not Detected (NotDetected); Opiate Screen,Urine Not Detected (NotDetected); Oxycodone Screen, Urine Not Detected (NotDetected); Phencyclidine Screen,Urine Not Detected (NotDetected); Tricyclic Antidepressant,Urine Not Detected (NotDetected); Urn Cannabinoid Scrn Detected (NotDetected)
[2020-10-02] MEDS ORDERED: MAGNESIUM HYDROXIDE 2,400 MG/10 ML CUP PO PRN (00:24)
[2020-10-02] MEDS ORDERED: ACETAMINOPHEN TAB 325 MG TAB PO PRN (00:24)
[2020-10-02] MEDS ORDERED: LORazepam 2 MG/ML INJ IM PRN (00:26)
[2020-10-02] MEDS ORDERED: chlorproMAZINE 25 MG TAB PO PRN (00:27)
[2020-10-02] MEDS ORDERED: NICOTINE POLACRILEX 2 MG GUM BUCCAL PRN (00:28)
[2020-10-02] MEDS: LORazepam 1 MG TAB PO PRN ×3 (01:45→21:42)
[2020-10-02] MEDS: LITHIUM CARBONATE 300 MG CAP PO SCH ×2 (08:27→20:38)
[2020-10-02] MEDS: NICOTINE 14MG/24HR PATCH TRANSDERM SCH (08:27)
--- NOTE | 2020-10-02 08:54 | P.CONS ---
History of Present Illness - Reason for Consult Consult date: 10/02/20 - Chief Complaint Suicidal thoughts - History of Present Illness This 29-year-old white male was admitted to the inpatient psychiatry unit suicidal thoughts. At the time of examination he is in bed, does not appear to be in distress. He denies chest pain, no abdominal pain, no nausea no vomiting no dizziness no shortness of breath. Denies subjective fever or chills. Review of Systems 10 systems reviewed, pertinent positive and negative findings HPI. No chest pain no abdominal pain Past Medical History Past Medical History: Respiratory Disorder Additional Past Medical History / Comment(s): schizophrenia History of Any Multi-Drug Resistant Organisms: None Reported Past Surgical History: Tonsillectomy Additional Past Surgical History / Comment(s): colonoscopy Past Anesthesia/Blood Transfusion Reactions: No Reported Reaction Smoking Status: Current every day smoker - Past Family History Father Additional Family Medical History / Comment(s): Father is alive at age 49 with history of anxiety. Mother Additional Family Medical History / Comment(s): Mother is alive at age 42 with history of back problems and back surgery. Brother(s) Additional Family Medical History / Comment(s): Patient has one half brother with no major medical problems. He has 1 sister with no major medical problems. Patient has one son that is healthy. Medications and Allergies Home Medications Medication Instructions Recorded Confirmed Type [place] Carbonate 600 mg PO BID 30 Days cap 09/23/20 10/01/20 Rx Nicotine Polacrilex [Nicorette] 2 mg BUCCAL Q2HR PRN 30 Days gum 09/23/20 10/01/20 Rx hydrOXYzine pamoate [Vistaril] 100 mg PO HS PRN 30 Days cap 09/23/20 10/01/20 Rx Paliperidone IM [Invega Sustenna] 156 mg IM Q28D 10/01/20 10/01/20 History traZODone HCL [Desyrel] 50 mg PO HS 10/01/20 10/01/20 History Allergies Allergy/AdvReac Type Severity Reaction Status Date / Time fluphenazine [From Prolixin] AdvReac Unknown Verified 10/01/20 23:36 haloperidol [From Haldol] AdvReac Extrapyramidal Verified 10/01/20 23:36 Side Effects ziprasidone [From Geodon] AdvReac Suicidal Verified 10/01/20 23:36 Thoughts Physical Exam Vitals: Vital Signs Temp Pulse Pulse Resp BP BP Pulse Ox 10/02/20 02:00 96.9 F L 84 18 112/71 95 10/02/20 01:15 98.2 F 77 18 132/65 97 10/01/20 22:00 68 20 141/65 98 10/01/20 20:30 75 20 136/51 99 10/01/20 17:34 97.4 F L 71 18 111/70 100 Intake and Output 10/01/20 10/02/20 10/02/20 22:59 06:59 14:59 Other: Weight 81.647 kg 80.8 kg Constitutional: No acute distress, conversant, pleasant Eyes: Anicteric sclerae, moist conjunctiva ENMT: NC/AT,Oropharynx clear Neck:Supple, FROM, no masses, or JVD Lungs: Clear to auscultation, Clear to percussion, Normal respiratory effort, no accessory muscle use Cardiovascular: Heart regular in rate and rhythm, No murmurs, gallops, or rubs no peripheral edema Abdominal: Soft Nontender, nom distended, no guarding, no rebound or rigidity, Normoactive bowel sounds No hepatomegaly, No splenomegaly, No palpable mass No abdominal wall hernia noted Skin: Normal temperature, tone, texture, turgor, No induration No subcutaneous nodules, No rash, lesions, No ulcers Extremities:No digital cyanosis No clubbing, Pedal pulses intact and symmetrical Radial pulses intact and symmetrical Normal gait and station, No calf tenderness Psychiatric: Alert and oriented to person, place and time Neuro: Muscles Strength 5/5 in all 4 extremities, Sensation to light touch grossly present throughout, Cranial nerves II-XII grossly intact. No focal sensory deficits Results Labs: Abnormal Lab Results - Last 24 Hours (Table) 10/01/20 Range/Units 19:20 U Marijuana (THC) Screen Detected H (NotDetected) Assessment and Plan Plan: 1. Suicidal ideation/depression management per psychiatry 2. Tobacco use/dependence without evidence of withdrawal: Nicotine patch 3. Anxiety: When necessary Ativan
--- NOTE | 2020-10-02 12:10 | P.HP ---
Psychiatric H&P - . H&P Date: 10/02/20 History & Physical: IDENTIFYING DATA: He is a 29-year-old single male admitted to the psychiatric unit voluntarily. He told the EPS nurse and he stopped taking lithium and started become restless and lethargic and not "feeling right." He alleged that the psychiatrist at [facility] took him off of "all medication" and he started feeling "suicidal". HISTORY OF PRESENT ILLNESS: He is well known to the psychiatric unit from prior admissions. He was last discharged on 09/23/2020 with diagnoses of his schizoaffective disorder bipolar type, antisocial personal disorder and cannabis use disorder. His discharge medications included lithium carbonate 600 mg twice a day and Invega Sustenna 156 mg IM monthly (next injection due 10/17/2020). He would not cooperate with the admission interview. He was laying in bed with his blanket over his head. He would not remove the blank from over his head or respond to questions. I reviewed the progress notes from [facility]. He met with the psychiatrist, Dr. Escoto, by telephone on 09/29/[address]. He [address] Dr. Escoto that she is not able to sleep and complained that he does not want anyone prescribing him medications. He refused his lithium because he let she was "making him sick". He expressed that he doesn't need an antipsychotic and plans to leave the state so that he will be put on these medications. He requested a second opinion and said that he'll go before the wet mixer to determine why he has to take an antipsychotic medication. Dr. Escoto recommended discontinue lithium but continue Invega Sustenna 150 mg IM monthly. PAST PSYCHIATRIC HISTORY: According to record he is had multiple psychiatric hospitalization and outpatient treatment beginning when he was a child. He is well known to this psychiatric unit from his multiple past admissions. This is at least since 13th hospitalization since 2015. He has a history of aggressive and threatening behavior, multiple episodes of seclusion and restraint and admissions where he required one-to-one with hospital security. He was last discharged on 08/14/2020 with the diagnosis of schizoaffective disorder, cannabis use disorder, nicotine dependence and antisocial personality disorder. His discharge plan including placement at the [facility]. PAST MEDICAL HISTORY: He has no major medical problems. ALLERGIES: According to the EMR he is ALLERGIC to fluphenazine, Haldol and ziprasidone (I suspect that these are not true ALLERGIES but adverse reactions). SUBSTANCE USE HISTORY: He would not provide information about his past history but according to record he has history of a cannabis use disorder. FAMILY PSYCHIATRIC/SUBSTANCE USE HISTORY: According to the record he denied history of psychiatric or substance use problems in his family LEGAL HISTORY: He has no current pending legal charges. He is not probation or parole. His past charges include malicious distribution of property, home invasion, breaking and entering, domestic violence and assaultive and battery. SOCIAL HISTORY: He is currently a resident at the [facility]. He is unemployed and receives Social Security disability. He has a legal guardian. According to record he completed high school. MENTAL STATUS EXAM: He presented as a tall casually groomed male who did not make eye contact or attend to the interview. He would not make eye contact. He refused to acknowledge my presence or answer questions. STRENGTHS: Good physical health, engagement with community mental health, guardianship supervision WEAKNESSES: Chronic mental illness, aggressive antisocial behaviors, poor compliance with treatment, current legal problems IMPRESSION: He is a 29-year-old single male admitted to the [facility] with complaints of suicidal ideation adverse reaction to medications. He was discharged from this [facility] last month and placed in a community intermediate. He is had multiple psychiatric hospitalizations and multiple incarcerations. He has a history of threatening and aggressive behavior and past legal charges of domestic violence and assaultive battery. PRINCIPLE DIAGNOSIS: Schizoaffective disorder bipolar type, antisocial personality disorder, cannabis use disorder, tobacco use RECOMMENDATION: Admitted to the psychiatric unit. Safety precautions. Consider one-to-one with security if he becomes agitated or aggressive. Limit the length of this hospitalization. Restart lithium 300 mg twice a day and continue Invega Sustenna 156 mg monthly. Haldol and/or Ativan IM/by mouth for agitation, aggression acute psychosis. Coordinate discharge with community mental health. Encourage participation in therapeutic groups and activities. Evaluate clinical status response to treatment daily basis. Allergies Allergy/AdvReac Type Severity Reaction Status Date / Time fluphenazine [From Prolixin] AdvReac Unknown Verified 10/01/20 23:36 haloperidol [From Haldol] AdvReac Extrapyramidal Verified 10/01/20 23:36 Side Effects ziprasidone [From Geodon] AdvReac Suicidal Verified 10/01/20 23:36 Thoughts Vital Signs Temp 96.9 F L 10/02/20 02:00 Pulse 84 10/02/20 02:00 Resp 18 10/02/20 02:00 BP 112/71 10/02/20 02:00 Pulse Ox 95 10/02/20 02:00 Intake & Output 10/01/20 10/02/20 10/02/20 18:59 06:59 18:59 Weight 81.647 kg 80.8 kg Laboratory Last Values Urine Opiates Screen Not Detected (NotDetected) 10/01/20 19:20 Ur Oxycodone Screen Not Detected (NotDetected) 10/01/20 19:20 Urine Methadone Screen Not Detected (NotDetected) 10/01/20 19:20 Ur Propoxyphene Screen Not Detected (NotDetected) 10/01/20 19:20 Ur Barbiturates Screen Not Detected (NotDetected) 10/01/20 19:20 U Tricyclic Antidepress Not Detected (NotDetected) 10/01/20 19:20 Ur Phencyclidine Scrn Not Detected (NotDetected) 10/01/20 19:20 Ur Amphetamines Screen Not Detected (NotDetected) 10/01/20 19:20 U Methamphetamines Scrn Not Detected (NotDetected) 10/01/20 19:20 U Benzodiazepines Scrn Not Detected (NotDetected) 10/01/20 19:20 [place] <0.2 mmol/L 10/01/20 19:20 Urine Cocaine Screen Not Detected (NotDetected) 10/01/20 19:20 U Marijuana (THC) Screen Detected (NotDetected) H 10/01/20 19:20 Coronavirus (PCR) Not Detected (Not Detectd) 10/01/20 23:34 10/02/20 11:01 10/02/20 12:08
[2020-10-02] MEDS: traZODone HCL 50 MG TAB PO SCH (20:39)
[2020-10-03] MEDS: MELATONIN 5 MG TABLET PO SCH ×2 (04:57→21:11)
[2020-10-03] MEDS: LORazepam 1 MG TAB PO PRN ×2 (05:07→17:05)
[2020-10-03] MEDS: LITHIUM CARBONATE 300 MG CAP PO SCH ×2 (08:28→21:11)
[2020-10-03] MEDS: NICOTINE 14MG/24HR PATCH TRANSDERM SCH (08:28)
--- NOTE | 2020-10-03 14:17 | P.PN ---
Progress Note - Text Progress Note Date: 10/03/20 Clinical Problems: Schizoaffective disorder bipolar type, antisocial personality disorder, cannabis use disorder, tobacco use Interim history: I reviewed the medical record, interviewed the patient and discuss his treatment and treatment plan during team meeting. He was pleasant, cooperative and engaged in the interview. He apologized for his past behavior and talked about how he looses control when he is in a manic episode. He made such statements as I "I don't know why do or say the things I do." He feels much more in control than during prior admissions. However he expressed feelings of hopelessness and helplessness because of disruption his illness is causing his life. He talked about working, having apartment and "doing well" only to loose his successes when he has a manic episode. He sees no hope and that he will always become unwell, "lose everything" and end up in the hospital. He is particularly afraid of losing control and becoming incarcerated. Apparently, his incarceration was extremely traumatic. He denied side effects to current dose of lithium and agrees to continue the medication. He is beginning to participate in therapeutic groups and activities. He slept 6 hours last night. Mental status exam: He presented as a tall casually groomed 29-year-old male who was pleasant on approach. He made eye contact and attended to the interview. He had a blunted facial expression. He was alert and oriented to person, place and time. He had no abnormality of psychomotor activity. He was not agitated, restless or impulsive. His speech was spontaneous with normal rate, volume and rhythm. His affect was depressed and not reactive. He denied suicidal ideation but expressed's wishes. He denied homicidal ideation. As noted above he has feelings of hopelessness, helplessness and worthlessness. He ruminated about his illness and his multiple hospitalizations. He did not express ideas reference, paranoid ideation or delusions. His thinking was abstract and associations were coherent, logical and goal directed. He did not demonstrate clang associations, perseveration or neologisms. He denied hallucinations did not appear to be responding to internal stimuli. Assessment: He is severely mentally ill and much improved from admission. There is no signs and symptoms of cl or hypomania but he has signs of a depressive episode with hopelessness, helplessness and wishes. Plan: Continue inpatient treatment. Safety precautions. Consider one-to-one with security if he becomes agitated or aggressive. Limit the length of the hospitalization. Continue lithium 300 mg twice a day and continue Invega Sustenna 156 mg monthly. Haldol and Ativan IM/by mouth for agitation, aggression or acute psychosis. Coordinate discharge with community mental health. Encourage participation in therapeutic groups and activities. Evaluate clinical status response to treatment daily basis.
[2020-10-03] MEDS: MAG HYDROX/AL HYDROX/SIMETH 30 ML CUP PO PRN (16:54)
[2020-10-03] MEDS: traZODone HCL 50 MG TAB PO SCH (21:11)
[2020-10-04] MEDS: LITHIUM CARBONATE 300 MG CAP PO SCH ×2 (08:27→20:57)
[2020-10-04] MEDS: NICOTINE 14MG/24HR PATCH TRANSDERM SCH (08:27)
[2020-10-04 08:31] VITALS: BP 118/71; PULSE 86; RESP 20
[2020-10-04] MEDS: LORazepam 1 MG TAB PO PRN ×2 (10:35→17:32)
--- NOTE | 2020-10-04 15:35 | P.PN ---
Progress Note - Text Progress Note Date: 10/04/20 Clinical Problems: Schizoaffective disorder bipolar type, antisocial personality disorder, cannabis use disorder, tobacco use Interim history: I reviewed the medical record and interviewed the patient. He is cordial in engaging to staff and peers. He has had no episodes of behavioral dyscontrol in marked contrast to prior admissions. He is participating in therapeutic groups and activities. He denied side effects to current dose of lithium and agrees to continue the medication. He slept 7 hours last night. Mental status exam: He was pleasant, cooperative and attend to the interview He had a blunted facial expression. He was alert and oriented to person, place and time. He had no abnormality of psychomotor activity. He was not agitated, restless or impulsive. His speech was spontaneous with normal rate, volume and rhythm. His affect blunted but reactive. He denied suicidal ideation but expressed's wishes. He denied homicidal ideation. He did not express feelings of hopelessness, helplessness and worthlessness. He did not express ideas reference, paranoid ideation or delusions. His thinking was abstract and associations were coherent, logical and goal directed. He did not demonstrate clang associations, perseveration or neologisms. He denied hallucinations did not appear to be responding to internal stimuli. Assessment: He is severely mentally ill and much improved from admission. There is no signs and symptoms of cl or hypomania but he appears less depressed, hopeless and helpless. Plan: Continue inpatient treatment. Safety precautions. Consider one-to-one with security if he becomes agitated or aggressive. Limit the length of the hospitalization. Continue lithium 300 mg twice a day and continue Invega Sustenna 156 mg monthly. Haldol and Ativan IM/by mouth for agitation, aggression or acute psychosis. Coordinate discharge with [facility]. Encourage participation in therapeutic groups and activities. Evaluate clinical status response to treatment daily basis.
[2020-10-04 17:42] LABS: Appearance,Urine Clear (Clear); Bilirubin,Urine Negative (Negative); Blood,Urine Negative (Negative); Color,Urine Light Yellow; Glucose,Urine (UA) Negative (Negative); Ketones,Urine Negative (Negative); Leukocyte Esterase,Urine Negative (Negative); Nitrite,Urine Negative (Negative); PH, Urine 7.5 (5.0-8.0); Protein,Urine Negative (Negative); Specific Gravity,Urine 1.011 (1.001-1.035); Urobilinogen,Urine <2.0 mg/dL (<2.0)
[2020-10-04] MEDS: traZODone HCL 50 MG TAB PO SCH (20:57)
[2020-10-04] MEDS: MELATONIN 5 MG TABLET PO SCH (20:57)
[2020-10-04] MEDS ORDERED: ONDANSETRON 4 MG TAB PO ONE (22:00)
[2020-10-05] MEDS: LORazepam 1 MG TAB PO PRN ×2 (05:08→14:17)
[2020-10-05] MEDS: NICOTINE 14MG/24HR PATCH TRANSDERM SCH (08:33)
[2020-10-05] MEDS: LITHIUM CARBONATE 300 MG CAP PO SCH ×2 (08:33→20:49)
[2020-10-05 13:00] VITALS: TEMP 97.6
--- NOTE | 2020-10-05 15:12 | P.PN ---
Progress Note - Text Progress Note Date: 10/05/20 Clinical Problems: Schizoaffective disorder bipolar type, antisocial personality disorder, cannabis use disorder, tobacco use Interim history: I reviewed the medical record and interviewed the patient. He was pleasant on approach. His primary concern was his living situation. He understands that he will have to return to the [facility] but hopes that he'll be able to secure independent person, semi-independent living. He is not been restless and irritable angry or aggressive. He has had no episodes of behavioral dyscontrol or recurred administration medications for behavioral dyscontrol. He denied side effects to current dose of lithium and agrees to continue the medication. He slept 7 hours last night. Mental status exam: He was pleasant, cooperative and attend to the interview He had a blunted facial expression. He was alert and oriented to person, place and time. He had no abnormality of psychomotor activity. He was not agitated, restless or impulsive. His speech was spontaneous with normal rate, volume and rhythm. His affect blunted but reactive. He denied suicidal ideation but expressed's wishes. He denied homicidal ideation. He did not express feelings of hopelessness, helplessness and worthlessness. He did not express ideas reference, paranoid ideation or delusions. His thinking was abstract and associations were coherent, logical and goal directed. He did not demonstrate clang associations, perseveration or neologisms. He denied hallucinations did not appear to be responding to internal stimuli. Assessment: He is severely mentally ill and much improved from admission. There is no signs and symptoms of cl or hypomania but he appears less depressed, hopeless and helpless. Plan: Continue inpatient treatment. Safety precautions. Consider one-to-one with security if he becomes agitated or aggressive. Limit the length of the hospitalization. Continue lithium 300 mg twice a day and continue Invega Sustenna 156 mg monthly. Haldol and Ativan IM/by mouth for agitation, aggression or acute psychosis. Coordinate discharge with community mental health. Encourage participation in therapeutic groups and activities. Evaluate clinical status response to treatment daily basis.
[2020-10-05] MEDS: MAG HYDROX/AL HYDROX/SIMETH 30 ML CUP PO PRN (16:52)
[2020-10-05] MEDS: MELATONIN 5 MG TABLET PO SCH (20:49)
[2020-10-06] MEDS: LITHIUM CARBONATE 300 MG CAP PO SCH (08:34)
[2020-10-06] MEDS: NICOTINE 14MG/24HR PATCH TRANSDERM SCH (08:34)
--- NOTE | 2020-10-06 13:44 | P.DS ---
Providers Date of admission: 10/02/20 00:17 Attending physician: Ulysses Alcocer MD Consults: 10/02/20 00:24 Consult Physician Routine Consulting Provider: Belen Physician Consult Reason/Comments: h and p Do you want consulting provider notified?: Yes Primary care physician: [facility], [place] Diagnosis(es) (1) Suicidal ideation Current Visit: Yes Status: Resolved Priority: Low (2) Schizoaffective disorder Current Visit: No Status: Chronic Priority: High (3) Antisocial personality disorder Current Visit: No Status: Chronic Priority: Medium Hospital Course: HISTORY: He is a 29-year-old single male admitted to the psychiatric unit voluntarily. He told the EPS nurse and he stopped taking lithium and started become restless and lethargic and not "feeling right." He alleged that the psychiatrist at [facility] took him off of "all medication" and he started feeling "suicidal". He is well known to the psychiatric unit from prior admissions. He was last discharged on 09/23/2020 with diagnoses of his schizoaffective disorder bipolar type, antisocial personal disorder and cannabis use disorder. His discharge medications included lithium carbonate 600 mg twice a day and Invega Sustenna 156 mg IM monthly (next injection due 10/17/2020). He would not cooperate with the admission interview. He was laying in bed with his blanket over his head. He would not remove the blank from over his head or respond to questions. I reviewed the progress notes from [facility]. He met with the psychiatrist, Dr. Escoto, by telephone on 09/29/[address]. [address] Escoto that she is not able to sleep and complained that he does not want anyone prescribing him medications. He refused his lithium because he let she was "making him sick". He expressed that he doesn't need an antipsychotic and plans to leave the state so that he will be put on these medications. He requested a second opinion and said that he'll go before the buckle sewer machine to determine why he has to take an antipsychotic medication. Dr. Escoto recommended discontinue lithium but continue Invega Sustenna 150 mg IM monthly. According to record he is had multiple psychiatric hospitalization and outpatient treatment beginning when he was a child. He is well known to this psychiatric unit from his multiple past admissions. This is at least since 13th hospitalization since 2014. He has a history of aggressive and threatening behavior, multiple episodes of seclusion and restraint and admissions where he required one-to-one with hospital security. He was last discharged on 08/14/2020 with the diagnosis of schizoaffective disorder, cannabis use diso rder, nicotine dependence and antisocial personality disorder. His discharge plan including placement at the [facility]. HOSPITAL COURSE: We admitted him to the psychiatric unit voluntarily under the care of this appeals writer. We provided a comprehensive biopsychosocial assessment. The technical sales consultant manganese breaker completed initial physical exam and medical history and diagnoses only tobacco use. We prescribed nicotine for Transderm 14 mg for to nicotine withdrawal. We resume his lithium carbonate at a dose of 300 mg by mouth twice a day. He was not too for his injection of Invega Susstenna until 10/17/2020. He posed no management problem and had no episodes of behavioral dyscontrol. He was calm and cooperative throughout this admission (unlike prior admissions). He reported that his subjective distress remitted after he restarted lithium. He suspects that he was feeling withdrawal after stopping the lithium abruptly. He agrees to continue the lithium and reported that it appears helpful in stabilizing his mood. He participated in therapeutic groups and activities. He reluctantly agreed to return to the [facility]. MENTAL STATUS ON DISCHARGE: He was pleasant, cooperative and attend to the interview He had a blunted facial expression. He was alert and oriented to person, place and time. He had no abnormality of psychomotor activity. He was not agitated, restless or impulsive. His speech was spontaneous with normal rate, volume and rhythm. His affect blunted but reactive. He denied suicidal ideation but expressed's wishes. He denied homicidal ideation. He did not express feelings of hopelessness, helplessness and worthlessness. He did not express ideas reference, paranoid ideation or delusions. His thinking was abstract and associations were coherent, logical and goal directed. He did not demonstrate clang associations, perseveration or neologisms. He denied hallucinations did not appear to be responding to internal stimuli. DISPOSITION: He'll return to [facility] in follow-up with [facility]. His discharge psychotropic medications included lithium carbonate 300 mg twice a day and Invega Sustenna 256 mg IM monthly (next injection 10/17/2020). He declined a prescription for nicotine replacement. Patient Condition at Discharge: Stable Plan - Discharge Summary New Discharge Prescriptions: [place] Carbonate 300 mg PO BID #60 cap Melatonin 5 mg PO HS #30 tablet Continue hydrOXYzine pamoate [Vistaril] 100 mg PO HS PRN 30 Days cap PRN Reason: Insomnia Paliperidone IM [Invega Sustenna] 156 mg IM Q28D Nicotine Polacrilex [Nicorette] 2 mg BUCCAL Q2HR PRN 30 Days gum PRN Reason: Nicotine Cravings Discontinued [place] Carbonate 600 mg PO BID 30 Days cap traZODone HCL [Desyrel] 50 mg PO HS Discharge Medication List Nicotine Polacrilex [Nicorette] 2 mg BUCCAL Q2HR PRN 30 Days gum 09/23/20 [Rx] hydrOXYzine pamoate [Vistaril] 100 mg PO HS PRN 30 Days cap 09/23/20 [Rx] Paliperidone IM [Invega Sustenna] 156 mg IM Q28D 10/01/20 [History] [place] Carbonate 300 mg PO BID #60 cap 10/06/20 [Rx] Melatonin 5 mg PO HS #30 tablet 10/06/20 [Rx] Follow up Appointment(s)/Referral(s): [facility] [Outside] - 10/13/20 8:30 am (Dr. Escoto will see him on 10/13 at 8:30 at [facility]. ) [facility] [Primary Care Provider] - 1-2 days Patient Instructions/Handouts: How to Stop Smoking (DC) Activity/Diet/Wound Care/Special Instructions: Activity and diet as tolerated. Avoid the use of street drugs and alcohol. Take all medications as prescribed. When you are in need of refills on your medications please contact your medical provider and/or outpatient psychiatrist to have this done. Please go to scheduled outpatient appointment for aftercare treatment. If symptoms return or become worse, call the crisis line at and/or go to the nearest emergency room for evaluation. Discharge Disposition: HOME SELF-CARE
[2020-10-06] MEDS: LORazepam 1 MG TAB PO PRN (14:56)
== END 2020-10-06 15:13 | disposition home or self-care (01) | DRG 885 ==
LOC: EC 15:41 → 3MHU 10-02 00:17
PROVIDERS: ADMIT Psychiatry & Neurology Psychiatry; ATTEND Psychiatry & Neurology Psychiatry
DX: F25.0 Schizoaffective disorder, bipolar type (principal); R45.851 Suicidal ideations; F12.10 Cannabis abuse, uncomplicated; F41.0 Panic disorder [episodic paroxysmal anxiety]; F60.2 Antisocial personality disorder; Z88.8 Allergy status to other drugs, medicaments and biological substances; Z98.890 Other specified postprocedural states; F17.210 Nicotine dependence, cigarettes, uncomplicated
CPT/HCPCS: 36415; 80178; 80306; 81003; 82075; 87635; 99285

== ENCOUNTER 2020-10-16 21:15 | Emergency (ER) | payer OTHER ==
[2020-10-16 21:52] LABS: Basophils # (A) 0.1 k/uL (0-0.2); Basophils % (A) 1 %; Eosinophils # (A) 0.2 k/uL (0-0.7); Eosinophils % (A) 2 %; HCT 48.1 % (39.0-53.0); HGB 16.3 gm/dL (13.0-17.5); Lymphocytes % (A) 28 %; MCH 29.1 pg (25.0-35.0); MCHC 33.8 g/dL (31.0-37.0); MCV 85.9 fL (80.0-100.0); Mean Platelet Volume 8.2; Monocytes # (A) 0.5 k/uL (0-1.0); Monocytes % (A) 5 %; Neutrophils # (A) 6.9 k/uL (1.3-7.7); Neutrophils % (A) 64 %; Platelet Count 198 k/uL (150-450); RDW 12.8 % (11.5-15.5); WBC 10.8 k/uL (3.8-10.6)
[2020-10-16 22:04] LABS: ALT 12 U/L (4-49); AST 24 U/L (17-59); African American GFR (CKD) >90 (>60 ml/min/1.73 sqM); Albumin 5.1 g/dL (3.5-5.0); Alkaline Phosphatase 78 U/L (38-126); Amylase 56 U/L (30-110); Anion Gap 8 mmol/L; Blood Urea Nitrogen 9 mg/dL (9-20); Calcium 9.8 mg/dL (8.4-10.2); Carbon Dioxide 31 mmol/L (22-30); Chloride 100 mmol/L (98-107); Glucose 94 mg/dL (74-99); Lipase 65 U/L (23-300); Non-African American GFR(CKD) >90 (>60 ml/min/1.73 sqM); Potassium 3.6 mmol/L (3.5-5.1); Sodium 139 mmol/L (137-145); Total Bilirubin 0.5 mg/dL (0.2-1.3); Total Protein 7.7 g/dL (6.3-8.2)
[2020-10-16 22:05] LABS: Appearance,Urine Clear (Clear); Bilirubin,Urine Negative (Negative); Blood,Urine Negative (Negative); Color,Urine Yellow; Glucose,Urine (UA) Negative (Negative); Ketones,Urine Negative (Negative); Leukocyte Esterase,Urine Negative (Negative); Nitrite,Urine Negative (Negative); Protein,Urine Negative (Negative); Urobilinogen,Urine <2.0 mg/dL (<2.0)
[2020-10-16] MEDS ORDERED: ONDANSETRON ODT 4 MG TAB PO STA (22:05)
--- NOTE | 2020-10-16 22:20 | XR ---
EXAMINATION TYPE: XR KUB DATE OF EXAM: 10/16/2020 COMPARISON: 03/01/2013 HISTORY: Abdominal pain TECHNIQUE: 2 views upright FINDINGS: There is no sign of intestinal obstruction or pneumoperitoneum. Fecal pattern is normal. Th ere is no evidence of a mass. There are no pathologic calcifications over the kidneys. IMPRESSION: Nonacute abdomen.
[2020-10-16] MEDS ORDERED: KETOROLAC 15 MG/ML 1 ML VIAL IVP STA (22:25)
--- NOTE | 2020-10-16 22:26 | ED ---
Nausea/Vomiting/Diarrhea HPI - General Chief complaint: Nausea/Vomiting/Diarrhea Stated complaint: vomiting, bodyaches Time Seen by Provider: 10/16/20 22:04 Source: patient, RN notes reviewed, old records reviewed Mode of arrival: ambulatory Limitations: no limitations - History of Present Illness MD complaint: nausea, vomiting -: days(s) Description of Vomiting: watery Description of Diarrhea: tarry Associated Abdominal Pain: No Location: diffuse Radiation: none Severity: moderate Severity scale (1-10): 4 Quality: cramping, aching Consistency: constant Improves with: none Worsens with: none Context: other (none) Associated Symptoms: denies other symptoms - Related Data Home Medications Medication Instructions Recorded Confirmed Paliperidone IM [Invega Sustenna] 156 mg IM Q28D 10/01/20 10/01/20 Previous Rx's Medication Instructions Recorded Nicotine Polacrilex [Nicorette] 2 mg BUCCAL Q2HR PRN 30 Days gum 09/23/20 hydrOXYzine pamoate [Vistaril] 100 mg PO HS PRN 30 Days cap 09/23/20 [place] Carbonate 300 mg PO BID #60 cap 10/06/20 Melatonin 5 mg PO HS #30 tablet 10/06/20 Allergies Allergy/AdvReac Type Severity Reaction Status Date / Time fluphenazine [From Prolixin] AdvReac Unknown Verified 10/01/20 23:36 haloperidol [From Haldol] AdvReac Extrapyramidal Verified 10/01/20 23:36 Side Effects ziprasidone [From Geodon] AdvReac Suicidal Verified 10/01/20 23:36 Thoughts Review of Systems ROS Statement: Those systems with pertinent positive or pertinent negative responses have been documented in the HPI. ROS Other: All systems not noted in ROS Statement are negative. Past Medical History Past Medical History: Respiratory Disorder Additional Past Medical History / Comment(s): schizophrenia History of Any Multi-Drug Resistant Organisms: None Reported Past Surgical History: Tonsillectomy Additional Past Surgical History / Comment(s): colonoscopy Past Anesthesia/Blood Transfusion Reactions: No Reported Reaction Past Psychological History: ADD/ADHD, Anxiety, Depression, Panic Disorder, S chizophrenia Smoking Status: Current every day smoker - Past Family History Father Additional Family Medical History / Comment(s): Father is alive at age 49 with history of anxiety. Mother Additional Family Medical History / Comment(s): Mother is alive at age 42 with history of back problems and back surgery. Brother(s) Additional Family Medical History / Comment(s): Patient has one half brother with no major medical problems. He has 1 sister with no major medical problems. Patient has one son that is healthy. General Exam Limitations: no limitations General appearance: alert, in no apparent distress Head exam: Present: atraumatic, normocephalic, normal inspection Eye exam: Present: normal appearance, PERRL, EOMI. Absent: scleral icterus, conjunctival injection, periorbital swelling ENT exam: Present: normal exam, mucous membranes moist Neck exam: Present: normal inspection. Absent: tenderness, meningismus, lymphadenopathy Respiratory exam: Present: normal lung sounds bilaterally. Absent: respiratory distress, wheezes, rales, rhonchi, stridor Cardiovascular Exam: Present: regular rate, normal rhythm, normal heart sounds. Absent: systolic murmur, diastolic murmur, rubs, gallop, clicks GI/Abdominal exam: Present: soft, normal bowel sounds. Absent: distended, tenderness, guarding, rebound, rigid Extremities exam: Present: normal inspection, full ROM, normal capillary refill. Absent: tenderness, pedal edema, joint swelling, calf tenderness Back exam: Present: normal inspection Neurological exam: Present: alert, oriented X3, CN II-XII intact Psychiatric exam: Present: normal affect, normal mood Skin exam: Present: warm, dry, intact, normal color. Absent: rash Course Vital Signs 10/16/20 10/16/20 21:16 23:00 Temperature 97.4 F L 98 F Pulse Rate 68 77 Respiratory 18 20 Rate Blood Pressure 120/81 129/79 O2 Sat by Pulse 98 97 Oximetry - Reevaluation(s) Reevaluation #1: Medical record is reviewed Patient symptoms are significantly improved here in the emergency department Patient family informed of results, questions answered Medical Decision Making - Lab Data Result diagrams: 10/16/20 21:24 10/16/20 21:42 Lab Results 10/16/20 10/16/20 10/16/20 Range/Units 21:24 21:24 21:42 WBC 10.8 H (3.8-10.6) k/uL RBC 5.60 (4.30-5.90) m/uL Hgb 16.3 (13.0-17.5) gm/dL Hct 48.1 (39.0-53.0) % MCV 85.9 (80.0-100.0) fL MCH 29.1 (25.0-35.0) pg MCHC 33.8 (31.0-37.0) g/dL RDW 12.8 (11.5-15.5) % Plt Count 198 (150-450) k/uL MPV 8.2 Neutrophils % 64 % Lymphocytes % 28 % Monocytes % 5 % Eosinophils % 2 % Basophils % 1 % Neutrophils # 6.9 (1.3-7.7) k/uL Lymphocytes # 3.0 (1.0-4.8) k/uL Monocytes # 0.5 (0-1.0) k/uL Eosinophils # 0.2 (0-0.7) k/uL Basophils # 0.1 (0-0.2) k/uL Sodium 139 (137-145) mmol/L Potassium 3.6 (3.5-5.1) mmol/L Chloride 100 (98-107) mmol/L Carbon Dioxide 31 H (22-30) mmol/L Anion Gap 8 mmol/L BUN 9 (9-20) mg/dL Creatinine 1.10 (0.66-1.25) mg/dL Est GFR (CKD-EPI)AfAm >90 (>60 ml/min/1.73 sqM) Est GFR (CKD-EPI)NonAf >90 (>60 ml/min/1.73 sqM) Glucose 94 (74-99) mg/dL Calcium 9.8 (8.4-10.2) mg/dL Total Bilirubin 0.5 (0.2-1.3) mg/dL AST 24 (17-59) U/L ALT 12 (4-49) U/L Alkaline Phosphatase 78 (38-126) U/L Total Protein 7.7 (6.3-8.2) g/dL Albumin 5.1 H (3.5-5.0) g/dL Amylase 56 (30-110) U/L Lipase 65 (23-300) U/L Urine Color Urine Appearance (Clear) Urine pH (5.0-8.0) Ur Specific Malcolm (1.001-1.035) Urine Protein (Negative) Urine Glucose (UA) (Negative) Urine Ketones (Negative) Urine Blood (Negative) Urine Nitrite (Negative) Urine Bilirubin (Negative) Urine Urobilinogen (<2.0) mg/dL Ur Leukocyte Esterase (Negative) Coronavirus (PCR) Not Detected (Not Detectd) 10/16/20 Range/Units 21:58 WBC (3.8-10.6) k/uL RBC (4.30-5.90) m/uL Hgb (13.0-17.5) gm/dL Hct (39.0-53.0) % MCV (80.0-100.0) fL MCH (25.0-35.0) pg MCHC (31.0-37.0) g/dL RDW (11.5-15.5) % Plt Count (150-450) k/uL MPV Neutrophils % % Lymphocytes % % Monocytes % % Eosinophils % % Basophils % % Neutrophils # (1.3-7.7) k/uL Lymphocytes # (1.0-4.8) k/uL Monocytes # (0-1.0) k/uL Eosinophils # (0-0.7) k/uL Basophils # (0-0.2) k/uL Sodium (137-145) mmol/L Potassium (3.5-5.1) mmol/L Chloride (98-107) mmol/L Carbon Dioxide (22-30) mmol/L Anion Gap mmol/L BUN (9-20) mg/dL Creatinine (0.66-1.25) mg/dL Est GFR (CKD-EPI)AfAm (>60 ml/min/1.73 sqM) Est GFR (CKD-EPI)NonAf (>60 ml/min/1.73 sqM) Glucose (74-99) mg/dL Calcium (8.4-10.2) mg/dL Total Bilirubin (0.2-1.3) mg/dL AST (17-59) U/L ALT (4-49) U/L Alkaline Phosphatase (38-126) U/L Total Protein (6.3-8.2) g/dL Albumin (3.5-5.0) g/dL Amylase (30-110) U/L Lipase (23-300) U/L Urine Color Yellow Urine Appearance Clear (Clear) Urine pH 6.0 (5.0-8.0) Ur Specific Malcolm 1.010 (1.001-1.035) Urine Protein Negative (Negative) Urine Glucose (UA) Negative (Negative) Urine Ketones Negative (Negative) Urine Blood Negative (Negative) Urine Nitrite Negative (Negative) Urine Bilirubin Negative (Negative) Urine Urobilinogen <2.0 (<2.0) mg/dL Ur Leukocyte Esterase Negative (Negative) Coronavirus (PCR) (Not Detectd) Disposition Clinical Impression: Gastroenteritis Disposition: HOME SELF-CARE Condition: Good Instructions (If sedation given, give patient instructions): Acute Nausea and Vomiting (ED) Is patient prescribed a controlled substance at d/c from ED?: No Referrals: [facility] [Primary Care Provider] - 1-2 days
[2020-10-16] MEDS ORDERED: KETOROLAC 15 MG/ML 1 ML VIAL IM STA (22:46)
[2020-10-16 23:01] VITALS: BP 129/79; PULSE 77; RESP 20; TEMP 98
== END 2020-10-16 23:01 | disposition home or self-care (01) ==
LOC: EC 21:15
DX: K52.9 Noninfective gastroenteritis and colitis, unspecified (principal); F41.9 Anxiety disorder, unspecified; F32.9 Major depressive disorder, single episode, unspecified; F20.9 Schizophrenia, unspecified; F17.200 Nicotine dependence, unspecified, uncomplicated; Z20.822 Contact with and (suspected) exposure to COVID-19
CPT/HCPCS: 36415; 74018; 80053; 81003; 82150; 83690; 85025; 87635; 99284

== ENCOUNTER 2020-10-21 10:03 | Inpatient (IN) | payer MEDICAID, OTHER ==
--- NOTE | 2020-10-21 11:05 | ED ---
Psych HPI - General Chief Complaint: Psychiatric Symptoms Stated Complaint: mental health Time Seen by Provider: 10/21/20 10:22 Source: patient, police, RN notes reviewed Mode of arrival: ambulatory - History of Present Illness Initial Comments: This is a 28-year-old male with a history of schizoaffective disorder bipolar type who was brought in by police and petitioned apparently the patient's been noncompliant with his medication he was found wandering into areas businesses demonstrating some erratic behavior. Upon arrival here the patient is uncooperative and threatening. He did require restraints that. No reports of trauma no reports of fevers chills nausea vomiting sweats or other symptoms MD Complaint: other - Related Data Home Medications Medication Instructions Recorded Confirmed Paliperidone IM [Invega Sustenna] 156 mg IM Q28D 10/01/20 10/21/20 Previous Rx's Medication Instructions Recorded Nicotine Polacrilex [Nicorette] 2 mg BUCCAL Q2HR PRN 30 Days gum 09/23/20 hydrOXYzine pamoate [Vistaril] 100 mg PO HS PRN 30 Days cap 09/23/20 [place] Carbonate 300 mg PO BID #60 cap 10/06/20 Melatonin 5 mg PO HS #30 tablet 10/06/20 Allergies Allergy/AdvReac Type Severity Reaction Status Date / Time fluphenazine [From Prolixin] AdvReac Unknown Verified 10/21/20 11:43 haloperidol [From Haldol] AdvReac Extrapyramidal Verified 10/21/20 11:43 Side Effects ziprasidone [From Geodon] AdvReac Suicidal Verified 10/21/20 11:43 Thoughts Review of Systems ROS Statement: Those systems with pertinent positive or pertinent negative responses have been documented in the HPI. ROS Other: All systems not noted in ROS Statement are negative. Past Medical History Past Medical History: Respiratory Disorder Additional Past Medical History / Comment(s): schizophrenia History of Any Multi-Drug Resistant Organisms: None Reported Past Surgical History: Tonsillectomy Additional Past Surgical History / Comment(s): colonoscopy Past Anesthesia/Blood Transfusion Reactions: No Reported Reaction Past Psychological History: ADD/ADHD, Anxiety, Depression, Panic Disorder, Schizophrenia Smoking Status: Current every day smoker Past Alcohol Use History: None Reported Past Drug Use History: None Reported - Past Family History Father Additional Family Medical History / Comment(s): Father is alive at age 49 with history of anxiety. Mother Additional Family Medical History / Comment(s): Mother is alive at age 42 with history of back problems and back surgery. Brother(s) Additional Family Medical History / Comment(s): Patient has one half brother with no major medical problems. He has 1 sister with no major medical problems. Patient has one son that is healthy. General Exam - General Exam Comments Initial Comments: This is a well-developed sec appearing male who is awake alert Limitations: no limitations General appearance: alert, in no apparent distress Head exam: Present: atraumatic, normocephalic, normal inspection Eye exam: Present: normal appearance, PERRL, EOMI. Absent: scleral icterus, conjunctival injection, periorbital swelling ENT exam: Present: normal exam, mucous membranes moist Neck exam: Present: normal inspection. Absent: tenderness, meningismus, lymphadenopathy Respiratory exam: Present: normal lung sounds bilaterally. Absent: respiratory distress, wheezes, rales, rhonchi, stridor Cardiovascular Exam: Present: regular rate, normal rhythm, normal heart sounds. Absent: systolic murmur, diastolic murmur, rubs, gallop, clicks GI/Abdominal exam: Present: soft, normal bowel sounds. Absent: distended, tenderness, guarding, rebound, rigid Extremities exam: Present: normal inspection, full ROM, normal capillary refill. Absent: tenderness, pedal edema, joint swelling, calf tenderness Back exam: Present: normal inspection Neurological exam: Present: alert, oriented X3, CN II-XII intact Psychiatric exam: Present: agitated Skin exam: Present: warm, dry, intact, normal color. Absent: rash Course Vital Signs 10/21/20 10:07 Temperature 97.8 F Pulse Rate 82 Respiratory 18 Rate Blood Pressure 130/84 O2 Sat by Pulse 94 L Oximetry Procedures - Restraint - Face to Face Restraint Occurrence 1 Patient's Immediate Situation: Endangers others' safety, Endangers staff safety Patient's Reaction to the Intervention: Uncooperative, Angry, Hostile Patient's Medical & Behavioral Condition: Awake, Alert, Agitated Need to Continue or Terminate Restraint or Seclusion: Continue Face to Face Eval of Restraint Date: 10/21/20 Face to Face Eval of Restraint Time: 10:50 Medical Decision Making - Medical Decision Making Patient was evaluated by the EPS service she will be admitted for inpatient treatment did fill out a clinical certification Disposition Clinical Impression: Schizoaffective disorder, bipolar type, Acute anxiety Disposition: TRANSFER TO PSYCH HOSP/UNIT Condition: Fair Referrals: [facility] [Primary Care Provider] - 1-2 days
[2020-10-21] MEDS ORDERED: diphenhydrAMINE 50 MG/ML 1 ML VIAL IM STA ×2 (11:15→13:41)
[2020-10-21] MEDS ORDERED: LORazepam 2 MG/ML INJ IM STA ×2 (11:15→13:43)
[2020-10-21] MEDS ORDERED: HALOPERIDOL LACTATE 5 MG/ML 1 ML VIAL IM STA (13:42)
[2020-10-21 16:54] LABS: Amphetamine Screen,Urine Not Detected (NotDetected); Barbiturate Screen,Urine Not Detected (NotDetected); Benzodiazepines Screen,Urine Detected (NotDetected); Cocaine Screen,Urine Not Detected (NotDetected); Methadone Screen, Urine Not Detected (NotDetected); Opiate Screen,Urine Not Detected (NotDetected); Oxycodone Screen, Urine Not Detected (NotDetected); Phencyclidine Screen,Urine Not Detected (NotDetected); Tricyclic Antidepressant,Urine Not Detected (NotDetected); Urn Cannabinoid Scrn Detected (NotDetected)
[2020-10-21] MEDS ORDERED: NICOTINE POLACRILEX 2 MG GUM BUCCAL PRN (17:15)
[2020-10-21] MEDS ORDERED: hydrOXYzine pamoate 25 MG CAP PO PRN (17:15)
[2020-10-21] MEDS ORDERED: MAG HYDROX/AL HYDROX/SIMETH 30 ML CUP PO PRN (17:16)
[2020-10-21] MEDS ORDERED: MAGNESIUM HYDROXIDE 2,400 MG/10 ML CUP PO PRN (17:16)
[2020-10-21] MEDS ORDERED: ACETAMINOPHEN TAB 325 MG TAB PO PRN (17:16)
[2020-10-21] MEDS ORDERED: HALOPERIDOL LACTATE 5 MG/ML 1 ML VIAL IM PRN (17:23)
[2020-10-21] MEDS ORDERED: haloperidoL 5 MG TAB PO PRN (17:23)
--- NOTE | 2020-10-21 18:09 | P.HPMEDMHU ---
History of Present Illness H&P Date: 10/21/20 Chief Complaint: Bizarre behaviors Patient is a 29-year-old male with history of schizophrenia, and tobacco abuse who has been admitted to the mental health unit. Of note patient was recently hospitalized at mental health unit earlier this month. He was brought in by police after being found trespassing on a business without mass. He has missed his last several appointments for outpatient treatment. He was very aggressive and required restraints both physical and chemical. Patient seen and examined. He resided received medications and he is resting comfortably. He arouses to touch but falls back asleep without stimulation. He denies any pain, shortness of breath, headache, or lightheadedness. Patient is having difficulty staying awake at this time. Medical history is gathered from extensive chart review including recent hospitalization from 10/01 through 10/06/20 Unable to obtain full review of systems is patient is lethargic. General: non toxic, no distress, appears at stated age Derm: warm, dry Head: atraumatic, normocephalic, symmetric Eyes: EOMI, no lid lag, anicteric sclera Mouth: no lip lesion, mucus membranes moist Cardiovascular: S1S2 reg, no murmur, positive posterior tibial pulse bilateral, Lungs: CTA bilateral, no rhonchi, no rales , no accessory muscle use Abdominal: soft, nontender to palpation, no guarding, no appreciable organomegaly Ext: no gross muscle atrophy, no edema, no contractures Neuro: CN II-XI grossly intact, no focal neuro deficits Psych: lethargic Tobacco abuse - cessation - nicotine replacement Shizoaffectie disorder - mgt per psychiatry - lithium level pending Thank you for allowing us to participate in the care of this pleasant patient. Do not hesitate to contact us with questions. Someone can be reached from the [facility] hospitalist group all hours of the day at [phone] or via [employer]. Review of Systems ROS unobtainable: due to mental status Past Medical History Past Medical History: Respiratory Disorder Additional Past Medical History / Comment(s): schizophrenia History of Any Multi-Drug Resistant Organisms: None Reported Past Surgical History: Tonsillectomy Additional Past Surgical History / Comment(s): colonoscopy Past Anesthesia/Blood Transfusion Reactions: No Reported Reaction Past Psychological History: ADD/ADHD, Anxiety, Depression, Panic Disorder, Schizophrenia Smoking Status: Current every day smoker Past Alcohol Use History: None Reported Past Drug Use History: None Reported - Past Family History Father Additional Family Medical History / Comment(s): Father is alive at age 49 with history of anxiety. Mother Additional Family Medical History / Comment(s): Mother is alive at age 42 with history of back problems and back surgery. Brother(s) Additional Family Medical History / Comment(s): Patient has one half brother with no major medical problems. He has 1 sister with no major medical problems. Patient has one son that is healthy. Medications and Allergies Home Medications Medication Instructions Recorded Confirmed Type Nicotine Polacrilex [Nicorette] 2 mg BUCCAL Q2HR PRN 30 Days gum 09/23/20 10/21/20 Rx hydrOXYzine pamoate [Vistaril] 100 mg PO HS PRN 30 Days cap 09/23/20 10/21/20 Rx Paliperidone IM [Invega Sustenna] 156 mg IM Q28D 10/01/20 10/21/20 History Ola Carbonate 300 mg PO BID #60 cap 10/06/20 10/21/20 Rx Melatonin 5 mg PO HS #30 tablet 10/06/20 10/21/20 Rx Allergies Allergy/AdvReac Type Severity Reaction Status Date / Time fluphenazine [From Prolixin] AdvReac Unknown Verified 10/21/20 11:43 haloperidol [From Haldol] AdvReac Extrapyramidal Verified 10/21/20 11:43 Side Effects ziprasidone [From Geodon] AdvReac Suicidal Verified 10/21/20 11:43 Thoughts Physical Exam Osteopathic Statement: *. No significant issues noted on an osteopathic structural exam other than those noted in the History and Physical/Consult. Vitals: Vital Signs Temp Pulse Resp BP Pulse Ox 10/21/20 10:07 97.8 F 82 18 130/84 94 L Intake and Output 10/21/20 10/21/20 10/21/20 06:59 14:59 22:59 Other: Weight 81.647 kg Cranial Nerve Examination - Cranial Nerves Cranial Nerve II- Optic: Intact Cranial Nerve III- Oculomotor: Intact Cranial Nerve IV- Trochlear: Intact Cranial Nerve V- Trigeminal: Intact Cranial Nerve - Abducens: Intact Cranial Nerve VII- Facial: Intact Cranial Nerve VIII- Auditory: Intact Cranial Nerve IX- Glossopharyngeal: Intact Cranial Nerve X- Vagus: Intact Cranial Nerve XI- Accessory: Intact Cranial Nerve XII- Hypoglossal: Intact Results Labs: Abnormal Lab Results - Last 24 Hours (Table) 10/21/20 Range/Units 16:37 U Benzodiazepines Scrn Detected H (NotDetected) U Marijuana (THC) Screen Detected H (NotDetected)
[2020-10-21] MEDS ORDERED: LORazepam 2 MG/ML INJ IM PRN (19:58)
[2020-10-21] MEDS: LITHIUM CARBONATE 300 MG CAP PO SCH (20:40)
[2020-10-21] MEDS: MELATONIN 5 MG TABLET PO SCH (20:40)
[2020-10-22] MEDS: LORazepam 1 MG TAB PO PRN ×3 (02:20→18:07)
[2020-10-22] MEDS: LITHIUM CARBONATE 300 MG CAP PO SCH (08:57)
[2020-10-22] MEDS ORDERED: PALIPERIDONE 3 MG TAB.ER.24 PO STA ×2 (09:47→13:10)
--- NOTE | 2020-10-22 10:17 | P.HP ---
Psychiatric H&P - . H&P Date: 10/22/20 History & Physical: Allergies Allergy/AdvReac Type Severity Reaction Status Date / Time fluphenazine From Prolixin AdvReac Unknown Verified 10/21/20 11:43 haloperidol From Haldol AdvReac Extrapyramidal Verified 10/21/20 11:43 Side Effects ziprasidone From Geodon AdvReac Suicidal Verified 10/21/20 11:43 Thoughts Vital Signs Temp 98.7 F 10/21/20 18:13 Pulse 58 L 10/21/20 18:13 Resp 14 10/21/20 18:13 BP 100/63 10/21/20 18:13 Pulse Ox 94 L 10/21/20 10:07 Intake & Output 10/21/20 10/22/20 10/22/20 18:59 06:59 18:59 Weight 81.647 kg Laboratory Last Values Urine Opiates Screen Not Detected (NotDetected) 10/21/20 16:37 Ur Oxycodone Screen Not Detected (NotDetected) 10/21/20 16:37 Urine Methadone Screen Not Detected (NotDetected) 10/21/20 16:37 Ur Propoxyphene Screen Not Detected (NotDetected) 10/21/20 16:37 Ur Barbiturates Screen Not Detected (NotDetected) 10/21/20 16:37 U Tricyclic Antidepress Not Detected (NotDetected) 10/21/20 16:37 Ur Phencyclidine Scrn Not Detected (NotDetected) 10/21/20 16:37 Ur Amphetamines Screen Not Detected (NotDetected) 10/21/20 16:37 U Methamphetamines Scrn Not Detected (NotDetected) 10/21/20 16:37 U Benzodiazepines Scrn Detected (NotDetected) H 10/21/20 16:37 Urine Cocaine Screen Not Detected (NotDetected) 10/21/20 16:37 U Marijuana (THC) Screen Detected (NotDetected) H 10/21/20 16:37 Influenza Type A (PCR) Not Detected (Not Detectd) 10/21/20 15:00 Influenza Type B (PCR) Not Detected (Not Detectd) 10/21/20 15:00 RSV (PCR) Not Detected (Not Detectd) 10/21/20 15:00 SARS-CoV-2 (PCR) Not Detected (Not Detectd) 10/21/20 15:00 10/22/20 09:57 IDENTIFYING DATA: Patient is a single, unemployed, 29-year-old male who was admitted to the psychiatric unit involuntarily for bizarre and intrusive behaviors. HPI: Patient presented to the hospital on 10/21/20, brought in by police after the patient was noted to be trespassing in private property and refusing to wear a mask. Several people called the police because of his bizarre behavior. The patient was also placed in restraints because he was becoming aggressive with staff have been threatening them and spitting on them. The patient has also not been adherent with his court ordered psychiatric treatment. Patient missed his last several appointments for outpatient treatment. Reportedly missed his last dose of Invega Sustenna. On evaluation on the psychiatric unit, the patient expresses that she feels like he does not need any these medications but states that he will take them all he is on the unit if it will mean that he will be discharged earlier. He is currently not reporting any suicidal or homicidal ideation, intention, and/or plan. He is not reporting any auditory or visual hallucinations. He is denying any paranoia or other delusions. He expresses that he just wants to shoot some poor in the bar despite the bar being closed and that people around him are being "jerks." The patient has been noted that he just wants to "fu*k with people." He does admit that he has not been taking any of his psychiatric medications the past week and a half. The patient is currently not reporting any significant symptoms of depression area and he is not reporting any significant symptoms of cl. He reports no increased goal-directed behavior, impulsivity, grandiosity, or mood swings. He reports no significant change in his character. He denies any significant issues with appetite. He has been able to address his hygiene. He does report that sleep has been somewhat poor but attributes this to his medications making him feel tired during the day. The patient reports that he has been engaging in marijuana use. He denies any illicit drug use or heavy alcohol use. He continues to smoke tobacco frequently. PAST PSYCHIATRIC HISTORY: The patient has had multiple psychiatric hospitalizations since childhood. This is the patient's at least 14th hospitalizations since 2014. He has a history of aggressive and threatening behavior which required multiple episodes of seclusion and restraint and admissions where he was under one-to-one supervision by hospital security. The patient was most recently discharged from the psychiatric unit on 10/06/2020. He has noted diagnoses of schizoaffective disorder, antisocial personality disorder, cannabis abuse, and nicotine dependence. PMH: Past Medical History: Respiratory Disorder Additional Past Medical History / Comment(s): schizophrenia History of Any Multi-Drug Resistant Organisms: None Reported Past Surgical History: Tonsillectomy Additional Past Surgical History / Comment(s): colonoscopy Past Anesthesia/Blood Transfusion Reactions: No Reported Reaction Past Psychological History: ADD/ADHD, Anxiety, Depression, Panic Disorder, Schizophrenia Smoking Status: Current every day smoker Past Alcohol Use History: None Reported Past Drug Use History: None Reported ALLERGIES: Fluphenazine, haloperidol, ziprasidone - highly suspect that these are not true allergies but more likely at this reactions that the patient has experienced in the past. CHEMICAL DEPENDENCY HISTORY: As per HPI FAMILY PSYCHIATRIC/SUBSTANCE USE HISTORY: No reported family psychiatric history or substance abuse history. SOCIAL HISTORY: Patient was previously staying at the Health system. He states that he is no longer living there and has been staying with a female friend named Miryam. He receives Social Security disability. He does have a legal guardian. He reports completing high school. MENTAL STATUS EXAM: General Appearance: Patient appears to be stated age is alert, directable, and attempts to cooperate. Patient appears to have fair hygiene and grooming. Patient has a shaved head and is wearing an orange shirt. Behavior: Patient is seated without any agitated behavior. Psychomotor activity appears normal. Eye contact is appropriate. Speech: Patient's speech is fluent and nonpressured. Hyperverbal at times but is interruptible and directable. Speech is with normal tone and volume. Mood/Affect: Patient reports their mood is "doing great," affect is expansive and irritable. Suicidality/Homicidality: Patient denies having any homicidal ideation intent or plan. Denies any suicidal ideations intent or plan Perceptions: Patient denies any visual hallucinations and denies any auditory hallucinations Though content/process: There is no evidence of any delusional thought content and thought process is linear and goal-directed. Memory and concentration: AOX3, grossly intact for the purposes of this session. Can spell "WORLD" backwards Judgment and insight: Poor STRENGTHS/WEAKNESSES: Strength is that the patient has good physical health, is under guardianship, and is engaged in any mental health. Weakness is that the patient has a history of aggressive antisocial behaviors, poor compliance to treatment, and chronic mental illness. INTELLECT: average IMPRESSIONS: Patient is a 29-year-old single, male admitted to [facility] involuntarily due to aggressive and bizarre behaviors in the community. Patient's current episode was likely precipitated by his lack of adherence with court ordered psychiatric treatment. The patient does have significant antisocial personality traits that make it difficult for him to be compliant under his court order. We will reinitiate his medications and likely administer higher dose of Invega Sustenna prior to discharge. Despite this patient constantly complaining of side effects of his antipsychotic medications, the patient did not endorse any significant side effects of this and vague other than feeling "not quite myself." He reported no significant issues with sexual function, EPS symptoms, or chest pain/shortness of breath. Schizoaffective disorder, bipolar type Antisocial personality disorder Cannabis use disorder Nicotine dependence PLAN: -Patient is admitted under involuntary status to [facility]HU for stabilization of psychiatric symptoms and safety. Patient is currently under a court order for mental health treatment. -Medications : Invega 3 mg by mouth daily today to increase to 6 mg tomorrow. We will also transition the patient back to Invega Sustenna, and likely administer 234 mg IM due to the history of nonadherence with treatment. Likely maintain this dose as his maintenance dose as well. Increase [place] to 450 mg by mouth twice a day.Ativan and Haldol PRN for agitation/aggression -Patient was counselled on substance abuse -Patient was informed of the risks, benefits and side effects of the medication and patient verbally consented to taking the medications. -Internal Medicine consult to perform medical evaluation and physical. -NRT - nicotine patch SW on board for discharge planning. Encourage patient to participate in groups to work on coping skills. []
[2020-10-22] MEDS: NICOTINE 21MG/24HR PATCH TRANSDERM SCH (11:08)
[2020-10-22] MEDS ORDERED: chlorproMAZINE 25 MG TAB PO PRN (13:27)
[2020-10-22] MEDS: diphenhydrAMINE 50 MG/ML 1 ML VIAL IM PRN (18:47)
[2020-10-22] MEDS: chlorproMAZINE 25 MG/ML 2 ML AMP IM PRN (19:10)
[2020-10-22] MEDS ORDERED: LITHIUM CARBONATE 300 MG CAP PO SCH (21:00)
[2020-10-22] MEDS: LITHIUM CARBONATE ER 450 MG TABLET.ER PO SCH (22:08)
[2020-10-22] MEDS: MELATONIN 5 MG TABLET PO SCH (22:08)
[2020-10-23] MEDS: LITHIUM CARBONATE ER 450 MG TABLET.ER PO SCH ×2 (08:08→19:50)
[2020-10-23] MEDS: PALIPERIDONE 6 MG TAB.ER.24 PO SCH (08:09)
[2020-10-23] MEDS: NICOTINE 21MG/24HR PATCH TRANSDERM SCH (08:09)
[2020-10-23 08:12] VITALS: TEMP 95.7
[2020-10-23] MEDS: diphenhydrAMINE 50 MG/ML 1 ML VIAL IM PRN (08:25)
[2020-10-23] MEDS: chlorproMAZINE 25 MG/ML 2 ML AMP IM PRN (08:25)
[2020-10-23 08:58] VITALS: RESP 14
[2020-10-23] MEDS ORDERED: PALIPERIDONE IM 234 MG/1.5 ML SYG IM ONE ×2 (09:00→12:30)
[2020-10-23] MEDS ORDERED: chlorproMAZINE 25 MG/ML 2 ML AMP IM PRN (09:34)
--- NOTE | 2020-10-23 10:20 | P.MHFACE ---
Face to Face Restrain/Seclus - Evaluation Patient's Immediate Situation: Endangers self safety, Endangers others' safety, Endangers staff safety, Violent behavior Patient's Reaction to the Intervention: Uncooperative, Aggressive, Combative, Resistive to care Patient's Medical & Behavioral Condition: Awake, Alert, Agitated Patient's Medical & Behavioral Condition - Comment: Medically stable. Need to Continue or Terminate Restraint or Seclusion: Continue Need to Continue or Terminate Restraint/Seclusion - Comment: Patient was agitated but gradually calmed down for removal of restraints.
--- NOTE | 2020-10-23 11:05 | P.PN ---
Progress Note - Text Progress Note Date: 10/23/20 Interval History: Patient was seen while in restraints. The patient has been agitated with staff and continues to be confrontational and oppositional. He expresses that "everyone is fu*cking with me." He appears to be discussing with peers on the unit to demand for more food and water despite them eating their meals appropriately. He continues to be oppositional to all staff and easily agitated. He constantly expresses that it is everyone else messing with him and not the other way around. He received multiple IM medications this morning. He is scheduled to meet with the ACT team at 11am today and receive invega sustenna 234 mg IM later this day. He has previously trialed invega and has tolerated the medication well. He is not reporting any suicidal or homicidal ideation, intention, and/or plan. He reports no auditory or visual hallucinations. Mental Status Exam: General Appearance: Patient appears to be stated age is alert, is difficult to direct and uncooperative. Dressed in a sweater. Shaved head. Behavior: Patient presents with elevated psychomotor activity. Eye contact is intense. He is constantly pacing the hallways when he is not in restraints and has difficulty sitting still. Speech: Patient's speech is loud in volume, hyperverbal, spontaneous. Mood/Affect: Mood is upset. Affect is angry and expansive. Suicidality/Homicidality: Patient denies having any suicidal or homicidal ideation intent or plan. Perceptions: Patient denies any visual hallucinations and denies any auditory hallucinations Though content/process: There is no evidence of any delusional thought content and thought process is linear. Narcissistic and grandiose. Memory and concentration: AOX3, grossly intact for the purposes of this session Judgment and insight: Poor Assessment Schizoaffective Disorder, bipolar type Antisocial personality disorder Cannabis Use Disorder Nicotine Dependence. Plan: -Patient continues to meet criteria for inpatient psychiatric admission for symptom stabilization and safety. Patient is under court order for mental health treatment. -Medications: Continue [place] 450 mg by mouth twice daily for mood stabilization Continue invega 6 mg by mouth daily for mood stabilization/psychosis Will administer Invega sustenna 234 mg IM today. -When necessary Ativan and thorazine for agitation/aggression. -NRT - nicotine patch -SW on board for discharge planning. Encouraged the patient to participate in milieu.
[2020-10-23] MEDS ORDERED: NICOTINE POLACRILEX 2 MG GUM BUCCAL PRN (18:44)
[2020-10-23] MEDS: MELATONIN 5 MG TABLET PO SCH (19:50)
[2020-10-24] MEDS: LITHIUM CARBONATE ER 450 MG TABLET.ER PO SCH (08:03)
[2020-10-24] MEDS: PALIPERIDONE 6 MG TAB.ER.24 PO SCH (08:04)
[2020-10-24] MEDS ORDERED: NICOTINE 21MG/24HR PATCH TRANSDERM SCH (09:00)
[2020-10-24] MEDS: LORazepam 1 MG TAB PO PRN (10:00)
[2020-10-24 10:02] VITALS: BP 115/69; PULSE 97
--- NOTE | 2020-10-24 10:59 | P.DS ---
Providers Date of admission: 10/21/20 17:14 Expected date of discharge: 10/24/20 Attending physician: Lukas Gannon MD Consults: 10/21/20 17:16 Consult Physician Routine Consulting Provider: Belen Fong Consult Reason/Comments: H&P and medical Do you want consulting provider notified?: Already Contacted Primary care physician: [facility] - Discharge Diagnosis(es) (1) Schizoaffective disorder, bipolar type Current Visit: Yes Status: Chronic Priority: High (2) Antisocial personality disorder Current Visit: Yes Status: Chronic Priority: Medium (3) Cannabis use disorder, mild, abuse Current Visit: Yes Status: Chronic Priority: Medium (4) Nicotine dependence Current Visit: Yes Status: Chronic Priority: Medium Hospital Course: Admission HPI: Patient is a single, unemployed, 29-year-old male who was admitted to the psychiatric unit involuntarily for bizarre and intrusive behaviors. Patient presented to the hospital on 10/21/20, brought in by police after the patient was noted to be trespassing in private property and refusing to wear a mask. Several people called the police because of his bizarre behavior. The patient was also placed in restraints because he was becoming aggressive with staff have been threatening them and spitting on them. The patient has also not been adherent with his court ordered psychiatric treatment. Patient missed his last several appointments for outpatient treatment. Reportedly missed his last dose of Invega Sustenna. On evaluation on the psychiatric unit, the patient expresses that she feels like he does not need any these medications but states that he will take them all he is on the unit if it will mean that he will be discharged earlier. He is currently not reporting any suicidal or homicidal ideation, intention, and/or plan. He is not reporting any auditory or visual hallucinations. He is denying any paranoia or other delusions. He expresses that he just wants to shoot some poor in the bar despite the bar being closed and that people around him are being "jerks." The patient has been noted that he just wants to "fu*k with people." He does admit that he has not been taking any of his psychiatric medications the past week and a half. The patient is currently not reporting any significant symptoms of depression area and he is not reporting any significant symptoms of cl. He reports no increased goal-directed behavior, impulsivity, grandiosity, or mood swings. He reports no significant change in his character. He denies any significant issues with appetite. He has been able to address his hygiene. He does report that sleep has been somewhat poor but attributes this to his medications making him feel tired during the day. The patient reports that he has been engaging in marijuana use. He denies any illicit drug use or heavy alcohol use. He continues to smoke tobacco frequently. The patient has had multiple psychiatric hospitalizations since childhood. This is the patient's at least 14th hospitalizations since 2015. He has a history of aggressive and threatening behavior which required multiple episodes of seclusion and restraint and admissions where he was under one-to-one supervision by hospital security. The patient was most recently discharged from the psychiatric unit on 10/06/2020. He has noted diagnoses of schizoaffective disorder, antisocial personality disorder, cannabis abuse, and nicotine dependence. Hospital course: Upon admission to the unit patient was initially presenting is cooperative and polite this provider but as the day went on, the patient began eating more confrontational, oppositional, and agitated. He was agreeable to take his lithium and restart his Invega. The patient has a noted diagnosis of antisocial personality disorder and display significant narcissistic traits causing him to be disruptive in the milieu. He required one-to-one security supervision due to his interactions with staff and peers. He also required 4-point restraints after he refused to de-escalate. The patient was given Invega Sustenna on 10/23/2020 and took it willingly and cooperated with staff. The patient's lithium was also increased to 450 mg by mouth twice a day during this hospitalization. Significant discharge planning took place in coordination with [facility] including enrolling the patient into ACT services to ensure treatment adherence. On day of discharge, the patient is not reporting any suicidal or homicidal ideation, intention, and/or plan. He reports no asked to firearms or other weapons. He is not reporting any auditory or visual hallucinations. He is denying any paranoia or other delusions. The patient reports that he is tolerating his medications well. He expresses understanding that he needs to follow his treatment order. Patient was counseled at length on the need to be adherent with his medications and follow-up with his court ordered treatment. The patient acknowledges that if he does not follow up with his treatment, he would be coming back to the psychiatric unit. This provider also counseled the patient that if he performs any illegal activity it is likely that he is to be incarcerated regardless of his mental health diagnoses. He was also counseled on avoiding all substances including marijuana and illicit drugs. The patient is scheduled to follow up with the ACT team after discharge. Mental status exam: General Appearance: Patient appears to be stated age is alert, pleasant, and cooperative. Patient is in no acute distress and has fair hygiene and grooming. The patient has a shaved head and is wearing a T-shirt, jeans, and sandals. Behavior: Patient is calmly seated without any agitated behavior. Eye contact is appropriate. Psychomotor activity appears normal. Speech: Patient's speech is fluent and nonpressured. Mood/Affect: Patient reports their mood is "doing great", affect is congruent and euthymic to bright. Suicidality/Homicidality: Patient denies having any suicidal or homicidal ideation intent or plan. Perceptions: Patient denies any auditory or visual hallucinations. Though content/process: There is no evidence of any delusional thought content and thought process is linear and goal-directed. Patient is future oriented. Memory and concentration: AOX3, grossly intact for the purposes of this session. Can spell "WORLD" backwards correctly. Judgment and insight: Improved with guarded prognosis Impression: Schizoaffective disorder, bipolar type Antisocial personality disorder Cannabis use disorder Nicotine dependence Plan: -Continue with discharge today as patient has improved and stabilized psychiatrically and is not currently an imminent threat to himself and/or others. Patient will remain at chronically elevated risk for harm to self and/or others due to his impulsivity and polysubstance abuse. -Continue medications: Invega Sustenna 234 mg IM was administered on 10/23/2020. It is recommended with patient likely receives a higher dose of Invega for maintenance or transition to another medication such as Haldol or other long-acting injectables due to his history of nonadherence with treatment and frequent hospitalizations. Invega 3 mg by mouth daily for mood stabilization/psychosis Foster 450 mg by mouth twice a day for mood stabilization -Patient was counseled on the need for medication compliance and appropriate follow-up at mental health and also primary care for medical issues. Patient verbalized understanding and agreed. -Social work to arrange for and conduct family meeting to ensure safety upon discharge and answer any questions/concerns. Social work also to arrange for patients follow up appointments with [facility] for psychiatric care along with follow up with primary care provider. -Patient counseled on abstaining from recreational drugs and marijuana and alcohol. Was informed/educated on the adverse effects on their physical and mental health. Patient verbally agreed and understood. Patient was offered substance abuse treatment however declined at this time. -Patient was instructed to return to the hospital or seek immediate medical care if their psychiatric or medical symptoms do worsen or reoccur. -Psychoeducation and supportive therapy provided to patient. Risks and benefits of pharmacological treatment versus the risks and benefits of nontreatment weight and discussed. Informed consent discussion held. Common side effects of psychotropics discussed such as, but not limited to headache, GI disturbance, sexual dysfunction, movement disorders, sedation, and orthostatic hypotension. Life threatening and blackbox warnings of prescribed medications also discussed. Potential risks of operating a vehicle or heavy machinery discussed with job ponce at length. Advised on importance of compliance and a reliable and responsible manner. Patient advised to review FDA consumer labeling of all medications prior to taking. Patient verbalized understanding of potential risks, and agrees with current treatment plan. Patient advised to medically contact physician/emergency personnel if any acute changes in condition occur. Laboratory Results Urine Opiates Screen Not Detected (NotDetected) 10/21/20 16:37 Ur Oxycodone Screen Not Detected (NotDetected) 10/21/20 16:37 Urine Methadone Screen Not Detected (NotDetected) 10/21/20 16:37 Ur Propoxyphene Screen Not Detected (NotDetected) 10/21/20 16:37 Ur Barbiturates Screen Not Detected (NotDetected) 10/21/20 16:37 U Tricyclic Antidepress Not Detected (NotDetected) 10/21/20 16:37 Ur Phencyclidine Scrn Not Detected (NotDetected) 10/21/20 16:37 Ur Amphetamines Screen Not Detected (NotDetected) 10/21/20 16:37 U Methamphetamines Scrn Not Detected (NotDetected) 10/21/20 16:37 U Benzodiazepines Scrn Detected (NotDetected) H 10/21/20 16:37 Urine Cocaine Screen Not Detected (NotDetected) 10/21/20 16:37 U Marijuana (THC) Screen Detected (NotDetected) H 10/21/20 16:37 Influenza Type A (PCR) Not Detected (Not Detectd) 10/21/20 15:00 Influenza Type B (PCR) Not Detected (Not Detectd) 10/21/20 15:00 RSV (PCR) Not Detected (Not Detectd) 10/21/20 15:00 SARS-CoV-2 (PCR) Not Detected (Not Detectd) 10/21/20 15:00 Vital Signs Temp 95.7 F L 10/23/20 08:11 Pulse 97 10/24/20 10:00 Resp 14 10/23/20 08:46 BP 115/69 10/24/20 10:00 Pulse Ox 95 10/23/20 08:46 Allergies Allergy/AdvReac Type Severity Reaction Status Date / Time fluphenazine [From Prolixin] AdvReac Unknown Verified 10/21/20 11:43 ziprasidone [From Geodon] AdvReac Suicidal Verified 10/21/20 11:43 Thoughts Patient Condition at Discharge: Stable Plan - Discharge Summary New Discharge Prescriptions: New Nicotine 21Mg/24Hr Patch [Habitrol] 1 patch TRANSDERM DAILY 30 Days patch Melatonin 5 mg PO HS 30 Days tablet hydrOXYzine pamoate [Vistaril] 100 mg PO HS PRN 30 Days cap PRN Reason: Insomnia Paliperidone IM [Invega Sustenna] 234 mg IM QMONTHLY #1 syr Paliperidone [Invega] 3 mg PO DAILY 30 Days tab.er.24 [place] Carbonate ER [Lithobid] 450 mg PO BID 30 Days tablet.er Discontinued hydrOXYzine pamoate [Vistaril] 100 mg PO HS PRN 30 Days cap PRN Reason: Insomnia Paliperidone IM [Invega Sustenna] 156 mg IM Q28D [place] Carbonate 300 mg PO BID #60 cap Nicotine Polacrilex [Nicorette] 2 mg BUCCAL Q2HR PRN 30 Days gum PRN Reason: Nicotine Cravings Melatonin 5 mg PO HS #30 tablet Discharge Medication List [place] Carbonate ER [Lithobid] 450 mg PO BID 30 Days tablet.er 10/24/20 [Rx] Melatonin 5 mg PO HS 30 Days tablet 10/24/20 [Rx] Nicotine 21Mg/24Hr Patch [Habitrol] 1 patch TRANSDERM DAILY 30 Days patch 04/30/21 [Rx] Paliperidone IM [Invega Sustenna] 234 mg IM QMONTHLY #1 syr 10/24/20 [Rx] Paliperidone [Invega] 3 mg PO DAILY 30 Days tab.er.24 10/24/20 [Rx] hydrOXYzine pamoate [Vistaril] 100 mg PO HS PRN 30 Days cap 10/24/20 [Rx] Follow up Appointment(s)/Referral(s): [facility] [Outside] - 10/29/20 11:30 am (10-29-20 @ 11:[address] Villalba at [facility] office) [facility] [Primary Care Provider] - 1-2 days Patient Instructions/Handouts: How to Stop Smoking (DC), Schizoaffective Disorder (DC) Activity/Diet/Wound Care/Special Instructions: Activity and diet as tolerated. Avoid the use of street drugs and alcohol. Take all medications as prescribed. When you are in need of refills on your medications please contact your medical provider and/or outpatient psychiatrist to have this done. Please go to scheduled outpatient appointment for aftercare treatment. If symptoms return or become worse, call the crisis line at and/or go to the nearest emergency room for evaluation. Discharge Disposition: HOME SELF-CARE
== END 2020-10-24 12:08 | disposition home or self-care (01) | DRG 885 ==
LOC: EC 10:03 → 3MHU 17:14
PROVIDERS: ADMIT Psychiatry & Neurology Psychiatry; ATTEND Psychiatry & Neurology Psychiatry
DX: F25.0 Schizoaffective disorder, bipolar type (principal); F12.10 Cannabis abuse, uncomplicated; F17.200 Nicotine dependence, unspecified, uncomplicated; F41.0 Panic disorder [episodic paroxysmal anxiety]; F60.2 Antisocial personality disorder; F60.81 Narcissistic personality disorder; F90.9 Attention-deficit hyperactivity disorder, unspecified type; Z78.1 Physical restraint status; Z91.14 Patient's other noncompliance with medication regimen; Z91.83 Wandering in diseases classified elsewhere
CPT/HCPCS: 80306; 82075; 87636; 96372; 99285

== ENCOUNTER 2020-10-26 18:42 | Emergency (ER) | payer OTHER ==
--- NOTE | 2020-10-26 19:50 | ED ---
Psych HPI - General Chief Complaint: Psychiatric Symptoms Stated Complaint: Mental Health Time Seen by Provider: 10/26/20 19:02 Source: patient Mode of arrival: ambulatory - History of Present Illness Initial Comments: 29 year-old male patient presents to the emergency department for evaluation of depression and suicidal thoughts. Plan is to cut wrists with a razor blade, no specific planned time. Patient states that he has had the "worst two weeks" of his life. States that he lost his wallet and $1000 was taken from him. He is not currently working and is homeless. Denies any alcohol or drug use. Denies any current injury or illness. Has attempted suicide in the past. Has been admitted to the mental health unit in the past. Patient denies any recent rash, fever, chills, cough, shortness of breath, chest pain, abdominal pain, nausea, vomiting, diarrhea, constipation, back pain, numbness, tingling, dizziness, weakness, hematuria, dysuria, urinary urgency, urinary frequency, headache, visual changes, or any other complaints. - Related Data Previous Rx's Medication Instructions Recorded [facility] Carbonate ER [Lithobid] 450 mg PO BID 30 Days tablet.er 10/24/20 Melatonin 5 mg PO HS 30 Days tablet 10/24/20 Nicotine 21Mg/24Hr Patch [Habitrol] 1 patch TRANSDERM DAILY 30 Days 10/24/20 patch Paliperidone IM [Invega Sustenna] 234 mg IM QMONTHLY #1 syr 10/24/20 Paliperidone [Invega] 3 mg PO DAILY 30 Days tab.er.24 10/24/20 hydrOXYzine pamoate [Vistaril] 100 mg PO HS PRN 30 Days cap 10/24/20 Allergies Allergy/AdvReac Type Severity Reaction Status Date / Time fluphenazine [From Prolixin] AdvReac Unknown Verified 10/26/20 20:23 ziprasidone [From Geodon] AdvReac Suicidal Verified 10/26/20 20:23 Thoughts Review of Systems ROS Statement: Those systems with pertinent positive or pertinent negative responses have been documented in the HPI. ROS Other: All systems not noted in ROS Statement are negative. Past Medical History Past Medical History: Respiratory Disorder Additional Past Medical History / Comment(s): schizophrenia History of Any Multi-Drug Resistant Organisms: None Reported Past Surgical History: Tonsillectomy Additional Past Surgical History / Comment(s): colonoscopy Past Anesthesia/Blood Transfusion Reactions: No Reported Reaction Past Psychological History: ADD/ADHD, Anxiety, Depression, Panic Disorder, Schizophrenia Smoking Status: Current every day smoker Past Alcohol Use History: None Reported Past Drug Use History: None Reported - Past Family History Father Additional Family Medical History / Comment(s): Father is alive at age 49 with history of anxiety. Mother Additional Family Medical History / Comment(s): Mother is alive at age 42 with history of back problems and back surgery. Brother(s) Additional Family Medical History / Comment(s): Patient has one half brother wi th no major medical problems. He has 1 sister with no major medical problems. Patient has one son that is healthy. General Exam Limitations: no limitations General appearance: alert, in no apparent distress, other (This a well- developed, well-nourished adult male patient in no acute distress. Vital signs upon presentation are temperature 97.4F, pulse 91, respirations 18, blood pressure 122/79, pulse ox 98% on room air.) Eye exam: Present: normal appearance, PERRL, EOMI. Absent: scleral icterus, conjunctival injection, periorbital swelling ENT exam: Present: normal exam, normal oropharynx, mucous membranes moist Respiratory exam: Present: normal lung sounds bilaterally. Absent: respiratory distress, wheezes, rales, rhonchi, stridor Cardiovascular Exam: Present: regular rate, normal rhythm, normal heart sounds. Absent: systolic murmur, diastolic murmur, rubs, gallop, clicks GI/Abdominal exam: Present: soft, normal bowel sounds. Absent: distended, tenderness, guarding, rebound, rigid Neurological exam: Present: alert, oriented X3, CN II-XII intact Psychiatric exam: Present: depressed, suicidal ideation. Absent: homicidal ideation Skin exam: Present: warm, dry, intact, normal color. Absent: rash Course Vital Signs 10/26/20 10/26/20 18:44 22:30 Temperature 97.4 F L 97.9 F Pulse Rate 91 90 Respiratory 18 16 Rate Blood Pressure 122/79 121/74 O2 Sat by Pulse 98 95 Oximetry Medical Decision Making - Medical Decision Making 29-year-old male patient presented to the emergency department reporting increased depression and suicidal ideation. Patient states he is currently homeless. He was seen and evaluated by emergency psychiatric services. Patient eventually admitted that he wanted to be admitted to the mental health unit on [address] because his girlfriend is up there. When he was informed he would be transferred to another psychiatric facility he stated that he was not suicidal. He wanted to be discharged so he could follow up for a job opportunity this week. He plans to go to [facility] [address] in the morning. Return parameters were discussed in detail. He verbalizes understanding and agrees the plan. - Lab Data Lab Results 10/26/20 Range/Units 19:52 Urine Opiates Screen Not Detected (NotDetected) Ur Oxycodone Screen Not Detected (NotDetected) Urine Methadone Screen Not Detected (NotDetected) Ur Propoxyphene Screen Not Detected (NotDetected) Ur Barbiturates Screen Not Detected (NotDetected) U Tricyclic Antidepress Not Detected (NotDetected) Ur Phencyclidine Scrn Not Detected (NotDetected) Ur Amphetamines Screen Not Detected (NotDetected) U Methamphetamines Scrn Not Detected (NotDetected) U Benzodiazepines Scrn Not Detected (NotDetected) Urine Cocaine Screen Not Detected (NotDetected) U Marijuana (THC) Screen Not Detected (NotDetected) Disposition Clinical Impression: Depression, Suicidal ideation Disposition: HOME SELF-CARE Condition: Good Instructions (If sedation given, give patient instructions): Depression (ED), Help Prevent Suicide (ED) Additional Instructions: Follow-up with outpatient mental services as discussed. Return to the emergency department for any new, worsening, or concerning symptoms. Is patient prescribed a controlled substance at d/c from ED?: No Referrals: [facility] [Primary Care Provider] - 1-2 days Time of Disposition: 21:49
[2020-10-26 20:15] LABS: Amphetamine Screen,Urine Not Detected (NotDetected); Barbiturate Screen,Urine Not Detected (NotDetected); Benzodiazepines Screen,Urine Not Detected (NotDetected); Cocaine Screen,Urine Not Detected (NotDetected); Methadone Screen, Urine Not Detected (NotDetected); Opiate Screen,Urine Not Detected (NotDetected); Oxycodone Screen, Urine Not Detected (NotDetected); Phencyclidine Screen,Urine Not Detected (NotDetected); Tricyclic Antidepressant,Urine Not Detected (NotDetected); Urn Cannabinoid Scrn Not Detected (NotDetected)
[2020-10-26 22:31] VITALS: BP 121/74; PULSE 90; RESP 16; TEMP 97.9
== END 2020-10-26 22:19 | disposition home or self-care (01) ==
LOC: EC 18:42
DX: F32.9 Major depressive disorder, single episode, unspecified (principal); F17.200 Nicotine dependence, unspecified, uncomplicated
CPT/HCPCS: 80306; 82075; 87636; 99284

== ENCOUNTER 2020-11-04 12:21 | Emergency (ER) | payer OTHER ==
[2020-11-04 13:11] LABS: Appearance,Urine Clear (Clear); Bilirubin,Urine Negative (Negative); Blood,Urine Negative (Negative); Color,Urine Light Yellow; Glucose,Urine (UA) Negative (Negative); Ketones,Urine Negative (Negative); Leukocyte Esterase,Urine Small (Negative); Nitrite,Urine Negative (Negative); PH, Urine 6.5 (5.0-8.0); Protein,Urine Negative (Negative); RBC,Urine 1 /hpf (0-5); Specific Gravity,Urine 1.012 (1.001-1.035); Urobilinogen,Urine <2.0 mg/dL (<2.0); WBC,Urine 3 /hpf (0-5)
[2020-11-04 13:25] LABS: Amphetamine Screen,Urine Not Detected (NotDetected); Barbiturate Screen,Urine Not Detected (NotDetected); Benzodiazepines Screen,Urine Not Detected (NotDetected); Cocaine Screen,Urine Not Detected (NotDetected); Methadone Screen, Urine Not Detected (NotDetected); Opiate Screen,Urine Not Detected (NotDetected); Oxycodone Screen, Urine Not Detected (NotDetected); Phencyclidine Screen,Urine Not Detected (NotDetected); Tricyclic Antidepressant,Urine Not Detected (NotDetected); Urn Cannabinoid Scrn Not Detected (NotDetected)
[2020-11-04 16:41] VITALS: BP 113/67; PULSE 75; RESP 18; TEMP 98
--- NOTE | 2020-11-04 16:46 | ED ---
Psych HPI - General Chief Complaint: Psychiatric Symptoms Stated Complaint: Mental Health Time Seen by Provider: 11/04/20 12:25 Source: EMS Mode of arrival: EMS - History of Present Illness Initial Comments: Patient presents for psychiatric evaluation. He reports suicidal ideation this time. He has not tried to harm himself. He has no other problems or complaints. - Related Data Home Medications Medication Instructions Recorded Confirmed Paliperidone IM [Invega Sustenna] 234 mg IM Q30D 11/04/20 11/04/20 Paliperidone [Invega] 3 mg PO DAILY 11/04/20 11/04/20 Previous Rx's Medication Instructions Recorded [place] Carbonate ER [Lithobid] 450 mg PO BID 30 Days tablet.er 10/24/20 Melatonin 5 mg PO HS 30 Days tablet 10/24/20 Nicotine 21Mg/24Hr Patch [Habitrol] 1 patch TRANSDERM DAILY 30 Days 10/24/20 patch hydrOXYzine pamoate [Vistaril] 100 mg PO HS PRN 30 Days cap 10/24/20 Allergies Allergy/AdvReac Type Severity Reaction Status Date / Time fluphenazine [From Prolixin] AdvReac Unknown Verified 11/04/20 13:30 haloperidol [From Haldol] AdvReac reverse Verified 11/04/20 13:30 effects ziprasidone [From Geodon] AdvReac Suicidal Verified 11/04/20 13:30 Thoughts Review of Systems ROS Statement: Those systems with pertinent positive or pertinent negative responses have been documented in the HPI. ROS Other: All systems not noted in ROS Statement are negative. Past Medical History Past Medical History: Respiratory Disorder Additional Past Medical History / Comment(s): schizophrenia, History of Any Multi-Drug Resistant Organisms: None Reported Past Surgical History: Tonsillectomy Additional Past Surgical History / Comment(s): colonoscopy, Past Anesthesia/Blood Transfusion Reactions: No Reported Reaction Past Psychological History: ADD/ADHD, Anxiety, Depression, Panic Disorder, Schizophrenia Smoking Status: Current every day smoker Past Alcohol Use History: None Reported Past Drug Use History: None Reported - Past Family History Father Additional Family Medical History / Comment(s): Father is alive at age 49 with history of anxiety. Mother Additional Family Medical History / Comment(s): Mother is alive at age 42 with history of back problems and back surgery. Brother(s) Additional Family Medical History / Comment(s): Patient has one half brother with no major medical problems. He has 1 sister with no major medical problems. Patient has one son that is healthy. General Exam Limitations: no limitations General appearance: alert, in no apparent distress Head exam: Present: atraumatic Eye exam: Present: normal appearance ENT exam: Present: normal exam Neck exam: Present: normal inspection Respiratory exam: Absent: respiratory distress Extremities exam: Present: full ROM Neurological exam: Present: alert, oriented X3 (He'll) Psychiatric exam: Present: normal affect. Absent: agitated Skin exam: Present: warm, dry Course Vital Signs 11/04/20 11/04/20 12:23 16:40 Temperature 97.7 F 98.0 F Pulse Rate 74 75 Respiratory 16 18 Rate Blood Pressure 114/71 113/67 O2 Sat by Pulse 99 97 Oximetry Medical Decision Making - Medical Decision Making Patient presents for psychiatric evaluation. He has been seen by [facility]. Safety plan was written and he is stable for discharge. - Lab Data Lab Results 11/04/20 Range/Units 12:35 Urine Color Light Yellow Urine Appearance Clear (Clear) Urine pH 6.5 (5.0-8.0) Ur Specific [place] 1.012 (1.001-1.035) Urine Protein Negative (Negative) Urine Glucose (UA) Negative (Negative) Urine Ketones Negative (Negative) Urine Blood Negative (Negative) Urine Nitrite Negative (Negative) Urine Bilirubin Negative (Negative) Urine Urobilinogen <2.0 (<2.0) mg/dL Ur Leukocyte Esterase Small H (Negative) Urine RBC 1 (0-5) /hpf Urine WBC 3 (0-5) /hpf Urine Opiates Screen Not Detected (NotDetected) Ur Oxycodone Screen Not Detected (NotDetected) Urine Methadone Screen Not Detected (NotDetected) Ur Propoxyphene Screen Not Detected (NotDetected) Ur Barbiturates Screen Not Detected (NotDetected) U Tricyclic Antidepress Not Detected (NotDetected) Ur Phencyclidine Scrn Not Detected (NotDetected) Ur Amphetamines Screen Not Detected (NotDetected) U Methamphetamines Scrn Not Detected (NotDetected) U Benzodiazepines Scrn Not Detected (NotDetected) Urine Cocaine Screen Not Detected (NotDetected) U Marijuana (THC) Screen Not Detected (NotDetected) Disposition Clinical Impression: Adjustment reaction of adult life Disposition: HOME SELF-CARE Is patient prescribed a controlled substance at d/c from ED?: No Referrals: [facility] [Primary Care Provider] - 1-2 days
== END 2020-11-04 16:53 | disposition home or self-care (01) ==
LOC: EC 12:21
DX: F43.20 Adjustment disorder, unspecified (principal); R45.851 Suicidal ideations; F41.9 Anxiety disorder, unspecified; F20.9 Schizophrenia, unspecified; F32.9 Major depressive disorder, single episode, unspecified; F17.200 Nicotine dependence, unspecified, uncomplicated; Z79.899 Other long term (current) drug therapy
CPT/HCPCS: 80306; 81001; 82075; 99285

== ENCOUNTER 2020-11-16 21:26 | Emergency (ER) | payer OTHER ==
--- NOTE | 2020-11-16 21:45 | ED ---
Psych HPI - General Chief Complaint: Psychiatric Symptoms Stated Complaint: mental health Time Seen by Provider: 11/16/20 21:40 Source: patient Mode of arrival: ambulatory - Related Data Home Medications Medication Instructions Recorded Confirmed Paliperidone IM [Invega Sustenna] 234 mg IM Q30D 11/04/20 11/16/20 Paliperidone [Invega] 3 mg PO DAILY 11/04/20 11/16/20 Previous Rx's Medication Instructions Recorded [place] Carbonate ER [Lithobid] 450 mg PO BID 30 Days tablet.er 10/24/20 Melatonin 5 mg PO HS 30 Days tablet 10/24/20 Nicotine 21Mg/24Hr Patch [Habitrol] 1 patch TRANSDERM DAILY 30 Days 10/24/20 patch hydrOXYzine pamoate [Vistaril] 100 mg PO HS PRN 30 Days cap 10/24/20 Allergies Allergy/AdvReac Type Severity Reaction Status Date / Time fluphenazine [From Prolixin] AdvReac Unknown Verified 11/16/20 22:36 haloperidol [From Haldol] AdvReac reverse Verified 11/16/20 22:36 effects ziprasidone [From Geodon] AdvReac Suicidal Verified 11/16/20 22:36 Thoughts Review of Systems ROS Statement: Those systems with pertinent positive or pertinent negative responses have been documented in the HPI. ROS Other: All systems not noted in ROS Statement are negative. Past Medical History Past Medical History: Respiratory Disorder Additional Past Medical History / Comment(s): schizophrenia, History of Any Multi-Drug Resistant Organisms: None Reported Past Surgical History: Tonsillectomy Additional Past Surgical History / Comment(s): colonoscopy, Past Anesthesia/Blood Transfusion Reactions: No Reported Reaction Past Psychological History: ADD/ADHD, Anxiety, Depression, Panic Disorder, Schizophrenia Smoking Status: Current every day smoker Past Alcohol Use History: Occasional Past Drug Use History: Marijuana - Past Family History Father Additional Family Medical History / Comment(s): Father is alive at age 49 with history of anxiety. Mother Additional Family Medical History / Comment(s): Mother is alive at age 42 with history of back problems and back surgery. Brother(s) Additional Family Medical History / Comment(s): Patient has one half brother with no major medical problems. He has 1 sister with no major medical problems. Patient has one son that is healthy. General Exam Limitations: no limitations Course Vital Signs 05/23/21 21:27 Temperature 98.1 F Pulse Rate 64 Respiratory 20 Rate Blood Pressure 134/80 O2 Sat by Pulse 99 Oximetry Disposition Clinical Impression: Acute anxiety, Adjustment reaction of adult life Disposition: HOME SELF-CARE Condition: Fair Instructions (If sedation given, give patient instructions): Mood Disorders (ED) Is patient prescribed a controlled substance at d/c from ED?: No Referrals: [facility] [Primary Care Provider] - 1-2 days
[2020-11-17 00:59] VITALS: BP 130/78; PULSE 61; RESP 18; TEMP 98.6
== END 2020-11-16 23:30 | disposition home or self-care (01) ==
LOC: EC 21:26
DX: F43.22 Adjustment disorder with anxiety (principal); F17.200 Nicotine dependence, unspecified, uncomplicated
CPT/HCPCS: 82075

== ENCOUNTER 2020-12-22 21:36 | Emergency (ER) | payer OTHER ==
[2020-12-22 22:28] VITALS: TEMP 97.4
--- NOTE | 2020-12-22 22:59 | ED ---
Psych HPI - General Chief Complaint: Psychiatric Symptoms Stated Complaint: Mental health Time Seen by Provider: 12/22/20 22:23 Source: patient, RN notes reviewed Mode of arrival: ambulatory Limitations: no limitations - History of Present Illness Initial Comments: 29-year-old male presented to emergency department with chief complaint of depression, suicidal patient. Patient states that he recently got out of skilled nursing today after 36 day stay in skilled nursing states that he has no place to go states he is unsure what to do states that he tried everything that he just feels very hopeless, is at wits end and states that he rather . Denies any current alcohol or drug use patient has been on medications. States is on Depakote and invega injection - Related Data Home Medications Medication Instructions Recorded Confirmed Paliperidone IM [Invega Sustenna] 234 mg IM Q30D 11/04/20 11/16/20 Paliperidone [Invega] 3 mg PO DAILY 11/04/20 11/16/20 Previous Rx's Medication Instructions Recorded [place] Carbonate ER [Lithobid] 450 mg PO BID 30 Days tablet.er 10/24/20 Melatonin 5 mg PO HS 30 Days tablet 10/24/20 Nicotine 21Mg/24Hr Patch [Habitrol] 1 patch TRANSDERM DAILY 30 Days 10/24/20 patch hydrOXYzine pamoate [Vistaril] 100 mg PO HS PRN 30 Days cap 10/24/20 Allergies Allergy/AdvReac Type Severity Reaction Status Date / Time fluphenazine [From Prolixin] AdvReac Unknown Verified 12/22/20 22:18 haloperidol [From Haldol] AdvReac reverse Verified 12/22/20 22:18 effects ziprasidone [From Geodon] AdvReac Suicidal Verified 12/22/20 22:18 Thoughts Review of Systems ROS Statement: Those systems with pertinent positive or pertinent negative responses have been documented in the HPI. ROS Other: All systems not noted in ROS Statement are negative. Past Medical History Past Medical History: Respiratory Disorder Additional Past Medical History / Comment(s): schizophrenia, History of Any Multi-Drug Resistant Organisms: None Reported Past Surgical History: Tonsillectomy Additional Past Surgical History / Comment(s): colonoscopy, Past Anesthesia/Blood Transfusion Reactions: No Reported Reaction Past Psychological History: ADD/ADHD, Anxiety, Depression, Panic Disorder, Schizophrenia Smoking Status: Current every day smoker Past Alcohol Use History: Occasional Past Drug Use History: Marijuana - Past Family History Father Additional Family Medical History / Comment(s): Father is alive at age 49 with history of anxiety. Mother Additional Family Medical History / Comment(s): Mother is alive at age 42 with history of back problems and back surgery. Brother(s) Additional Family Medical History / Comment(s): Patient has one half brother with no major medical problems. He has 1 sister with no major medical problems. Patient has one son that is healthy. General Exam Limitations: no limitations General appearance: alert, in no apparent distress Head exam: Present: atraumatic, normocephalic, normal inspection Eye exam: Present: normal appearance, PERRL, EOMI. Absent: scleral icterus, conjunctival injection, periorbital swelling ENT exam: Present: normal exam, normal oropharynx, mucous membranes moist Neck exam: Present: normal inspection, full ROM. Absent: tenderness, meningismus, lymphadenopathy Respiratory exam: Present: normal lung sounds bilaterally. Absent: respiratory distress, wheezes, rales, rhonchi, stridor Cardiovascular Exam: Present: regular rate, normal rhythm, normal heart sounds. Absent: systolic murmur, diastolic murmur, rubs, gallop, clicks Neurological exam: Present: alert Psychiatric exam: Present: depressed, flat affect Course Vital Signs 12/22/20 22:18 Temperature 97.4 F L Pulse Rate 61 Respiratory 16 Rate Blood Pressure 113/75 O2 Sat by Pulse 95 Oximetry Medical Decision Making - Medical Decision Making Patient evaluation by EPS patient has appointment with the [facility] tomorrow. Patient feels comfortable with discharge patient sign safety plan case discussed with psychiatrist. - Lab Data Lab Results 12/22/20 Range/Units 22:55 Urine Opiates Screen Not Detected (NotDetected) Ur Oxycodone Screen Not Detected (NotDetected) Urine Methadone Screen Not Detected (NotDetected) Ur Propoxyphene Screen Not Detected (NotDetected) Ur Barbiturates Screen Not Detected (NotDetected) U Tricyclic Antidepress Not Detected (NotDetected) Ur Phencyclidine Scrn Not Detected (NotDetected) Ur Amphetamines Screen Not Detected (NotDetected) U Methamphetamines Scrn Not Detected (NotDetected) U Benzodiazepines Scrn Not Detected (NotDetected) Urine Cocaine Screen Not Detected (NotDetected) U Marijuana (THC) Screen Not Detected (NotDetected) Disposition Clinical Impression: Depression Disposition: HOME SELF-CARE Condition: Stable Instructions (If sedation given, give patient instructions): Depression (ED) Additional Instructions: Please return to the Emergency Department if symptoms worsen or any other concerns. Is patient prescribed a controlled substance at d/c from ED?: No Referrals: [facility] [Primary Care Provider] - 1-2 days Time of Disposition: 00:32
[2020-12-22 23:50] LABS: Amphetamine Screen,Urine Not Detected (NotDetected); Barbiturate Screen,Urine Not Detected (NotDetected); Benzodiazepines Screen,Urine Not Detected (NotDetected); Cocaine Screen,Urine Not Detected (NotDetected); Methadone Screen, Urine Not Detected (NotDetected); Opiate Screen,Urine Not Detected (NotDetected); Oxycodone Screen, Urine Not Detected (NotDetected); Phencyclidine Screen,Urine Not Detected (NotDetected); Tricyclic Antidepressant,Urine Not Detected (NotDetected); Urn Cannabinoid Scrn Not Detected (NotDetected)
[2020-12-23 01:44] VITALS: RESP 18
[2020-12-23 03:07] VITALS: BP 99/58; PULSE 66
== END 2020-12-23 06:17 | disposition home or self-care (01) ==
LOC: EC 21:36
DX: F32.9 Major depressive disorder, single episode, unspecified (principal); F17.200 Nicotine dependence, unspecified, uncomplicated; F20.9 Schizophrenia, unspecified; Z79.899 Other long term (current) drug therapy; Z88.8 Allergy status to other drugs, medicaments and biological substances
CPT/HCPCS: 80306; 82075; 99284

== ENCOUNTER 2022-05-20 17:29 | Emergency (ER) | payer MEDICARE, OTHER ==
--- NOTE | 2022-05-20 17:43 | ED ---
General Adult HPI - General Source: patient Mode of arrival: ambulatory Limitations: no limitations <Albino Alvarez - Last Filed: 05/20/22 21:21> - General Source: RN notes reviewed, old records reviewed - History of Present Illness -: unknown <Dany Dorsey Tarsha - Last Filed: 05/21/22 06:47> - General Chief complaint: Psychiatric Symptoms Stated complaint: mental health Time Seen by Provider: 05/20/22 17:42 - History of Present Illness Initial comments: Patient presents to the ED stating that he has schizoaffective disorder and that he has had insomnia for the past 4 days or so. Patient states "I'm manic and paranoid and having trouble sleeping". Patient also states that he has been "looking for sharp objects around my place", and he admits to having suicidal ideations. Patient denies suicidal attempt. Patient states that he has not taken lithium or any other psychiatric medications and almost a couple of years now. Patient denies hallucinations, homicidal ideations, medication abuse or ov erdose, illicit drug use, alcohol use, trauma or injury, any pain, fever or chills, dyspnea, dizziness, nausea or vomiting, or any other symptoms or complaints. (Albino Alvarez) - Related Data Home Medications Medication Instructions Recorded Confirmed Paliperidone IM [Invega Sustenna] 234 mg IM Q30D 11/04/20 11/16/20 Paliperidone [Invega] 3 mg PO DAILY 11/04/20 11/16/20 Previous Rx's Medication Instructions Recorded [place] Carbonate ER [Lithobid] 450 mg PO BID 30 Days tablet.er 10/24/20 Melatonin 5 mg PO HS 30 Days tablet 10/24/20 Nicotine 21Mg/24Hr Patch [Habitrol] 1 patch TRANSDERM DAILY 30 Days 10/24/20 patch hydrOXYzine pamoate [Vistaril] 100 mg PO HS PRN 30 Days cap 10/24/20 Allergies Allergy/AdvReac Type Severity Reaction Status Date / Time fluphenazine [From Prolixin] AdvReac Unknown Verified 05/20/22 17:41 haloperidol [From Haldol] AdvReac reverse Verified 05/20/22 17:41 effects ziprasidone [From Geodon] AdvReac Suicidal Verified 05/20/22 17:41 Thoughts Review of Systems ROS Other: All systems not noted in ROS Statement are negative. <JeffreyAlbino rachel - Last Filed: 05/20/22 21:21> ROS Other: All systems not noted in ROS Statement are negative. <Dany Dorsey - Last Filed: 05/21/22 06:47> ROS Statement: Those systems with pertinent positive or pertinent negative responses have been documented in the HPI. Past Medical History Past Medical History: Respiratory Disorder Additional Past Medical History / Comment(s): schizophrenia, History of Any Multi-Drug Resistant Organisms: None Reported Past Surgical History: Tonsillectomy Additional Past Surgical History / Comment(s): colonoscopy, Past Anesthesia/Blood Transfusion Reactions: No Reported Reaction Past Psychological History: ADD/ADHD, Anxiety, Depression, Panic Disorder, Schizophrenia Smoking Status: Current every day smoker Past Alcohol Use History: Occasional Past Drug Use History: Marijuana - Past Family History Father Additional Family Medical History / Comment(s): Father is alive at age 49 with history of anxiety. Mother Additional Family Medical History / Comment(s): Mother is alive at age 42 with history of back problems and back surgery. Brother(s) Additional Family Medical History / Comment(s): Patient has one half brother with no major medical problems. He has 1 sister with no major medical problems. Patient has one son that is healthy. <AgustinaAlbino reece - Last Filed: 05/20/22 21:21> General Exam Limitations: no limitations General appearance: alert Head exam: Present: atraumatic, normocephalic Eye exam: Present: normal appearance, PERRL, EOMI ENT exam: Present: mucous membranes moist Neck exam: Absent: tenderness, meningismus Respiratory exam: Present: normal lung sounds bilaterally. Absent: respiratory distress, wheezes, rales, rhonchi, stridor Cardiovascular Exam: Present: regular rate, normal rhythm, normal heart sounds, other (Normal radial pulses bilaterally) GI/Abdominal exam: Present: soft. Absent: distended, tenderness, guarding Extremities exam: Absent: pedal edema Neurological exam: Present: alert, oriented X3, CN II-XII intact. Absent: motor sensory deficit Psychiatric exam: Present: manic, other (Pressured speech; flight of ideas) Skin exam: Present: warm, dry, intact, normal color <Albino Alvarez Last Filed: 05/20/22 21:21> General appearance: alert, in no apparent distress, anxious Head exam: Present: atraumatic, normocephalic, normal inspection Eye exam: Present: normal appearance, PERRL, EOMI. Absent: scleral icterus, conjunctival injection, periorbital swelling ENT exam: Present: normal exam, mucous membranes moist Neck exam: Present: normal inspection. Absent: tenderness, meningismus, lymphadenopathy Respiratory exam: Present: normal lung sounds bilaterally. Absent: respiratory distress, wheezes, rales, rhonchi, stridor Cardiovascular Exam: Present: regular rate, normal rhythm, normal heart sounds. Absent: systolic murmur, diastolic murmur, rubs, gallop, clicks GI/Abdominal exam: Present: soft, normal bowel sounds. Absent: distended, tenderness, guarding, rebound, rigid Extremities exam: Present: normal inspection, full ROM, normal capillary refill. Absent: tenderness, pedal edema, joint swelling, calf tenderness Back exam: Present: normal inspection Neurological exam: Present: alert, oriented X3, CN II-XII intact Psychiatric exam: Present: normal affect, normal mood Skin exam: Present: warm, dry, intact, normal color. Absent: rash <Dany Dorsey - Last Filed: 05/21/22 06:47> Course <Albino Alvarez - Last Filed: 05/20/22 21:21> <Dany Dorsey - Last Filed: 05/21/22 06:47> Vital Signs 05/20/22 17:38 Temperature 98 F Pulse Rate 91 Respiratory 16 Rate Blood Pressure 110/76 O2 Sat by Pulse 96 Oximetry - Reevaluation(s) Reevaluation #1: 05/20/22 21:20 Patient has been medically cleared. Patient was endorsed to Dr. Dorsey (secondary to shift change) with EPS evaluation and disposition still pending. Dr. Dorsey to follow up on EPS recommendations and to take over care of the patient at this time. (Albino Alvarez) 05/21/22 06:47 Medical record is reviewed (Dany Dorsey) Medical Decision Making - Lab Data Result diagrams: 05/21/22 01:48 05/21/22 01:48 <Dany Dorsey - Last Filed: 05/21/22 06:47> - Medical Decision Making 31 male medical clear for psychiatric evaluation patient will be admitted for psychiatric evaluation and treatment (Dany Dorsey) - Lab Data Lab Results 05/20/22 05/21/22 05/21/22 Range/Units 18:04 01:48 01:48 WBC 12.0 H (3.8-10.6) k/uL RBC 5.61 (4.30-5.90) m/uL Hgb 16.5 (13.0-17.5) gm/dL Hct 47.8 (39.0-53.0) % MCV 85.3 (80.0-100.0) fL MCH 29.5 (25.0-35.0) pg MCHC 34.6 (31.0-37.0) g/dL RDW 12.8 (11.5-15.5) % Plt Count 228 (150-450) k/uL MPV 9.2 Neutrophils % 62 % Lymphocytes % 29 % Monocytes % 6 % Eosinophils % 2 % Basophils % 1 % Neutrophils # 7.4 (1.3-7.7) k/uL Lymphocytes # 3.4 (1.0-4.8) k/uL Monocytes # 0.7 (0-1.0) k/uL Eosinophils # 0.3 (0-0.7) k/uL Basophils # 0.1 (0-0.2) k/uL Sodium 141 (137-145) mmol/L Potassium 4.2 (3.5-5.1) mmol/L Chloride 103 (98-107) mmol/L Carbon Dioxide 27 (22-30) mmol/L Anion Gap 11 mmol/L BUN 14 (9-20) mg/dL Creatinine 1.13 (0.66-1.25) mg/dL Est GFR (CKD-EPI)AfAm >90 (>60 ml/min/1.73 sqM) Est GFR (CKD-EPI)NonAf 87 (>60 ml/min/1.73 sqM) Glucose 90 (74-99) mg/dL Calcium 9.6 (8.4-10.2) mg/dL Total Bilirubin 0.5 (0.2-1.3) mg/dL AST 21 (17-59) U/L ALT 14 (4-49) U/L Alkaline Phosphatase 81 (38-126) U/L Total Protein 7.6 (6.3-8.2) g/dL Albumin 5.2 H (3.5-5.0) g/dL Urine Opiates Screen Not Detected (NotDetected) Ur Oxycodone Screen Not Detected (NotDetected) Urine Methadone Screen Not Detected (NotDetected) Ur Propoxyphene Screen Not Detected (NotDetected) Ur Barbiturates Screen Not Detected (NotDetected) U Tricyclic Antidepress Not Detected (NotDetected) Ur Phencyclidine Scrn Not Detected (NotDetected) Ur Amphetamines Screen Not Detected (NotDetected) U Methamphetamines Scrn Not Detected (NotDetected) U Benzodiazepines Scrn Not Detected (NotDetected) Urine Cocaine Screen Not Detected (NotDetected) U Marijuana (THC) Screen Detected H (NotDetected) Coronavirus (PCR) (Not Detectd) 05/21/22 Range/Units 01:48 WBC (3.8-10.6) k/uL RBC (4.30-5.90) m/uL Hgb (13.0-17.5) gm/dL Hct (39.0-53.0) % MCV (80.0-100.0) fL MCH (25.0-35.0) pg MCHC (31.0-37.0) g/dL RDW (11.5-15.5) % Plt Count (150-450) k/uL MPV Neutrophils % % Lymphocytes % % Monocytes % % Eosinophils % % Basophils % % Neutrophils # (1.3-7.7) k/uL Lymphocytes # (1.0-4.8) k/uL Monocytes # (0-1.0) k/uL Eosinophils # (0-0.7) k/uL Basophils # (0-0.2) k/uL Sodium (137-145) mmol/L Potassium (3.5-5.1) mmol/L Chloride (98-107) mmol/L Carbon Dioxide (22-30) mmol/L Anion Gap mmol/L BUN (9-20) mg/dL Creatinine (0.66-1.25) mg/dL Est GFR (CKD-EPI)AfAm (>60 ml/min/1.73 sqM) Est GFR (CKD-EPI)NonAf (>60 ml/min/1.73 sqM) Glucose (74-99) mg/dL Calcium (8.4-10.2) mg/dL Total Bilirubin (0.2-1.3) mg/dL AST (17-59) U/L ALT (4-49) U/L Alkaline Phosphatase (38-126) U/L Total Protein (6.3-8.2) g/dL Albumin (3.5-5.0) g/dL Urine Opiates Screen (NotDetected) Ur Oxycodone Screen (NotDetected) Urine Methadone Screen (NotDetected) Ur Propoxyphene Screen (NotDetected) Ur Barbiturates Screen (NotDetected) U Tricyclic Antidepress (NotDetected) Ur Phencyclidine Scrn (NotDetected) Ur Amphetamines Screen (NotDetected) U Methamphetamines Scrn (NotDetected) U Benzodiazepines Scrn (NotDetected) Urine Cocaine Screen (NotDetected) U Marijuana (THC) Screen (NotDetected) Coronavirus (PCR) Not Detected (Not Detectd) Disposition <Albino Alvarez - Last Filed: 05/20/22 21:21> Is patient prescribed a controlled substance at d/c from ED?: No <Dany Dorsey - Last Filed: 05/21/22 06:47> Clinical Impression: Suicidal ideations, Insomnia, Paranoid, Manic episode, Adjustment reaction of adult life Disposition: TRANSFER TO PSYCH HOSP/UNIT Condition: Fair Referrals: None,Stated [Primary Care Provider] - 1-2 days
[2022-05-20 18:30] LABS: Amphetamine Screen,Urine Not Detected (NotDetected); Barbiturate Screen,Urine Not Detected (NotDetected); Benzodiazepines Screen,Urine Not Detected (NotDetected); Cocaine Screen,Urine Not Detected (NotDetected); Methadone Screen, Urine Not Detected (NotDetected); Opiate Screen,Urine Not Detected (NotDetected); Oxycodone Screen, Urine Not Detected (NotDetected); Phencyclidine Screen,Urine Not Detected (NotDetected); Tricyclic Antidepressant,Urine Not Detected (NotDetected); Urn Cannabinoid Scrn Detected (NotDetected)
[2022-05-21] MEDS ORDERED: QUEtiapine 50 MG TAB PO STA (00:55)
[2022-05-21 01:56] LABS: Basophils # (A) 0.1 k/uL (0-0.2); Basophils % (A) 1 %; Eosinophils # (A) 0.3 k/uL (0-0.7); Eosinophils % (A) 2 %; HCT 47.8 % (39.0-53.0); HGB 16.5 gm/dL (13.0-17.5); Lymphocytes # (A) 3.4 k/uL (1.0-4.8); Lymphocytes % (A) 29 %; MCH 29.5 pg (25.0-35.0); MCHC 34.6 g/dL (31.0-37.0); MCV 85.3 fL (80.0-100.0); Mean Platelet Volume 9.2; Monocytes # (A) 0.7 k/uL (0-1.0); Monocytes % (A) 6 %; Neutrophils # (A) 7.4 k/uL (1.3-7.7); Neutrophils % (A) 62 %; Platelet Count 228 k/uL (150-450); RBC 5.61 m/uL (4.30-5.90); RDW 12.8 % (11.5-15.5)
[2022-05-21 02:05] LABS: ALT 14 U/L (4-49); AST 21 U/L (17-59); African American GFR (CKD) >90 (>60 ml/min/1.73 sqM); Albumin 5.2 g/dL (3.5-5.0); Alkaline Phosphatase 81 U/L (38-126); Anion Gap 11 mmol/L; Blood Urea Nitrogen 14 mg/dL (9-20); Calcium 9.6 mg/dL (8.4-10.2); Carbon Dioxide 27 mmol/L (22-30); Chloride 103 mmol/L (98-107); Glucose 90 mg/dL (74-99); Non-African American GFR(CKD) 87 (>60 ml/min/1.73 sqM); Potassium 4.2 mmol/L (3.5-5.1); Sodium 141 mmol/L (137-145); Total Bilirubin 0.5 mg/dL (0.2-1.3); Total Protein 7.6 g/dL (6.3-8.2)
[2022-05-21] MEDS ORDERED: NICOTINE 14MG/24HR PATCH TRANSDERM STA (02:45)
[2022-05-21 07:12] LABS: Appearance,Urine Clear (Clear); Bilirubin,Urine Negative (Negative); Blood,Urine Negative (Negative); Color,Urine Yellow; Glucose,Urine (UA) Negative (Negative); Ketones,Urine 1+ (Negative); Leukocyte Esterase,Urine Negative (Negative); Nitrite,Urine Negative (Negative); Protein,Urine Trace (Negative); Specific Gravity,Urine 1.015 (1.001-1.035); Urobilinogen,Urine <2.0 mg/dL (<2.0)
[2022-05-21 11:31] VITALS: BP 125/86; PULSE 87; RESP 18; TEMP 97.9
== END 2022-05-21 11:55 ==
LOC: EC 17:29
DX: R45.851 Suicidal ideations (principal); F43.20 Adjustment disorder, unspecified; F90.9 Attention-deficit hyperactivity disorder, unspecified type; F32.A Depression, unspecified; F41.9 Anxiety disorder, unspecified; F17.200 Nicotine dependence, unspecified, uncomplicated; F12.90 Cannabis use, unspecified, uncomplicated; Z88.7 Allergy status to serum and vaccine; Z88.8 Allergy status to other drugs, medicaments and biological substances; Z20.822 Contact with and (suspected) exposure to COVID-19; Z79.899 Other long term (current) drug therapy
CPT/HCPCS: 82075; 36415; 80053; 85025; 81003; 80306; 87635; 99285; S4990

== ENCOUNTER 2022-05-30 22:45 | Inpatient (IN) | payer MEDICARE, MEDICAID ==
--- NOTE | 2022-05-31 00:24 | ED ---
Psych HPI - General Chief Complaint: Psychiatric Symptoms Stated Complaint: Mental health Time Seen by Provider: 05/31/22 00:23 Source: patient, RN notes reviewed, old records reviewed Mode of arrival: ambulatory - History of Present Illness Initial Comments: This is a 31-year-old male who is no [facility] for [facility] illness patient presenting for same today. MD Complaint: suicidal ideation, feels depressed, altered mental status -: hour(s) Associated Psychiatric Symptoms: depression, suicidal ideation, racing thoughts Quality: constant Improves With: none Worsens With: none Context: not taking psychiatric medications, significant life stressor Associated Symptoms: denies other symptoms Treatments Prior to Arrival: placed on mental health hold - Related Data Home Medications Medication Instructions Recorded Confirmed Ivermectin 9 mg PO ONCE 05/31/22 05/31/22 QUEtiapine FUMARATE [SEROquel] 200 mg PO HS 05/31/22 05/31/22 Triamcinolone 0.1% Cream [Kenalog 1 applic TOPICAL BID PRN 05/31/22 05/31/22 0.1% Cream] Allergies Allergy/AdvReac Type Severity Reaction Status Date / Time fluphenazine [From Prolixin] AdvReac Has Verified 05/31/22 10:05 Extrapyramidal side effects haloperidol [From Haldol] AdvReac reverse Verified 05/31/22 10:05 effects ziprasidone [From Geodon] AdvReac Suicidal Verified 05/31/22 10:05 Thoughts Review of Systems ROS Statement: Those systems with pertinent positive or pertinent negative responses have been documented in the HPI. ROS Other: All systems not noted in ROS Statement are negative. Past Medical History Past Medical History: Respiratory Disorder Additional Past Medical History / Comment(s): schizophrenia, History of Any Multi-Drug Resistant Organisms: None Reported Past Surgical History: Tonsillectomy Additional Past Surgical History / Comment(s): colonoscopy, Past Anesthesia/Blood Transfusion Reactions: No Reported Reaction Past Psychological History: ADD/ADHD, Anxiety, Depression, Panic Disorder, Schizophrenia Smoking Status: Current every day smoker Past Alcohol Use History: Occasional Past Drug Use History: Marijuana - Past Family History Father Additional Family Medical History / Comment(s): Father is alive at age 49 with history of anxiety. Mother Additional Family Medical History / Comment(s): Mother is alive at age 42 with history of back problems and back surgery. Brother(s) Additional Family Medical History / Comment(s): Patient has one half brother with no major medical problems. He has 1 sister with no major medical problems. Patient has one son that is healthy. General Exam Limitations: no limitations General appearance: alert, in no apparent distress Head exam: Present: atraumatic, normocephalic, normal inspection Eye exam: Present: normal appearance, PERRL, EOMI. Absent: scleral icterus, conjunctival injection, periorbital swelling ENT exam: Present: normal exam, mucous membranes moist Neck exam: Present: normal inspection. Absent: tenderness, meningismus, lymphadenopathy Respiratory exam: Present: normal lung sounds bilaterally. Absent: respiratory distress, wheezes, rales, rhonchi, stridor Cardiovascular Exam: Present: regular rate, normal rhythm, normal heart sounds. Absent: systolic murmur, diastolic murmur, rubs, gallop, clicks GI/Abdominal exam: Present: soft, normal bowel sounds. Absent: distended, tenderness, guarding, rebound, rigid Extremities exam: Present: normal inspection, full ROM, normal capillary refill. Absent: tenderness, pedal edema, joint swelling, calf tenderness Back exam: Present: normal inspection Neurological exam: Present: alert, oriented X3, CN II-XII intact Psychiatric exam: Present: normal affect, normal mood Skin exam: Present: warm, dry, intact, normal color. Absent: rash Course Vital Signs 05/30/22 23:15 Temperature 98 F Pulse Rate 117 H Respiratory 20 Rate Blood Pressure 111/81 O2 Sat by Pulse 96 Oximetry - Reevaluation(s) Reevaluation #1: 05/31/22 00:46 05/31/22 Medical record is reviewed Patient symptoms are improved here in the ER Patient informed results and questions are answered Medical Decision Making - Medical Decision Making 31 Male seen and evaluated psychiatry, patient will be admitted for psychiatric evaluation and treatment - Lab Data Result diagrams: 06/01/22 10:27 06/01/22 10:27 Lab Results 05/31/22 Range/Units 08:55 Coronavirus (PCR) Not Detected (Not Detectd) Disposition Clinical Impression: Schizoaffective disorder, bipolar type, Poor compliance with medication, Psychosis, Acute anxiety, Adjustment reaction of adult life, Suicidal ideations Disposition: TRANSFER TO PSYCH HOSP/UNIT Condition: Fair Is patient prescribed a controlled substance at d/c from ED?: No
[2022-05-31] MEDS ORDERED: ACETAMINOPHEN TAB 325 MG TAB PO PRN (09:36)
[2022-05-31] MEDS ORDERED: MAGNESIUM HYDROXIDE 2,400 MG/10 ML CUP PO PRN (09:36)
[2022-05-31] MEDS ORDERED: MAG HYDROX/AL HYDROX/SIMETH 355 ML BOTTLE PO PRN (09:36)
[2022-05-31] MEDS ORDERED: LORazepam 2 MG/ML INJ IM PRN ×2 (09:40→11:08)
[2022-05-31] MEDS: NICOTINE 21MG/24HR PATCH TRANSDERM SCH (10:37)
[2022-05-31] MEDS: LORazepam 1 MG TAB PO PRN ×2 (10:37→17:45)
[2022-05-31] MEDS ORDERED: chlorproMAZINE 25 MG TAB PO PRN (11:08)
--- NOTE | 2022-05-31 14:23 | P.HP ---
Psychiatric H&P - . H&P Date: 05/31/22 History & Physical: Allergies Allergy/AdvReac Type Severity Reaction Status Date / Time fluphenazine From Prolixin AdvReac Has Verified 05/31/22 10:05 Extrapyramidal side effects haloperidol From Haldol AdvReac reverse Verified 05/31/22 10:05 effects ziprasidone From Geodon AdvReac Suicidal Verified 05/31/22 10:05 Thoughts Vital Signs Temp 98 F 05/30/22 23:15 Pulse 117 H 05/30/22 23:15 Resp 20 05/30/22 23:15 BP 111/81 05/30/22 23:15 Pulse Ox 96 05/30/22 23:15 FiO2 Intake & Output 05/30/22 05/31/22 05/31/22 18:59 06:59 18:59 Weight 81.647 kg Laboratory Last Values Coronavirus (PCR) Not Detected (Not Detectd) 05/31/22 08:55 05/31/22 11:06 IDENTIFYING DATA: Patient is a single, unemployed, 31-year-old male who was admitted to the psychiatric unit voluntarily for suicidal thoughts and depression, currently lives alone in apartment, has 1 son, collects Social Security disability. HPI: Patient presented to the hospital yesterday complaining of depression and suicidal thoughts and racing thoughts. Apparently patient was recently discharged from [facility] inpatient psychiatric unit. Patient was admitted voluntarily to the mental health unit. Patient has a history of being on a court order, previously on a long-acting injection Invega Sustenna. His last psychiatric admission and mental health unit was in September 2020. Patient was seen today on the unit after lunch and agreeable to speak in his room. Patient claims that he has been feeling "overwhelmed and stressed" and states that he has been having scabies "for a while now". He claims that he has been trying to stay away from people and mainly isolating. 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 He claims he was feeling altered in his mental status. He states that he went to [facility] and was placed on Seroquel and was there for about 6 days. He claims that he improved and was discharged last . He claims that he also has been speaking with an developed a relationship with a [place] women on the Internet and states that "it stressful and sketchy to me". He claims that he isn't feeling poorly motivated overwhelmed and also endorsed depression. He also was endorsing mild paranoia. Couldn't sleep as been poor about 4 hours a night, has a fair appetite. He was fairly concerned about taking medications that don't affect his erectile dysfunction and we spoke about the different medication options which she is agreeable to take Seroquel and also Cymbalta. The patient reports that he has been engaging in marijuana use. He denies any illicit drug use or heavy alcohol use. He continues to smoke tobacco frequently. PAST PSYCHIATRIC HISTORY: The patient has had multiple psychiatric hospitalizations since childhood. This is the patient's last psychiatric hospitalization was in [facility] last week. His last hospitalization on the mental health unit was in September 2020. He has a history of aggressive and threatening behavior which required multiple episodes of seclusion and restraint and admissions where he was under one-to-one supervision by hospital security. He has noted diagnoses of schizoaffective disorder, antisocial personality disorder, cannabis abuse, and nicotine dependence. PMH: Past Medical History: Respiratory Disorder Additional Past Medical History / Comment(s): schizophrenia ALLERGIES: Fluphenazine, haloperidol, ziprasidone - highly suspect that these are not true allergies but more likely at this reactions that the patient has experienced in the past. CHEMICAL DEPENDENCY HISTORY: As per HPI FAMILY PSYCHIATRIC/SUBSTANCE USE HISTORY: No reported family psychiatric history or substance abuse history. SOCIAL HISTORY: Patient was previously staying at the [facility], and now he lives in an apartment alone, he has 1 kid, currently collecting Social Security disability. He does have a legal guardian. He reports completing high school. He claims that he has been to penitentiary/penitentiary several times in the past. MENTAL STATUS EXAM: General Appearance: Patient appears to be stated age is tall, shaved head, alert, directable, and attempts to cooperate. Patient appears to have fair hygiene and grooming. Behavior: Patient is seated without any agitated behavior. Psychomotor activity appears normal. Eye contact is appropriate. Speech: Patient's speech is fluent and nonpressured. Hyperverbal yet is directable. Speech is with normal tone and volume. swearing often. Mood/Affect: Patient reports their mood is "depressed" affect is irritable. Suicidality/Homicidality: Patient denies having any homicidal ideation intent or plan. Denies any suicidal ideations intent or plan Perceptions: Patient denies any visual hallucinations and denies any auditory hallucinations Though content/process: There is no evidence of any delusional thought content and thought process is linear and goal-directed. focused on medications. Memory and concentration: AOX3, grossly intact for the purposes of this session. Can spell "WORLD" backwards Judgment and insight: Poor STRENGTHS/WEAKNESSES: Strength is that the patient has good physical health, is under guardianship, and is engaged in any mental health. Weakness is that the patient has a history of aggressive antisocial behaviors, poor compliance to treatment, and chronic mental illness. INTELLECT: average IMPRESSIONS: Schizoaffective disorder, bipolar type Antisocial personality disorder Cannabis use disorder Nicotine dependence PLAN: -Patient is admitted under voluntary status to MHU for stabilization of psyc hiatric symptoms and safety. Patient has signed adult voluntary form and is placed in patient's chart. -Medications : Will start patient on Cymbalta 30 mg daily for mood/anxiety, increase seroquel 300 mg qhs for sleep/mood stabilization/psychosis. -Ativan and thorazine PRN for agitation/aggression -Patient was counselled on substance abuse and desired to cut back on use -Patient was informed of the risks, benefits and side effects of the medication -Internal Medicine consult to perform medical evaluation and physical. -NRT - nicotine patch -SW on board for discharge planning. Encourage patient to participate in groups to work on coping skills.
[2022-05-31] MEDS: DULoxetine HCL 30 MG CAPSULE.DR PO SCH (15:48)
--- NOTE | 2022-05-31 16:25 | P.HPMEDMHU ---
History of Present Illness H&P Date: 05/31/22 Chief Complaint: depression Patient is a 31-year-old with history of recent scabies infection was on steroids, ivermectin and permethrin cream presenting with depression and suicidal ideations. He denies any new skin lesions, or pruritus. He denies any chest pain, shortness of breath, abdominal pain, has occasional nausea, denies vomiting, urinary or bowel complaints. He does complain of erectile dysfunction and previously had low testosterone levels. He has not been on any therapy for ED. He occasionally smokes one third to one pack per day. He denies any alcohol use. He used to smoke marijuana in the past. He is also worried about possibly having STD, his last sexual encounter was in September 2021. Patient seen and examined at bedside. Pertinent positives and negatives as discussed in HPI, a complete review of systems was performed and all other systems are negative. Vital signs reviewed General: nontoxic, no distress, appears at stated age Derm: warm, dry Head: atraumatic, normocephalic, symmetric Eyes: EOMI, no lid lag, anicteric sclera, pupils equal round reactive to light ENT: Nose and ears atraumatic Neck: No thyromegaly, supple Mouth: no lip lesion, mucus membranes moist Cardiovascular: S1S2 reg, no murmur, no edema Lungs: clear to auscultation bilateral, no rhonchi, no rales, no wheeze, no accessory muscle use Abdominal: soft, nontender to palpation, no guarding, no appreciable organomegaly Ext: no gross muscle atrophy, muscle strength muscle strength 5 out of 5 in all 4 extremities, no contractures Neuro: CN II-XII grossly intact Psych: Alert, oriented, appropriate affect Assessment/Plan: Psychiatric disorder -Management per psychiatry Nicotine dependence -Nicotine patch History of scabies -No active skin lesions Erectile dysfunction Reported low testosterone level -Outpatient follow-up Patient denies any other chronic medical problems -Routine labs pending Thank you for allowing us to participate in the care of this pleasant patient. Do not hesitate to contact us with questions. Someone can be reached from the [facility] hospitalist group all hours of the day at [phone] or via [employer] Past Medical History Past Medical History: No Reported History, Respiratory Disorder Additional Past Medical History / Comment(s): schizophrenia. History of Any Multi-Drug Resistant Organisms: None Reported Past Surgical History: No Surgical Hx Reported, Tonsillectomy Additional Past Surgical History / Comment(s): colonoscopy. Past Anesthesia/Blood Transfusion Reactions: No Reported Reaction Past Psychological History: ADD/ADHD, Anxiety, Depression, Panic Disorder, Schizophrenia Smoking Status: Current every day smoker Past Alcohol Use History: Occasional Additional Past Alcohol Use History / Comment(s): pt states that he smokes about a pack per day since 2001. pt also reports that he drinks rarely and has a beer or two when he does drink. pt denies use of any other substances. pt's UDS positive for THC. Past Drug Use History: Marijuana Additional Drug Use History / Comment(s): pt quit smoking marajuana at this time. - Past Family History Father Additional Family Medical History / Comment(s): Father is alive at age 49 with history of anxiety. Mother Additional Family Medical History / Comment(s): Mother is alive at age 42 with history of back problems and back surgery. Brother(s) Additional Family Medical History / Comment(s): Patient has one half brother with no major medical problems. He has 1 sister with no major medical problems. Patient has one son that is healthy. Medications and Allergies Home Medications Medication Instructions Recorded Confirmed Type Ivermectin 9 mg PO ONCE 05/31/22 05/31/22 History QUEtiapine FUMARATE [SEROquel] 200 mg PO HS 05/31/22 05/31/22 History Triamcinolone 0.1% Cream [Kenalog 1 applic TOPICAL BID PRN 05/31/22 05/31/22 History 0.1% Cream] Allergies Allergy/AdvReac Type Severity Reaction Status Date / Time fluphenazine [From Prolixin] AdvReac Has Verified 05/31/22 10:05 Extrapyramidal side effects haloperidol [From Haldol] AdvReac reverse Verified 05/31/22 10:05 effects ziprasidone [From Geodon] AdvReac Suicidal Verified 05/31/22 10:05 Thoughts Physical Exam Vitals: Vital Signs Temp Pulse Pulse Resp BP BP Pulse Ox 05/31/22 11:55 97.3 F L 68 20 124/80 05/30/22 23:15 98 F 117 H 20 111/81 96 Intake and Output 05/31/22 05/31/22 05/31/22 06:59 14:59 22:59 Other: Weight 81.647 kg 80.74 kg Cranial Nerve Examination - Cranial Nerves Cranial Nerve II- Optic: Intact Cranial Nerve III- Oculomotor: Intact Cranial Nerve IV- Trochlear: Intact Cranial Nerve V- Trigeminal: Intact Cranial Nerve - Abducens: Intact Cranial Nerve VII- Facial: Intact Cranial Nerve VIII- Auditory: Intact Cranial Nerve IX- Glossopharyngeal: Intact Cranial Nerve X- Vagus: Intact Cranial Nerve XI- Accessory: Intact Cranial Nerve XII- Hypoglossal: Intact Thrombosis Risk Factor Assmnt - Choose All That Apply Any of the Below Risk Factors Present?: No Other Risk Factors: No Other congenital or acquired thrombophilia - If yes, enter type in comment: No Thrombosis Risk Factor Assessment Level: Very Low Risk
[2022-05-31] MEDS ORDERED: QUEtiapine 200 MG TAB PO SCH (21:00)
[2022-05-31] MEDS: QUEtiapine 100 MG TAB PO SCH (22:08)
[2022-06-01] MEDS: DULoxetine HCL 30 MG CAPSULE.DR PO SCH (08:38)
[2022-06-01] MEDS: NICOTINE 21MG/24HR PATCH TRANSDERM SCH (08:38)
--- NOTE | 2022-06-01 10:16 | P.PN ---
Progress Note - Text Progress Note Date: 06/01/22 Interval History: Patient was seen sitting in a group this morning and was directable and agreea ble to speak with aligner typewriter in the office. Patient was fairly concrete today and claims that he is doing "a bit better" with regards to his overall mood and anxiety. He states that he is able to sleep better last night throughout the night. He claims that the Cymbalta is causing him to feel a bit tired and preferred to have it dosed at nighttime. He states that he is trying to go to groups and participate. He appeared to be less irritable today and more directable and cooperative during the interview and was appropriate. At this time patient denies any suicidal or homical ideations, intent or plan. Patient denies any auditory, visual hallucinations and denies any paranoia or delusions. Patient denies any side effects from the medications and has been compliant with meds. Mental Status Exam: General Appearance: Patient appears to be stated age is tall, shaved head, alert, directable, and attempts to cooperate. Patient appears to have fair hygiene and grooming. Behavior: Patient is seated without any agitated behavior. Psychomotor activity appears normal. Speech: Patient's speech is fluent and nonpressured. Hyperverbal yet is directable. Speech is with normal tone and volume. Mood/Affect: Patient reports their mood is "depressed" affect is irritable. Suicidality/Homicidality: Patient denies having any homicidal ideation intent or plan. Denies any suicidal ideations intent or plan Perceptions: Patient denies any visual hallucinations and denies any auditory hallucinations Though content/process: There is no evidence of any delusional thought content and thought process is linear and goal-directed. focused on medications. Memory and concentration: AOX3, grossly intact for the purposes of this session. Judgment and insight: Poor, improving mildly IMPRESSIONS: Schizoaffective disorder, bipolar type Antisocial personality disorder Cannabis use disorder Nicotine dependence Plan: -Patient continues to meet criteria for inpatient psychiatric admission for symptom stabilization and safety. Patient has signed adult voluntary form and was placed in patient's chart. -Medications: change Cymbalta to 30 mg qhs for mood/anxiety and will increase to 60 mg qhs for tuesday night, seroquel 300 mg qhs for sleep/mood stabilization/psychosis. -When necessary Ativan and Thorazine for agitation/aggression. -NRT - nicotine patch -SW on board for discharge planning. Encouraged the patient to participate in milieu. likely discharge in 1-2 days back home.
[2022-06-01 11:04] LABS: Basophils # (A) 0.1 k/uL (0-0.2); Basophils % (A) 1 %; Eosinophils # (A) 0.1 k/uL (0-0.7); Eosinophils % (A) 1 %; HCT 47.6 % (39.0-53.0); Lymphocytes # (A) 1.8 k/uL (1.0-4.8); Lymphocytes % (A) 20 %; MCH 29.4 pg (25.0-35.0); MCHC 33.7 g/dL (31.0-37.0); MCV 87.3 fL (80.0-100.0); Mean Platelet Volume 8.8; Monocytes # (A) 0.6 k/uL (0-1.0); Monocytes % (A) 7 %; Neutrophils # (A) 6.2 k/uL (1.3-7.7); Neutrophils % (A) 69 %; Platelet Count 226 k/uL (150-450); RBC 5.45 m/uL (4.30-5.90); RDW 12.4 % (11.5-15.5); WBC 8.9 k/uL (3.8-10.6)
[2022-06-01 11:15] LABS: ALT 15 U/L (4-49); AST 20 U/L (17-59); African American GFR (CKD) >90 (>60 ml/min/1.73 sqM); Albumin 4.7 g/dL (3.5-5.0); Alkaline Phosphatase 73 U/L (38-126); Anion Gap 8 mmol/L; Blood Urea Nitrogen 13 mg/dL (9-20); Calcium 9.3 mg/dL (8.4-10.2); Carbon Dioxide 31 mmol/L (22-30); Chloride 101 mmol/L (98-107); Glucose 79 mg/dL (74-99); Non-African American GFR(CKD) >90 (>60 ml/min/1.73 sqM); Potassium 4.2 mmol/L (3.5-5.1); Sodium 140 mmol/L (137-145); Total Bilirubin 0.8 mg/dL (0.2-1.3); Total Protein 7.1 g/dL (6.3-8.2)
[2022-06-01] MEDS: LORazepam 1 MG TAB PO PRN (17:15)
[2022-06-01 19:22] LABS: Chol/HDL Ratio 3.91 Ratio; VLDL Calculation 15.86 mg/dL (5.00-40.00)
[2022-06-01] MEDS ORDERED: DULoxetine HCL 30 MG CAPSULE.DR PO SCH (21:00)
[2022-06-01] MEDS: QUEtiapine 100 MG TAB PO SCH (21:18)
[2022-06-02] MEDS: NICOTINE 21MG/24HR PATCH TRANSDERM SCH (08:16)
[2022-06-02 08:18] VITALS: BP 111/76; PULSE 97
[2022-06-02] MEDS ORDERED: IBUPROFEN 600 MG TAB PO PRN (10:17)
--- NOTE | 2022-06-02 10:44 | P.PN ---
Progress Note - Text Progress Note Date: 06/02/22 Interval History: Patient was seen sitting in a group this morning and was directable and agreea ble to speak with law writer. Patient continues to have a soft tone of voice and states that he is "depressed still" and also claims that he is feeling fairly overwhelmed. He claims that he does not know what will change when he goes home as he still feels "stressed out". She was fairly directable and appropriate during conversation. She states that he is feeling mild improvement with the Cymbalta at this time. States that he slept "all right" last night. He states that he still having anxiety at times. She claims that he feels hopeless at times about his future. He states that he is however looking forward to his sister coming to visit him. He was requesting to have ibuprofen added for headaches. He states that he is trying to go to groups and participate. He appeared to be less irritable today. At this time patient denies any suicidal or homical ideations, intent or plan. Patient denies any auditory, visual hallucinations and denies any paranoia or delusions. Patient denies any side effects from the medications and has been compliant with meds. Mental Status Exam: General Appearance: Patient appears to be stated age is tall, shaved head, alert, directable, and attempts to cooperate. Patient appears to have fair hygiene and grooming. Behavior: Patient is seated without any agitated behavior. Psychomotor activity appears normal. Speech: Patient's speech is fluent and nonpressured. directable. concrete. soft tone and volume. Mood/Affect: Patient reports their mood is "depressed still and overwhelmed" affect is constricted and depressed Suicidality/Homicidality: Patient denies having any homicidal ideation intent or plan. Denies any suicidal ideations intent or plan Perceptions: Patient denies any visual hallucinations and denies any auditory hallucinations Though content/process: There is no evidence of any delusional thought content and thought process is linear and goal-directed. focused on medications. Memory and concentration: AOX3, grossly intact for the purposes of this session. Judgment and insight: poor, improving mildly IMPRESSIONS: Schizoaffective disorder, bipolar type Antisocial personality disorder Cannabis use disorder Nicotine dependence Plan: -Patient continues to meet criteria for inpatient psychiatric admission for symptom stabilization and safety. Patient has signed adult voluntary form and was placed in patient's chart. -Medications: increase Cymbalta to 60 mg qhs for mood/anxiety, seroquel 300 mg qhs for sleep/mood stabilization/psychosis. -When necessary Ativan and Thorazine for agitation/aggression. -NRT - nicotine patch -SW on board for discharge planning. Encouraged the patient to participate in milieu. likely discharge tomorrow vs tuesday back home once patient is psychiatrically improved.
[2022-06-02] MEDS: LORazepam 1 MG TAB PO PRN (15:13)
[2022-06-02] MEDS: QUEtiapine 100 MG TAB PO SCH (20:23)
[2022-06-02] MEDS ORDERED: DULoxetine HCL 60 MG CAPSULE.DR PO SCH (21:00)
[2022-06-03 07:06] VITALS: RESP 14; TEMP 97.9
[2022-06-03] MEDS: NICOTINE 21MG/24HR PATCH TRANSDERM SCH (08:26)
--- NOTE | 2022-06-03 11:09 | P.DS ---
Providers Date of admission: 05/31/22 09:28 Expected date of discharge: 06/03/22 Attending physician: Dominick Lind MD Consults: 05/31/22 09:39 Consult Physician Routine Consulting Provider: Eloisa Kaur Consult Reason/Comments: H and P Do you want consulting provider notified?: Yes Primary care physician: Stated None - Discharge Diagnosis(es) (1) Schizoaffective disorder, bipolar type Current Visit: Yes Status: Acute Priority: High (2) Antisocial personality disorder Current Visit: Yes Status: Acute Priority: Medium (3) Cannabis use disorder Current Visit: Yes Status: Acute Priority: Medium (4) Nicotine dependence Current Visit: Yes Status: Acute Priority: Low Hospital Course: Admission HPI: Admission note was completed by documentation writer "Patient is a single, unemployed, 31-year -old male who was admitted to the psychiatric unit voluntarily for suicidal thoughts and depression, currently lives alone in apartment, has 1 son, collects Social Security disability. Patient presented to the hospital yesterday complaining of depression and suicidal thoughts and racing thoughts. Apparently patient was recently discharged from [facility] inpatient psychiatric unit. Jacky florentino was admitted voluntarily to the mental health unit. Patient has a history of being on a court order, previously on a long-acting injection Invega Sustenna. His last psychiatric admission and mental health unit was in September 2020. Patient was seen today on the unit after lunch and agreeable to speak in his room. Patient claims that he has been feeling "overwhelmed and stressed" and states that he has been having scabies "for a while now". He claims that he has been trying to stay away from people and mainly isolating. He states that "it's been driving him crazy" and claims that his all source intelligence technician states that it may possibly be scabies and that he got ivermectin and also a dose of a steroid shot which she was concerned that maybe it made him manic. He claims he was feeling altered in his mental status. He states that he went to [facility] and was placed on Seroquel and was there for about 6 days. He claims that he improved and was discharged last . He claims that he also has been speaking with an developed a relationship with a Afghan women on the Internet and states that "it stressful and sketchy to me". He claims that he isn't feeling poorly motivated overwhelmed and also endorsed depression. He also was endorsing mild paranoia. Couldn't sleep as been poor about 4 hours a night, has a fair appetite. He was fairly concerned about taking medications that don't affect his erectile dysfunction and we spoke about the different medication options which she is agreeable to take Seroquel and also Cymbalta. The patient reports that he has been engaging in marijuana use. He denies any illicit drug use or heavy alcohol use. He continues to smoke tobacco frequently." Hospital course: Upon admission to the unit patient was directable and agreeable to commence treatment and signed adult voluntary form. Patient got along well with other patients on the unit and followed unit protocol. Patient was compliant with the medications and denied any side effects throughout hospital course. Patient was started on Cymbalta and increased to a dose of 60 mg daily at bedtime for mood/anxiety, Seroquel was increased to 300 mg daily at bedtime for insomnia/ mood stabilization/psychosis. Patient spoke of his stressors and engaged in therapy both group and individual. Patient was also seen by medical team for history and physical exam. Throughout the course of the hospitalization patient gradually improved with regards to mood, anxiety, suicidal thoughts, sleep and returned back to their baseline level of functioning. On the day of discharge patient denied any suicidal or homicidal ideations intent or plan denied any auditory or visual hallucinations. Patient endorsed wanting to live for his health and his son. The patient denied any access to guns or weapons. Patient denied any paranoia and did not endorse any delusions. Patient does have a significant history of substance abuse and was counseled on abstaining from all substances including alcohol and marijuana. Patient elected to do outpatient substance use treatment program through [facility]. Patient was also counseled on the medications and need for regular compliance and was encouraged to follow-up with their outpatient appointment for mental health and also for primary care. Mental status exam: General Appearance: Patient appears to be tall, clean cut, stated age is alert, pleasant, and cooperative. Patient is in no acute distress and has improved hygiene and grooming Behavior: Patient is calmly seated without any agitated behavior. Speech: Patient's speech is fluent and nonpressured. Mood/Affect: Patient reports their mood is "[alright", affect is congruent Suicidality/Homicidality: Patient denies having any suicidal or homicidal ideation intent or plan. Perceptions: Patient denies any auditory or visual hallucinations. Though content/process: There is no evidence of any delusional thought content and thought process is linear and goal-directed. more future oriented Memory and concentration: AOX3, grossly intact for the purposes of this session. Can spell "WORLD" backwards correctly. Judgment and insight: chronically poor, however has improved with guarded prognosis Impression: Schizoaffective disorder, bipolar type Cannabis use disorder Antisocial personality disorder Nicotine dependence Plan: -Continue with discharge today as patient has improved and stabilized psychiatrically and is not currently an imminent threat to himself and/or others. Patient will remain at chronically elevated risk for harm to self and/or others due to his impulsivity and substance abuse. -Continue medications: Cymbalta 60 mg qhs for mood/anxiety, Seroquel 300 mg daily at bedtime for mood stabilization/psychosis/sleep. -Patient was counseled on the need for medication compliance and appropriate follow-up at mental health and also primary care for medical issues. Patient verbalized understanding and agreed. -Social work to help arrange for patient's discharged today back home. Social work also to arrange for patients follow up appointments with [facility] for psychiatric care along with follow up with primary care provider. -Patient counseled on abstaining from recreational drugs and marijuana and alcohol. Was informed/educated on the adverse effects on their physical and mental health. Patient verbally agreed and understood. Patient was offered substance abuse treatment however declined at this time. -Patient was instructed to return to the hospital or seek immediate medical care if their psychiatric or medical symptoms do worsen or reoccur. Vital Signs Temp 97.9 F 06/03/22 07:05 Pulse 97 06/02/22 08:17 Resp 14 06/03/22 07:05 BP 111/76 06/02/22 08:17 Pulse Ox 97 06/02/22 08:17 FiO2 Allergies Allergy/AdvReac Type Severity Reaction Status Date / Time fluphenazine [From Prolixin] AdvReac Has Verified 05/31/22 10:05 Extrapyramidal side effects haloperidol [From Haldol] AdvReac reverse Verified 05/31/22 10:05 effects ziprasidone [From Geodon] AdvReac Suicidal Verified 05/31/22 10:05 Thoughts Laboratory Results WBC 8.9 k/uL (3.8-10.6) 06/01/22 10:27 RBC 5.45 m/uL (4.30-5.90) 06/01/22 10:27 Hgb 16.0 gm/dL (13.0-17.5) 06/01/22 10:27 Hct 47.6 % (39.0-53.0) 06/01/22 10:27 MCV 87.3 fL (80.0-100.0) 06/01/22 10:27 MCH 29.4 pg (25.0-35.0) 06/01/22 10:27 MCHC 33.7 g/dL (31.0-37.0) 06/01/22 10:27 RDW 12.4 % (11.5-15.5) 06/01/22 10:27 Plt Count 226 k/uL (150-450) 06/01/22 10:27 MPV 8.8 06/01/22 10:27 Neutrophils % 69 % 06/01/22 10:27 Lymphocytes % 20 % 06/01/22 10:27 Monocytes % 7 % 06/01/22 10:27 Eosinophils % 1 % 06/01/22 10:27 Basophils % 1 % 06/01/22 10:27 Neutrophils # 6.2 k/uL (1.3-7.7) 06/01/22 10:27 Lymphocytes # 1.8 k/uL (1.0-4.8) 06/01/22 10:27 Monocytes # 0.6 k/uL (0-1.0) 06/01/22 10:27 Eosinophils # 0.1 k/uL (0-0.7) 06/01/22 10:27 Basophils # 0.1 k/uL (0-0.2) 06/01/22 10:27 Sodium 140 mmol/L (137-145) 06/01/22 10:27 Potassium 4.2 mmol/L (3.5-5.1) 06/01/22 10:27 Chloride 101 mmol/L (98-107) 06/01/22 10:27 Carbon Dioxide 31 mmol/L (22-30) H 06/01/22 10:27 Anion Gap 8 mmol/L 06/01/22 10:27 BUN 13 mg/dL (9-20) 06/01/22 10:27 Creatinine 1.01 mg/dL (0.66-1.25) 06/01/22 10:27 Est GFR (CKD-EPI)AfAm >90 (>60 ml/min/1.73 sqM) 06/01/22 10:27 Est GFR (CKD-EPI)NonAf >90 (>60 ml/min/1.73 sqM) 06/01/22 10:27 Glucose 79 mg/dL (74-99) 06/01/22 10:[address] Glu mg/dL 98 06/01/22 10:27 Hemoglobin A1c 5.1 % (0.0-6.0) 06/01/22 10:27 Calcium 9.3 mg/dL (8.4-10.2) 06/01/22 10:27 Total Bilirubin 0.8 mg/dL (0.2-1.3) 06/01/22 10:27 AST 20 U/L (17-59) 06/01/22 10:27 ALT 15 U/L (4-49) 06/01/22 10:27 Alkaline Phosphatase 73 U/L (38-126) 06/01/22 10:27 Total Protein 7.1 g/dL (6.3-8.2) 06/01/22 10:27 Albumin 4.7 g/dL (3.5-5.0) 06/01/22 10:27 Triglycerides 79.30 mg/dL (0.00-149.00) 06/01/22 10:27 Cholesterol 149.00 mg/dL (0.00-200.00) 06/01/22 10:27 LDL Cholesterol, Calc 95.0 mg/dL (0.0-131.0) 06/01/22 10:27 VLDL Cholesterol, Calc 15.86 mg/dL (5.00-40.00) 06/01/22 10:27 HDL Cholesterol 38.10 mg/dL (40.00-60.00) L 06/01/22 10:27 Cholesterol/HDL Ratio 3.91 Ratio 06/01/22 10:27 TSH 0.938 mIU/L (0.465-4.680) 06/01/22 10:27 Coronavirus (PCR) Not Detected (Not Detectd) 06/02/22 14:52 Laboratory Results WBC 8.9 k/uL (3.8-10.6) 06/01/22 10:27 RBC 5.45 m/uL (4.30-5.90) 06/01/22 10:27 Hgb 16.0 gm/dL (13.0-17.5) 06/01/22 10:27 Hct 47.6 % (39.0-53.0) 06/01/22 10:27 MCV 87.3 fL (80.0-100.0) 06/01/22 10:27 MCH 29.4 pg (25.0-35.0) 06/01/22 10:27 MCHC 33.7 g/dL (31.0-37.0) 06/01/22 10:27 RDW 12.4 % (11.5-15.5) 06/01/22 10:27 Plt Count 226 k/uL (150-450) 06/01/22 10:27 MPV 8.8 06/01/22 10:27 Neutrophils % 69 % 06/01/22 10:27 Lymphocytes % 20 % 06/01/22 10:27 Monocytes % 7 % 06/01/22 10:27 Eosinophils % 1 % 06/01/22 10:27 Basophils % 1 % 06/01/22 10:27 Neutrophils # 6.2 k/uL (1.3-7.7) 06/01/22 10:27 Lymphocytes # 1.8 k/uL (1.0-4.8) 06/01/22 10:27 Monocytes # 0.6 k/uL (0-1.0) 06/01/22 10:27 Eosinophils # 0.1 k/uL (0-0.7) 06/01/22 10:27 Basophils # 0.1 k/uL (0-0.2) 06/01/22 10:27 Sodium 140 mmol/L (137-145) 06/01/22 10:27 Potassium 4.2 mmol/L (3.5-5.1) 06/01/22 10:27 Chloride 101 mmol/L (98-107) 06/01/22 10:27 Carbon Dioxide 31 mmol/L (22-30) H 06/01/22 10:27 Anion Gap 8 mmol/L 06/01/22 10:27 BUN 13 mg/dL (9-20) 06/01/22 10:27 Creatinine 1.01 mg/dL (0.66-1.25) 06/01/22 10:27 Est GFR (CKD-EPI)AfAm >90 (>60 ml/min/1.73 sqM) 06/01/22 10:27 Est GFR (CKD-EPI)NonAf >90 (>60 ml/min/1.73 sqM) 06/01/22 10:27 Glucose 79 mg/dL (74-99) 06/01/22 10:[address] Glu mg/dL 98 06/01/22 10:27 Hemoglobin A1c 5.1 % (0.0-6.0) 06/01/22 10:27 Calcium 9.3 mg/dL (8.4-10.2) 06/01/22 10:27 Total Bilirubin 0.8 mg/dL (0.2-1.3) 06/01/22 10:27 AST 20 U/L (17-59) 06/01/22 10:27 ALT 15 U/L (4-49) 06/01/22 10:27 Alkaline Phosphatase 73 U/L (38-126) 06/01/22 10:27 Total Protein 7.1 g/dL (6.3-8.2) 06/01/22 10:27 Albumin 4.7 g/dL (3.5-5.0) 06/01/22 10:27 Triglycerides 79.30 mg/dL (0.00-149.00) 06/01/22 10:27 Cholesterol 149.00 mg/dL (0.00-200.00) 06/01/22 10:27 LDL Cholesterol, Calc 95.0 mg/dL (0.0-131.0) 06/01/22 10:27 VLDL Cholesterol, Calc 15.86 mg/dL (5.00-40.00) 06/01/22 10:27 HDL Cholesterol 38.10 mg/dL (40.00-60.00) L 06/01/22 10:27 Cholesterol/HDL Ratio 3.91 Ratio 06/01/22 10:27 TSH 0.938 mIU/L (0.465-4.680) 06/01/22 10:27 Coronavirus (PCR) Not Detected (Not Detectd) 06/02/22 14:52 Patient Condition at Discharge: Stable Plan - Discharge Summary Discharge Rx Participant: No New Discharge Prescriptions: New Ibuprofen [Motrin] 600 mg PO Q8H PRN tab PRN Reason: Moderate To Severe Pain (4-10) QUEtiapine [SEROquel] 300 mg PO HS 30 Days tab DULoxetine HCL [Cymbalta] 60 mg PO HS 30 Days cap Nicotine 21Mg/24Hr Patch [Habitrol] 1 patch TRANSDERM DAILY 14 Days patch Discontinued Triamcinolone 0.1% Cream [Kenalog 0.1% Cream] 1 applic TOPICAL BID PRN PRN Reason: Itching QUEtiapine FUMARATE [SEROquel] 200 mg PO HS Ivermectin 9 mg PO ONCE Discharge Medication List DULoxetine HCL [Cymbalta] 60 mg PO HS 30 Days cap 06/03/22 [Rx] Ibuprofen [Motrin] 600 mg PO Q8H PRN tab 06/03/22 [Rx] Nicotine 21Mg/24Hr Patch [Habitrol] 1 patch TRANSDERM DAILY 14 Days patch 06/03/22 [Rx] QUEtiapine [SEROquel] 300 mg PO HS 30 Days tab 06/03/22 [Rx] Follow up Appointment(s)/Referral(s): [facility] - [facility]08[facility]22 12[facility]30 [facility]with [facility] Patient Instructions/Handouts: How to Stop Smoking (ED), Schizoaffective Disorder (ED) Activity/Diet/Wound Care/Special Instructions: Avoid the use of street drugs and alcohol. Take all prescriptions as prescribed. When you are in need of refills on your medications, please contact your medical provider and/or outpatient psychiatrist to have this done. Please go to scheduled outpatient appointment for aftercare treatment. If symptoms return or become worse, call the crisis line at and/or go to the nearest emergency room for evaluation Discharge Disposition: HOME SELF-CARE
== END 2022-06-03 12:00 | disposition home or self-care (01) | DRG 885 ==
LOC: EC 22:45 → 3MHU 05-31 09:28
PROVIDERS: ADMIT Psychiatry & Neurology Psychiatry; ATTEND Psychiatry & Neurology Psychiatry
DX: F25.0 Schizoaffective disorder, bipolar type (principal); R45.851 Suicidal ideations; F12.10 Cannabis abuse, uncomplicated; Z20.822 Contact with and (suspected) exposure to COVID-19; F90.9 Attention-deficit hyperactivity disorder, unspecified type; F17.210 Nicotine dependence, cigarettes, uncomplicated; F41.0 Panic disorder [episodic paroxysmal anxiety]; N52.9 Male erectile dysfunction, unspecified; F43.20 Adjustment disorder, unspecified; F60.2 Antisocial personality disorder; G47.00 Insomnia, unspecified; Z88.8 Allergy status to other drugs, medicaments and biological substances; Z79.899 Other long term (current) drug therapy; Z91.14 Patient's other noncompliance with medication regimen; Z71.51 Drug abuse counseling and surveillance of drug abuser; Z71.41 Alcohol abuse counseling and surveillance of alcoholic; Z71.6 Tobacco abuse counseling
CPT/HCPCS: 80053; 80061; 82075; 83036; 84443; 85025; 87635; 99285

== ENCOUNTER 2022-11-21 21:31 | Inpatient (IN) | payer MEDICARE, MEDICAID ==
--- NOTE | 2022-11-21 23:42 | ED ---
General Adult HPI - General Chief complaint: Psychiatric Symptoms Stated complaint: Mental Health Time Seen by Provider: 11/21/22 21:48 Source: patient, RN notes reviewed, old records reviewed Mode of arrival: ambulatory Limitations: no limitations - History of Present Illness Initial comments: Patient is a 31-year-old male with past medical history remarkable for schizophrenia presents emergency Department complaining of feeling bugs crawling on his skin which is off and on for the last year. Has seen dermatologists multiple doctors with no diagnosis. Patient also has increased anxiety because of this as well as suicidal thoughts that are off and on. States he has multiple plans for tobacco into details with me. Denies any auditory or visual hallucinations. Does appear to be having tactile hallucinations. He states there is no evidence of bugs on his skin other than sometimes he feels like his hair is moving. He denies any homicidal ideations, attempts complaints. Denies any drug use. Denies any alcohol use. Has no other acute complaints at this time. Presents for further evaluation at this time. - Related Data Home Medications Medication Instructions Recorded Confirmed QUEtiapine FUMARATE [SEROquel] 300 mg PO HS 11/22/22 11/23/22 Allergies Allergy/AdvReac Type Severity Reaction Status Date / Time fluphenazine [From Prolixin] AdvReac Has Verified 11/23/22 03:17 Extrapyramidal side effects haloperidol [From Haldol] AdvReac reverse Verified 11/23/22 03:17 effects ziprasidone [From Geodon] AdvReac Suicidal Verified 11/23/22 03:17 Thoughts Review of Systems ROS Statement: Those systems with pertinent positive or pertinent negative responses have been documented in the HPI. Review of Systems: CONST: Denies fever EYES: Denies blurry vision ENT: Denies nasal congestion C/V: Denies Chest pain RESP: Denies shortness of breath GI: Denies abdominal pain : Denies dysuria SKIN: Denies rash. MSK: Denies joint pain. NEURO: Denies headache PSYCH: Denies homicidal ideations/plans/attempts. Denies visual or auditory hallucinations. He endorses suicidal ideations, plans but denies attempts. ROS Other: All systems not noted in ROS Statement are negative. Past Medical History Past Medical History: Respiratory Disorder Additional Past Medical History / Comment(s): schizophrenia, History of Any Multi-Drug Resistant Organisms: None Reported Past Surgical History: Tonsillectomy Additional Past Surgical History / Comment(s): colonoscopy, Past Anesthesia/Blood Transfusion Reactions: No Reported Reaction Past Psychological History: ADD/ADHD, Anxiety, Depression, Panic Disorder, Schizophrenia Smoking Status: Current every day smoker Past Alcohol Use History: Occasional Past Drug Use History: Marijuana - Past Family History Father Additional Family Medical History / Comment(s): Father is alive at age 49 with history of anxiety. Mother Additional Family Medical History / Comment(s): Mother is alive at age 42 with history of back problems and back surgery. Brother(s) Additional Family Medical History / Comment(s): Patient has one half brother with no major medical problems. He has 1 sister with no major medical problems. Patient has one son that is healthy. General Exam - General Exam Comments Initial Comments: General: Appears anxious HEAD: Normal with no signs of head trauma. EYES: PERRLA, EOMI, conjunctiva normal, no discharge. Pupils 3 mm and equal bilaterally. ENT: Hearing grossly intact, normal oropharynx. RESPIRATORY: Clear breath sounds bilaterally. No wheezes, rales, or rhonchi. C/V: Regular rate and rhythm. S1 and S2 auscultated, peripheral pulses 2+ and intact throughout ABD: Abd is soft, nontender, nondistended EXT: Normal range of motion, no obvious deformity SKIN: No evidence of bug bites or other bugs. No evidence of excoriations. Patient does have some dry skin as well as sunburn. NEURO: Alert and oriented 4. Limitations: no limitations Course Vital Signs 11/21/22 11/22/22 21:40 21:18 Temperature 98.1 F Pulse Rate 89 Respiratory 20 18 Rate Blood Pressure 119/79 O2 Sat by Pulse 97 Oximetry Medical Decision Making - Medical Decision Making Was pt. sent in by a medical professional or institution (, PA, FRONT END ARCHITECT, urgent care, hospital, or longterm...) When possible be specific @ -No Did you speak to anyone other than the patient for history (EMS, parent, family, police, friend...)? What history was obtained from this source @ -No Did you review nursing and triage notes (agree or disagree)? Why? @ -I reviewed and agree with nursing and triage notes Were old charts reviewed (outside hosp., previous admission, EMS record, old EKG, old radiological studies, urgent care reports/EKG's, longterm records)? Report findings @ -Old charts reviewed from May 2022 when he was last admitted to inpatient psychiatry. Differential Diagnosis (chest pain, altered mental status, abdominal pain women, abdominal pain men, vaginal bleeding, weakness, fever, dyspnea, syncope, h eadache, dizziness, GI bleed, back pain, seizure, CVA, palpatations, mental health, musculoskeletal)? @ -Differential Mental Health Depression, anxiety, bipolar, psychosis, schizophrenia, borderline personality, situational depression, adjustment disorder, behavioral disorder, brain tumor, malingering, substance abuse, encephalopathy, medication reaction, dementia, hypothyroidism, degenerative neurologic disorder, lupus.... This is not meant to be all-inclusive list EKG interpreted by me (3pts min.). @ -None done X-rays interpreted by me (1pt min.). @ -None done CT interpreted by me (1pt min.). @ -None done U/S interpreted by me (1pt. min.). @ -None done What testing was considered but not performed or refused? (CT, X-rays, U/S, labs)? Why? @ -None What meds were considered but not given or refused? Why? @ -None Did you discuss the management of the patient with other professionals (professionals i.e. , PA, FRONT END ARCHITECT, lab, RT, psych nurse, social and political studies professor, manufacturer agent, teacher, commissioned security officer, wrapper caser)? Give summary @ -Discussed with manager psychiatry who stated that patient be admitted to inpatient psychiatry however he will be transferred. Was smoking cessation discussed for >3mins.? @ -No Was critical care preformed (if so, how long)? @ -No Were there social determinants of health that impacted care today? How? (Homelessness, low income, unemployed, alcoholism, drug addiction, transportation, low edu. Level, literacy, decrease access to med. care, fpc, rehab)? @ -No Was there de-escalation of care discussed even if they declined (Discuss DNR or withdrawal of care, Hospice)? DNR status @ -No What co-morbidities impacted this encounter? (DM, HTN, Smoking, COPD, CAD, Cancer, CVA, ARF, Chemo, Hep., AIDS, mental health diagnosis, sleep apnea, morbid obesity)? @ -History of schizophrenia Was patient admitted / discharged? Hospital course, mention meds given and route, prescriptions, significant lab abnormalities, going to OR and other pertinent info. @ -Based on the patient's presentation and physical exam, I do believe that his preoccupation with bugs is likely a tactile hallucination concerning his follow- up with multiple doctors out in the outpatient setting has no evidence of any bug bites at this time. He is endorsing suicidal thoughts as well as plans. I do believe he requires psychiatric evaluation. He was placed in green scrubs. Sitter was ordered. Suicide precautions ordered. Vital signs within acceptable limits. BAT is 0. UDS is pending. I discussed with the patient and I would like psych to evaluate him and he was in agreement this plan. At this time patient is medically cleared for evaluation by psychiatry. EPS is notified. Disposition is pending psychiatric evaluation. Patient evaluated by EPS. They state the patient will be admitted by requires transfer to an inpatient psychiatric facility. Clinical certificate completed by myself. Patient will be boarding in the emergency department until inpatient psychiatry bed found. Patient admitted to inpatient psychiatry. Patient was not transferred. Undiagnosed new problem with uncertain prognosis? @ -No Drug Therapy requiring intensive monitoring for toxicity (Heparin, Nitro, Insulin, Cardizem)? @ -No Were any procedures done? @ -No Diagnosis/symptom? @ -Encounter for psychiatric evaluation, delusions, suicidal ideations, history of schizophrenia Acute, or Chronic, or Acute on Chronic? @ -Acute on chronic Uncomplicated (without systemic symptoms) or Complicated (systemic symptoms)? @ -Uncomplicated Side effects of treatment? @ -none Exacerbation, Progression, or Severe Exacerbation] @ -no Poses a threat to life or bodily function? @ -yes - Lab Data Result diagrams: 11/23/22 11:12 11/23/22 11:12 Lab Results 11/22/22 11/22/22 Range/Units 01:22 21:42 Urine Opiates Screen Not Detected (NotDetected) Ur Oxycodone Screen Not Detected (NotDetected) Urine Methadone Screen Not Detected (NotDetected) Ur Propoxyphene Screen Not Detected (NotDetected) Ur Barbiturates Screen Not Detected (NotDetected) U Tricyclic Antidepress Detected H (NotDetected) Ur Phencyclidine Scrn Not Detected (NotDetected) Ur Amphetamines Screen Not Detected (NotDetected) U Methamphetamines Scrn Not Detected (NotDetected) U Benzodiazepines Scrn Not Detected (NotDetected) Urine Cocaine Screen Not Detected (NotDetected) U Marijuana (THC) Screen Detected H (NotDetected) Coronavirus (PCR) Not Detected (Not Detectd) Disposition Clinical Impression: Encounter for psychological evaluation, Suicidal ideations, Delusions, Schizophrenia Disposition: ADMITTED IP TO THIS [facility] Condition: Stable
[2022-11-22 01:49] LABS: Amphetamine Screen,Urine Not Detected (NotDetected); Barbiturate Screen,Urine Not Detected (NotDetected); Benzodiazepines Screen,Urine Not Detected (NotDetected); Cocaine Screen,Urine Not Detected (NotDetected); Methadone Screen, Urine Not Detected (NotDetected); Opiate Screen,Urine Not Detected (NotDetected); Oxycodone Screen, Urine Not Detected (NotDetected); Phencyclidine Screen,Urine Not Detected (NotDetected); Tricyclic Antidepressant,Urine Detected (NotDetected); Urn Cannabinoid Scrn Detected (NotDetected)
[2022-11-22] MEDS ORDERED: QUEtiapine 100 MG TAB PO STA (03:26)
[2022-11-22] MEDS ORDERED: NICOTINE 14MG/24HR PATCH TRANSDERM STA (21:27)
[2022-11-22] MEDS ORDERED: haloperidoL 5 MG TAB PO PRN (23:29)
[2022-11-22] MEDS ORDERED: ACETAMINOPHEN TAB 325 MG TAB PO PRN (23:29)
[2022-11-22] MEDS ORDERED: MAG HYDROX/AL HYDROX/SIMETH 30 ML CUP PO PRN (23:29)
[2022-11-22] MEDS ORDERED: LORazepam 2 MG/ML INJ IM PRN (23:29)
[2022-11-22] MEDS ORDERED: LORazepam 1 MG TAB PO PRN (23:29)
[2022-11-22] MEDS ORDERED: IBUPROFEN 600 MG TAB PO PRN (23:29)
[2022-11-22] MEDS ORDERED: MAGNESIUM HYDROXIDE 2,400 MG/10 ML CUP PO PRN (23:29)
[2022-11-22] MEDS ORDERED: HALOPERIDOL LACTATE 5 MG/ML 1 ML VIAL IM PRN (23:29)
[2022-11-23] MEDS ORDERED: QUEtiapine 100 MG TAB PO SCH (00:45)
[2022-11-23] MEDS: QUEtiapine 100 MG TAB PO SCH ×2 (01:02→20:54)
--- NOTE | 2022-11-23 01:14 | P.PN ---
Progress Note - Text Progress Note Date: 11/23/22 new consult , patient heavily medicated
[2022-11-23 11:57] LABS: Basophils % (A) 1 %; Eosinophils # (A) 0.2 k/uL (0-0.7); Eosinophils % (A) 2 %; HGB 16.3 gm/dL (13.0-17.5); Lymphocytes # (A) 1.9 k/uL (1.0-4.8); Lymphocytes % (A) 22 %; MCH 29.6 pg (25.0-35.0); MCHC 34.6 g/dL (31.0-37.0); MCV 85.5 fL (80.0-100.0); Mean Platelet Volume 8.6; Monocytes # (A) 0.6 k/uL (0-1.0); Monocytes % (A) 7 %; Neutrophils % (A) 68 %; Platelet Count 210 k/uL (150-450); RBC 5.49 m/uL (4.30-5.90); RDW 12.7 % (11.5-15.5); WBC 8.8 k/uL (3.8-10.6)
[2022-11-23 12:16] LABS: ALT 14 U/L (4-49); AST 22 U/L (17-59); African American GFR (CKD) >90 (>60 ml/min/1.73 sqM); Albumin 4.6 g/dL (3.5-5.0); Alkaline Phosphatase 82 U/L (38-126); Anion Gap 10 mmol/L; Blood Urea Nitrogen 9 mg/dL (9-20); Calcium 9.1 mg/dL (8.4-10.2); Carbon Dioxide 30 mmol/L (22-30); Chloride 101 mmol/L (98-107); Glucose 90 mg/dL (74-99); Non-African American GFR(CKD) >90 (>60 ml/min/1.73 sqM); Potassium 3.7 mmol/L (3.5-5.1); Sodium 141 mmol/L (137-145); Total Bilirubin 0.8 mg/dL (0.2-1.3); Total Protein 7.3 g/dL (6.3-8.2)
--- NOTE | 2022-11-23 12:41 | P.HP ---
Psychiatric H&P - . H&P Date: 11/23/22 History & Physical: Allergies Allergy/AdvReac Type Severity Reaction Status Date / Time fluphenazine [From Prolixin] AdvReac Has Verified 11/23/22 03:17 Extrapyramidal side effects haloperidol [From Haldol] AdvReac reverse Verified 11/23/22 03:17 effects ziprasidone [From Geodon] AdvReac Suicidal Verified 11/23/22 03:17 Thoughts Vital Signs Temp 97.6 F 11/23/22 00:17 Pulse 60 11/23/22 00:17 Resp 18 11/23/22 00:17 BP 125/85 11/23/22 00:17 Pulse Ox 95 11/23/22 00:17 FiO2 Intake & Output 11/22/22 11/23/22 11/23/22 18:59 06:59 18:59 Weight 83.915 kg Laboratory Last Values WBC 8.8 k/uL (3.8-10.6) 11/23/22 11:12 RBC 5.49 m/uL (4.30-5.90) 11/23/22 11:12 Hgb 16.3 gm/dL (13.0-17.5) 11/23/22 11:12 Hct 47.0 % (39.0-53.0) 11/23/22 11:12 MCV 85.5 fL (80.0-100.0) 11/23/22 11:12 MCH 29.6 pg (25.0-35.0) 11/23/22 11:12 MCHC 34.6 g/dL (31.0-37.0) 11/23/22 11:12 RDW 12.7 % (11.5-15.5) 11/23/22 11:12 Plt Count 210 k/uL (150-450) 11/23/22 11:12 MPV 8.6 11/23/22 11:12 Neutrophils % 68 % 11/23/22 11:12 Lymphocytes % 22 % 11/23/22 11:12 Monocytes % 7 % 11/23/22 11:12 Eosinophils % 2 % 11/23/22 11:12 Basophils % 1 % 11/23/22 11:12 Neutrophils # 6.0 k/uL (1.3-7.7) 11/23/22 11:12 Lymphocytes # 1.9 k/uL (1.0-4.8) 11/23/22 11:12 Monocytes # 0.6 k/uL (0-1.0) 11/23/22 11:12 Eosinophils # 0.2 k/uL (0-0.7) 11/23/22 11:12 Basophils # 0.0 k/uL (0-0.2) 11/23/22 11:12 Sodium 141 mmol/L (137-145) 11/23/22 11:12 Potassium 3.7 mmol/L (3.5-5.1) 11/23/22 11:12 Chloride 101 mmol/L (98-107) 11/23/22 11:12 Carbon Dioxide 30 mmol/L (22-30) 11/23/22 11:12 Anion Gap 10 mmol/L 11/23/22 11:12 BUN 9 mg/dL (9-20) 11/23/22 11:12 Creatinine 1.08 mg/dL (0.66-1.25) 11/23/22 11:12 Est GFR (CKD-EPI)AfAm >90 (>60 ml/min/1.73 sqM) 11/23/22 11:12 Est GFR (CKD-EPI)NonAf >90 (>60 ml/min/1.73 sqM) 11/23/22 11:12 Glucose 90 mg/dL (74-99) 11/23/22 11:12 Calcium 9.1 mg/dL (8.4-10.2) 11/23/22 11:12 Total Bilirubin 0.8 mg/dL (0.2-1.3) 11/23/22 11:12 AST 22 U/L (17-59) 11/23/22 11:12 ALT 14 U/L (4-49) 11/23/22 11:12 Alkaline Phosphatase 82 U/L (38-126) 11/23/22 11:12 Total Protein 7.3 g/dL (6.3-8.2) 11/23/22 11:12 Albumin 4.6 g/dL (3.5-5.0) 11/23/22 11:12 Urine Opiates Screen Not Detected (NotDetected) 11/22/22 01:22 Ur Oxycodone Screen Not Detected (NotDetected) 11/22/22 01:22 Urine Methadone Screen Not Detected (NotDetected) 11/22/22 01:22 Ur Propoxyphene Screen Not Detected (NotDetected) 11/22/22 01:22 Ur Barbiturates Screen Not Detected (NotDetected) 11/22/22 01:22 U Tricyclic Antidepress Detected (NotDetected) H 11/22/22 01:22 Ur Phencyclidine Scrn Not Detected (NotDetected) 11/22/22 01:22 Ur Amphetamines Screen Not Detected (NotDetected) 11/22/22 01:22 U Methamphetamines Scrn Not Detected (NotDetected) 11/22/22 01:22 U Benzodiazepines Scrn Not Detected (NotDetected) 11/22/22 01:22 Urine Cocaine Screen Not Detected (NotDetected) 11/22/22 01:22 U Marijuana (THC) Screen Detected (NotDetected) H 11/22/22 01:22 Coronavirus (PCR) Not Detected (Not Detectd) 11/22/22 21:42 11/23/22 12:40 IDENTIFYING DATA: Patient is a goal, unemployed, on Social Security, 31-year-old male with significant history of schizoaffective disorder, polysubstance abuse, and antisocial personality disorder presents for hospital on 11/22/2022 with a chief complaint of "bugs, mites, and scabies" and suicidal ideation. HPI: Patient presented to the hospital on 11/22/2022, brought into the hospital on his own volition for evaluation of skin infection. The patient reported to the EPS nurse that he felt that he has bugs, mites, and scabies crawling along his skin and up his nose and into his mouth. The patient has been treating himself with permethrin in order to address this. The patient did report that he was very frustrated that he is not having any relief and he is being informed that this is all psychological. He therefore stated that he would "like a bullet in his head" if he is unable to have any relief. The patient did report to the EPS nurse that he has seen many pick up truck driver and other doctors did inform him that this all psychological. The patient was petitioned and certified and admitted onto the psychiatric unit because of the suicidal ideation. On evaluation on the psychiatric unit, the patient remains calm and cooperative. He continues to express concern for infection and continues to deny that this is all psychological. Despite this, the patient reports that he is not suicidal or homicidal. He is not reporting any auditory hallucinations but continues to report these tactile and visual hallucinations. He is vehemently denying any recent substance abuse. He reports that he only uses marijuana. He reports that overall, he feels like he has been getting his life together and that the only thing stopping him are these "bug spray" he states that he is now living in his own apartment, has his own income, and has been engaging in outdoor activities such as continuing and kayaking. He reports that he has been doing outdoor activities because he is afraid of infecting others with his skin infection. In regards to mood symptoms, the patient is not reporting any significant symptoms of depression and he does report elevated anxiety and a want to isolate due to fear of infecting others. He also reports no significant symptoms of cl. He reports that he has been sleeping 9 hours per night. He denies any increased goal-directed activity, grandiosity, mood lability, or any other manic symptoms. In regards to substance use, the patient reports that he smokes his vaporizer daily. He also uses marijuana daily. He denies any heavy alcohol use. He vehemently denies any illicit drug use. PAST PSYCHIATRIC HISTORY: Patient has had numerous psychiatric hospitalizations since his childhood. Patient's home medications include Seroquel 300 mg at bedtime. He was last hospitalized in our psychiatric unit in May 2022. He is currently open with [facility]. Patient reports that he only came to the hospital after he was unable to see his therapist at [facility] on Tuesday due to the power outage. The patient has had multiple inpatient psychiatric hospitalizations and has had previous episodes of threatening behavior including past episodes requiring seclusion and restraint. PMH: Past Medical History: Respiratory Disorder Additional Past Medical History / Comment(s): schizophrenia, History of Any Multi-Drug Resistant Organisms: None Reported Past Surgical History: Tonsillectomy Additional Past Surgical History / Comment(s): colonoscopy, Past Anesthesia/Blood Transfusion Reactions: No Reported Reaction Past Psychological History: ADD/ADHD, Anxiety, Depression, Panic Disorder, Schizophrenia Smoking Status: Current every day smoker Past Alcohol Use History: Occasional Past Drug Use History: Marijuana ALLERGIES: Fluphenazine, haloperidol, ziprasidone CHEMICAL DEPENDENCY HISTORY: As per HPI FAMILY PSYCHIATRIC/SUBSTANCE USE HISTORY: No reported family psychiatric history. SOCIAL HISTORY: Patient was born and raised in [place], [place]. He currently lives by himself in an apartment and receives Social Security. He attended some college. He was incarcerated in 2020 and states that he is no longer on probation or parole. He states that he has been engaging in outdoor activities including kayaking and continuing. MENTAL STATUS EXAM: General Appearance: Patient appears to be stated age is alert, directable, and attempts to cooperate. Patient appears to have fair hygiene and grooming. Patient has noticeable sunburn on his bilateral lower extremities. Behavior: Patient is seated without any agitated behavior. Normal psychomotor activity. Speech: Patient's speech is fluent and nonpressured. Mood/Affect: Patient reports their mood is "frustrated." Affect appears to be euthymic and congruent. Suicidality/Homicidality: Patient reports no suicidal or homicidal ideation, intention, and/or plan. Perceptions: Patient denies any auditory hallucinations however endorses visual and tactile hallucinations. Though content/process: Delusions of parasitosis is evident. Memory and concentration: AOX3, grossly intact for the purposes of this session. Can spell "WORLD" backwards Judgment and insight: poor STRENGTHS/WEAKNESSES: Strength is that the patient appears to be psychiatrically stable at this time, has stopped using substances, and is future oriented. Weakness is treatment resistant delusions of parasitosis. INTELLECT: average IMPRESSIONS: Schizoaffective disorder, bipolar type Delusions of parasitosis Cannabis use disorder Nicotine dependence PLAN: -Patient is admitted under voluntary status to MHU for stabilization of psychiatric symptoms and safety. Patient signed adult voluntary form and medication consent and is placed in patient's chart. -Medications : Will start patient on Seroquel 300 mg by mouth at bedtime for psychosis This provider discussed at length other medication options including pimozide in order to address delusions parasitosis. Patient however is not agreeable to starting any new psychotropic medications at this time. He is future and goal oriented and although he is endorsing these delusions, the patient states that overall his day-to-day functioning appears to be going well. This provider discussed options including addressing anxiety, possible OCD symptoms, and depression. Patient expresses that he is uninterested at this time. He does report that he would consider starting these medications should he feel his mood continued to worsen due to these "bugs." -Ativan PRN for agitation/aggression -Discussed with patient at length safe practices in regards to medications in order to address his skin condition. Strongly recommend outpatient follow-up with the pick up truck driver and primary care provider for reassurance. -Patient was counselled on substance abuse and desired to cut back on use -Patient was informed of the risks, benefits and side effects of the medication and patient verbally consented to taking the medications. Patient signed med consent form and was placed in chart. -Internal Medicine consult to perform medical evaluation and physical. -NRT - nicotine patch -SW on board for discharge planning. Encourage patient to participate in groups to work on coping skills. 11/23/22 12:41
[2022-11-23] MEDS: NICOTINE 14MG/24HR PATCH TRANSDERM SCH ×2 (15:32→16:12)
[2022-11-23 15:57] LABS: Chol/HDL Ratio 4.51 Ratio; LDL Cholesterol,Calculated 110.5 mg/dL (0.0-131.0)
[2022-11-24] MEDS: NICOTINE 14MG/24HR PATCH TRANSDERM SCH (09:29)
[2022-11-24 11:19] VITALS: BP 116/77; PULSE 97; RESP 20; TEMP 97.5
--- NOTE | 2022-11-24 11:47 | P.DS ---
Providers Date of admission: 11/22/22 23:12 Expected date of discharge: 11/24/22 Attending physician: Lukas Gannon MD Consults: 11/22/22 23:29 Consult Physician Routine Consulting Provider: Belen Fong Consult Reason/Comments: H&P and medical Do you want consulting provider notified?: Yes Primary care physician: Stated None - Discharge Diagnosis(es) (1) Schizoaffective disorder, bipolar type Current Visit: Yes Status: Acute Priority: High (2) Delusions of parasitosis Current Visit: Yes Status: Acute Priority: High (3) Cannabis use disorder Current Visit: Yes Status: Chronic Priority: Low (4) Nicotine dependence Current Visit: Yes Status: Chronic Priority: Low Hospital Course: Admission HPI: Patient is a goal, unemployed, on Social Security, 31-year-old male with significant history of schizoaffective disorder, polysubstance abuse, and antisocial personality disorder presents for hospital on 11/22/2022 with a chief complaint of "bugs, mites, and scabies" and suicidal ideation. Patient presented to the hospital on 11/22/2022, brought into the hospital on his own volition for evaluation of skin infection. The patient reported to the EPS nurse that he felt that he has bugs, mites, and scabies crawling along his skin and up his nose and into his mouth. The patient has been treating himself with permethrin in order to address this. The patient did report that he was very frustrated that he is not having any relief and he is being informed that this is all psychological. He therefore stated that he would "like a bullet in his head" if he is unable to have any relief. The patient did report to the EPS nurse that he has seen many printing plate setter and other doctors did inform him that this all psychological. The patient was petitioned and certified and admitted onto the psychiatric unit because of the suicidal ideation. On evaluation on the psychiatric unit, the patient remains calm and cooperative. He continues to express concern for infection and continues to deny that this is all psychological. Despite this, the patient reports that he is not suicidal or homicidal. He is not reporting any auditory hallucinations but continues to report these tactile and visual hallucinations. He is vehemently denying any recent substance abuse. He reports that he only uses marijuana. He reports that overall, he feels like he has been getting his life together and that the only thing stopping him are these "bug spray" he states that he is now living in his own apartment, has his own income, and has been engaging in outdoor activities such as continuing and kayaking. He reports that he has been doing outdoor activities because he is afraid of infecting others with his skin infection. In regards to mood symptoms, the patient is not reporting any significant symptoms of depression and he does report elevated anxiety and a want to isolate due to fear of infecting others. He also reports no significant symptoms of cl. He reports that he has been sleeping 9 hours per night. He denies any increased goal-directed activity, grandiosity, mood lability, or any other manic symptoms. In regards to substance use, the patient reports that he smokes his vaporizer daily. He also uses marijuana daily. He denies any heavy alcohol use. He vehemently denies any illicit drug use. Patient has had numerous psychiatric hospitalizations since his childhood. Patient's home medications include Seroquel 300 mg at bedtime. He was last hospitalized in our psychiatric unit in May 2022. He is currently open with [facility]. Patient reports that he only came to the hospital after he was unable to see his therapist at [facility] on Tuesday due to the power outage. The patient has had multiple inpatient psychiatric hospitalizations and has had previous episodes of threatening behavior including past episodes requiring seclusion and restraint. Hospital course: Upon admission to the unit patient was initially presenting as calm, cooperative, and polite. He was however endorsing significant concern for tactile and visual hallucinations of bugs and delusions of parasitosis. Patient was however directable and agreeable to commence treatment. Patient got along well with other patients on the unit and followed unit protocol. Patient was compliant with the medications and denied any side effects throughout hospital course. Patient was continued on his home medication of seroquel. He was offered other medications to address his anxiety or to change his antipsychotic however he did not wish to do so. He was however able to calm down as the hospitalization progressed after being provided with reassurance and psychoeducation on delusions of parasitosis. We checked his blood work together which displayed no eosinophilia. He was also educated on frequent outpatient follow-up and reassurance from his doctors. Patient spoke of his stressors and engaged in therapy both group and individual. Patient was also seen by medical team for history and physical exam. On the day of discharge is not reporting any suicidal or homicidal ideation, intention, and/or plan. He is not reporting any auditory or visual hallucinations. He continues to report concerns for bugs however states that since taking a shower and change in his bed sheets, he did not feel any today. He reports no access to firearms or other weapons. The patient does have a significant history of substance abuse and was counseled on abstaining from all substances including alcohol, tobacco, marijuana, and all illicit drugs. The patient was counseled by points medication adherence appropriate outpatient follow-up. On the day of discharge, he is not reporting any medical issues or concerns and denies any chest pain, sugars of breath, palpitations, akathisia, or tardive dyskinesia. As the patient no longer met criteria for continued inpatient psychiatric hospitals age, he was subsequently discharged. Mental status exam: General Appearance: Patient appears to be stated age is alert, pleasant, and cooperative. Patient is in no acute distress and has fair hygiene and grooming Behavior: Patient is calmly seated without any agitated behavior. Speech: Patient's speech is fluent and nonpressured. Mood/Affect: Patient reports their mood is "much better", affect is congruent and euthymic. Suicidality/Homicidality: Patient denies having any suicidal or homicidal ideation intent or plan. Perceptions: Patient denies any auditory or visual hallucinations. Though content/process: There is no evidence of any delusional thought content and thought process is linear and goal-directed. more future oriented Memory and concentration: AOX3, grossly intact for the purposes of this session. Can spell "WORLD" backwards correctly. Judgment and insight: Improved with guarded prognosis Impression: Schizoaffective disorder, bipolar type Delusions of parasitosis Cannabis use disorder Nicotine dependence Plan: -Continue with discharge today as patient has improved and stabilized psychiatrically and is not currently an imminent threat to himself and/or others. Patient will remain at chronically elevated risk for harm to self and/or others due to his history of substance abuse and severe cl. -Continue medications: Seroquel 300 mg daily at bedtime for psychosis -Patient was counseled on the need for medication compliance and appropriate follow-up at mental health and also primary care for medical issues. Patient verbalized understanding and agreed. -Social work to arrange for and conduct family meeting to ensure safety upon discharge and answer any questions/concerns. Social work also to arrange for patients follow up appointments with [facility] for psychiatric care along with follow up with primary care provider. -Patient counseled on abstaining from recreational drugs and marijuana and alcohol. Was informed/educated on the adverse effects on their physical and mental health. Patient verbally agreed and understoo. -Patient was instructed to return to the hospital or seek immediate medical care if their psychiatric or medical symptoms do worsen or reoccur. -Psychoeducation and supportive therapy provided to patient. Risks and benefits of pharmacological treatment versus the risks and benefits of nontreatment weighed and discussed. Informed consent discussion held. Common side effects of psychotropics discussed such as, but not limited to headache, GI disturbance, sexual dysfunction, movement disorders, sedation, and orthostatic hypotension. Life threatening and blackbox warnings of prescribed medications also discussed. Potential risks of operating a vehicle or heavy machinery discussed with patient at length. Advised on importance of compliance and a reliable and responsible manner. Patient advised to review FDA consumer labeling of all medications prior to taking. Patient verbalized understanding of potential risks, and agrees with current treatment plan. Patient advised to medically contact physician/emergency personnel if any acute changes in condition occur. Vital Signs Temp 97.5 F L 11/24/22 11:17 Pulse 97 11/24/22 11:17 Resp 20 11/24/22 11:17 BP 116/77 11/24/22 11:17 Pulse Ox 95 11/23/22 00:17 FiO2 Laboratory Results WBC 8.8 k/uL (3.8-10.6) 11/23/22 11:12 RBC 5.49 m/uL (4.30-5.90) 11/23/22 11:12 Hgb 16.3 gm/dL (13.0-17.5) 11/23/22 11:12 Hct 47.0 % (39.0-53.0) 11/23/22 11:12 MCV 85.5 fL (80.0-100.0) 11/23/22 11:12 MCH 29.6 pg (25.0-35.0) 11/23/22 11:12 MCHC 34.6 g/dL (31.0-37.0) 11/23/22 11:12 RDW 12.7 % (11.5-15.5) 11/23/22 11:12 Plt Count 210 k/uL (150-450) 11/23/22 11:12 MPV 8.6 11/23/22 11:12 Neutrophils % 68 % 11/23/22 11:12 Lymphocytes % 22 % 11/23/22 11:12 Monocytes % 7 % 11/23/22 11:12 Eosinophils % 2 % 11/23/22 11:12 Basophils % 1 % 11/23/22 11:12 Neutrophils # 6.0 k/uL (1.3-7.7) 11/23/22 11:12 Lymphocytes # 1.9 k/uL (1.0-4.8) 11/23/22 11:12 Monocytes # 0.6 k/uL (0-1.0) 11/23/22 11:12 Eosinophils # 0.2 k/uL (0-0.7) 11/23/22 11:12 Basophils # 0.0 k/uL (0-0.2) 11/23/22 11:12 Sodium 141 mmol/L (137-145) 11/23/22 11:12 Potassium 3.7 mmol/L (3.5-5.1) 11/23/22 11:12 Chloride 101 mmol/L (98-107) 11/23/22 11:12 Carbon Dioxide 30 mmol/L (22-30) 11/23/22 11:12 Anion Gap 10 mmol/L 11/23/22 11:12 BUN 9 mg/dL (9-20) 11/23/22 11:12 Creatinine 1.08 mg/dL (0.66-1.25) 11/23/22 11:12 Est GFR (CKD-EPI)AfAm >90 (>60 ml/min/1.73 sqM) 11/23/22 11:12 Est GFR (CKD-EPI)NonAf >90 (>60 ml/min/1.73 sqM) 11/23/22 11:12 Glucose 90 mg/dL (74-99) 11/23/22 11:[address] Glu mg/dL 96 11/23/22 11:12 Hemoglobin A1c 5.0 % (0.0-6.0) 11/23/22 11:12 Calcium 9.1 mg/dL (8.4-10.2) 11/23/22 11:12 Total Bilirubin 0.8 mg/dL (0.2-1.3) 11/23/22 11:12 AST 22 U/L (17-59) 11/23/22 11:12 ALT 14 U/L (4-49) 11/23/22 11:12 Alkaline Phosphatase 82 U/L (38-126) 11/23/22 11:12 Total Protein 7.3 g/dL (6.3-8.2) 11/23/22 11:12 Albumin 4.6 g/dL (3.5-5.0) 11/23/22 11:12 Triglycerides 144.00 mg/dL (0.00-149.00) 11/23/22 11:12 Cholesterol 179.00 mg/dL (0.00-200.00) 11/23/22 11:12 LDL Cholesterol, Calc 110.5 mg/dL (0.0-131.0) 11/23/22 11:12 VLDL Cholesterol, Calc 28.80 mg/dL (5.00-40.00) 11/23/22 11:12 HDL Cholesterol 39.70 mg/dL (40.00-60.00) L 11/23/22 11:12 Cholesterol/HDL Ratio 4.51 Ratio 11/23/22 11:12 TSH 1.680 mIU/L (0.465-4.680) 11/23/22 11:12 Urine Opiates Screen Not Detected (NotDetected) 11/22/22 01:22 Ur Oxycodone Screen Not Detected (NotDetected) 11/22/22 01:22 Urine Methadone Screen Not Detected (NotDetected) 11/22/22 01:22 Ur Propoxyphene Screen Not Detected (NotDetected) 11/22/22 01:22 Ur Barbiturates Screen Not Detected (NotDetected) 11/22/22 01:22 U Tricyclic Antidepress Detected (NotDetected) H 11/22/22 01:22 Ur Phencyclidine Scrn Not Detected (NotDetected) 11/22/22 01:22 Ur Amphetamines Screen Not Detected (NotDetected) 11/22/22 01:22 U Methamphetamines Scrn Not Detected (NotDetected) 11/22/22 01:22 U Benzodiazepines Scrn Not Detected (NotDetected) 11/22/22 01:22 Urine Cocaine Screen Not Detected (NotDetected) 11/22/22 01:22 U Marijuana (THC) Screen Detected (NotDetected) H 11/22/22 01:22 Coronavirus (PCR) Not Detected (Not Detectd) 11/22/22 21:42 Allergies Allergy/AdvReac Type Severity Reaction Status Date / Time fluphenazine [From Prolixin] AdvReac Has Verified 11/23/22 03:17 Extrapyramidal side effects haloperidol [From Haldol] AdvReac reverse Verified 11/23/22 03:17 effects ziprasidone [From Geodon] AdvReac Suicidal Verified 11/23/22 03:17 Thoughts Patient Condition at Discharge: Stable Plan - Discharge Summary Discharge Rx Participant: Yes New Discharge Prescriptions: Continue QUEtiapine FUMARATE [SEROquel] 300 mg PO HS 30 Days #30 tab Discharge Medication List QUEtiapine FUMARATE [SEROquel] 300 mg PO HS 30 Days #30 tab 11/24/22 [Rx] Follow up Appointment(s)/Referral(s): [facility] [Outside] - 11/27/23 3:00 pm (11/26/2022 3:00PM - 4:00PM NAM CORTES 12/02/2022 12:30PM - 1:00PM NIDIA COLON ) [facility] [NON-STAFF] - 3 Days Patient Instructions/Handouts: How to Stop Smoking (DC), Depression (DC), Schizophrenia (DC), Cannabis Abuse (DC), Suicide Prevention (DC) Activity/Diet/Wound Care/Special Instructions: Avoid the use of street drugs and alcohol. Take all medications as prescribed. When you are in need of refills on your medications, please contact your medical provider and/or outpatient psychiatrist to have this done. Please go to scheduled outpatient appointments for aftercare treatment. If symptoms return or become worse, call the crisis line at and/or go to the nearest emergency room for evaluation. Discharge Disposition: HOME SELF-CARE
== END 2022-11-24 12:00 | disposition home or self-care (01) | DRG 885 ==
LOC: EC 21:31 → 3MHU 11-22 23:12
PROVIDERS: ADMIT Psychiatry & Neurology Psychiatry; ATTEND Psychiatry & Neurology Psychiatry
DX: F25.0 Schizoaffective disorder, bipolar type (principal); R45.851 Suicidal ideations; F12.10 Cannabis abuse, uncomplicated; F22 Delusional disorders; F17.210 Nicotine dependence, cigarettes, uncomplicated; F41.9 Anxiety disorder, unspecified; F90.9 Attention-deficit hyperactivity disorder, unspecified type; Z79.899 Other long term (current) drug therapy; Z88.8 Allergy status to other drugs, medicaments and biological substances; Z71.6 Tobacco abuse counseling
CPT/HCPCS: 80053; 80061; 80306; 82075; 83036; 84443; 85025; 87635; 99285

== ENCOUNTER 2023-09-29 13:08 | Emergency (ER) | payer MEDICARE, MEDICAID ==
--- NOTE | 2023-09-29 13:45 | ED ---
General Adult HPI <Elian Gaytan - Last Filed: 09/29/23 18:29> - General Source: patient, RN notes reviewed, old records reviewed Mode of arrival: ambulatory Limitations: no limitations <Rashi Bassett - Last Filed: 09/30/23 23:15> - General Chief complaint: Psychiatric Symptoms Stated complaint: Psych Time Seen by Provider: 09/29/23 13:29 - History of Present Illness Initial comments: Patient is a 32-year-old male who presents emergency department for psychiatric evaluation. He has a history of psychiatric disease, diagnosed with schizophrenia according to our charts. States he has not been sleeping has been having delusions and audible hallucinations. States he feels like he wants to hurt himself with no obvious plan. No attempts. Denies any homicidal ideations, times complaints. States he smokes marijuana. Does not drink alcohol. No other drugs. Presents for psychiatric evaluation. (Rashi Bassett) - Related Data Home Medications Medication Instructions Recorded Confirmed No Known Home Medications 09/29/23 09/29/23 Allergies Allergy/AdvReac Type Severity Reaction Status Date / Time fluphenazine [From Prolixin] AdvReac Has Verified 09/29/23 14:19 Extrapyramidal side effects haloperidol [From Haldol] AdvReac reverse Verified 09/29/23 14:19 effects ziprasidone [From Geodon] AdvReac Suicidal Verified 09/29/23 14:19 Thoughts Review of Systems ROS Other: All systems not noted in ROS Statement are negative. <Elian Gaytan - Last Filed: 09/29/23 18:29> ROS Other: All systems not noted in ROS Statement are negative. <Rashi Bassett - Last Filed: 09/30/23 23:15> ROS Statement: Those systems with pertinent positive or pertinent negative responses have been documented in the HPI. Review of Systems: CONST: Denies fever EYES: Denies blurry vision ENT: Denies nasal congestion C/V: Denies Chest pain RESP: Denies shortness of breath GI: Denies abdominal pain : Denies dysuria SKIN: Denies rash. MSK: Denies joint pain. NEURO: Denies headache (Rashi Bassett) Past Medical History Past Medical History: Respiratory Disorder Additional Past Medical History / Comment(s): schizophrenia, History of Any Multi-Drug Resistant Organisms: None Reported Past Surgical History: Tonsillectomy Additional Past Surgical History / Comment(s): colonoscopy, Past Anesthesia/Blood Transfusion Reactions: No Reported Reaction Past Psychological History: ADD/ADHD, Anxiety, Depression, Panic Disorder, Schizophrenia Smoking Status: Current every day smoker Past Alcohol Use History: Occasional Past Drug Use History: Marijuana - Past Family History Father Additional Family Medical History / Comment(s): Father is alive at age 49 with history of anxiety. Mother Additional Family Medical History / Comment(s): Mother is alive at age 42 with history of back problems and back surgery. Brother(s) Additional Family Medical History / Comment(s): Patient has one half brother with no major medical problems. He has 1 sister with no major medical problems. Patient has one son that is healthy. <Rashi Bassett - Last Filed: 09/30/23 23:15> General Exam Limitations: no limitations <Rashi Bassett - Last Filed: 09/30/23 23:15> - General Exam Comments Initial Comments: General: Appears in no acute distress. HEAD: Normal with no signs of head trauma. EYES: EOMI. ENT: Hearing grossly intact. RESPIRATORY: No respiratory distress. C/V: Regular rate and rhythm. ABD: Abdomen is nondistended. EXT: No obvious deformity. SKIN: No rashes or lesions observed on exposed skin. NEURO: Alert and oriented. (Rashi Bassett) Course Vital Signs 09/29/23 09/30/23 09/30/23 13:18 07:00 13:21 Temperature 97.8 F 98.1 F Pulse Rate 84 74 78 Respiratory 20 18 18 Rate Blood Pressure 129/83 112/79 114/75 O2 Sat by Pulse 99 97 100 Oximetry Medical Decision Making - Lab Data Result diagrams: 09/29/23 15:17 09/29/23 15:17 <Elian Gaytan - Last Filed: 09/29/23 18:29> - Lab Data Result diagrams: 09/29/23 15:17 09/29/23 15:17 <Rashi Bassett - Last Filed: 09/30/23 23:15> - Medical Decision Making The patient was evaluated by the EPS service and will be admitted for inpatient treatment. Patient had been endorsed to me by Dr. Bassett. Admission diagnosis acute psychosis, schizophrenia (Elian Gaytan) Was pt. sent in by a medical professional or institution (RITA Simmons, DRILL RUNNER HELPER, urgent care, hospital, or residential...) When possible be specific @ -No Did you speak to anyone other than the patient for history (EMS, parent, family, police, friend...)? What history was obtained from this source @ -No Did you review nursing and triage notes (agree or disagree)? Why? @ -I reviewed and agree with nursing and triage notes Were old charts reviewed (outside hosp., previous admission, EMS record, old EKG, old radiological studies, urgent care reports/EKG's, residential records)? Report findings @ -Old charts reviewed Differential Diagnosis (chest pain, altered mental status, abdominal pain women, abdominal pain men, vaginal bleeding, weakness, fever, dyspnea, syncope, headache, dizziness, GI bleed, back pain, seizure, CVA, palpatations, mental health, musculoskeletal)? @ -Differential Mental Health Depression, anxiety, bipolar, psychosis, schizophrenia, borderline personality, situational depression, adjustment disorder, behavioral disorder, brain tumor, malingering, substance abuse, encephalopathy, medication reaction, dementia, hypothyroidism, degenerative neurologic disorder, lupus.... This is not meant to be all-inclusive list EKG interpreted by me (3pts min.). @ -None done X-rays interpreted by me (1pt min.). @ -None done CT interpreted by me (1pt min.). @ -None done U/S interpreted by me (1pt. min.). @ -None done What testing was considered but not performed or refused? (CT, X-rays, U/S, labs)? Why? @ -None What meds were considered but not given or refused? Why? @ -None Did you discuss the management of the patient with other professionals (professionals i.e. RITA Simmons, DRILL RUNNER HELPER, lab, RT, psych nurse, social media director, hematology technologist, teacher, medical officer psychiatry, telehealth case manager)? Give summary @ -EPS notified of the consult Was smoking cessation discussed for >3mins.? @ -No Was critical care preformed (if so, how long)? @ -No Were there social determinants of health that impacted care today? How? (Homelessness, low income, unemployed, alcoholism, drug addiction, transportation, low edu. Level, literacy, decrease access to med. care, prison, rehab)? @ -No Was there de-escalation of care discussed even if they declined (Discuss DNR or withdrawal of care, Hospice)? DNR status @ -No What co-morbidities impacted this encounter? (DM, HTN, Smoking, COPD, CAD, Cancer, CVA, ARF, Chemo, Hep., AIDS, mental health diagnosis, sleep apnea, morbid obesity)? @ -Schizophrenia, mental illness Was patient admitted / discharged? Hospital course, mention meds given and route, prescriptions, significant lab abnormalities, going to OR and other pertinent info. @ -Based on the patient's presentation and physical exam, presents for mental health evaluation. Vital signs are within acceptable limits. Sitter ordered. Suicide precautions ordered. BAT is 0. UDS is pending. At this time, patient is medically cleared for evaluation by psychiatry. Disposition is pending psychiatric evaluation. EPS notified of the consult. Undiagnosed new problem with uncertain prognosis? @ -No Drug Therapy requiring intensive monitoring for toxicity (Heparin, Nitro, Insulin, Cardizem)? @ -No Were any procedures done? @ -No Diagnosis/symptom? @ -Psychosis, schizophrenia Acute, or Chronic, or Acute on Chronic? @ -Acute Uncomplicated (without systemic symptoms) or Complicated (systemic symptoms)? @ -Complicated Side effects of treatment? @ -None Exacerbation, Progression, or Severe Exacerbation] @ -No Poses a threat to life or bodily function? @ -Yes (Rashi Bassett) - Lab Data Lab Results 09/29/23 09/29/23 09/29/23 Range/Units 13:41 15:17 15:17 WBC 10.3 (3.8-10.6) k/uL RBC 5.39 (4.30-5.90) m/uL Hgb 16.4 (13.0-17.5) gm/dL Hct 46.6 (39.0-53.0) % MCV 86.4 (80.0-100.0) fL MCH 30.4 (25.0-35.0) pg MCHC 35.1 (31.0-37.0) g/dL RDW 13.3 (11.5-15.5) % Plt Count 213 (150-450) k/uL MPV 8.4 Neutrophils % 64 % Lymphocytes % 26 % Monocytes % 6 % Eosinophils % 3 % Basophils % 1 % Neutrophils # 6.5 (1.3-7.7) k/uL Lymphocytes # 2.6 (1.0-4.8) k/uL Monocytes # 0.6 (0-1.0) k/uL Eosinophils # 0.3 (0-0.7) k/uL Basophils # 0.1 (0-0.2) k/uL Sodium 139 (137-145) mmol/L Potassium 3.9 (3.5-5.1) mmol/L Chloride 108 H (98-107) mmol/L Carbon Dioxide 23 (22-30) mmol/L Anion Gap 8 mmol/L BUN 17 (9-20) mg/dL Creatinine 1.03 (0.66-1.25) mg/dL Est GFR (CKD-EPI)AfAm >90 (>60 ml/min/1.73 sqM) Est GFR (CKD-EPI)NonAf >90 (>60 ml/min/1.73 sqM) Glucose 91 (74-99) mg/dL Calcium 9.2 (8.4-10.2) mg/dL Total Bilirubin 0.6 (0.2-1.3) mg/dL AST 21 (17-59) U/L ALT 12 (4-49) U/L Alkaline Phosphatase 62 (38-126) U/L Total Protein 6.7 (6.3-8.2) g/dL Albumin 4.3 (3.5-5.0) g/dL Urine Opiates Screen Not Detected (NotDetected) Ur Oxycodone Screen Not Detected (NotDetected) Urine Methadone Screen Not Detected (NotDetected) Ur Barbiturates Screen Not Detected (NotDetected) U Tricyclic Antidepress Not Detected (NotDetected) Ur Phencyclidine Scrn Not Detected (NotDetected) Ur Amphetamines Screen Not Detected (NotDetected) U Methamphetamines Scrn Not Detected (NotDetected) U Benzodiazepines Scrn Not Detected (NotDetected) Urine Cocaine Screen Not Detected (NotDetected) U Marijuana (THC) Screen Detected H (NotDetected) SARS-CoV-2 (PCR) (Not Detectd) 09/29/23 Range/Units 15:17 WBC (3.8-10.6) k/uL RBC (4.30-5.90) m/uL Hgb (13.0-17.5) gm/dL Hct (39.0-53.0) % MCV (80.0-100.0) fL MCH (25.0-35.0) pg MCHC (31.0-37.0) g/dL RDW (11.5-15.5) % Plt Count (150-450) k/uL MPV Neutrophils % % Lymphocytes % % Monocytes % % Eosinophils % % Basophils % % Neutrophils # (1.3-7.7) k/uL Lymphocytes # (1.0-4.8) k/uL Monocytes # (0-1.0) k/uL Eosinophils # (0-0.7) k/uL Basophils # (0-0.2) k/uL Sodium (137-145) mmol/L Potassium (3.5-5.1) mmol/L Chloride (98-107) mmol/L Carbon Dioxide (22-30) mmol/L Anion Gap mmol/L BUN (9-20) mg/dL Creatinine (0.66-1.25) mg/dL Est GFR (CKD-EPI)AfAm (>60 ml/min/1.73 sqM) Est GFR (CKD-EPI)NonAf (>60 ml/min/1.73 sqM) Glucose (74-99) mg/dL Calcium (8.4-10.2) mg/dL Total Bilirubin (0.2-1.3) mg/dL AST (17-59) U/L ALT (4-49) U/L Alkaline Phosphatase (38-126) U/L Total Protein (6.3-8.2) g/dL Albumin (3.5-5.0) g/dL Urine Opiates Screen (NotDetected) Ur Oxycodone Screen (NotDetected) Urine Methadone Screen (NotDetected) Ur Barbiturates Screen (NotDetected) U Tricyclic Antidepress (NotDetected) Ur Phencyclidine Scrn (NotDetected) Ur Amphetamines Screen (NotDetected) U Methamphetamines Scrn (NotDetected) U Benzodiazepines Scrn (NotDetected) Urine Cocaine Screen (NotDetected) U Marijuana (THC) Screen (NotDetected) SARS-CoV-2 (PCR) Not Detected (Not Detectd) Disposition Time of Disposition: 18:31 Decision Date: 09/29/23 Decision Time: 18:31 <Elian Gaytan - Last Filed: 09/29/23 18:29> <Rashi Bassett - Last Filed: 09/30/23 23:15> Clinical Impression: Acute psychosis, Schizo-affective psychosis Disposition: TRANSFER TO PSYCH HOSP/UNIT Condition: Stable Referrals: None,Stated [Primary Care Provider] - 1-2 days
[2023-09-29 16:06] LABS: Basophils # (A) 0.1 k/uL (0-0.2); Basophils % (A) 1 %; Eosinophils # (A) 0.3 k/uL (0-0.7); Eosinophils % (A) 3 %; HCT 46.6 % (39.0-53.0); HGB 16.4 gm/dL (13.0-17.5); Lymphocytes # (A) 2.6 k/uL (1.0-4.8); Lymphocytes % (A) 26 %; MCH 30.4 pg (25.0-35.0); MCHC 35.1 g/dL (31.0-37.0); MCV 86.4 fL (80.0-100.0); Mean Platelet Volume 8.4; Monocytes # (A) 0.6 k/uL (0-1.0); Monocytes % (A) 6 %; Neutrophils # (A) 6.5 k/uL (1.3-7.7); Neutrophils % (A) 64 %; Platelet Count 213 k/uL (150-450); RBC 5.39 m/uL (4.30-5.90); RDW 13.3 % (11.5-15.5); WBC 10.3 k/uL (3.8-10.6)
[2023-09-29 16:35] LABS: ALT 12 U/L (4-49); AST 21 U/L (17-59); African American GFR (CKD) >90 (>60 ml/min/1.73 sqM); Albumin 4.3 g/dL (3.5-5.0); Alkaline Phosphatase 62 U/L (38-126); Anion Gap 8 mmol/L; Blood Urea Nitrogen 17 mg/dL (9-20); Calcium 9.2 mg/dL (8.4-10.2); Carbon Dioxide 23 mmol/L (22-30); Chloride 108 mmol/L (98-107); Glucose 91 mg/dL (74-99); Non-African American GFR(CKD) >90 (>60 ml/min/1.73 sqM); Potassium 3.9 mmol/L (3.5-5.1); Sodium 139 mmol/L (137-145); Total Bilirubin 0.6 mg/dL (0.2-1.3); Total Protein 6.7 g/dL (6.3-8.2)
[2023-09-29 16:49] LABS: Amphetamine Screen,Urine Not Detected (NotDetected); Barbiturate Screen,Urine Not Detected (NotDetected); Benzodiazepines Screen,Urine Not Detected (NotDetected); Cocaine Screen,Urine Not Detected (NotDetected); Methadone Screen, Urine Not Detected (NotDetected); Opiate Screen,Urine Not Detected (NotDetected); Oxycodone Screen, Urine Not Detected (NotDetected); Phencyclidine Screen,Urine Not Detected (NotDetected); Tricyclic Antidepressant,Urine Not Detected (NotDetected); Urn Cannabinoid Scrn Detected (NotDetected)
[2023-09-29] MEDS ORDERED: ZOLPIDEM 5 MG TAB PO PRN (18:23)
[2023-09-29] MEDS: QUEtiapine 100 MG TAB PO STA (20:29)
[2023-09-30] MEDS: NICOTINE 21MG/24HR PATCH TRANSDERM STA (03:33)
[2023-09-30 07:14] VITALS: RESP 18
[2023-09-30] MEDS: ACETAMINOPHEN TAB 500 MG TAB PO STA (08:36)
[2023-09-30 13:34] VITALS: BP 114/75; PULSE 78; TEMP 98.1
== END 2023-09-30 13:24 ==
LOC: EC 13:08
DX: F25.9 Schizoaffective disorder, unspecified (principal); F23 Brief psychotic disorder; F17.200 Nicotine dependence, unspecified, uncomplicated; Z88.8 Allergy status to other drugs, medicaments and biological substances; Z91.048 Other nonmedicinal substance allergy status; Z11.52 Encounter for screening for COVID-19
CPT/HCPCS: 82075; 36415; 80053; 85025; 80306; 87635; 99285; S4990

== ENCOUNTER 2024-06-30 21:22 | Emergency (ER) | payer MEDICARE, OTHER ==
--- NOTE | 2024-06-30 21:53 | ED ---
General Adult HPI - General Chief complaint: Psychiatric Symptoms Stated complaint: Mental Health Time Seen by Provider: 06/30/24 21:25 Source: patient Mode of arrival: ambulatory Limitations: no limitations - History of Present Illness Initial comments: Dictation was produced using [employer] dictation software. please excuse any grammatical, word or spelling errors. Chief Complaint: 33-year-old male presents with suicidal ideation History of Present Illness: 33-year-old male with psychiatric illness presents to the ER for suicidal ideation. He does have a plan. States that he would stab himself in the neck. Patient has been suicidal for several days. Denies any visual auditory hallucinations. No paranoia. The ROS documented in this emergency department record has been reviewed and confirmed by me. Those systems with pertinent positive or negative responses have been documented in the HPI. All other systems are other negative and/or noncontributory. - Related Data Home Medications Medication Instructions Recorded Confirmed No Known Home Medications 09/29/23 09/29/23 Allergies Allergy/AdvReac Type Severity Reaction Status Date / Time fluphenazine [From Prolixin] AdvReac Has Verified 06/30/24 21:28 Extrapyramidal side effects haloperidol [From Haldol] AdvReac reverse Verified 06/30/24 21:28 effects ziprasidone [From Geodon] AdvReac Suicidal Verified 06/30/24 21:28 Thoughts Review of Systems ROS Statement: Those systems with pertinent positive or pertinent negative responses have been documented in the HPI. ROS Other: All systems not noted in ROS Statement are negative. Past Medical History Past Medical History: Respiratory Disorder Additional Past Medical History / Comment(s): schizophrenia, History of Any Multi-Drug Resistant Organisms: None Reported Past Surgical History: Tonsillectomy Additional Past Surgical History / Comment(s): colonoscopy, Past Anesthesia/Blood Transfusion Reactions: No Reported Reaction Past Psychological History: ADD/ADHD, Anxiety, Depression, Panic Disorder, Schizophrenia Smoking Status: Current every day smoker Past Alcohol Use History: Occasional Past Drug Use History: Marijuana - Past Family History Father Additional Family Medical History / Comment(s): Father is alive at age 49 with history of anxiety. Mother Additional Family Medical History / Comment(s): Mother is alive at age 42 with history of back problems and back surgery. Brother(s) Additional Family Medical History / Comment(s): Patient has one half brother with no major medical problems. He has 1 sister with no major medical problems. Patient has one son that is healthy. General Exam - General Exam Comments Initial Comments: General: Well-appearing, nontoxic, no acute distress. Head: Normocephalic, atraumatic Eyes: PERRLA, EOMI ENT: Airway patent Chest: Nonlabored breathing Skin: No visual rash, normal skin tone Neuro: Alert and oriented 3 Musculoskeletal: No gross abnormalities Limitations: no limitations Course Vital Signs 06/30/24 21:26 Temperature 97.8 F Pulse Rate 83 Respiratory 18 Rate Blood Pressure 108/75 O2 Sat by Pulse 96 Oximetry Medical Decision Making - Medical Decision Making Was pt. sent in by a medical professional or institution (, PA, PEDIATRIC NEPHROLOGIST, urgent care, hospital, or snf...) When possible be specific @ -No Did you speak to anyone other than the patient for history (EMS, parent, family, police, friend...)? What history was obtained from this source @ -No Did you review nursing and triage notes (agree or disagree)? Why? @ -I reviewed and agree with nursing and triage notes Were old charts reviewed (outside hosp., previous admission, EMS record, old EKG, old radiological studies, urgent care reports/EKG's, snf records)? Report findings @ -No old charts were reviewed Differential Diagnosis (chest pain, altered mental status, abdominal pain women, abdominal pain men, vaginal bleeding, musculoskeletal, weakness, fever, dyspnea, syncope, headache, dizziness, GI bleed, back pain, seizure, CVA, palpatations, mental health)? @ -Differential Mental Health: Depression, anxiety, bipolar, psychosis, schizophrenia, borderline personality, situational depression, adjustment disorder, behavioral disorder, brain tumor, malingering, substance abuse, encephalopathy, medication reaction, dementia, hypothyroidism, degenerative neurologic disorder, lupus.... This is not meant to be all-inclusive list EKG interpreted by me (3pts min.). @ -None done X-rays interpreted by me (1pt min.). @ -None done CT interpreted by me (1pt min.). @ -None done U/S interpreted by me (1pt. min.). @ -None done What testing was considered but not performed or refused? (CT, X-rays, U/S, labs)? Why? @ -None What meds were considered but not given or refused? Why? @ -None Was smoking cessation discussed for >3mins.? @ -No Were there social determinants of health that impacted care today? How? (Homelessness, low income, unemployed, alcoholism, drug addiction, transportation, low edu. Level, literacy, decrease access to med. care, half-way, rehab)? @ -No Was there de-escalation of care discussed even if they declined (Discuss DNR or withdrawal of care, Hospice)? DNR status @ -No What co-morbidities impacted this encounter? (DM, HTN, Smoking, COPD, CAD, Cancer, CVA, ARF, Chemo, Hep., AIDS, mental health diagnosis, sleep apnea, morbid obesity)? @ -None Was patient admitted / discharged? Hospital course, mention meds given and route, prescriptions, significant lab abnormalities, going to OR and other pertinent info. @ -33-year-old male presents with suicidal ideation. Vital signs stable. Physical examination benign. Patient has no physical complaints. Patient medical cleared for EPS evaluation. Patient seen and evaluated by EPS recommended inpatient admission. Clinical certification completed. Did you discuss the management of the patient with other professionals (professionals i.e. , PA, PEDIATRIC NEPHROLOGIST, lab, RT, psych nurse, perinatal social worker, roll on man, teacher, electoral officer, transplant case manager)? Give summary @ -No Was critical care preformed (if so, how long)? @ -No Undiagnosed new problem with uncertain prognosis? @ -No Drug Therapy requiring intensive monitoring for toxicity (Heparin, Nitro, Insulin, Cardizem)? @ -No Were any procedures done? @ -No Diagnosis/symptom? Acute, or Chronic, or Acute on Chronic? Uncomplicated (without systemic symptoms) or Complicated (systemic symptoms)? @ -Suicidal ideation Side effects of treatment? @ -No Exacerbation, Progression, or Severe Exacerbation? @ -No Poses a threat to life or bodily function? How? (Chest pain, [place], [place], pneumonia, PE, COPD, DKA, ARF, appy, cholecystitis, CVA, Diverticulitis, Homicidal, Suicidal, threat to staff... and all critical care pts) @ -yes Disposition Clinical Impression: Suicidal ideation Disposition: TRANSFER TO PSYCH HOSP/UNIT Condition: Fair Referrals: None,Stated [Primary Care Provider] - 1-2 days Time of Disposition: 02:17
[2024-07-01 02:29] LABS: Appearance,Urine Clear (Clear); Bilirubin,Urine Negative (Negative); Blood,Urine Negative (Negative); Color,Urine Yellow; Glucose,Urine (UA) Negative (Negative); Ketones,Urine Negative (Negative); Leukocyte Esterase,Urine Negative (Negative); Nitrite,Urine Negative (Negative); Protein,Urine Trace (Negative); Specific Gravity,Urine 1.027 (1.001-1.035)
[2024-07-01 02:35] LABS: ALT 13 U/L (4-49); AST 20 U/L (17-59); African American GFR (CKD) 89 (>60 ml/min/1.73 sqM); Albumin 4.5 g/dL (3.5-5.0); Alkaline Phosphatase 60 U/L (38-126); Anion Gap 8 mmol/L; Blood Urea Nitrogen 16 mg/dL (9-20); Calcium 9.3 mg/dL (8.4-10.2); Carbon Dioxide 27 mmol/L (22-30); Chloride 104 mmol/L (98-107); Glucose 88 mg/dL (74-99); Non-African American GFR(CKD) 77 (>60 ml/min/1.73 sqM); Sodium 139 mmol/L (137-145); Total Bilirubin 0.3 mg/dL (0.2-1.3); Total Protein 6.5 g/dL (6.3-8.2)
[2024-07-01 02:41] LABS: Basophils # (A) 0.1 k/uL (0-0.2); Basophils % (A) 1 %; Eosinophils # (A) 0.4 k/uL (0-0.7); Eosinophils % (A) 4 %; HCT 45.2 % (39.0-53.0); HGB 15.5 gm/dL (13.0-17.5); Lymphocytes # (A) 4.4 k/uL (1.0-4.8); Lymphocytes % (A) 42 %; MCH 29.5 pg (25.0-35.0); MCHC 34.3 g/dL (31.0-37.0); MCV 85.8 fL (80.0-100.0); Mean Platelet Volume 8.4; Monocytes # (A) 0.5 k/uL (0-1.0); Monocytes % (A) 5 %; Neutrophils # (A) 4.9 k/uL (1.3-7.7); Neutrophils % (A) 47 %; Platelet Count 221 k/uL (150-450); RBC 5.27 m/uL (4.30-5.90); RDW 12.4 % (11.5-15.5); WBC 10.4 k/uL (3.8-10.6)
[2024-07-01 02:54] LABS: Amphetamine Screen,Urine Not Detected (NotDetected); Barbiturate Screen,Urine Not Detected (NotDetected); Benzodiazepines Screen,Urine Not Detected (NotDetected); Cocaine Screen,Urine Not Detected (NotDetected); Methadone Screen, Urine Not Detected (NotDetected); Opiate Screen,Urine Not Detected (NotDetected); Oxycodone Screen, Urine Not Detected (NotDetected); Phencyclidine Screen,Urine Not Detected (NotDetected); Tricyclic Antidepressant,Urine Not Detected (NotDetected); Urn Cannabinoid Scrn Detected (NotDetected)
[2024-07-01 10:25] VITALS: BP 104/69; PULSE 60; RESP 16; TEMP 98
== END 2024-07-01 13:31 ==
LOC: EC 21:22
DX: R45.851 Suicidal ideations (principal); F17.200 Nicotine dependence, unspecified, uncomplicated; Z88.8 Allergy status to other drugs, medicaments and biological substances
CPT/HCPCS: 36415; 80053; 80306; 81003; 82075; 84443; 85025; 87635; 99285

== ENCOUNTER 2024-07-15 15:40 | Inpatient (IN) | payer MEDICARE, MEDICAID ==
[2024-07-15 15:47] VITALS: RESP 16
--- NOTE | 2024-07-15 16:26 | ED ---
General Adult HPI - General Chief complaint: Psychiatric Symptoms Stated complaint: mental health Time Seen by Provider: 07/15/24 15:50 Source: patient, family Mode of arrival: ambulatory - History of Present Illness Initial comments: Dictation was produced using [employer] dictation software. please excuse any grammatical, word or spelling errors. Chief Complaint: 33-year-old male presents with father for psychiatric evaluation History of Present Illness: Patient 33-year-old male with history of psychiatric illness. Just discharged from psych facility couple days ago. It has been at home however dad states for the last 24 to 48 hours she has been having insomnia and altered mental status. Concern that he is approaching psychosis. Patient denies any medical complaints. Denies any visual auditory hallucinations. Denies any suicidal homicidal ideation The ROS documented in this emergency department record has been reviewed and confirmed by me. Those systems with pertinent positive or negative responses have been documented in the HPI. All other systems are other negative and/or noncontributory. - Related Data Home Medications Medication Instructions Recorded Confirmed No Known Home Medications 09/29/23 09/29/23 Allergies Allergy/AdvReac Type Severity Reaction Status Date / Time fluphenazine [From Prolixin] AdvReac Has Verified 06/30/24 21:28 Extrapyramidal side effects haloperidol [From Haldol] AdvReac reverse Verified 06/30/24 21:28 effects ziprasidone [From Geodon] AdvReac Suicidal Verified 06/30/24 21:28 Thoughts Review of Systems ROS Statement: Those systems with pertinent positive or pertinent negative responses have been documented in the HPI. ROS Other: All systems not noted in ROS Statement are negative. Past Medical History Past Medical History: Respiratory Disorder Additional Past Medical History / Comment(s): schizophrenia, History of Any Multi-Drug Resistant Organisms: None Reported Past Surgical History: Tonsillectomy Additional Past Surgical History / Comment(s): colonoscopy, Past Anesthesia/Blood Transfusion Reactions: No Reported Reaction Past Psychological History: ADD/ADHD, Anxiety, Depression, Panic Disorder, Schizophrenia Smoking Status: Current every day smoker Past Alcohol Use History: Occasional Past Drug Use History: Marijuana - Past Family History Father Additional Family Medical History / Comment(s): Father is alive at age 49 with history of anxiety. Mother Additional Family Medical History / Comment(s): Mother is alive at age 42 with history of back problems and back surgery. Brother(s) Additional Family Medical History / Comment(s): Patient has one half brother with no major medical problems. He has 1 sister with no major medical problems. Patient has one son that is healthy. General Exam - General Exam Comments Initial Comments: General: Well-appearing, nontoxic, no acute distress. Head: Normocephalic, atraumatic Eyes: PERRLA, EOMI ENT: Airway patent Chest: Nonlabored breathing Skin: No visual rash, normal skin tone Neuro: Alert and oriented 3 Musculoskeletal: No gross abnormalities Course Vital Signs 07/15/24 15:44 Temperature 98.2 F Pulse Rate 79 Respiratory 16 Rate Blood Pressure 136/84 O2 Sat by Pulse 99 Oximetry Medical Decision Making - Medical Decision Making Was pt. sent in by a medical professional or institution ([facility], [employer], urgent care, hospital, or [facility]...) When possible be specific @ -No Did you speak to anyone other than the patient for history (EMS, parent, family, police, friend...)? What history was obtained from this source @ -No Did you review nursing and triage notes (agree or disagree)? Why? @ -I reviewed and agree with nursing and triage notes Were old charts reviewed (outside hosp., previous admission, EMS record, old EKG, old radiological studies, urgent care reports/EKG's, [facility] records)? Report findings @ -No old charts were reviewed Differential Diagnosis (chest pain, altered mental status, abdominal pain women, abdominal pain men, vaginal bleeding, musculoskeletal, weakness, fever, dyspnea, syncope, headache, dizziness, GI bleed, back pain, seizure, CVA, palpatations, mental health)? @ -Differential Mental Health: Depression, anxiety, bipolar, psychosis, schizophrenia, borderline personality, situational depression, adjustment disorder, behavioral disorder, brain tumor, malingering, substance abuse, encephalopathy, medication reaction, dementia, hypothyroidism, degenerative neurologic disorder, lupus.... This is not meant to be all-inclusive list EKG interpreted by me (3pts min.). @ -None done X-rays interpreted by me (1pt min.). @ -None done CT interpreted by me (1pt min.). @ -None done U/S interpreted by me (1pt. min.). @ -None done What testing was considered but not performed or refused? (CT, X-rays, U/S, labs)? Why? @ -None What meds were considered but not given or refused? Why? @ -None Was smoking cessation discussed for >3mins.? @ -No Were there social determinants of health that impacted care today? How? (Homele ssness, low income, unemployed, alcoholism, drug addiction, transportation, low edu. Level, literacy, decrease access to med. care, senior care, rehab)? @ -No Was there de-escalation of care discussed even if they declined (Discuss DNR or withdrawal of care, Hospice)? DNR status @ -No What co-morbidities impacted this encounter? (DM, HTN, Smoking, COPD, CAD, Cancer, CVA, ARF, Chemo, Hep., AIDS, mental health diagnosis, sleep apnea, morbid obesity)? @ -Psychiatric illness Was patient admitted / discharged? Hospital course, mention meds given and route, prescriptions, significant lab abnormalities, going to OR and other pertinent info. @ -33-year-old male presents to the emergency department for psychiatric evaluation. He has history of schizophrenia. Vital signs stable. Physical examination is benign. Patient medically cleared for EPS evaluation Did you discuss the management of the patient with other professionals (professionals i.e. , PA, [employer], lab, RT, psych nurse, social service technician, manager camp, teacher, professional security officer, continuous pillowcase cutter)? Give summary @ -Patient seen and evaluated by EPS. Patient will be admitted to inpatient psych. Patient became aggressive and required chemical sedation. Was critical care preformed (if so, how long)? @ -No Undiagnosed new problem with uncertain prognosis? @ -No Drug Therapy requiring intensive monitoring for toxicity (Heparin, Nitro, Insulin, Cardizem)? @ -No Were any procedures done? @ -No Diagnosis/symptom? Acute, or Chronic, or Acute on Chronic? Uncomplicated (without systemic symptoms) or Complicated (systemic symptoms)? @ -Psychiatric evaluation Side effects of treatment? @ -No Exacerbation, Progression, or Severe Exacerbation? @ -No Poses a threat to life or bodily function? How? (Chest pain, [place], [place], pneumonia, PE, COPD, DKA, ARF, appy, cholecystitis, CVA, Diverticulitis, Homicidal, Suicidal, threat to staff... and all critical care pts) @ -yes Disposition Clinical Impression: Psychiatric complaint Disposition: TRANSFER TO PSYCH HOSP/UNIT Condition: Fair Referrals: None,Stated [Primary Care Provider] - 1-2 days
[2024-07-15] MEDS: diphenhydrAMINE 50 MG/ML 1 ML VIAL IM STA (17:31)
[2024-07-15] MEDS: LORazepam 2 MG/ML INJ IM STA (17:31)
[2024-07-15] MEDS: HALOPERIDOL LACTATE 5 MG/ML 1 ML VIAL IM STA (17:32)
[2024-07-15] MEDS ORDERED: MAG HYDROX/AL HYDROX/SIMETH 355 ML BOTTLE PO PRN (20:56)
[2024-07-15] MEDS ORDERED: MAGNESIUM HYDROXIDE 2,400 MG/30 ML CUP PO PRN (20:56)
[2024-07-15] MEDS ORDERED: ACETAMINOPHEN TAB 325 MG TAB PO PRN (20:56)
[2024-07-15] MEDS ORDERED: IBUPROFEN 600 MG TAB PO PRN (20:56)
[2024-07-15] MEDS ORDERED: hydrOXYzine pamoate 25 MG CAP PO PRN (20:57)
[2024-07-15] MEDS ORDERED: haloperidoL 5 MG TAB PO PRN (20:58)
[2024-07-15] MEDS ORDERED: HALOPERIDOL LACTATE 5 MG/ML 1 ML VIAL IM PRN (20:58)
[2024-07-15] MEDS ORDERED: LORazepam 2 MG/ML INJ IM PRN (20:58)
[2024-07-15] MEDS: QUEtiapine 200 MG TAB PO SCH (22:01)
[2024-07-16] MEDS: NICOTINE 14MG/24HR PATCH TRANSDERM SCH (03:10)
[2024-07-16] MEDS: LORazepam 1 MG TAB PO PRN (13:56)
[2024-07-16] MEDS: GABAPENTIN 300 MG CAP PO SCH (15:56)
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
[2024-07-16] MEDS: MIRTAZAPINE 15 MG TAB PO SCH (20:10)
[2024-07-16] MEDS ORDERED: GABAPENTIN 300 MG CAP PO SCH (21:00)
[2024-07-17 07:00] VITALS: BP 100/69; PULSE 87; TEMP 98.6
[2024-07-17] MEDS: NICOTINE 21MG/24HR PATCH TRANSDERM SCH (08:25)
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
== END 2024-07-17 12:31 | disposition home or self-care (01) | DRG 885 ==
LOC: EC 15:40 → 3MHU 20:49
PROVIDERS: ADMIT Psychiatry & Neurology Psychiatry; ATTEND Psychiatry & Neurology Psychiatry
DX: F25.0 Schizoaffective disorder, bipolar type (principal); F12.10 Cannabis abuse, uncomplicated; F60.2 Antisocial personality disorder; G47.00 Insomnia, unspecified; F41.0 Panic disorder [episodic paroxysmal anxiety]; F17.210 Nicotine dependence, cigarettes, uncomplicated; F90.9 Attention-deficit hyperactivity disorder, unspecified type; Z88.8 Allergy status to other drugs, medicaments and biological substances; Z91.09 Other allergy status, other than to drugs and biological substances; Z79.899 Other long term (current) drug therapy
CPT/HCPCS: 82075; 87635; 96372; 99291

== ENCOUNTER 2024-07-24 14:37 | Inpatient (IN) | payer MEDICARE, MEDICAID ==
--- NOTE | 2024-07-24 15:08 | ED ---
General Adult HPI - General Chief complaint: Psychiatric Symptoms Stated complaint: mental health Time Seen by Provider: 07/24/24 14:42 Source: patient, RN notes reviewed, old records reviewed Mode of arrival: EMS Limitations: no limitations - History of Present Illness Initial comments: Patient is a 33-year-old male who presents emergency department for psychiatric evaluation. He has a known psychiatric history. Has been having worsening depression with suicidal ideations ongoing for the last few weeks. Worse over the last few days. Was at [facility] who had and brought here for further evaluation by psychiatric services. Does have suicidal ideations with no plan. Denies homicidal ideations, attempts, plans. Denies drug or alcohol use. Denies hallucinations. No other significant complaints at this time. Presents for further evaluation at this time. States he has been compliant with medications. - Related Data Previous Rx's Medication Instructions Recorded Mirtazapine [Remeron] 7.5 mg PO HS 14 Days #7 tab 07/17/24 QUEtiapine [SEROquel] 400 mg PO HS 14 Days #28 tab 07/17/24 Allergies Allergy/AdvReac Type Severity Reaction Status Date / Time fluphenazine [From Prolixin] AdvReac Shaking Verified 07/24/24 15:58 per [facility] records gabapentin AdvReac agitation Verified 07/24/24 15:57 haloperidol [From Haldol] AdvReac reverse Verified 07/24/24 15:57 effects ziprasidone [From Geodon] AdvReac Suicidal Verified 07/24/24 15:57 Thoughts Review of Systems ROS Statement: Those systems with pertinent positive or pertinent negative responses have been documented in the HPI. Review of Systems: CONST: Denies fever EYES: Denies blurry vision ENT: Denies nasal congestion C/V: Denies Chest pain RESP: Denies shortness of breath GI: Denies abdominal pain : Denies dysuria SKIN: Denies rash. MSK: Denies joint pain. NEURO: Denies headache ROS Other: All systems not noted in ROS Statement are negative. Past Medical History Past Medical History: Respiratory Disorder Additional Past Medical History / Comment(s): pt denies any past medical history History of Any Multi-Drug Resistant Organisms: None Reported Past Surgical History: Tonsillectomy Additional Past Surgical History / Comment(s): colonoscopy Past Anesthesia/Blood Transfusion Reactions: No Reported Reaction Smoking Status: Current every day smoker - Past Family History Father Additional Family Medical History / Comment(s): Father is alive with history of anxiety. Mother Additional Family Medical History / Comment(s): Mother is alive with history of back problems and back surgery. Brother(s) Additional Family Medical History / Comment(s): Patient has one half brother with no major medical problems. He has 1 sister with no major medical problems. Patient has one son that is healthy. General Exam - General Exam Comments Initial Comments: General: Appears in no acute distress. HEAD: Normal with no signs of head trauma. EYES: EOMI. ENT: Hearing grossly intact. RESPIRATORY: No respiratory distress. C/V: Regular rate and rhythm. ABD: Abdomen is nondistended. EXT: No obvious deformity. SKIN: No rashes or lesions observed on exposed skin. NEURO: Alert and oriented. Limitations: no limitations Course Vital Signs 07/24/24 14:44 Temperature 97.2 F L Pulse Rate 73 Respiratory 14 Rate Blood Pressure 122/81 O2 Sat by Pulse 98 Oximetry Medical Decision Making - Medical Decision Making Was pt. sent in by a medical professional or institution (, PA, ACTIVITY SPECIALIST, urgent care, hospital, or residential...) When possible be specific @ -Sent by [facility] for mental health evaluation Did you speak to anyone other than the patient for history (EMS, parent, family, police, friend...)? What history was obtained from this source @ -No Did you review nursing and triage notes (agree or disagree)? Why? @ -I reviewed and agree with nursing and triage notes Were old charts reviewed (outside hosp., previous admission, EMS record, old EKG, old radiological studies, urgent care reports/EKG's, residential records)? Report findings @ -Old charts reviewed showing extensive psychiatric history. Differential Diagnosis (chest pain, altered mental status, abdominal pain women, abdominal pain men, vaginal bleeding, weakness, fever, dyspnea, syncope, headache, dizziness, GI bleed, back pain, seizure, CVA, palpatations, mental health, musculoskeletal)? @ -Differential Mental Health Depression, anxiety, bipolar, psychosis, schizophrenia, borderline personality, situational depression, adjustment disorder, behavioral disorder, brain tumor, malingering, substance abuse, encephalopathy, medication reaction, dementia, hypothyroidism, degenerative neurologic disorder, lupus.... This is not meant to be all-inclusive list EKG interpreted by me (3pts min.). @ -None done X-rays interpreted by me (1pt min.). @ -None done CT interpreted by me (1pt min.). @ -None done U/S interpreted by me (1pt. min.). @ -None done What testing was considered but not performed or refused? (CT, X-rays, U/S, labs)? Why? @ -None What meds were considered but not given or refused? Why? @ -None Did you discuss the management of the patient with other professionals (professionals i.e. , PA, ACTIVITY SPECIALIST, lab, RT, psych nurse, social service agency director, mattress renovator, teacher, structural engineering drafting officer, heel caser)? Give summary @ -EPS notified of the consult Was smoking cessation discussed for >3mins.? @ -No Was critical care preformed (if so, how long)? @ -No Were there social determinants of health that impacted care today? How? (Homelessness, low income, unemployed, alcoholism, drug addiction, transportation, low edu. Level, literacy, decrease access to med. care, alf, rehab)? @ -No Was there de-escalation of care discussed even if they declined (Discuss DNR or withdrawal of care, Hospice)? DNR status @ -No What co-morbidities impacted this encounter? (DM, HTN, Smoking, COPD, CAD, Cancer, CVA, ARF, Chemo, Hep., AIDS, mental health diagnosis, sleep apnea, morbid obesity)? @ -None Was patient admitted / discharged? Hospital course, mention meds given and route, prescriptions, significant lab abnormalities, going to OR and other pertinent info. @ -Patient presents for mental health evaluation. Does have a history of p sychiatric illness. Denies any acute complaints at this time. BAT is 0. UDS is pending. COVID swab ordered. Patient is medically cleared for evaluation by psychiatry at this time. Disposition pending psychiatric evaluation. EPS notified of the consult. Suicide precautions placed. Sitter ordered. Vitals are within acceptable limits. Patient evaluated by EPS and determined that he does meet inpatient psychiatric criteria. Patient admitted to inpatient psychiatry. Undiagnosed new problem with uncertain prognosis? @ -No Drug Therapy requiring intensive monitoring for toxicity (Heparin, Nitro, Insulin, Cardizem)? @ -No Were any procedures done? @ -No Diagnosis/symptom? @ -Suicidal ideation with plans, depression, anxiety Acute, or Chronic, or Acute on Chronic? @ -Acute Uncomplicated (without systemic symptoms) or Complicated (systemic symptoms)? @ -Complicated Side effects of treatment? @ -None Exacerbation, Progression, or Severe Exacerbation] @ -No Poses a threat to life or bodily function? @ -Yes - Lab Data Lab Results 07/24/24 07/24/24 Range/Units 16:24 16:25 Urine Opiates Screen Not Detected (NotDetected) Ur Oxycodone Screen Not Detected (NotDetected) Urine Methadone Screen Not Detected (NotDetected) Ur Barbiturates Screen Not Detected (NotDetected) U Tricyclic Antidepress Detected H (NotDetected) Ur Phencyclidine Scrn Not Detected (NotDetected) Ur Amphetamines Screen Not Detected (NotDetected) U Methamphetamines Scrn Not Detected (NotDetected) U Benzodiazepines Scrn Not Detected (NotDetected) Urine Cocaine Screen Not Detected (NotDetected) U Marijuana (THC) Screen Detected H (NotDetected) SARS-CoV-2 (PCR) Not Detected (Not Detectd) Disposition Clinical Impression: Suicidal ideations, Depression, Anxiety Disposition: TRANSFER TO PSYCH HOSP/UNIT Condition: Stable
[2024-07-24 16:42] LABS: Amphetamine Screen,Urine Not Detected (NotDetected); Barbiturate Screen,Urine Not Detected (NotDetected); Benzodiazepines Screen,Urine Not Detected (NotDetected); Cocaine Screen,Urine Not Detected (NotDetected); Methadone Screen, Urine Not Detected (NotDetected); Opiate Screen,Urine Not Detected (NotDetected); Oxycodone Screen, Urine Not Detected (NotDetected); Phencyclidine Screen,Urine Not Detected (NotDetected); Tricyclic Antidepressant,Urine Detected (NotDetected); Urn Cannabinoid Scrn Detected (NotDetected)
[2024-07-24] MEDS ORDERED: MAGNESIUM HYDROXIDE 2,400 MG/30 ML CUP PO PRN (17:22)
[2024-07-24] MEDS ORDERED: ACETAMINOPHEN TAB 325 MG TAB PO PRN (17:22)
[2024-07-24] MEDS ORDERED: OLANZapine 10 MG VIAL IM PRN (17:22)
[2024-07-24] MEDS ORDERED: IBUPROFEN 600 MG TAB PO PRN (17:22)
[2024-07-24] MEDS ORDERED: MAG HYDROX/AL HYDROX/SIMETH 355 ML BOTTLE PO PRN (17:22)
[2024-07-24] MEDS ORDERED: OLANZapine 10 MG TAB PO PRN (17:22)
[2024-07-24] MEDS: NICOTINE 14MG/24HR PATCH TRANSDERM SCH (18:38)
[2024-07-24] MEDS: QUEtiapine 200 MG TAB PO SCH (20:25)
[2024-07-24] MEDS: MIRTAZAPINE 15 MG TAB PO SCH (20:25)
[2024-07-25] MEDS: buPROPion XL 150 MG TAB.ER.24H PO SCH (11:58)
--- NOTE | 2024-07-25 12:02 | P.HP ---
Psychiatric H&P - . H&P Date: 07/25/24 History & Physical: Allergies Allergy/AdvReac Type Severity Reaction Status Date / Time fluphenazine [From Prolixin] AdvReac Shaking Verified 07/24/24 15:58 per [facility] records gabapentin AdvReac agitation Verified 07/24/24 15:57 haloperidol [From Haldol] AdvReac reverse Verified 07/24/24 15:57 effects ziprasidone [From Geodon] AdvReac Suicidal Verified 07/24/24 15:57 Thoughts Vital Signs Temp 96.8 F L 07/25/24 08:34 Pulse 86 07/25/24 08:34 Resp 18 07/24/24 18:15 BP 112/72 07/25/24 08:34 Pulse Ox 97 07/25/24 08:34 FiO2 Intake & Output 07/24/24 07/25/24 07/25/24 18:59 06:59 18:59 Weight 78.88 kg Laboratory Last Values Urine Opiates Screen Not Detected (NotDetected) 07/24/24 16:25 Ur Oxycodone Screen Not Detected (NotDetected) 07/24/24 16:25 Urine Methadone Screen Not Detected (NotDetected) 07/24/24 16:25 Ur Barbiturates Screen Not Detected (NotDetected) 07/24/24 16:25 U Tricyclic Antidepress Detected (NotDetected) H 07/24/24 16:25 Ur Phencyclidine Scrn Not Detected (NotDetected) 07/24/24 16:25 Ur Amphetamines Screen Not Detected (NotDetected) 07/24/24 16:25 U Methamphetamines Scrn Not Detected (NotDetected) 07/24/24 16:25 U Benzodiazepines Scrn Not Detected (NotDetected) 07/24/24 16:25 Urine Cocaine Screen Not Detected (NotDetected) 07/24/24 16:25 U Marijuana (THC) Screen Detected (NotDetected) H 07/24/24 16:25 SARS-CoV-2 (PCR) Not Detected (Not Detectd) 07/24/24 16:24 07/25/24 11:44 IDENTIFYING DATA: Patient is a 33 year old single male who lives alone, in an apartment, 2 kids, 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 HPI: Patient was transported to the ER for evaluation due to depression and suicidal ideations coming from -[facility]. Patient was evaluated by EPS social scientist and according to note "Clinician met with Zafar in ER 12 to eval. Cl awake sitting in bed A/O x4 brought in via EMS from [facility] due to increased SI w plans. Cl would not disclose plans. Cl stated " my life is miserable and there are more days than not that I don't want to wake up. I went to [facility] today for an appointment and was honest with them about how I am and have been feeling. They called EMS and now I am here." Cl cites a few psycho social stressors and limited supports from family. Cl also reports being unemployed with low income and involvemnt with [facility] office. " Ever since they have been involved things are just worse, they don't do anything for me." Maicol Stanley of [facility] sent over a pre-screening assesment indicating similar concerns. Citing " Zafar reports lack of hope for the future and severe isolation from friends/family." Cl presents dishevled, anxious, hopeless, helpless, flat affect,irritable, low frustration tolerance, loss of interest, motivation, and feels like giving up. Judgement/insight/impulse control : poor ADLS: poor Sleep/Maty: poor/good". Patient was seen today in the hallway agreeable to speak in the office. Claims that he has been feeling more depressed lately, claims that he has been feeling "miserable" and claims that he does not know if it is a "other people problem" or himself. He states that he does not like the of the way that other people live their lives and has been excluding some family members and friends, endorsing anhedonia and amotivation. Claims that he has been feeling more depressed since his break-up with his girlfriend before . States that she got kicked out of the house. States that he is not having much anxiety at this time. States that he is not having any more manic episodes however is mainly having depression. Claims that his sleep has been fairly poor about 4 hours interrupted, claims that he has been taking his medications at home. States that his appetite has been fair. Claims that he is having suicidal thoughts however no specific plan, denying any homicidal ideations. Denying any auditory or visual hallucinations. Claims that he has been drinking alcohol occasionally about 2 or 3 beers when he does, denies any withdrawal symptoms or withdrawal history. States that his he also smokes cigarettes regularly, marijuana occasionally. Denies any other recreational drug use. UDS was positive for TCA and THC PAST PSYCHIATRIC HISTORY: Patient has been diagnosed with Schizoaffective disorder, bipolar type; Cannabis use disorder; Antisocial personality disorder; Nicotine dependence. Patient has had numerous psychiatric hospitalizations, was last admitted recently to the mental health unit a few weeks ago. Patient was previously on Seroquel and Remeron. He has been tried on numerous different medications in the past by [facility]. He is open with [facility] but is trying to link with [facility]. The patient has had multiple inpatient psychiatric hospitalizations and has had previous episodes of threatening behavior including past episodes requiring seclusion and restraint. PMH: As per ER note ALLERGIES: As per EMR CHEMICAL DEPENDENCY HISTORY: As per HPI FAMILY PSYCHIATRIC/SUBSTANCE USE HISTORY: No reported family psychiatric history. SOCIAL HISTORY: Patient was born and raised in [place], [place]. He currently lives by himself in an apartment and receives Social Security. He has a guardian. He claims that he has 2 children. He is single. He attended some college. He was incarcerated in 2020 and states that he is no longer on probation or parole MENTAL STATUS EXAM: General Appearance: Patient appears to be tall, thin, stated age, unshaven, dr usha in casual attire. Patient appears to have fair hygiene and grooming. Oddly disheveled appearance Behavior: Patient is seated without any agitated behavior. Poor eye contact, attempts to cooperate Speech: Patient's speech is fluent and non-pressured. Kennan Mood/Affect: Patient reports their mood is "depressed" Affect is congruent and constricted Suicidality/Homicidality: Patient reports suicidal ideations, no intent or plan and denies any homicidal ideation, intention, and/or plan. Perceptions: Patient denies any auditory hallucinations or visual hallucinations Though content/process: Describing anhedonia, significant depression, rambling at times. No delusions or paranoia Memory and concentration: AOX3, grossly intact for the purposes of this session. Can spell "WORLD" backwards Judgment and insight: poor STRENGTHS/WEAKNESSES: Strength is that the patient can make his need known. Weakness is that patient is impulsive and has chronic mental illness INTELLECT: Average IMPRESSIONS: Schizoaffective disorder, depressive type Cannabis use disorder Nicotine dependence PLAN: -Patient is admitted under voluntary status to MHU for stabilization of psychiatric symptoms and safety. Patient signed adult voluntary form and medication consent and is placed in patient's chart. -Medications: Continue Seroquel 400 mg QHS for psychosis/mood/sleep. Remeron 15 mg QHS for mood/sleep. Wellbutrin XL 150 mg daily for mood adjunct Consider lithium if needed -Zyprexa PRN for agitation/aggression -Patient was counselled on substance abuse and is pre-contemplative. -Patient was informed of the risks, benefits and side effects of the medication and patient verbally consented to taking the medications. Patient signed med consent form and was placed in chart. -Internal Medicine consult to perform medical evaluation and physical. -NRT - nicotine patch -SW on board for discharge planning. Encourage patient to participate in groups to work on coping skills. 07/25/24 11:56
[2024-07-25] MEDS: MIRTAZAPINE 15 MG TAB PO SCH (20:20)
--- NOTE | 2024-07-26 05:00 | P.PN ---
Progress Note - Text Progress Note Date: 07/26/24 Attempted to see the patient in the mental health unit at 2300 on 07/25. The patient refused to be seen or be evaluated.
[2024-07-26 08:16] VITALS: RESP 16
--- NOTE | 2024-07-26 11:28 | P.PN ---
Progress Note - Text Progress Note Date: 07/26/24 Interval History: Patient was seen today for psychiatric follow up. he was attending activities and interacting with others today in the hallways. That his mood is improving a bit, claims that he is not sure still about some of his stressors at home. States that it is his son's birthday today and he did not even realize it. He was asking about potential discharge either today or tomorrow. He claims that he really [facility] due to the longer distance drive. He claims that he is not having any side effects or problems with the medications at this time. States that he slept fairly last night has been eating well. He has been showering. He appears to be more future oriented today. At this time he is denying any suicidal homicidal ideations intent or plan. Denying any auditory or visual hallucinations. MENTAL STATUS EXAM: General Appearance: Patient appears to be tall, thin, stated age, unshaven, dressed in casual attire. Patient appears to have fair hygiene and grooming. Behavior: Patient is seated without any agitated behavior. eye contact, improving today. Cooperative today Speech: Patient's speech is fluent and non-pressured. [place] improving Mood/Affect: Patient reports their mood is "better" Affect is congruent and constricted Suicidality/Homicidality: Patient denies any suicidal ideations, no intent or plan and denies any homicidal ideation, intention, and/or plan. Perceptions: Patient denies any auditory hallucinations or visual hallucinations Though content/process: Claiming that he is doing better, more future oriented today, rambling at times. No delusions or paranoia Memory and concentration: AOX3, grossly intact for the purposes of this session Judgment and insight: Chronically poor my improving mildly IMPRESSIONS: Schizoaffective disorder, depressive type Cannabis use disorder Nicotine dependence PLAN: -Patient is admitted under voluntary status to MHU for stabilization of psychiatric symptoms and safety. Patient signed adult voluntary form and medication consent and is placed in patient's chart. -Medications: Continue Seroquel 400 mg QHS for psychosis/mood/sleep. Remeron 15 mg QHS for mood/sleep. Increase Wellbutrin XL 300 mg daily for mood adjunct Consider lithium if needed -Zyprexa PRN for agitation/aggression -NRT - nicotine patch -SW on board for discharge planning. Encourage patient to participate in groups to work on coping skills. likely discharge tomorrow if patient is improving.
--- NOTE | 2024-07-26 20:35 | P.MDCNMH ---
History of Present Illness H&P Date: 07/26/24 Chief Complaint: medical consult Patient is a 33-year-old male with no significant past medical history presented to the ER with suicidal ideations and therefore for further evaluation he has been voluntarily admitted to the mental health unit. Internal medicine has been consulted for medical assessment for this patient. Patient denies headaches, acute vision changes, shortness of breath, chest pain, abdominal pain, diarrhea, constipation, nausea, vomiting, fever, chills, numbness or tingling in upper or lower extremities. Patient denies any past medical history. Denies any significant medical history in the family. Socially patient does vaping since 2 years and also smokes cigarettes a pack a day for the last 10 years. And consumes alcohol occasionally. Denies any use of drugs illicitly or recreationally. Vitals: 97.2 F, heart rate 102, respiratory 16, blood pressure 101/63, oxygen saturation 97% room air UDS positive for TCA and THC Review of systems: Pertinent positives and negatives as discussed in HPI, a complete review of systems was performed and all other systems are negative. Social history, family history as above in HPI Physical examination: Vital stable Gen: In NAD, non-toxic, normal weight HEENT: N/C and A/T, PERRLA, EOMI, hearing acuity is intant, mucous membranes moist CVS: perfusing all extremities well, no pitting edema, Respiratory: CTAB, symmetric chest expansion, no accessory muscle use, no wheezing or rales GI: soft, NTTP, ND, BS+ : no suprapubic tenderness, no CVA tenderness MSK/Derm: no rashes, cyanosis Neuro: CN II-XII intact, no motor weakness, Psych: AOx3, cooperative, further assessment by psychiatry Assessment/Plan: Patient is a 33-year-old male with no significant past medical history presented to the ER with suicidal ideations and therefore for further evaluation he has been voluntarily admitted to the mental health unit. Internal medicine has been consulted for medical assessment for this patient. #Cannabis abuse UDS positive for TCA and THC #Psychiatric conditions Patient to be assessed by and managed including her psychiatric medications as per psychiatry Past Medical History Past Medical History: Respiratory Disorder Additional Past Medical History / Comment(s): pt denies any past medical history History of Any Multi-Drug Resistant Organisms: None Reported Past Surgical History: Tonsillectomy Additional Past Surgical History / Comment(s): colonoscopy Past Anesthesia/Blood Transfusion Reactions: No Reported Reaction Smoking Status: Current every day smoker - Past Family History Father Additional Family Medical History / Comment(s): Father is alive with history of anxiety. Mother Additional Family Medical History / Comment(s): Mother is alive with history of back problems and back surgery. Brother(s) Additional Family Medical History / Comment(s): Patient has one half brother with no major medical problems. He has 1 sister with no major medical problems. Patient has one son that is healthy. Medications and Allergies Home Medications Medication Instructions Recorded Confirmed Type Mirtazapine [Remeron] 7.5 mg PO HS 14 Days #7 tab 07/17/24 07/24/24 Rx QUEtiapine [SEROquel] 400 mg PO HS 14 Days #28 tab 07/17/24 07/24/24 Rx Allergies Allergy/AdvReac Type Severity Reaction Status Date / Time fluphenazine [From Prolixin] AdvReac Shaking Verified 07/24/24 15:58 per [facility] records gabapentin AdvReac agitation Verified 07/24/24 15:57 haloperidol [From Haldol] AdvReac reverse Verified 07/24/24 15:57 effects ziprasidone [From Geodon] AdvReac Suicidal Verified 07/24/24 15:57 Thoughts Physical Exam Vitals: Vital Signs Temp Pulse Resp BP 07/26/24 08:16 97.2 F L 102 H 16 101/63 Assessment and Plan Time with Patient: Less than 30
[2024-07-27] MEDS: buPROPion XL 300 MG TAB.ER.24H PO SCH (08:11)
[2024-07-27 09:04] VITALS: BP 109/75; PULSE 84; TEMP 97.1
--- NOTE | 2024-07-27 10:55 | P.DS ---
Providers Date of admission: 07/24/24 17:19 Expected date of discharge: 07/27/24 Attending physician: Dominick Lind MD Consults: 07/24/24 17:22 Consult Physician Routine Consulting Provider: Belen Fong Consult Reason/Comments: History and Physical, New Admission Do you want consulting provider notified?: Yes Primary care physician: Stated None - Discharge Diagnosis(es) (1) Schizoaffective disorder, depressive type Current Visit: Yes Status: Acute Priority: High (2) Cannabis use disorder Current Visit: Yes Status: Acute Priority: High (3) Nicotine dependence Current Visit: Yes Status: Acute Priority: Low Hospital Course: Admission HPI: Admission note was completed by typewriter aligner "Patient is a 33 year old single male who lives alone, in an apartment, 2 kids, 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 Patient was transported to the ER for evaluation due to depression and suicidal ideations coming from [facility]. Patient was evaluated by EPS social media marketer and according to note "Clinician met with Zafar in ER 12 to eval. Cl awake sitting in bed A/O x4 brought in via EMS from [facility] due to increased SI w plans. Cl would not disclose plans. Cl stated " my life is miserable and there are more days than not that I don't want to wake up. I went to [facility] today for an appointment and was honest with them about how I am and have been feeling. They called EMS and now I am here." Cl cites a few psycho social stressors and limited supports from family. Cl also reports being unemployed with low income and involvemnt with [facility]. " Ever since they have been involved things are just worse, they don't do anything for me." Maicol Stanley of [facility] sent over a pre-screening assesment indicating similar concerns. Citing " Zafar reports lack of hope for the future and severe isolation from friends/family." Cl presents dishevled, anxious, hopeless, helpless, flat affect,irritable, low frustration tolerance, loss of interest, motivation, and feels like giving up. Judgement/insight/impulse control : poor ADLS: poor Sleep/Maty: poor/good". Patient was seen today in the hallway agreeable to speak in the office. Claims that he has been feeling more depressed lately, claims that he has been feeling "miserable" and claims that he does not know if it is a "other people problem" or himself. He states that he does not like the of the way that other people live their lives and has been excluding some family members and friends, endorsing anhedonia and amotivation. Claims that he has been feeling more depressed since his break-up with his girlfriend before . States that she got kicked out of the house. States that he is not having much anxiety at this time. States that he is not having any more manic episodes however is mainly having depression. Claims that his sleep has been fairly poor about 4 hours interrupted, claims that he has been taking his medications at home. States that his appetite has been fair. Claims that he is having suicidal thoughts however no specific plan, denying any homicidal ideations. Denying any auditory or visual hallucinations. Claims that he has been drinking alcohol occasionally about 2 or 3 beers when he does, denies any withdrawal symptoms or withdrawal history. States that his he also smokes cigarettes regularly, marijuana occasionally. Denies any other recreational drug use. UDS was positive for TCA and THC" Hospital course: Upon admission to the unit patient was directable and agreeable to commence treatment and signed adult voluntary form. Patient was initially depressed and isolative however at time of treatment he eventually got along well with other patients on the unit and followed unit protocol. Patient was compliant with the medications and denied any side effects throughout hospital course. Patient was started on his home dose of Seroquel 4 mg nightly for psychosis/mood stabilization/sleep, Remeron increased to dose of 50 mg nightly for mood/sleep, Wellbutrin was started increased to dose of 300 mg daily for mood adjunct. Patient spoke of his stressors and engaged in therapy both group and individual. Patient was also seen by medical team for history and physical exam. Throughout the course of the hospitalization patient gradually improved with regards to mood, anxiety, suicidal thoughts, sleep and became more future oriented with improved insight and judgment. On the day of discharge patient denied any suicidal or homicidal ideations intent or plan denied any auditory or visual hallucinations. Patient endorsed wanting to live for their health and family/kids. The patient denied any access to guns or weapons. Patient denied any paranoia and did not endorse any delusions. Patient does have a significant history of substance abuse and was counseled on abstaining from all substances including alcohol and marijuana. Patient was offered however declined inpatient substance-abuse rehab. Patient elected to do outpatient substance use treatment program through their outpatient provider. Patient was also counseled on the medications and need for regular compliance and was encouraged to follow-up with their outpatient appointment for mental health and also for primary care. Prior to discharge a family meeting will be arranged by social media marketer to answer any questions and ensure safety upon discharge incuding making sure that guns/weapons are either removed from the home or locked away. Patient will be discharged to his sister's home where he will get his keys and then return back to his apartment and follow-up with [facility]. Mental status exam: General Appearance: Patient appears to be tall, thin, stated age is alert, pleasant, and cooperative. Patient is in no acute distress and has improved hygiene and grooming Behavior: Patient is calmly seated without any agitated behavior. Speech: Patient's speech is fluent and nonpressured. Mood/Affect: Patient reports their mood is "better", affect is congruent Suicidality/Homicidality: Patient denies having any suicidal or homicidal ideation intent or plan. Perceptions: Patient denies any auditory or visual hallucinations. Though content/process: There is no evidence of any delusional thought content and thought process is linear and goal-directed. Memory and concentration: AOX3, grossly intact for the purposes of this session. Can spell "WORLD" backwards correctly. Judgment and insight: Chronically poor, however has improved with guarded prognosis Impression: Schizoaffective disorder depressive type Cannabis use disorder Nicotine dependence Plan: -Continue with discharge today as patient has improved and stabilized psychiatrically and is not currently an imminent threat to themself and/or others. Patient will remain at chronically elevated risk for harm to self and/or others due to their impulsivity, chronic mental illness and substance abuse. -Continue medications: Seroquel 400 mg nightly for psychosis/mood stabilization/sleep, Remeron 15 mg nightly for mood/sleep, Wellbutrin XL 300 mg daily for mood adjunct -Patient was counseled on the need for medication compliance and appropriate follow-up at mental health and also primary care for medical issues. Patient verbalized understanding and agreed. -Social work to help coordinate patients discharge today and transportation to his sister's home to gather his belongings and keys and then return to his apartment. also to ensure safe home environment that guns/weapons are either removed from the home or locked away. Social work also to arrange for patients follow up appointments with [facility] for psychiatric care along with follow up with primary care provider. -Patient counseled on abstaining from recreational drugs and marijuana and alcohol. Was informed/educated on the adverse effects on their physical and mental health. Patient verbally agreed and understood. Patient was offered substance abuse treatment however declined at this time. -Patient was instructed to return to the hospital or seek immediate medical care if their psychiatric or medical symptoms do worsen or reoccur. Allergies Allergy/AdvReac Type Severity Reaction Status Date / Time fluphenazine [From Prolixin] AdvReac Shaking Verified 07/24/24 15:58 per [facility] records gabapentin AdvReac agitation Verified 07/24/24 15:57 haloperidol [From Haldol] AdvReac reverse Verified 07/24/24 15:57 effects ziprasidone [From Geodon] AdvReac Suicidal Verified 07/24/24 15:57 Thoughts Laboratory Results Urine Opiates Screen Not Detected (NotDetected) 07/24/24 16:25 Ur Oxycodone Screen Not Detected (NotDetected) 07/24/24 16:25 Urine Methadone Screen Not Detected (NotDetected) 07/24/24 16:25 Ur Barbiturates Screen Not Detected (NotDetected) 07/24/24 16:25 U Tricyclic Antidepress Detected (NotDetected) H 07/24/24 16:25 Ur Phencyclidine Scrn Not Detected (NotDetected) 07/24/24 16:25 Ur Amphetamines Screen Not Detected (NotDetected) 07/24/24 16:25 U Methamphetamines Scrn Not Detected (NotDetected) 07/24/24 16:25 U Benzodiazepines Scrn Not Detected (NotDetected) 07/24/24 16:25 Urine Cocaine Screen Not Detected (NotDetected) 07/24/24 16:25 U Marijuana (THC) Screen Detected (NotDetected) H 07/24/24 16:25 SARS-CoV-2 (PCR) Not Detected (Not Detectd) 07/24/24 16:24 Vital Signs Temp 97.1 F L 07/27/24 08:00 Pulse 84 07/27/24 08:00 Resp 16 07/26/24 08:16 BP 109/75 07/27/24 08:00 Pulse Ox 98 07/27/24 08:00 FiO2 Patient Condition at Discharge: Stable Plan - Discharge Summary New Discharge Prescriptions: New Mirtazapine [Remeron] 15 mg PO HS 14 Days #14 tab buPROPion XL [Wellbutrin XL] 300 mg PO DAILY 14 Days #14 tab Nicotine 14Mg/24Hr Patch [Habitrol] 1 patch TRANSDERM DAILY 14 Days #14 patch Continue QUEtiapine [SEROquel] 400 mg PO HS 14 Days #28 tab Discontinued Mirtazapine [Remeron] 7.5 mg PO HS 14 Days #7 tab Discharge Medication List Mirtazapine [Remeron] 15 mg PO HS 14 Days #14 tab 07/27/24 [Rx] Nicotine 14Mg/24Hr Patch [Habitrol] 1 patch TRANSDERM DAILY 14 Days #14 patch 07/27/24 [Rx] QUEtiapine [SEROquel] 400 mg PO HS 14 Days #28 tab 07/27/24 [Rx] buPROPion XL [Wellbutrin XL] 300 mg PO DAILY 14 Days #14 tab 07/27/24 [Rx] Follow up Appointment(s)/Referral(s): [facility] [Outside] - 08/01/24 1:00 pm (08-01-24 at 1:00 with Elder Cain 08-02-24 at 2:30 with Lucia Friedman will provide transportation to the [place] office for the apts. Zafar will then be transferred to the [place] office. ) [facility] [REFERRING] - 1 Week Patient Instructions/Handouts: How to Stop Smoking (DC), Schizoaffective Disorder (DC), Cannabis Abuse (DC) Activity/Diet/Wound Care/Special Instructions: [facility] Discharge Info Avoid the use of street drugs and alcohol. Take all medications as prescribed. When you are in need of refills on your medications, please contact your outpatient medical provider and/or outpatient psychiatrist. Please go to your scheduled outpatient appointments for aftercare treatment. If symptoms return or become worse, call the crisis line at or and/or visit the nearest emergency room for assistance. National Suicide and Crisis Lifeline - call or text 988. Discharge Disposition: HOME SELF-CARE
== END 2024-07-27 14:16 | disposition home or self-care (01) | DRG 761 ==
LOC: EC 14:37 → 3MHU 17:19
PROVIDERS: ADMIT Psychiatry & Neurology Psychiatry; ATTEND Psychiatry & Neurology Psychiatry
DX: F25.0 Schizoaffective disorder, bipolar type (principal); F17.210 Nicotine dependence, cigarettes, uncomplicated; F12.10 Cannabis abuse, uncomplicated; F41.9 Anxiety disorder, unspecified; F60.2 Antisocial personality disorder; F17.290 Nicotine dependence, other tobacco product, uncomplicated; F19.19 Other psychoactive substance abuse with unspecified psychoactive substance-induced disorder; R45.851 Suicidal ideations; Z59.6 Low income; Z79.899 Other long term (current) drug therapy; Z56.0 Unemployment, unspecified; Z65.3 Problems related to other legal circumstances; Z71.89 Other specified counseling; Z71.51 Drug abuse counseling and surveillance of drug abuser; Z71.41 Alcohol abuse counseling and surveillance of alcoholic; Z60.2 Problems related to living alone; Z28.310 Unvaccinated for COVID-19; Z28.21 Immunization not carried out because of patient refusal
CPT/HCPCS: 80306; 82075; 87635; 99285

== ENCOUNTER 2024-08-19 12:03 | Inpatient (IN) | payer MEDICARE, MEDICAID ==
[2024-08-19] MEDS: HALOPERIDOL LACTATE 5 MG/ML 1 ML VIAL IM STA (12:49)
--- NOTE | 2024-08-19 12:49 | ED ---
General Adult HPI - General Source: patient Mode of arrival: ambulatory Limitations: no limitations <Baldemar Chance - Last Filed: 08/19/24 15:19> - General Source: patient, RN notes reviewed, old records reviewed Mode of arrival: ambulatory Limitations: no limitations <Dany Dorsey - Last Filed: 08/19/24 19:16> - General Chief complaint: Psychiatric Symptoms Stated complaint: psychiatric Time Seen by Provider: 08/19/24 12:09 - History of Present Illness Initial comments: Dictation was produced using [employer] dictation software. please excuse any grammatical, word or spelling errors. Chief Complaint: 33-year-old male well-known to the emergency department for psychiatric issues presents with suicidal ideation History of Present Illness: Patient is 33-year-old male he has extensive psychiatric history and psychiatric admissions patient is a poor historian states that he is here because he is suicidal. Denies any other complaints. The ROS documented in this emergency department record has been reviewed and confirmed by me. Those systems with pertinent positive or negative responses have been documented in the HPI. All other systems are other negative and/or noncontributory. (Baldemar Chance) This is a 33-year-old male to ER for psychiatric evaluation and suicidal thoughts, patient does not want answer questions during my evaluation (Dany Dorsey) - Related Data Previous Rx's Medication Instructions Recorded Mirtazapine [Remeron] 15 mg PO HS 14 Days #14 tab 07/27/24 Nicotine 14Mg/24Hr Patch [Habitrol] 1 patch TRANSDERM DAILY 14 Days 07/27/24 #14 patch QUEtiapine [SEROquel] 400 mg PO HS 14 Days #28 tab 07/27/24 buPROPion XL [Wellbutrin XL] 300 mg PO DAILY 14 Days #14 tab 07/27/24 Allergies Allergy/AdvReac Type Severity Reaction Status Date / Time fluphenazine [From Prolixin] AdvReac Shaking Verified 08/19/24 12:08 per [facility] records gabapentin AdvReac agitation Verified 08/19/24 12:08 haloperidol [From Haldol] AdvReac reverse Verified 08/19/24 12:08 effects ziprasidone [From Geodon] AdvReac Suicidal Verified 08/19/24 12:08 Thoughts Review of Systems ROS Other: All systems not noted in ROS Statement are negative. <Beena Chancestepan Escobedo - Last Filed: 08/19/24 15:19> ROS Other: All systems not noted in ROS Statement are negative. <Dany Dorsey Tarsha - Last Filed: 08/19/24 19:16> ROS Statement: Those systems with pertinent positive or pertinent negative responses have been documented in the HPI. Past Medical History Past Medical History: Respiratory Disorder Additional Past Medical History / Comment(s): pt denies any past medical history History of Any Multi-Drug Resistant Organisms: None Reported Past Surgical History: Tonsillectomy Additional Past Surgical History / Comment(s): colonoscopy Past Anesthesia/Blood Transfusion Reactions: No Reported Reaction Past Psychological History: ADD/ADHD, Anxiety, Depression, Panic Disorder, Schizophrenia Smoking Status: Current every day smoker Past Alcohol Use History: None Reported Past Drug Use History: None Reported - Past Family History Father Additional Family Medical History / Comment(s): Father is alive with history of anxiety. Mother Additional Family Medical History / Comment(s): Mother is alive with history of back problems and back surgery. Brother(s) Additional Family Medical History / Comment(s): Patient has one half brother with no major medical problems. He has 1 sister with no major medical problems. Patient has one son that is healthy. <RobsonBaldemar D - Last Filed: 08/19/24 15:19> General Exam Limitations: no limitations <RobsonBeenastepan Escobedo - Last Filed: 08/19/24 15:19> General appearance: alert, in no apparent distress Head exam: Present: atraumatic, normocephalic, normal inspection Eye exam: Present: normal appearance, PERRL, EOMI. Absent: scleral icterus, conjunctival injection, periorbital swelling ENT exam: Present: normal exam, mucous membranes moist Neck exam: Present: normal inspection. Absent: tenderness, meningismus, lymphadenopathy Respiratory exam: Present: normal lung sounds bilaterally. Absent: respiratory distress, wheezes, rales, rhonchi, stridor Cardiovascular Exam: Present: regular rate, normal rhythm, normal heart sounds. Absent: systolic murmur, diastolic murmur, rubs, gallop, clicks GI/Abdominal exam: Present: soft, normal bowel sounds. Absent: distended, tenderness, guarding, rebound, rigid Extremities exam: Present: normal inspection, full ROM, normal capillary refill. Absent: tenderness, pedal edema, joint swelling, calf tenderness Back exam: Present: normal inspection Neurological exam: Present: alert, oriented X3, CN II-XII intact Psychiatric exam: Present: normal affect, normal mood Skin exam: Present: warm, dry, intact, normal color. Absent: rash <Dany Dorsey - Last Filed: 08/19/24 19:16> - General Exam Comments Initial Comments: General: Well-appearing, nontoxic, no acute distress. Head: Normocephalic, atraumatic Eyes: PERRLA, EOMI ENT: Airway patent Chest: Nonlabored breathing Skin: No visual rash, normal skin tone Neuro: Alert and oriented 3 Musculoskeletal: No gross abnormalities Psych: Flat affect (Baldemar Chance) Course <Baldemar Chance - Last Filed: 08/19/24 15:19> <Dany Dorsey - Last Filed: 08/19/24 19:16> Vital Signs 08/19/24 08/19/24 12:04 18:03 Temperature 98.5 F 98.1 F Pulse Rate 88 88 Respiratory 20 18 Rate Blood Pressure 138/84 112/76 O2 Sat by Pulse 97 95 Oximetry - Reevaluation(s) Reevaluation #1: 08/19/24 12:47 Patient became aggressive and combative requiring 4 point restraints and chemical sedation (Baldemar Chance) 08/19/24 19:15 Medical records reviewed Strong history of inpatient psychiatric treatment (Dany Dorsey) Reevaluation #2: 08/19/24 19:15 Patient informed of results questions answered (Dany Dorsey) Reevaluation #3: Differential Mental Health Depression, anxiety, bipolar, psychosis, schizophrenia, borderline personality, situational depression, adjustment disorder, behavioral disorder, brain tumor, malingering, substance abuse, encephalopathy, medication reaction, dementia, hypothyroidism, degenerative neurologic disorder, lupus.... This is not meant to be all-inclusive list (Dany Dorsey) Medical Decision Making <Baldemar Chance - Last Filed: 08/19/24 15:19> <BrianfantaDany Tarsha - Last Filed: 08/19/24 19:16> - Medical Decision Making Was pt. sent in by a medical professional or institution (, [facility], [facility]MPMAN, urgent care, hospital, or shelter...) When possible be specific @ -No Did you speak to anyone other than the patient for history (EMS, parent, family, police, friend...)? What history was obtained from this source @ -No Did you review nursing and triage notes (agree or disagree)? Why? @ -I reviewed and agree with nursing and triage notes Were old charts reviewed (outside hosp., previous admission, EMS record, old EKG, old radiological studies, urgent care reports/EKG's, shelter records)? Report findings @ -No old charts were reviewed Differential Diagnosis (chest pain, altered mental status, abdominal pain women, abdominal pain men, vaginal bleeding, musculoskeletal, weakness, fever, dyspnea, syncope, headache, dizziness, GI bleed, back pain, seizure, CVA, palpatations, mental health)? @ -Differential Mental Health: Depression, anxiety, bipolar, psychosis, schizophrenia, borderline personality, situational depression, adjustment disorder, behavioral disorder, brain tumor, malingering, substance abuse, encephalopathy, medication reaction, dementia, hypothyroidism, degenerative neurologic disorder, lupus.... This is not meant to be all-inclusive list EKG interpreted by me (3pts min.). @ -None done X-rays interpreted by me (1pt min.). @ -None done CT interpreted by me (1pt min.). @ -None done U/S interpreted by me (1pt. min.). @ -None done What testing was considered but not performed or refused? (CT, X-rays, U/S, labs)? Why? @ -None What meds were considered but not given or refused? Why? @ -None Was smoking cessation discussed for >3mins.? @ -No Were there social determinants of health that impacted care today? How? (H omelessness, low income, unemployed, alcoholism, drug addiction, transportation, low edu. Level, literacy, decrease access to med. care, long-term, rehab)? @ -No Was there de-escalation of care discussed even if they declined (Discuss DNR or withdrawal of care, Hospice)? DNR status @ -No What co-morbidities impacted this encounter? (DM, HTN, Smoking, COPD, CAD, Cancer, CVA, ARF, Chemo, Hep., AIDS, mental health diagnosis, sleep apnea, morbid obesity)? @ -None Was patient admitted / discharged? Hospital course, mention meds given and route, prescriptions, significant lab abnormalities, going to OR and other pertinent info. @ -33-year-old male here for psychiatric issues. Vital signs stable. Patient appears to be acutely psychotic. Patient became aggressive and combative towards staff. Patient restrained. Chemical sedation administered. Pending evaluation by EPS. Patient care signed out to oncoming physician for follow-up of EPS recommendations. Did you discuss the management of the patient with other professionals (professionals i.e. , PA, DUMPMAN, lab, RT, psych nurse, high school social science teacher, airway traffic controller, teacher, navigating officer, case management director)? Give summary @ -No Was critical care preformed (if so, how long)? @ -No Undiagnosed new problem with uncertain prognosis? @ -No Drug Therapy requiring intensive monitoring for toxicity (Heparin, Nitro, Insulin, Cardizem)? @ -No Were any procedures done? @ -No Diagnosis/symptom? Acute, or Chronic, or Acute on Chronic? Uncomplicated (without systemic symptoms) or Complicated (systemic symptoms)? @ -Suicidal ideation Side effects of treatment? @ -No Exacerbation, Progression, or Severe Exacerbation? @ -No Poses a threat to life or bodily function? How? (Chest pain, [place], [place], pneumonia, PE, COPD, DKA, ARF, appy, cholecystitis, CVA, Diverticulitis, Homicidal, Suicidal, threat to staff... and all critical care pts) @ -yes (Baldemar Chance) 33 male medically clear for psychiatric evaluation seen and evaluated by psychiatry here in the ER and admitted for psychiatric evaluation and treatment, I did file CERT after petition was filled out (Dany Dorsey) Disposition <Baldemar Chance - Last Filed: 08/19/24 15:19> Is patient prescribed a controlled substance at d/c from ED?: No <Dany Dorsey - Last Filed: 08/19/24 19:16> Clinical Impression: Psychosis, Schizoaffective disorder, Depression, Suicidal ideations Disposition: TRANSFER TO PSYCH HOSP/UNIT Condition: Fair Referrals: None,Stated [Primary Care Provider] - 1-2 days
[2024-08-19] MEDS: LORazepam 2 MG/ML INJ IM STA (12:50)
[2024-08-19] MEDS: diphenhydrAMINE 50 MG/ML 1 ML VIAL IM STA (12:50)
[2024-08-19] MEDS ORDERED: OLANZapine 10 MG VIAL IM PRN (21:51)
[2024-08-19] MEDS ORDERED: ACETAMINOPHEN TAB 325 MG TAB PO PRN (21:51)
[2024-08-19] MEDS ORDERED: OLANZapine 5 MG TAB PO PRN (21:51)
[2024-08-19] MEDS ORDERED: MAGNESIUM HYDROXIDE 2,400 MG/30 ML CUP PO PRN (21:51)
[2024-08-19] MEDS ORDERED: MAG HYDROX/AL HYDROX/SIMETH 355 ML BOTTLE PO PRN (21:51)
[2024-08-19 22:25] LABS: Influenza A Not Detected (Not Detectd); Influenza B Not Detected (Not Detectd); RSV Not Detected (Not Detectd)
[2024-08-19] MEDS: IBUPROFEN 600 MG TAB PO STA (23:06)
[2024-08-20] MEDS: NICOTINE 21MG/24HR PATCH TRANSDERM SCH (05:11)
[2024-08-20] MEDS ORDERED: NICOTINE 14MG/24HR PATCH TRANSDERM SCH (09:00)
--- NOTE | 2024-08-20 12:59 | P.HP ---
Psychiatric H&P - . H&P Date: 08/20/24 History & Physical: Allergies Allergy/AdvReac Type Severity Reaction Status Date / Time fluphenazine [From Prolixin] AdvReac Shaking Verified 08/19/24 12:08 per [facility] records gabapentin AdvReac agitation Verified 08/19/24 12:08 haloperidol [From Haldol] AdvReac reverse Verified 08/19/24 12:08 effects ziprasidone [From Geodon] AdvReac Suicidal Verified 08/19/24 12:08 Thoughts Vital Signs Temp 96.9 F L 08/20/24 09:03 Pulse 117 H 08/20/24 09:03 Resp 16 08/20/24 09:03 BP 124/72 08/20/24 09:03 Pulse Ox 97 08/20/24 09:03 FiO2 Intake & Output 08/19/24 08/20/24 08/20/24 18:59 06:59 18:59 Weight 74.843 kg 75.387 kg Laboratory Last Values Influenza Type A (PCR) Not Detected (Not Detectd) 08/19/24 18:47 Influenza Type B (PCR) Not Detected (Not Detectd) 08/19/24 18:47 RSV (PCR) Not Detected (Not Detectd) 08/19/24 18:47 SARS-CoV-2 (PCR) Not Detected (Not Detectd) 08/19/24 18:47 08/20/24 11:49 IDENTIFYING DATA: Patient is a 33 year old single male who lives alone, in an apartment, 2 kids, 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 HPI: Patient was brought into the hospital and was evaluated by EPS and according to note "Patient presented to ER on own related to suicidal ideation without a plan. Attempted to assess patient at 1307 and patient spit on flex o writer operator, was restrained, and agitated. Patient assessment was reattempted at 1503 and 1647 at these times patient appeared to be somnolent, unable to arouse for interview or answer any assessment questions. Patient assessed from [id number]. Patient states that he is having suicidal ideation with no plan. Patient remains appearing irritable and agitated, patient remains in restraints at this time. Patient denies outpatient treatment at this time or follow up after previous discharge." Patient has had several psychiatric admissions in the past, last notable admission was in June 2024, is supposed be following up at [facility]. Currently taking Remeron and Seroquel and Wellbutrin since last discharge. Patient received a as needed of Haldol and Ativan in the ER for severe aggression agitation. Patient has history of schizoaffective disorder cannabis use. Patient was seen in the hallways agreeable to speak to flex o writer operator, appeared to be disheveled in appearance. He was posturing, a bit threatening and irritable with flex o writer operator. He claims that his father brought him to the hospital however does not know why. He claims that he has not been taking his medications, believes that the hospital is plotting against people to "force medications on them". He appeared to be fairly delusional paranoid and aggressive. He did not believe that he needs any mental health treatment or to be in the hospital. He also claims that he does not eat any medications and believes that it is all a conspiracy against him. He claims that his mother was recently brought back into his life and claims that he kicked her out of the house and states that "I have been just dealing with a lot of stress". Claims that he was feeling depressed and suicidal however not any longer. Denies any suicidal homicidal ideations intent or plan denies any auditory or visual hallucinations. Claims that his sleep and appetite are fair. Denying any recreational drug use, did not provide a urine drug screen. She was fairly uncooperative with the interview and the rest of the psychiatric and social history was taken from the chart PAST PSYCHIATRIC HISTORY: Patient has been diagnosed with Schizoaffective disorder, bipolar type; Cannabis use disorder; Antisocial personality disorder; Nicotine dependence. Patient has had numerous psychiatric hospitalizations, was last admitted in June 2019 for. Patient was previously on Seroquel and Remeron and Wellbutrin. He has been tried on numerous different medications in the past by [facility]. He is open with [facility]. The patient has had multiple inpatient psychiatric hospitalizations and has had previous episodes of threatening behavior including past episodes requiring seclusion and restraint. PMH: As per ER note ALLERGIES: As per EMR CHEMICAL DEPENDENCY HISTORY: As per HPI FAMILY PSYCHIATRIC/SUBSTANCE USE HISTORY: No reported family psychiatric history. SOCIAL HISTORY: Patient was born and raised in [place], [place]. He currently lives by himself in an apartment and receives Social Security. He has a guardian. He claims that he has 2 children. He is single. He attended some college. He was incarcerated in 2020 and states that he is no longer on probation or parole MENTAL STATUS EXAM: General Appearance: Patient appears to be tall, thin, disheveled appearance, older than stated age, unshaven. Patient appears to have fair hygiene and grooming. Intense eye contact Behavior: Patient is seated without any agitated behavior. Cooperative, aggressive and threatening Speech: Patient's speech is fluent and non-pressured. Demanding, irritable tone Mood/Affect: Patient reports their mood is "depressed" Affect is congruent and irritable Suicidality/Homicidality: Patient reports suicidal ideations, no intent or plan and denies any homicidal ideation, intention, and/or plan. Perceptions: Patient denies any auditory hallucinations or visual hallucinations Though content/process: Describing anhedonia, significant depression, endorsing paranoia, delusional. Minimizing his need for medications or hospitalization Memory and concentration: AOX3, grossly intact for the purposes of this session. Can spell "WORLD" backwards Judgment and insight: poor/impulsive STRENGTHS/WEAKNESSES: Strength is that the patient can make his need known. Weakness is that patient is impulsive and has chronic mental illness, history of noncompliance INTELLECT: Average IMPRESSIONS: Schizoaffective disorder, depressive type Cannabis use disorder Nicotine dependence Non appliance with medication regimen PLAN: -Patient is admitted under involuntary status to MHU for stabilization of psychiatric symptoms and safety. Patient has not signed adult voluntary form and medication consent and is placed in patient's chart. A second certificate was completed by flex o writer operator, will be faxed to court today to commence the involuntary process. -Medications: Due to patient's noncompliance with medications poor insight and significant aggression and poor impulse control, will start Invega 6 mg nightly for psychosis/mood stabilization with a plan to transition onto long-acting injection to help ensure compliance. -Vistaril and Zyprexa PRN for agitation/aggression -Patient was counselled on substance abuse and is pre-contemplative. -Patient was informed of the risks, benefits and side effects of the medication. Patient did not signed med consent form and was placed in chart. Patient was offered medication information however declined it -Internal Medicine consult to perform medical evaluation and physical. -NRT - nicotine patch -SW on board for discharge planning. Encourage patient to participate in groups to work on coping skills. Will await for deferral and hearing date.
[2024-08-20] MEDS: hydrOXYzine HCL 25 MG TAB PO PRN (14:49)
[2024-08-20] MEDS: OLANZapine 10 MG TAB PO PRN (14:49)
[2024-08-20] MEDS: PALIPERIDONE 6 MG TAB.ER.24 PO SCH (20:29)
[2024-08-20] MEDS: QUEtiapine 200 MG TAB PO SCH (20:29)
[2024-08-21] MEDS: NICOTINE 14MG/24HR PATCH TRANSDERM SCH (08:11)
[2024-08-21] MEDS: OLANZapine 10 MG VIAL IM PRN (10:13)
[2024-08-21] MEDS: hydrOXYzine HCL 50 MG/ML 1 ML VIAL IM PRN (10:22)
[2024-08-21] MEDS: ZIPRASIDONE 20 MG VIAL IM STA (11:00)
[2024-08-21] MEDS: LORazepam 2 MG/ML INJ IM PRN (11:05)
[2024-08-21] MEDS: chlorproMAZINE 25 MG/ML 2 ML AMP IM ONE (11:11)
--- NOTE | 2024-08-21 11:12 | P.MHFACE ---
Face to Face Restrain/Seclus - Evaluation Patient's Immediate Situation: Endangers others' safety, Endangers staff safety, Violent behavior Patient's Immediate Situation - Comment: Patient was threatening, aggressive and threw water at a security rep, attempted to attack a security rep on the unit. Patient's Reaction to the Intervention: Uncooperative, Angry, Suspicious, Aggressive, Combative Patient's Reaction to the Intervention - Comment: Patient was escorted to the seclusion/quiet room, he was placed in 4 point restraints, will be given Thorazine 50 mg IM and 1 mg of Ativan IM for agitation and aggression. Patient remains agitated, crying demanding and irrational. Very poor insight and poor judgment as to what happened Patient's Medical & Behavioral Condition: Agitated, Paranoid Need to Continue or Terminate Restraint or Seclusion: Continue Need to Continue or Terminate Restraint/Seclusion - Comment: Initiated restraints 4 point at approximately 1100 am. Will also give additional prn IM medications as noted Face to Face Eval of Restraint Date: 08/21/24 Face to Face Eval of Restraint Time: 11:00
--- NOTE | 2024-08-21 11:17 | P.PN ---
Progress Note - Text Progress Note Date: 08/21/24 Interval history: Patient was seen earlier wandering the hallways, patient was beginning to get agitated. He was initially aggressive with staff verbally threatening, refusing p.o. medications, continue to escalate. A code marta was called and patient was brought to the quiet room voluntarily, given Zyprexa and Vistaril as needed. Patient then proceeded to wander the hallways, again escalated and threw water at a cyber security, attempted to attack and was aggressive with security and staff members. Was taken again to the seclusion/restraint room. He was placed in 4 point restraints, will be given an additional prn medication of Thorazine plus Ativan IM for severe aggression and agitation. Raschel Knitting Machine Operator attempted to see patient while in restraints, patient was aggressive upset irrational. He continued to endorse that technical document writer has been giving "bad medications" to people and causing a lot of problems. He went on to speak about "taking this place down" and was fairly irrational agitated. He was not able to reflect on why he is in restraints. Stated several times that he wanted to "do better so I can see my kids". He is reporting anxiety at this time and depression. Denies any auditory or visual hallucinations denies any suicidal homicidal ideations intent or plan. MENTAL STATUS EXAM: General Appearance: Patient appears to be tall, thin, disheveled appearance, fairly uncooperative agitated and in distress. Patient appears to have fair hygiene and grooming. Intense eye contact Behavior: Patient is agitated behavior. Aggressive, threatening and paranoid Speech: Patient's speech is fluent and non-pressured. Demanding, irritable tone Mood/Affect: Patient reports their mood is "depressed" Affect is congruent and irritable/agitated Suicidality/Homicidality: Patient denies any suicidal ideations, no intent or plan and denies any homicidal ideation, intention, and/or plan. Perceptions: Patient denies any auditory hallucinations or visual hallucinations Though content/process: Describing anhedonia, significant depression, endorsing paranoia, delusional. Threatening to "take down this place" referring to the hospital Memory and concentration: Unable to assess at this time Judgment and insight: poor/impulsive IMPRESSIONS: Schizoaffective disorder, depressive type Cannabis use disorder Nicotine dependence Non appliance with medication regimen PLAN: -Patient is admitted under involuntary status to MHU for stabilization of psychiatric symptoms and safety. Patient has not signed adult voluntary form and medication consent and is placed in patient's chart. -Medications: Invega 6 mg nightly for psychosis/mood stabilization with a plan to transition onto long-acting injection to help ensure compliance. -Vistaril, ativan and thorazine PRN for agitation/aggression and anxiety -NRT - nicotine patch -SW on board for discharge planning. Encourage patient to participate in groups to work on coping skills. Will await for deferral and hearing date. plan will be to transition patient onto [facility].
[2024-08-21] MEDS: BENZOCAINE/MENTHOL LOZENG 1 EACH LOZENGE MUCOUS MEM PRN (22:10)
[2024-08-21] MEDS: IBUPROFEN 600 MG TAB PO PRN (22:10)
--- NOTE | 2024-08-22 04:36 | P.PN ---
Progress Note - Text Progress Note Date: 08/21/24 Attempted to see patient in mental health unit. Patient declined to be interviewed at this time.
--- NOTE | 2024-08-22 12:42 | P.PN ---
Progress Note - Text Progress Note Date: 08/22/24 Interval history: Patient was seen earlier wandering the hallways, intermittent agitation towards staff members, continues to be verbally aggressive impulsive. Patient continues to be refusing p.o. medications at nighttime. Currently awaiting his deferral today at 1 PM with the reactor kettle operator. Patient was seen earlier today in group yelling and being disruptive and needed to be asked to leave. Crematory Attendant saw patient today with security manager it training. Patient continues to be aggressive verbally with leader writer, threatening legal action towards the hospital. Continues to speak negatively about the medications and states that he is not taking "anything". He continues to be impulsive, labile, claims that he talked to his mother who is "sending attorneys up here" and also states that he is going to "shut this place down". Denies any auditory or visual hallucinations denies any suicidal homicidal ideations intent or plan. MENTAL STATUS EXAM: General Appearance: Patient appears to be tall, thin, disheveled appearance, fairly uncooperative agitated and in distress. Patient appears to have fair h ygiene and grooming. Intense eye contact Behavior: Patient is agitated behavior. Aggressive, threatening and paranoid Speech: Patient's speech is fluent and non-pressured. Demanding, irritable tone , escalating voice Mood/Affect: Patient reports their mood is "not good" Affect is congruent and irritable/agitated Suicidality/Homicidality: Patient denies any suicidal ideations, no intent or plan and denies any homicidal ideation, intention, and/or plan. Perceptions: Patient denies any auditory hallucinations or visual hallucinations Though content/process: Describing anhedonia, significant depression, endorsing paranoia, delusional. Threatening the hospital Memory and concentration: Unable to assess at this time Judgment and insight: poor/impulsive IMPRESSIONS: Schizoaffective disorder, depressive type Cannabis use disorder Nicotine dependence Non appliance with medication regimen PLAN: -Patient is admitted under involuntary status to MHU for stabilization of psychiatric symptoms and safety. Patient has not signed adult voluntary form and medication consent and is placed in patient's chart. -Medications: Invega 6 mg nightly for psychosis/mood stabilization with a plan to transition onto long-acting injection to help ensure compliance. Patient has been refusing this medication -Vistaril, ativan and thorazine PRN for agitation/aggression and anxiety -NRT - nicotine patch -SW on board for discharge planning. Encourage patient to participate in groups to work on coping skills. Will await for deferral and hearing date. plan will be to transition patient onto [facility].
[2024-08-22] MEDS: NICOTINE GUM (POLACRILEX) 2 MG GUM BUCCAL PRN (13:38)
[2024-08-22] MEDS: QUEtiapine 100 MG TAB PO STA (23:15)
[2024-08-23] MEDS: chlorproMAZINE 25 MG/ML 2 ML AMP IM PRN (00:12)
[2024-08-23] MEDS: LORazepam 2 MG/ML INJ IM PRN (00:12)
[2024-08-23] MEDS: LORazepam 2 MG/ML INJ IM STA (03:02)
[2024-08-23] MEDS ORDERED: LORazepam 2 MG/ML INJ IM PRN (03:04)
[2024-08-23] MEDS: diphenhydrAMINE 50 MG/ML 1 ML VIAL IM STA (04:30)
[2024-08-23] MEDS: ZIPRASIDONE 20 MG VIAL IM STA (04:30)
--- NOTE | 2024-08-23 04:38 | P.MHFACE ---
Face to Face Restrain/Seclus - Evaluation Patient's Immediate Situation: Endangers self safety, Endangers staff safety Patient's Reaction to the Intervention: Appropriate, Calm Patient's Medical & Behavioral Condition: Awake, Alert Need to Continue or Terminate Restraint or Seclusion: Continue Need to Continue or Terminate Restraint/Seclusion - Comment: Informed by the [facility] RN that the patient was threatening other patients as well as staff members. He was acting erratically and was not cooperative with receiving medications. As the patient attempted to physically harm the staff, he had to be restrained. He was evaluated in person in the mental health unit. Radial and dorsalis pedis pulses were intact. The patient was calm and had no active complaints. The plan is to continue the restraints for now while awaiting the medications to take effect and plans to remove restraints as soon as the patient is directable and calm. Face to Face Eval of Restraint Date: 08/23/24 Face to Face Eval of Restraint Time: 03:30
[2024-08-23] MEDS: LORazepam 1 MG TAB PO PRN ×2 (09:31→15:01)
--- NOTE | 2024-08-23 12:01 | P.PN ---
Progress Note - Text Progress Note Date: 08/23/24 Interval history: Patient was seen earlier wandering the hallways, intermittent agitation towards staff members once again today. Patient was demanding to speak to copy writer, he is on a security one-to-one today for aggression towards others, inability to follow directions and sexual preoccupation. Patient was noted earlier to be attempting to follow a female patient into the shower, walking around the unit with his genitals out. Patient was agreeable to speak to copy writer today, continues to be fairly aggressive with his remarks, claims that he is going to "cornelio this place" and take down the hospital. He claims that "he will be working for another boss". Continues to be fairly grandiose illogical at times, verbally aggressive. Very poor insight poor judgment into what had occurred yesterday. Patient ended up in restraints, please see restraint note from last night. Denies any depression or anxiety. Continues to focus on discharge. States he slept fairly last night. Denies any auditory or visual hallucinations denies any suicidal homicidal ideations intent or plan. MENTAL STATUS EXAM: General Appearance: Patient appears to be tall, thin, disheveled appearance, fairly uncooperative, minimally agitated. Patient appears to have fair hygiene and grooming. Intense eye contact Behavior: Patient is agitated behavior. Aggressive, threatening and paranoid, demanding Speech: Patient's speech is fluent and non-pressured. Demanding, irritable tone Mood/Affect: Patient reports their mood is "not good" Affect is congruent and irritable/agitated Suicidality/Homicidality: Patient denies any suicidal ideations, no intent or plan and denies any homicidal ideation, intention, and/or plan. Perceptions: Patient denies any auditory hallucinations or visual hallucinations Though content/process: Describing anhedonia, significant depression, endorsing paranoia, delusional. Threatening the hospital and staff members Memory and concentration: Unable to assess at this time Judgment and insight: poor/impulsive IMPRESSIONS: Schizoaffective disorder, depressive type Cannabis use disorder Nicotine dependence Non appliance with medication regimen PLAN: -Patient is admitted under involuntary status to MHU for stabilization of psychiatric symptoms and safety. Patient has not signed adult voluntary form and medication consent and is placed in patient's chart. -Medications: Invega 6 mg nightly for psychosis/mood stabilization with a plan to transition onto long-acting injection to help ensure compliance. Patient has been refusing this medication -Vistaril, ativan, benadryl and thorazine PRN for agitation/aggression and anxiety -NRT - nicotine patch -SW on board for discharge planning. Encourage patient to participate in groups to work on coping skills. patient did not defer with his cement truck driver, will wait for full hearing date on 08/29. plan will be to transition patient onto [facility].
[2024-08-23] MEDS: diphenhydrAMINE 25 MG CAP PO STA (15:01)
[2024-08-23] MEDS: chlorproMAZINE 25 MG TAB PO PRN (15:01)
[2024-08-24] MEDS: QUEtiapine 400 MG TAB PO STA (02:20)
--- NOTE | 2024-08-24 05:31 | P.PN ---
Progress Note - Text Progress Note Date: 08/22/24 Attempted to see patient in mental health unit. Patient declined to be interviewed at this time.
--- NOTE | 2024-08-24 12:35 | P.PN ---
Progress Note - Text Progress Note Date: 08/24/24 Interval history: Patient was seen earlier wandering the hallways. Patient continues to be impu lsive aggressive with staff members and threatening. Patient apparently told nurses and other staff members that he was going to "punch the doctor in the throat". He continues to be fairly unpredictable labile. He took Seroquel last night to help him sleep continues to refuse the Invega. He continues to be on a security one-to-one, was agreeable to speak in the lounge. Patient continues to have very poor insight poor judgment continues to believe that the medications are "fucking people up" and believes that the hospital and report writer are attempting to harm other people. He continues to state that he is getting outbound telemarketing representative to cornelio the hospital and states that "you are not going to get away with this". Continues to be difficult to redirect argumentative and threatening. States that "I can threaten whoever I want". Very poor insight into his actions. Denies any depression or anxiety. Continues to focus on discharge. Denies any auditory or visual hallucinations denies any suicidal homicidal ideations intent or plan. MENTAL STATUS EXAM: General Appearance: Patient appears to be tall, thin, disheveled appearance, uncooperative, argumentative, somewhat irritable. Patient appears to have fair hygiene and grooming. Intense eye contact Behavior: Patient is agitated behavior. Aggressive, ruminative, paranoid and demanding. Speech: Patient's speech is fluent and non-pressured. Demanding, irritable tone Mood/Affect: Patient reports their mood is "bad" Affect is congruent and irritable/agitated Suicidality/Homicidality: Patient denies any suicidal ideations, no intent or plan and denies any homicidal ideation, intention, and/or plan. Perceptions: Patient denies any auditory hallucinations or visual hallucinations Though content/process: Describing anhedonia, endorsing paranoia, delusional. Threatening the hospital and staff members and also threatening doctor. Memory and concentration: Unable to assess at this time Judgment and insight: chronically poor/impulsive IMPRESSIONS: Schizoaffective disorder, depressive type Cannabis use disorder Nicotine dependence Non appliance with medication regimen PLAN: -Patient is admitted under involuntary status to MHU for stabilization of psychiatric symptoms and safety. Patient has not signed adult voluntary form and medication consent and is placed in patient's chart. -Medications: will hold off on Invega PO for now as patient is not taking this. will resume seroquel 400 mg qhs for psychosis/mood stabilization. once patient is on a court order then will proceed with transition onto long-acting injection to help ensure compliance. Patient has been refusing this medication -Vistaril, ativan, benadryl and thorazine PRN for agitation/aggression and anxiety -NRT - nicotine patch -SW on board for discharge planning. Encourage patient to participate in groups to work on coping skills. patient did not defer with his laboratory mechanic helper, will wait for full hearing date on 08/29. plan will be to transition patient onto [facility].
[2024-08-24] MEDS: QUEtiapine 400 MG TAB PO SCH (19:10)
[2024-08-24] MEDS: traZODone HCL 100 MG TAB PO PRN (19:10)
[2024-08-25] MEDS: QUEtiapine 50 MG TAB PO SCH ×2 (08:25→12:21)
--- NOTE | 2024-08-25 10:10 | P.PN ---
Subjective Progress Note Date: 08/25/24 Principal diagnosis: schizoaffective Interval history: Patient was seen earlier wandering the hallways. he came right up to me and said, "Are you the doctor I need to talk to you." Patient continues to bewatched 1 on 1 but has not been aggressive with staff members and threatening. He continues to be fairly unpredictable labile. MENTAL STATUS EXAM: General Appearance: Patient appears to be tall, thin, disheveled appearance, fairly pleasant and cooperative he came right into the office and sat down. He does ramble a lot and get into some I paranoid discussions about the state of our country and how some relatives of his were involved with Mr. Duenas and shooting the president but that his family were able to get them moved out of the country so that they wouldn't be killed. Patient appears to have fair hygiene and grooming. Intense eye contact Behavior: Patient has some increased psychomotor activity but was able to sit in his chair throughout the interview Speech: Patient's speech is fluent and non-pressured. Mood/Affect: Patient reports their mood is "bad"he tends to go around around on how coming in the hospital and being sent to medical centers doesn't help him. Affect is congruent and irritable/agitated Suicidality/Homicidality: Patient denies any suicidal ideations, no intent or plan and denies any homicidal ideation, intention, and/or plan. Perceptions: Patient denies any auditory hallucinations or visual hallucinations Though content/process: he tends to ramble at psych pressure to speech Memory and concentration: Unable to assess at this time Judgment and insight: chronically poor/impulsive IMPRESSIONS: Schizoaffective disorder, depressive type Cannabis use disorder Nicotine dependence Non appliance with medication regimen PLAN: -Patient is admitted under involuntary status to MHU for stabilization of psychiatric symptoms and safety. Patient has not signed adult voluntary form and medication consent and is placed in patient's chart. -Medications: will hold off on Invega PO for now as patient is not taking this.the patient was positive about the Seroquel especially helping him sleep and said he had a good night sleep he says a 50 in the morning though does make him somewhat tired however we do not carry the time release Seroquel he would be willing to increase evening Seroquel and take a second one about noon of 50 -Vistaril, ativan, benadryl and thorazine PRN for agitation/aggression and anxiety -NRT - nicotine patch -SW on board for discharge planning. Encourage patient to participate in groups to work on coping skills. patient did not defer with his assistant county attorney, will wait for full hearing date on 08/29. plan will be to transition patient onto [facility]. Objective - Vital Signs Vital signs: Vital Signs Temp 98.1 F 08/25/24 08:27 Pulse 97 08/25/24 08:27 Resp 20 08/25/24 08:27 BP 118/75 08/25/24 08:27 Pulse Ox 98 08/24/24 20:00 FiO2
[2024-08-25] MEDS: LORazepam 2 MG/ML INJ IM PRN (13:55)
--- NOTE | 2024-08-25 14:14 | P.PN ---
Subjective Progress Note Date: 08/25/24 Principal diagnosis: schizoaffective the patient had been calm and we took him out of his isolation so he could be around people more as he has stayed calm for almost 2 days then he became focused on how he doesn't want to take any medication at all because if you take medicine and the court will lead to get custody of her child who is being taken care of by mom was a drug addict but if he doesn't take some medicine and they will give him a shot when he leaves and no shots make him worse. He got himself so worked up he was lunging at the [email or web address] yelling and screaming. I saw him in restraints he is still agitated unwilling to take a look at his behavior. So at this point hopefully he'll calm back down but will probably have to go back to him being in the isolated [place]. Objective - Vital Signs Vital signs: Vital Signs Temp 98.1 F 08/25/24 08:27 Pulse 97 08/25/24 08:27 Resp 20 08/25/24 08:27 BP 118/75 08/25/24 08:27 Pulse Ox 98 08/24/24 20:00 FiO2
[2024-08-25] MEDS: diphenhydrAMINE 50 MG/ML 1 ML VIAL IM PRN (14:41)
[2024-08-25] MEDS: QUEtiapine 200 MG TAB PO SCH (19:34)
--- NOTE | 2024-08-26 09:41 | P.PN ---
Subjective Progress Note Date: 08/26/24 Principal diagnosis: schizoaffective Principal diagnosis: schizoaffective Interval history: Patient was seen earlier wandering the hallways. He been fairly stable the previous 2 days so yesterday we allowed him to come into community and then he got all agitated. MENTAL STATUS EXAM: some flight of ideas mild laughing for no apparent reason,, General Appearance: Patient appears to be tall, thin, disheveled appearance,he says when he takes his Seroquel during the day it makes him sleepy and known think he needs it for his to go to sleep at night. Even when I pointed out that over the last 18 hours and that he needed a little during the day to stay in control, he has no insight so he doesn't realize that he needs it to slow down his racing thoughts and irrationality. Speech: Patient's speech is fluent and somewhat pressured although he has definitely drowsy from the medicine Mood/Affect: his mood seemed somewhat labile affect is somewhat calmer due to the tiredness Suicidality/Homicidality: Patient denies any suicidal ideations, no intent or plan and denies any homicidal ideation, intention, and/or plan. Perceptions: Patient denies any auditory hallucinations or visual hallucinations Though content/process: he tends to ramble at psych pressure to speech Memory and concentration: Unable to assess at this time Judgment and insight: chronically poor/impulsive IMPRESSIONS: Think the medicine has not had enough time to slow down the psychotic disorderI think he is a little more manageable due to the increase in the Seroquel Schizoaffective disorder, depressive type with psychosis Cannabis use disorder Nicotine dependence Non appliance with medication regimen PLAN:continue current medicines for now he still needs to be on one-on-one because although he is less agitated and somewhat more sleepy today he still has racing pressured irrational thoughts and is easily agitated -Patient is admitted under involuntary status to MHU for stabilization of psychiatric symptoms and safety. Patient has not signed adult voluntary form and medication consent and is placed in patient's chart. -Medications: will hold off on Invega PO for now as patient is not taking this.the patient was positive about the Seroquel especially helping him sleep and said he had a good night sleep he says a 50 in the morning though does make him somewhat tired however we do not carry the time release Seroquel he would be willing to increase evening Seroquel and take a second one about noon of 50 -Vistaril, ativan, benadryl and thorazine PRN for agitation/aggression and anxiety -NRT - nicotine patch -SW on board for discharge planning. Encourage patient to participate in groups to work on coping skills. patient did not defer with his energy attorney, will wait for full hearing date on 08/29. plan will be to transition patient onto [facility]. Objective - Vital Signs Vital signs: Vital Signs Temp 98.1 F 08/25/24 08:27 Pulse 125 H 08/26/24 09:01 Resp 18 08/26/24 09:01 BP 120/80 08/26/24 09:01 Pulse Ox 97 08/26/24 09:01 FiO2
[2024-08-27] MEDS: VENLAFAXINE HCL ER 75 MG CAP PO SCH (12:00)
--- NOTE | 2024-08-27 12:20 | P.PN ---
Progress Note - Text Progress Note Date: 08/27/24 Interval history: Patient was seen by the medication window with his security 1:1 to maintain saf ety. Patient appears eager to be seen by the psychiatrist today and was seen in the office with the security 1:1. On assessment, he appears to externalize blame, minimizes his symptoms, and appears flirtatious. He reports compliance with his Seroquel 600 mg QHS but is refusing the Seroquel 50 mg BID because he is concerned he will be "sedated" during the day. He has required PRN Ativan 2 mg po x 1 yesterday afternoon for agitation. He denies AVH, SI/HI, and claims his main symptoms are from PTSD. He reports nightmares but declines Prazosin when offered for nightmares. He is fixated on not needing so "much" medication, however he appears to be struggling with hypervigilance, anxiety, impulsivity, irritability with intermittent agitation, is suspicious/mistrusting of others, has poor insight. He appears intimidating and can easily lash out if feels he is provoked. His thought content is laced with profanity and he was reminded to be mindful of his speech and behaviors on the unit. He appears easily agitated if believes he has been provoked. He is agreeable to taking Effexor XR for PTSD. He claims he has taken this before with benefit. He is refusing any long-acting injectable antipsychotics, is refusing to take his Seroquel 50 mg BID despite education that he needs medication to help him in the afternoons/evenings. He refused a trial of Prazosin for nightmares or Clonidine for hy perarousal/nightmares. MENTAL STATUS EXAM: General Appearance: Patient appears to be tall, slender, disheveled appearance, shaggy haircut Speech: Patient's speech is fluent and non-pressured. He talks quickly at times when gets anxious. Mood/Affect: irritable edge/labile affect that alternates between frustration to smiling/flirtatious Suicidality/Homicidality: Patient denies any suicidal ideation, no intent or plan and denies any homicidal ideation, intention, and/or plan. Perceptions: Patient denies any auditory hallucinations or visual hallucinations, but does appear to be suspicious/mistrusting of others. Thought content/process: Linear, tends to deflect/Anxious rambling, with splitting, projection, profanity. Memory and concentration: Generally intact, although at times is impaired by poor insight Judgment and insight: chronically poor/impulsive IMPRESSIONS: Schizoaffective disorder, depressive type Cannabis use disorder Nicotine dependence Non compliance with medication regimen r/o personality disorder, unspecified r/o PTSD PLAN: -Will keep patient on a security 1:1 to maintain safety since he continues to have intermittent episodes of agitation requiring PRN medications and appears on edge/could easily lash if feels he has been provoked. -Patient is admitted under involuntary status to MHU for stabilization of psychiatric symptoms and safety. Patient has not signed adult voluntary form and medication consent and is placed in patient's chart. -Medications: He is currently refusing any long-acting injectable antipsychotics, any other oral antipsychotics, and is noncompliant with his Seroquel 50 mg BID. Continue Seroquel 600 mg QHS for mood/psychosis/sleep. Start Effexor XR 75 mg QAM for depression/PTSD symptoms. He reports he has taken this in the past with good benefit. -Vistaril, ativan, benadryl and thorazine PRN for agitation/aggression and anxiety -NRT - Nicotine patch -SW on board for discharge planning. He is currently on a 'no groups' order due to his threatening behaviors. -Per chart, patient did not defer with his red hat linux engineer, and will wait for full hearing date on 08/29/24. Plan will be to transition patient onto [facility] antipsychotic once on a court order in order due to history of noncompliance with medications.
[2024-08-27] MEDS: BENZOCAINE/MENTHOL LOZENG 1 EACH LOZENGE MUCOUS MEM PRN (16:09)
--- NOTE | 2024-08-28 12:28 | P.PN ---
Progress Note - Text Progress Note Date: 08/28/24 Interval history: Patient was seen wandering the hallways with his security 1:1 to maintain safe ty. Patient appears eager to be seen today by keno writer, spoke with keno writer in the lounge. He continues to have very poor insight poor judgment into what had occurred over the weekend, claims that he was in restraints however states that "they keep pushing me" and showed little ability to reflect back on his actions. Continues to externalize blame. States that he does not like his new medications. He claims that he does not want to be on a order at this time use spoken to about the court hearing scheduled for tomorrow morning. Claims that he is having anxiety feeling depressed. Continues to have mood swings, disruptive on the unit, attempting to go to group and disrupt group, is not allowed to go to groups at this time. He remains unpredictable on the unit. Endorsing paranoia towards his mom and delusional at times. Denies any auditory or visual hallucinations denies any suicidal homicidal ideations intent or plan. MENTAL STATUS EXAM: General Appearance: Patient appears to be tall, slender, disheveled appearance, shaggy haircut Speech: Patient's speech is fluent and non-pressured. He talks quickly at times Mood/Affect: irritable edge/labile affect that alternates between frustration to smiling/flirtatious Suicidality/Homicidality: Patient denies any suicidal ideation, no intent or plan and denies any homicidal ideation, intention, and/or plan. Perceptions: Patient denies any auditory hallucinations or visual hallucinations, but does appear to be suspicious/mistrusting of others. Thought content/process: Linear, tends to deflect/Anxious rambling, with splitting, projection, profanity. Memory and concentration: Generally intact, although at times is impaired by poor insight Judgment and insight: chronically poor/impulsive IMPRESSIONS: Schizoaffective disorder, depressive type Cannabis use disorder Nicotine dependence Non compliance with medication regimen r/o personality disorder, unspecified r/o PTSD PLAN: -Will keep patient on a security 1:1 to maintain safety since he continues to have intermittent episodes of agitation requiring PRN medications and appears on edge/could easily lash if feels he has been provoked. -Patient is admitted under involuntary status to MHU for stabilization of psychiatric symptoms and safety. Patient has not signed adult voluntary form and medication consent and is placed in patient's chart. -Medications: Continue Seroquel 600 mg QHS for mood/psychosis/sleep. added remeron 15 mg qhs for sleep pt requested to d/c Effexor for supposed intolerance -Vistaril, ativan, benadryl and thorazine PRN for agitation/aggression and anxiety -NRT - Nicotine patch -SW on board for discharge planning. He is currently on a 'no groups' order due to his threatening behaviors and disurptive bhvrs. -Per chart, patient did not defer with his commercial litigation attorney, and will wait for full hearing date on 08/29/24. Plan will be to transition patient onto HEND[facility]X antipsychotic once on a court order in order due to history of noncompliance with medications.
[2024-08-28] MEDS: MIRTAZAPINE 15 MG TAB PO SCH (20:19)
--- NOTE | 2024-08-29 11:37 | P.PN ---
Progress Note - Text Progress Note Date: 08/29/24 Interval history: Patient was seen wandering the hallways with his security 1:1 to maintain safe ty. Patient claims that he is doing "fine" continues to be irritable at times unpredictable. Continues to have very poor insight poor judgment into his need for hospitalization and medications. Apparently it was stated and documented that patient has been attempted to be sexually inappropriate with another patient on the unit and believes that staff members and security one-to-one is "cock blocking me". Patient was asked about this and he states that he is free to do what ever he wants. Continues to be inappropriate with staff members and disruptive on the unit. There is significant concern that patient is noncompliant with medications at home. He believes that he only has "PTSD". He was argumentative about being transition into a long-acting injection. Mobile Application Engineer believes that this is the safest and most appropriate action will be to offer a long-acting injection today. Patient deferred with his office professional yesterday. Claims that he is sleeping fairly with the Seroquel. Denies any issues with eating. Endorsing paranoia towards his mom and delusional at times. Denies any auditory or visual hallucinations denies any suicidal homicidal ideations intent or plan. MENTAL STATUS EXAM: General Appearance: Patient appears to be tall, slender, disheveled appearance, shaggy haircut Speech: Patient's speech is fluent and non-pressured. He talks quickly at times, argumentative Mood/Affect: irritable edge/labile affect that alternates between frustration and arguing Suicidality/Homicidality: Patient denies any suicidal ideation, no intent or plan and denies any homicidal ideation, intention, and/or plan. Perceptions: Patient denies any auditory hallucinations or visual hallucinations Thought content/process: Linear, tends to deflect/Anxious rambling, with splitting, projection, profanity. Memory and concentration: Generally intact, although at times is impaired by poor insight Judgment and insight: chronically poor/impulsive IMPRESSIONS: Schizoaffective disorder, depressive type Cannabis use disorder Nicotine dependence Non compliance with medication regimen r/o personality disorder, unspecified r/o PTSD PLAN: -Will keep patient on a security 1:1 to maintain safety since he continues to have intermittent episodes of agitation requiring PRN medications -Patient is admitted under involuntary status to MHU for stabilization of psychiatric symptoms and safety. Patient signed deferral with his office professional on 3/ -Medications: Seroquel 600 mg QHS for mood/psychosis/sleep. remeron 15 mg qhs for sleep due to patient being noin compliant with medications at home and frequent hospitalizations for Surgrip few severe aggression agitation psychosis. It was decided that patient would benefit more from long-acting injection. Mobile Application Engineer attempted to offer patient 2 options uzedy and invega sustenna and was given print outs of medication information today by nurse. patient was again revisted about the medication options and he claims that he is going to refuse both of them. -Vistaril, ativan, benadryl and thorazine PRN for agitation/aggression and anxiety -NRT - Nicotine patch -SW on board for discharge planning. He is currently on a 'no groups' order due to his threatening behaviors and disurptive bhvrs. -Plan will be to transition patient onto H[facility]X antipsychotic due to high risk of noncompliance rehospitalization and severe aggression and symptoms. He is currently on a deferral.
[2024-08-29] MEDS: PALIPERIDONE IM 234 MG/1.5 ML SYG IM ONE (12:10)
[2024-08-29] MEDS ORDERED: MIRTAZAPINE 15 MG TAB PO PRN (13:50)
[2024-08-29] MEDS: QUEtiapine 400 MG TAB PO SCH (21:02)
[2024-08-30 10:44] VITALS: BMI 23.5
--- NOTE | 2024-08-30 12:00 | P.PN ---
Progress Note - Text Progress Note Date: 08/30/24 Interval history: Patient was seen sitting in the lounge with another patient and security. He remains on a security one-to-one at this time. He claims that he is doing better today, appeared to be less irritable less aggressive with investment underwriter. More directable during conversation. Continues to have fairly poor insight into what brought him into the hospital states that "it was my mom messing with me" and states that "I knew better than 2 trust her". He states that he really wants to go home, fairly focused on discharge during conversation. We spoke about needing to do the second injection likely over the weekend before he is able to go. We did also speak about downgrading the security one-to-one to a staff member one-to-one which she is okay with. Claims that he slept about 8 or 9 hours last night, we spoke about transitioning him off of Seroquel and he is agreeable to try Remeron instead. States that his appetite is fair. Not endorsing paranoia today delusions improving. Denies any auditory or visual hallucinations denies any suicidal homicidal ideations intent or plan. MENTAL STATUS EXAM: General Appearance: Patient appears to be tall, slender, disheveled appearance, shaggy haircut Speech: Patient's speech is fluent and non-pressured. Speaking slower today, softer tone of voice Mood/Affect: Claims his mood is "fine" affect is fairly constricted congruent Suicidality/Homicidality: Patient denies any suicidal ideation, no intent or plan and denies any homicidal ideation, intention, and/or plan. Perceptions: Patient denies any auditory hallucinations or visual hallucinations Thought content/process: Patient is more goal oriented, less delusional and continues to be focused on discharge. Not endorsing paranoia Memory and concentration: Alert and oriented x 3, follows directions Judgment and insight: chronically poor/impulsive, improving mildly IMPRESSIONS: Schizoaffective disorder, depressive type Cannabis use disorder Nicotine dependence Non compliance with medication regimen r/o personality disorder, unspecified r/o PTSD PLAN: -At this time we will discontinue security 1:1 and downgrade to staff member one-to-one for 24 hours then reevaluate tomorrow. -Patient is admitted under involuntary status to MHU for stabilization of psychiatric symptoms and safety. Patient signed deferral with his estate planning attorney on 08/28 -Medications: plan to decrease and eventually taper off Seroquel 100 mg QHS for mood/psychosis/sleep. add remeron 15 mg qhs for sleep/mood. Patient received Invega Sustenna loading dose 234 mg IM on 08/29, next dose of 156 mg IM will be due on 09/02. -Vistaril, ativan, benadryl and thorazine PRN for agitation/aggression and anxiety -NRT - Nicotine patch - on board for discharge planning. He is currently on a 'no groups' order due to his threatening behaviors and disurptive bhvrs. will re-evaluate tomorrow. -Plan will be to transition patient onto HENDRIX antipsychotic due to high risk of noncompliance rehospitalization and severe aggression and symptoms. He is currently on a deferral. Patient will receive his second injection on Tuesday, likely discharge Tuesday back home. Patient will be closely followed up by [facility] on the ACT team
[2024-08-30] MEDS: QUEtiapine 100 MG TAB PO SCH (22:37)
[2024-08-30] MEDS: MIRTAZAPINE 15 MG TAB PO SCH (22:38)
--- NOTE | 2024-08-31 11:33 | P.PN ---
Progress Note - Text Progress Note Date: 08/31/24 Interval history: Patient was seen laying in his bed today. One-to-one sitter was discontinued this morning as patient has been stabilizing, not agitated and no behavioral issues. Patient was somewhat tired this morning, claims that he was able to sleep last night with the Seroquel. We spoke about changing to as needed which she is okay with. He will be trying the Remeron instead. He was fairly concrete, continues to be somewhat superficial. We spoke again about the plan about receiving the second dose of Invega Sustenna likely Tuesday and hopeful for Tuesday discharge if patient is doing well. He denies any depression or anxiety at this time. He is not endorsing paranoia delusions not aggressive today with financial writer. Claims that he is been eating fairly. Denies any auditory or visual hallucinations denies any suicidal homicidal ideations intent or plan. MENTAL STATUS EXAM: General Appearance: Patient appears to be tall, slender, disheveled appearance, shaggy haircut Speech: Patient's speech is fluent and non-pressured. Speaking slower today, softer tone of voice. More cooperative Mood/Affect: Claims his mood is "ok" affect is fairly constricted, improving mildly Suicidality/Homicidality: Patient denies any suicidal ideation, no intent or plan and denies any homicidal ideation, intention, and/or plan. Perceptions: Patient denies any auditory hallucinations or visual hallucinations Thought content/process: Patient is more goal oriented, not endorsing delusions today. Not endorsing paranoia. Fairly concrete Memory and concentration: Alert and oriented x 3, follows directions Judgment and insight: chronically poor, improving mildly IMPRESSIONS: Schizoaffective disorder, depressive type Cannabis use disorder Nicotine dependence Non compliance with medication regimen r/o personality disorder, unspecified r/o PTSD PLAN: -At this time we will discontinue staff 1:1 patient is improving, not agitated and no behavioral issues. Will continue to monitor at this time. Patient is also eligible to go back in to groups. -Patient is admitted under involuntary status to [facility] for stabilization of psychiatric symptoms and safety. Patient signed deferral with his attorney law clerk on 08/28 -Medications: Change Seroquel 100 mg QHS prn for sleep. increase remeron 30 mg qhs for sleep/mood. Patient received Invega Sustenna loading dose 234 mg IM on 08/29, next dose of 156 mg IM will be due on 09/02 -Vistaril, ativan, benadryl and thorazine PRN for agitation/aggression and an xiety -NRT - Nicotine patch -SW on board for discharge planning. -Continuing to transition patient onto HENDRIX antipsychotic due to high risk of noncompliance rehospitalization and severe aggression and symptoms. He is currently on a deferral. Patient will receive his second injection on Tuesday, likely discharge Tuesday back home. Patient will be closely followed up by [facility] on the ACT team
[2024-08-31] MEDS: MIRTAZAPINE 15 MG TAB PO SCH (20:44)
[2024-08-31] MEDS: QUEtiapine 100 MG TAB PO PRN (20:46)
--- NOTE | 2024-09-01 11:35 | P.PN ---
Progress Note - Text Progress Note Date: 09/01/24 Interval history: Patient was seen wandering the hallways and was directable and agreeable to s peak with magnetic tape typewriter operator. Patient appears to be more cooperative today with magnetic tape typewriter operator, states that he is doing well. Claims that he is worried about his belongings in his home, cannot wait to go home. He was less focused on discharge not threatening today, not responding to internal stimuli, has been going to groups socializing with others on the unit. Claims that he has been having some difficulties initiating sleep continues to be focused on wanting to be back on the Seroquel for sleep. Was agreeable to try Remeron. At this time patient denies any suicidal or homicidal ideations intent or plan. Denies any Auditory or visual hallucinations. Patient denies any side effects from the medications and has been compliant with meds. Mental status exam: General Appearance: Patient appears to be thin, shaky hair, stated age is alert, directable, and cooperative. Behavior: No agitated behavior. Patient is calm and directable attempts to cooperate Speech: Patient's speech is fluent and nonpressured. Mood/Affect: Mood is improving mildly, affect is congruent and constricted. Proving mildly Suicidality/Homicidality: Patient denies having any suicidal or homicidal ideation intent or plan. Perceptions: Patient denies any auditory or visual hallucinations. Though content/process: There is no evidence of any delusional thought content and thought process is linear and goal-directed. Memory and concentration: AOX3, grossly intact for the purposes of this session Judgment and insight: Poor, improving mildly Assessment/Plan: Continue with current diagnosis. Patient continues to meet saeed jacome for inpatient psychiatric admission for symptom stabilization and safety. Patient will be maintained on current psychotropic medication regimen. Monitor for medication compliance and for any psychotropic medication side effects. Will continue to monitor ongoing response to treatment. Encouraged participation in milieu.
[2024-09-01] MEDS: LORazepam 1 MG TAB PO PRN (12:07)
[2024-09-01] MEDS: MIRTAZAPINE 15 MG TAB PO SCH (22:12)
--- NOTE | 2024-09-02 12:23 | P.PN ---
Progress Note - Text Progress Note Date: 09/02/24 Interval history: Patient was seen wandering the hallways and was directable and agreeable to s peak with radio script writer. Patient claims that he did not sleep well last night, continues to focus on his Seroquel dose. He claims that he knew he should not have taken everything to court as his hospital stay has been prolonged. He was mildly irritable today, continues to focus on discharge likely tomorrow. He is agreeable to receive the long-acting injection today. He states that he has been trying very hard to keep to himself and do well on the unit. He is denying any depression or anxiety at this time. Other medication options were offered for nighttime, he wants to remain on the Remeron however wants a increase in dose. At this time patient denies any suicidal or homicidal ideations intent or plan. Denies any Auditory or visual hallucinations. Patient denies any side effects from the medications and has been compliant with meds. Mental status exam: General Appearance: Patient appears to be thin, shaky hair, stated age is alert, directable, and cooperative. Behavior: No agitated behavior. Patient is calm and directable attempts to cooperate, mildly irritable today. Speech: Patient's speech is fluent and nonpressured. Mood/Affect: Mood is improving mildly, affect is congruent and constricted. Proving mildly Suicidality/Homicidality: Patient denies having any suicidal or homicidal ideation intent or plan. Perceptions: Patient denies any auditory or visual hallucinations. Though content/process: There is no evidence of any delusional thought content and thought process is linear and goal-directed. Memory and concentration: AOX3, grossly intact for the purposes of this session Judgment and insight: Poor, improving mildly Assessment/Plan: Continue with current diagnosis. Patient continues to meet criteria for inpatient psychiatric admission for symptom stabilization and safety. Patient will be maintained on current psychotropic medication regimen, increasing Remeron to 30 mg nightly for tonight, patient is agreeable to receive the second dose of Invega Sustenna 156 mg IM today. Monitor for medication compliance and for any psychotropic medication side effects. Will continue to monitor ongoing response to treatment. Encouraged participation in milieu. Likely discharge tomorrow if patient is doing well.
[2024-09-02] MEDS: PALIPERIDONE IM 156 MG/ML SYG IM ONE (14:33)
[2024-09-02] MEDS: MIRTAZAPINE 15 MG TAB PO SCH (20:09)
--- NOTE | 2024-09-03 10:24 | P.DS ---
Providers Date of admission: 08/19/24 21:39 Expected date of discharge: 09/03/24 Attending physician: Dominick Lind MD Consults: 08/19/24 21:51 Consult Physician Routine Consulting Provider: Belen Physician Consult Reason/Comments: medical H&P Do you want consulting provider notified?: Yes Primary care physician: Stated None - Discharge Diagnosis(es) (1) Schizoaffective disorder, depressive type Current Visit: Yes Status: Acute Priority: High (2) Cannabis use disorder Current Visit: Yes Status: Acute Priority: Medium (3) Nicotine dependence Current Visit: Yes Status: Acute Priority: Low (4) Non compliance w medication regimen Current Visit: Yes Status: Acute Priority: High (5) Personality disorder Current Visit: Yes Status: Acute Priority: High (6) PTSD (post-traumatic stress disorder) Current Visit: Yes Status: Acute Priority: Medium Hospital Course: Admission HPI: Admission note was completed by program writer" Patient is a 33 year old single male who lives alone, in an apartment, 2 kids, single, [facility]. Patient was brought into the hospital and was evaluated by EPS and according to note "Patient presented to ER on own related to suicidal ideation without a plan. Attempted to assess patient at 1307 and patient spit on program writer, was restrained, and agitated. Patient assessment was reattempted at 1503 and 1647 at these times patient appeared to be somnolent, unable to arouse for interview or answer any assessment questions. Patient assessed from [id number]. Patient states that he is having suicidal ideation with no plan. Patient remains appearing irritable and agitated, patient remains in restraints at this time. Patient denies outpatient treatment at this time or follow up after previous discharge." Patient has had several psychiatric admissions in the past, last notable admission was in June 2024, is supposed be following up at [facility]. Currently taking Remeron and Seroquel and Wellbutrin since last discharge. Patient received a as needed of Haldol and Ativan in the ER for severe aggression agitation. Patient has history of schizoaffective disorder cannabis use. Patient was seen in the hallways agreeable to speak to program writer, appeared to be disheveled in appearance. He was posturing, a bit threatening and irritable with program writer. He claims that his father brought him to the hospital however does not know why. He claims that he has not been taking his medications, believes that the hospital is plotting against people to "force medications on them". He appeared to be fairly delusional paranoid and aggressive. He did not believe that he needs any mental health treatment or to be in the hospital. He also claims that he does not eat any medications and believes that it is all a conspiracy against him. He claims that his mother was recently brought back into his life and claims that he kicked her out of the house and states that "I have been just dealing with a lot of stress". Claims that he was feeling depressed and suicidal however not any longer. Denies any suicidal homicidal ideations intent or plan denies any auditory or visual hallucinations. Claims that his sleep and appetite are fair. Denying any recreational drug use, did not provide a urine drug screen. She was fairly uncooperative with the interview and the rest of the psychiatric and social history was taken from the chart" Hospital course: Upon admission to the unit patient was admitted involuntarily on a petition and certificate and a second certificate was completed and faxed to the courts. Patient ended up signing a deferral with the patent prosecution attorney and agreeing to treatment. Patient was initially aggressive hostile psychotic however with time and treatment patient got along well with other patients on the unit and followed unit protocol. Patient was given several as needed medications and was placed in restraints as well for aggression towards others threatening and severe psychosis. Patient was compliant with the medications and denied any side effects throughout hospital course. Patient was started on Seroquel 100 mg nightly as needed for insomnia, Remeron 15 mg nightly for insomnia/mood, due to patient's history of noncompliance with medications he was given Invega Sustenna 234 mg IM on 08/29, second dose of 156 mg IM will be due on 09/02. Patient required a one-to-one security for part of his hospitalization due to impulsivity, aggression and intrusiveness. Patient was then downgraded to one-to-one staff for 24 hours then discontinued. Patient also was ordered not to attend groups due to disruptive behavior, this was discontinued a few days prior to discharge today. Patient spoke of his stressors and engaged in therapy both group/activity therapy. Patient was also seen by medical team for history and physical exam. Throughout the course of the hospitalization patient gradually improved with regards to mood, anxiety, psychosis, sleep and returned back to their baseline level of functioning. On the day of discharge patient denied any suicidal or homicidal ideations intent or plan denied any auditory or visual hallucinations. Patient endorsed wanting to live for their health and family. The patient denied any access to guns or weapons. Patient denied any paranoia and did not endorse any delusions. Patient does have a significant history of substance abuse and was counseled on abstaining from all substances including alcohol and marijuana. Patient elected to do outpatient substance use treatment program through their outpatient provider.. Patient was also counseled on the medications and need for regular compliance and was encouraged to follow-up with their outpatient appointment for mental health and also for primary care. Patient's guardian will be notified of patient discharge today, patient will be discharged back home follow-up with [facility]. Mental status exam: General Appearance: Patient appears to be thin, shaky hair, stated age is alert, pleasant, and cooperative. Patient is in no acute distress and has improved hygiene and grooming Behavior: Patient is calmly seated without any agitated behavior. Speech: Patient's speech is fluent and nonpressured. Mood/Affect: Patient reports their mood is "good", affect is congruent Suicidality/Homicidality: Patient denies having any suicidal or homicidal ideation intent or plan. Perceptions: Patient denies any auditory or visual hallucinations. Though content/process: There is no evidence of any delusional thought content and thought process is linear and goal-directed. More future oriented Memory and concentration: AOX3, grossly intact for the purposes of this session. Can spell "WORLD" backwards correctly. Judgment and insight: Chronically poor, however has improved with guarded prognosis Impression: Schizoaffective disorder depressive type Cannabis use disorder Personality disorder unspecified Noncompliance with medication regimen PTSD Nicotine dependence Plan: -Continue with discharge today as patient has improved and stabilized psychiatrically and is not currently an imminent threat to themself and/or others. Patient will remain at chronically elevated risk for harm to self and/or others due to their impulsivity and substance abuse. -Continue medications: Seroquel 100 mg nightly as needed for sleep, Remeron 15 mg nightly for sleep/mood, patient was given Invega Sustenna 234 mg IM on 08/29, second dose of 156 mg IM was given on 09/02, next dose to be given q. monthly at [facility] on 10/01 will be 156 mg IM. -Patient was counseled on the need for medication compliance and appropriate follow-up at mental health and also primary care for medical issues. Patient verbalized understanding and agreed. -Social work to help coordinate patients discharge today. also to ensure safe home environment that guns/weapons are either removed from the home or locked away. Social work also to arrange for patients follow up appointments with [facility] for psychiatric care along with follow up with primary care provider. -Patient counseled on abstaining from recreational drugs and marijuana and alcohol. Was informed/educated on the adverse effects on their physical and mental health. Patient verbally agreed and understood. Patient was offered substance abuse treatment however declined at this time. -Patient was instructed to return to the hospital or seek immediate medical care if their psychiatric or medical symptoms do worsen or reoccur. Allergies Allergy/AdvReac Type Severity Reaction Status Date / Time fluphenazine [From Prolixin] AdvReac Shaking Verified 08/19/24 12:08 per [facility] records gabapentin AdvReac agitation Verified 08/19/24 12:08 haloperidol [From Haldol] AdvReac reverse Verified 08/19/24 12:08 effects ziprasidone [From Geodon] AdvReac Suicidal Verified 08/19/24 12:08 Thoughts Laboratory Results Influenza Type A (PCR) Not Detected (Not Detectd) 08/19/24 18:47 Influenza Type B (PCR) Not Detected (Not Detectd) 08/19/24 18:47 RSV (PCR) Not Detected (Not Detectd) 08/19/24 18:47 SARS-CoV-2 (PCR) Not Detected (Not Detectd) 08/19/24 18:47 Vital Signs Temp 96.9 F L 09/02/24 20:09 Pulse 89 09/02/24 20:09 Resp 12 09/02/24 20:09 BP 110/76 09/02/24 20:09 Pulse Ox 96 09/02/24 20:09 FiO2 Intake & Output 09/02/24 09/03/24 09/03/24 18:59 06:59 18:59 Weight 79.515 kg Patient Condition at Discharge: Stable Plan - Discharge Summary Discharge Rx Participant: No New Discharge Prescriptions: New Benzocaine/Menthol Lozeng [Cepacol lozenge] 1 each MUCOUS MEM Q2HR PRN lozenge PRN Reason: Sore Throat Paliperidone IM [Invega Sustenna] 156 mg IM QMONTHLY #1 each Nicotine 14Mg/24Hr Patch [Habitrol] 1 patch TRANSDERM DAILY 14 Days #14 patch Nicotine Gum (Polacrilex) [Nicorette] 2 mg BUCCAL Q4HR PRN pieceofgum PRN Reason: Nicotine Cravings QUEtiapine [SEROquel] 100 mg PO HS PRN 14 Days #14 tab PRN Reason: Insomnia Continue Mirtazapine [Remeron] 15 mg PO HS 30 Days #30 tab Discontinued buPROPion XL [Wellbutrin XL] 300 mg PO DAILY 14 Days #14 tab QUEtiapine [SEROquel] 400 mg PO HS 14 Days #28 tab Nicotine 14Mg/24Hr Patch [Habitrol] 1 patch TRANSDERM DAILY 14 Days #14 patch Discharge Medication List Benzocaine/Menthol Lozeng [Cepacol lozenge] 1 each MUCOUS MEM Q2HR PRN lozenge 09/03/24 [Rx] Mirtazapine [Remeron] 15 mg PO HS 30 Days #30 tab 09/03/24 [Rx] Nicotine 14Mg/24Hr Patch [Habitrol] 1 patch TRANSDERM DAILY 14 Days #14 patch 09/03/24 [Rx] Nicotine Gum (Polacrilex) [Nicorette] 2 mg BUCCAL Q4HR PRN pieceofgum 09/03/24 [Rx] Paliperidone IM [Invega Sustenna] 156 mg IM QMONTHLY #1 each 09/03/24 [Rx] QUEtiapine [SEROquel] 100 mg PO HS PRN 14 Days #14 tab 09/03/24 [Rx] Follow up Appointment(s)/Referral(s): [facility] [NON-STAFF] - 1 Week Activity/Diet/Wound Care/Special Instructions: [facility] Discharge Info Avoid the use of street drugs and alcohol. Take all medications as prescribed. When you are in need of refills on your medications, please contact your outpatient medical provider and/or outpatient psychiatrist. Please go to your scheduled outpatient appointments for aftercare treatment. If symptoms return or become worse, call the crisis line at or and/or visit the nearest emergency room for assistance. National Suicide and Crisis Lifeline - call or text 988 Discharge Disposition: HOME SELF-CARE
[2024-09-03 10:42] VITALS: BP 110/80; PULSE 112; RESP 16; TEMP 97.6
== END 2024-09-03 12:30 | disposition home or self-care (01) | DRG 885 ==
LOC: EC 12:03 → 3MHU 21:39
PROVIDERS: ADMIT Psychiatry & Neurology Psychiatry; ATTEND Psychiatry & Neurology Psychiatry
DX: F25.1 Schizoaffective disorder, depressive type (principal); R45.851 Suicidal ideations; F12.10 Cannabis abuse, uncomplicated; F60.2 Antisocial personality disorder; Z78.1 Physical restraint status; F41.9 Anxiety disorder, unspecified; F90.9 Attention-deficit hyperactivity disorder, unspecified type; F43.10 Post-traumatic stress disorder, unspecified; F41.0 Panic disorder [episodic paroxysmal anxiety]; G47.00 Insomnia, unspecified; F17.210 Nicotine dependence, cigarettes, uncomplicated; F17.290 Nicotine dependence, other tobacco product, uncomplicated; Z91.148 Patient's other noncompliance with medication regimen for other reason; Z79.899 Other long term (current) drug therapy; Z88.8 Allergy status to other drugs, medicaments and biological substances
CPT/HCPCS: 82075; 87636; 96372; 99285

== ENCOUNTER 2024-09-07 18:01 | Emergency (ER) | payer MEDICARE, MEDICAID ==
[2024-09-07 18:37] VITALS: RESP 18
[2024-09-07 19:51] LABS: Amphetamine Screen,Urine Not Detected (NotDetected); Barbiturate Screen,Urine Not Detected (NotDetected); Benzodiazepines Screen,Urine Not Detected (NotDetected); Cocaine Screen,Urine Not Detected (NotDetected); Methadone Screen, Urine Not Detected (NotDetected); Opiate Screen,Urine Not Detected (NotDetected); Oxycodone Screen, Urine Not Detected (NotDetected); Phencyclidine Screen,Urine Not Detected (NotDetected); Tricyclic Antidepressant,Urine Not Detected (NotDetected); Urn Cannabinoid Scrn Detected (NotDetected)
--- NOTE | 2024-09-07 20:29 | ED ---
General Adult HPI <Elian Licona - Last Filed: 09/07/24 20:49> - General Source: patient Mode of arrival: ambulatory Limitations: no limitations <Hanh Lee - Last Filed: 09/07/24 21:51> - General Chief complaint: Psychiatric Symptoms Stated complaint: mental health Time Seen by Provider: 09/07/24 18:38 - History of Present Illness Initial comments: 33-year-old male presenting for mental health evaluation. Patient reports that he has not been taking his medications. He states that his mom is "ruining his life". He is having suicidal ideations, when asked if he has a plan he states "I do not like to tell people about that". He denies homicidal ideation. He has no physical complaints today. (Hanh Lee) - Related Data Previous Rx's Medication Instructions Recorded Benzocaine/Menthol Lozeng [Cepacol 1 each MUCOUS MEM Q2HR PRN lozenge 09/03/24 lozenge] Mirtazapine [Remeron] 15 mg PO HS 30 Days #30 tab 09/03/24 Nicotine 14Mg/24Hr Patch [Habitrol] 1 patch TRANSDERM DAILY 14 Days 09/03/24 #14 patch Nicotine Gum (Polacrilex) 2 mg BUCCAL Q4HR PRN pieceofgum 09/03/24 [Nicorette] Paliperidone IM [Invega Sustenna] 156 mg IM QMONTHLY #1 each 09/03/24 QUEtiapine [SEROquel] 100 mg PO HS PRN 14 Days #14 tab 09/03/24 Allergies Allergy/AdvReac Type Severity Reaction Status Date / Time fluphenazine [From Prolixin] AdvReac Shaking Verified 09/07/24 18:37 per [facility] records gabapentin AdvReac agitation Verified 09/07/24 18:37 haloperidol [From Haldol] AdvReac reverse Verified 09/07/24 18:37 effects ziprasidone [From Geodon] AdvReac Suicidal Verified 09/07/24 18:37 Thoughts Review of Systems ROS Other: All systems not noted in ROS Statement are negative. <Elian Licona - Last Filed: 09/07/24 20:49> ROS Other: All systems not noted in ROS Statement are negative. <Hanh Lee - Last Filed: 09/07/24 21:51> ROS Statement: Those systems with pertinent positive or pertinent negative responses have been documented in the HPI. Past Medical History Past Medical History: Respiratory Disorder Additional Past Medical History / Comment(s): pt denies any past medical history History of Any Multi-Drug Resistant Organisms: None Reported Past Surgical History: Tonsillectomy Additional Past Surgical History / Comment(s): colonoscopy Past Anesthesia/Blood Transfusion Reactions: No Reported Reaction Past Psychological History: ADD/ADHD, Anxiety, Depression, Panic Disorder, Schizophrenia Smoking Status: Current every day smoker, Vaper Past Alcohol Use History: None Reported Past Drug Use History: None Reported - Past Family History Father History Unknown: Yes Additional Family Medical History / Comment(s): Father is alive with history of anxiety. Mother History Unknown: Yes Family Medical History: Osteoarthritis (OA) Additional Family Medical History / Comment(s): Mother is alive with history of back problems and back surgery. Brother(s) Family Medical History: No Reported History Additional Family Medical History / Comment(s): Patient has one half brother with no major medical problems. He has 1 sister with no major medical problems. Patient has one son that is healthy. <Hanh Lee - Last Filed: 09/07/24 21:51> General Exam Limitations: no limitations General appearance: alert, in no apparent distress Head exam: Present: atraumatic, normocephalic, normal inspection Eye exam: Present: normal appearance, EOMI Neck exam: Present: normal inspection. Absent: meningismus Respiratory exam: Absent: respiratory distress Neurological exam: Present: alert, oriented X3 Psychiatric exam: Present: normal mood, flat affect, suicidal ideation. Absent: homicidal ideation Skin exam: Present: normal color <Hanh Lee - Last Filed: 09/07/24 21:51> Course <RickaydenElian - Last Filed: 09/07/24 20:49> Vital Signs 09/07/24 18:34 Temperature 97.8 F Pulse Rate 108 H Respiratory 18 Rate Blood Pressure 115/75 O2 Sat by Pulse 98 Oximetry - Reevaluation(s) Reevaluation #1: 09/07/24 20:49 Patient evaluated by EPS felt to require inpatient psychiatric care. Patient requesting transfer for further psychiatric care for depression and suicidal ideation. I did complete a clinical certification on this patient. (Elian Licona) Medical Decision Making - Lab Data Result diagrams: 09/07/24 20:42 09/07/24 20:42 <Hanh Lee - Last Filed: 09/07/24 21:51> - Medical Decision Making Was pt. sent in by a medical professional or institution (, PA, FARM CROPS TEACHER, urgent care, hospital, or halfway...) When possible be specific @ -No Did you speak to anyone other than the patient for history (EMS, parent, family, police, friend...)? What history was obtained from this source @ -No Did you review nursing and triage notes (agree or disagree)? Why? @ -I reviewed and agree with nursing and triage notes Were old charts reviewed (outside hosp., previous admission, EMS record, old EKG, old radiological studies, urgent care reports/EKG's, halfway records)? Report findings @ -No old charts were reviewed Differential Diagnosis (chest pain, altered mental status, abdominal pain women, abdominal pain men, vaginal bleeding, weakness, fever, dyspnea, syncope, headache, dizziness, GI bleed, back pain, seizure, CVA, palpatations, mental health, musculoskeletal)? @ -Differential Mental Health Depression, anxiety, bipolar, psychosis, schizophrenia, borderline personality, situational depression, adjustment disorder, behavioral disorder, brain tumor, malingering, substance abuse, encephalopathy, medication reaction, dementia, hypothyroidism, degenerative neurologic disorder, lupus.... This is not meant to be all-inclusive list EKG interpreted by me (3pts min.). @ -As above X-rays interpreted by me (1pt min.). @ -None done CT interpreted by me (1pt min.). @ -None done U/S interpreted by me (1pt. min.). @ -None done What testing was considered but not performed or refused? (CT, X-rays, U/S, labs)? Why? @ -None What meds were considered but not given or refused? Why? @ -None Did you discuss the management of the patient with other professionals (professionals i.e. , PA, FARM CROPS TEACHER, lab, RT, psych nurse, socially responsible investment adviser, emergency medical service coordinator, teacher, customs officer, community case manager)? Give summary @ -Spoke with EPS, they are recommending admission for this patient. Patient is requesting to be transferred to a different inpatient facility, EPS nurse informs me that they will attempt to facilitate a transfer for 24 hours and if he is not accepted then he will be admitted to our psychiatric unit Was smoking cessation discussed for >3mins.? @ -No Was critical care preformed (if so, how long)? @ -No Were there social determinants of health that impacted care today? How? (Homelessness, low income, unemployed, alcoholism, drug addiction, transportation, low edu. Level, literacy, decrease access to med. care, [facility], rehab)? @ -No Was there de-escalation of care discussed even if they declined (Discuss DNR or withdrawal of care, Hospice)? DNR status @ -No What co-morbidities impacted this encounter? (DM, HTN, Smoking, COPD, CAD, Cancer, CVA, ARF, Chemo, Hep., AIDS, mental health diagnosis, sleep apnea, morb id obesity)? @ -None Was patient admitted / discharged? Hospital course, mention meds given and rou te, prescriptions, significant lab abnormalities, going to OR and other pertinent info. @ -33-year-old male presenting for mental health evaluation. He is having suicidal ideation. He is medically cleared and evaluated by EPS. They are recommending inpatient management. Patient request to be transferred to a different inpatient facility, EPS will attempt to transfer for 24 hours, in the event that no facilities are able to accept the patient he will be admitted to our psychiatric unit. My attending is Dr. Licona Undiagnosed new problem with uncertain prognosis? @ -No Drug Therapy requiring intensive monitoring for toxicity (Heparin, Nitro, Insulin, Cardizem)? @ -No Were any procedures done? @ -No Diagnosis/symptom? @ -Suicidal ideation Acute, or Chronic, or Acute on Chronic? @ -Acute Uncomplicated (without systemic symptoms) or Complicated (systemic symptoms)? @ -Complicated Side effects of treatment? @ -No Exacerbation, Progression, or Severe Exacerbation? @ -No Poses a threat to life or bodily function? How? (Chest pain, [place], [place], pneumonia, PE, COPD, DKA, ARF, appy, cholecystitis, CVA, Diverticulitis, Homicidal, Suicidal, threat to staff... and all critical care pts) @ -Yes (Hanh Lee) - Lab Data Lab Results 09/07/24 09/07/24 09/07/24 Range/Units 17:48 20:42 20:42 WBC 14.6 H (3.8-10.6) k/uL RBC 5.14 (4.30-5.90) m/uL Hgb 14.9 (13.0-17.5) gm/dL Hct 44.5 (39.0-53.0) % MCV 86.5 (80.0-100.0) fL MCH 28.9 (25.0-35.0) pg MCHC 33.4 (31.0-37.0) g/dL RDW 12.7 (11.5-15.5) % Plt Count 281 (150-450) k/uL MPV 8.0 Neutrophils % 67 % Lymphocytes % 25 % Monocytes % 4 % Eosinophils % 2 % Basophils % 0 % Neutrophils # 9.8 H (1.3-7.7) k/uL Lymphocytes # 3.6 (1.0-4.8) k/uL Monocytes # 0.6 (0-1.0) k/uL Eosinophils # 0.3 (0-0.7) k/uL Basophils # 0.1 (0-0.2) k/uL Sodium 141 (137-145) mmol/L Potassium 4.0 (3.5-5.1) mmol/L Chloride 101 (98-107) mmol/L Carbon Dioxide 31 H (22-30) mmol/L Anion Gap 9 mmol/L BUN 12 (9-20) mg/dL Creatinine 1.00 (0.66-1.25) mg/dL Est GFR (CKD-EPI)AfAm >90 (>60 ml/min/1.73 sqM) Est GFR (CKD-EPI)NonAf >90 (>60 ml/min/1.73 sqM) Glucose 90 (74-99) mg/dL Calcium 9.0 (8.4-10.2) mg/dL Total Bilirubin 0.3 (0.2-1.3) mg/dL AST 22 (17-59) U/L ALT 14 (4-49) U/L Alkaline Phosphatase 80 (38-126) U/L Total Protein 6.3 (6.3-8.2) g/dL Albumin 4.0 (3.5-5.0) g/dL Urine Opiates Screen Not Detected (NotDetected) Ur Oxycodone Screen Not Detected (NotDetected) Urine Methadone Screen Not Detected (NotDetected) Ur Barbiturates Screen Not Detected (NotDetected) U Tricyclic Antidepress Not Detected (NotDetected) Ur Phencyclidine Scrn Not Detected (NotDetected) Ur Amphetamines Screen Not Detected (NotDetected) U Methamphetamines Scrn Not Detected (NotDetected) U Benzodiazepines Scrn Not Detected (NotDetected) Urine Cocaine Screen Not Detected (NotDetected) U Marijuana (THC) Screen Detected H (NotDetected) Influenza Type A (PCR) (Not Detectd) Influenza Type B (PCR) (Not Detectd) RSV (PCR) (Not Detectd) SARS-CoV-2 (PCR) (Not Detectd) 09/07/24 Range/Units 20:42 WBC (3.8-10.6) k/uL RBC (4.30-5.90) m/uL Hgb (13.0-17.5) gm/dL Hct (39.0-53.0) % MCV (80.0-100.0) fL MCH (25.0-35.0) pg MCHC (31.0-37.0) g/dL RDW (11.5-15.5) % Plt Count (150-450) k/uL MPV Neutrophils % % Lymphocytes % % Monocytes % % Eosinophils % % Basophils % % Neutrophils # (1.3-7.7) k/uL Lymphocytes # (1.0-4.8) k/uL Monocytes # (0-1.0) k/uL Eosinophils # (0-0.7) k/uL Basophils # (0-0.2) k/uL Sodium (137-145) mmol/L Potassium (3.5-5.1) mmol/L Chloride (98-107) mmol/L Carbon Dioxide (22-30) mmol/L Anion Gap mmol/L BUN (9-20) mg/dL Creatinine (0.66-1.25) mg/dL Est GFR (CKD-EPI)AfAm (>60 ml/min/1.73 sqM) Est GFR (CKD-EPI)NonAf (>60 ml/min/1.73 sqM) Glucose (74-99) mg/dL Calcium (8.4-10.2) mg/dL Total Bilirubin (0.2-1.3) mg/dL AST (17-59) U/L ALT (4-49) U/L Alkaline Phosphatase (38-126) U/L Total Protein (6.3-8.2) g/dL Albumin (3.5-5.0) g/dL Urine Opiates Screen (NotDetected) Ur Oxycodone Screen (NotDetected) Urine Methadone Screen (NotDetected) Ur Barbiturates Screen (NotDetected) U Tricyclic Antidepress (NotDetected) Ur Phencyclidine Scrn (NotDetected) Ur Amphetamines Screen (NotDetected) U Methamphetamines Scrn (NotDetected) U Benzodiazepines Scrn (NotDetected) Urine Cocaine Screen (NotDetected) U Marijuana (THC) Screen (NotDetected) Influenza Type A (PCR) Not Detected (Not Detectd) Influenza Type B (PCR) Not Detected (Not Detectd) RSV (PCR) Not Detected (Not Detectd) SARS-CoV-2 (PCR) Not Detected (Not Detectd) Disposition <Elian Licona - Last Filed: 09/07/24 20:49> Time of Disposition: 20:28 <Hanh Lee - Last Filed: 09/07/24 21:51> Clinical Impression: Suicidal ideations Disposition: TRANSFER TO PSYCH HOSP/UNIT Condition: Fair Referrals: None,Stated [Primary Care Provider] - 1-2 days
[2024-09-07 20:50] LABS: Basophils # (A) 0.1 k/uL (0-0.2); Basophils % (A) 0 %; Eosinophils # (A) 0.3 k/uL (0-0.7); Eosinophils % (A) 2 %; HCT 44.5 % (39.0-53.0); HGB 14.9 gm/dL (13.0-17.5); Lymphocytes # (A) 3.6 k/uL (1.0-4.8); Lymphocytes % (A) 25 %; MCH 28.9 pg (25.0-35.0); MCHC 33.4 g/dL (31.0-37.0); MCV 86.5 fL (80.0-100.0); Monocytes # (A) 0.6 k/uL (0-1.0); Monocytes % (A) 4 %; Neutrophils # (A) 9.8 k/uL (1.3-7.7); Neutrophils % (A) 67 %; Platelet Count 281 k/uL (150-450); RBC 5.14 m/uL (4.30-5.90); RDW 12.7 % (11.5-15.5); WBC 14.6 k/uL (3.8-10.6)
[2024-09-07 21:03] LABS: ALT 14 U/L (4-49); AST 22 U/L (17-59); African American GFR (CKD) >90 (>60 ml/min/1.73 sqM); Alkaline Phosphatase 80 U/L (38-126); Anion Gap 9 mmol/L; Blood Urea Nitrogen 12 mg/dL (9-20); Carbon Dioxide 31 mmol/L (22-30); Chloride 101 mmol/L (98-107); Glucose 90 mg/dL (74-99); Non-African American GFR(CKD) >90 (>60 ml/min/1.73 sqM); Sodium 141 mmol/L (137-145); Total Bilirubin 0.3 mg/dL (0.2-1.3); Total Protein 6.3 g/dL (6.3-8.2)
[2024-09-07 21:23] LABS: Influenza A Not Detected (Not Detectd); Influenza B Not Detected (Not Detectd); RSV Not Detected (Not Detectd)
[2024-09-08 19:22] VITALS: BP 119/81; PULSE 74; TEMP 98.3
== END 2024-09-08 19:22 ==
LOC: EC 18:01
DX: R45.851 Suicidal ideations (principal); F17.290 Nicotine dependence, other tobacco product, uncomplicated; Z88.8 Allergy status to other drugs, medicaments and biological substances
CPT/HCPCS: 36415; 80053; 80306; 82075; 85025; 87636; 99285